=== PATIENT | male | born 1950 | race Caucasian/White ===

== ENCOUNTER → 2019-02-23 | Outpatient (CLI) | payer MEDICARE, OTHER ==
[2019-02-23 13:59] LABS: ALANINE AMINOTRANSFERASE 59 U/L (0-55); ALBUMIN 4.2 GM/DL (3.2-4.5); ALKALINE PHOSPHATASE 49 U/L (40-136); BILIRUBIN,TOTAL 0.5 MG/DL (0.1-1.0); BUN/CREATININE RATIO 19; CALCIUM 9.2 MG/DL (8.5-10.1); CARBON DIOXIDE 27 MMOL/L (21-32); CHLORIDE 102 MMOL/L (98-107); CREATININE SERUM 1.11 MG/DL (0.60-1.30); GFR ESTIMATED > 60; GLUCOSE 105 MG/DL (70-105); SODIUM 141 MMOL/L (135-145)
== END ==
LOC: LAB FS 13:15
PROVIDERS: ATTEND Pediatrics
DX: E87.5 Hyperkalemia (principal)
CPT/HCPCS: 36415; 80053

== ENCOUNTER 2021-09-24 15:10 | Emergency (ER) | payer MEDICARE, OTHER ==
--- NOTE | 2021-09-24 15:21 | ED General ---
General Stated Complaint: AMS Source of Information: Patient, EMS Exam Limitations: Other (slow to answer questions and somnolent) History of Present Illness Date Seen by Provider: Sep 24, 2021 Time Seen by Provider: 15:10 Initial Comments 71 year old male presenting by EMS with altered mental status. He has a history of COPD and is to be wearing oxygen but was found laying on the floor without any oxygen tubing on him. There was no evidence of acute fall or injury. He had been found by a neighbor when they went to check on him. When EMS put him back on his oxygen transported the said that he did become more alert. According to his family he has had a previous brain aneurysm and had some mental difficulties since then. That was over 15 years ago when Amber in [place] was going by [facility]. He does live on his own and cares for himself but his family does have DPOA. He is answering questions as to his name and place as being in the hospital but is not oriented to time. He cannot answer any questions about why he was here or what was going on for him today. Family reports that last they had called 911 to try and get him transported to be evaluated because he was having slurred speech and confusion and thought that he was having a stroke at that time. However when EMS arrived he had refused transport. Associated Systoms: No Chest Pain (denies chest pains), No Cough, No Fever/Chills, No Headaches (denies headache), No Nausea/Vomiting; Shortness of Air (chronic with COPD) Allergies and Home Medications Allergies Coded Allergies: No Known Drug Allergies (Unverified , 09/24/21) Patient Home Medication List Home Medication List Reviewed: Yes Review of Systems Review of Systems Constitutional: No chills, No fever Unable to obtain full ROS due to patient being somnolent and not answering questions. 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 oz. kg; BMI Method: General Appearance: No Apparent Distress, Chronically ill, Other (somnolent and slow to answer questions. oriented to person and place as hospital) HEENT: PERRL/EOMI; No Pharynx Normal (dry mucous membranes) Neck: Full Range of Motion, Supple Respiratory: Chest Non Tender, Lungs Clear, No Accessory Muscle Use, No Respiratory Distress, Decreased Breath Sounds; No Stridor Cardiovascular: Normal Peripheral Pulses, Tachycardia Gastrointestinal: Normal Bowel Sounds, No Pulsatile Mass, Non Tender, Soft Rectal: Heme Negative Stool Extremity: Normal Capillary Refill, Normal Range of Motion, Pedal Edema (1+ pitting edema BLE) Neurologic/Psychiatric: No Alert (somnolent but awakens to voice), No Oriented x3 (oriented to self and place); No Motor/Sensory Deficits, Other (moving all extremities without any evidence of focal deficit. he was not following commands consistently enough to obtain a NIHSS.) Skin: Warm/Dry, Ecchymosis (several bruises in various stages of healing), Pallor Focused Exam Sepsis Stage: Ruled Out Reason for ruling out sepsis: No source for infection Lactate Level 09/24/21 15:30: Lactic Acid Level 4.12*H 09/24/21 18:40: Lactic Acid Level 1.41 Time of Focused Exam: 18:30 Respiratory: Chest Non Tender, Lungs Clear, No Accessory Muscle Use, No Respiratory Distress, Decreased Breath Sounds Cardiovascular: Normal Peripheral Pulses Capillary Refill: Less Than 3 Seconds Peripheral Pulses: 2+ Radial Pulses (R), 2+ Radial Pulses (L) Skin: warm/dry, pallor Lactic Acid Level Laboratory Tests Test 09/24/21 15:30 09/24/21 18:40 Lactic Acid Level 4.12 MMOL/L (0.50-2.00) *H 1.41 MMOL/L (0.50-2.00) Within 3hrs of presentation: Admin fluids, Blood cultures prior to ABX's, Focus exam, Lactate level Progress/Results/Core Measures Suspected Sepsis Recent Fever Within 48 Hours: No New/Unexplained Altered Menta: Yes Within 3hrs of presentation: Admin fluids, Blood cultures prior to ABX's, Focus exam SIRS Temperature: Pulse: Respiratory Rate: Laboratory Tests 09/24/21 15:30: White Blood Count 9.9 Blood Pressure / Mean: 09/24/21 15:30: Lactic Acid Level 4.12*H 09/24/21 18:40: Lactic Acid Level 1.41 Laboratory Tests 09/24/21 15:30: Creatinine 1.57H, INR Comment 1.2, Platelet Count 434H, Total Bilirubin 0.7 Results/Orders Lab Results Laboratory Tests Test 09/24/21 15:30 09/24/21 15:42 09/24/21 18:40 09/24/21 19:20 Range/Units White Blood Count 9.9 4.3-11.0 10^3/uL Red Blood Count 3.06 L 4.30-5.52 10^6/uL Hemoglobin 6.7 *L 13.3-17.7 g/dL Hematocrit 26 L 40-54 % Mean Corpuscular Volume 85 80-99 fL Mean Corpuscular Hemoglobin 22 L 25-34 pg Mean Corpuscular Hemoglobin Concent 26 L 32-36 g/dL Red Cell Distribution Width 21.2 H 10.0-14.5 % Platelet Count 434 H 130-400 10^3/uL Mean Platelet Volume 11.9 9.0-12.2 fL Immature Granulocyte % (Auto) 1 % Neutrophils (%) (Auto) 82 H 42-75 % Lymphocytes (%) (Auto) 5 L 12-44 % Monocytes (%) (Auto) 11 0-12 % Eosinophils (%) (Auto) 1 0-10 % Basophils (%) (Auto) 0 0-10 % Neutrophils # (Auto) 8.1 H 1.8-7.8 X 10^3 Lymphocytes # (Auto) 0.5 L 1.0-4.0 X 10^3 Monocytes # (Auto) 1.1 H 0.0-1.0 X 10^3 Eosinophils # (Auto) 0.1 0.0-0.3 10^3/uL Basophils # (Auto) 0.0 0.0-0.1 10^3/uL Immature Granulocyte # (Auto) 0.1 0.0-0.1 10^3/uL Neutrophils % (Manual) 91 % Lymphocytes % (Manual) 6 % Monocytes % (Manual) 2 % Eosinophils % (Manual) 0 % Basophils % (Manual) 1 % Band Neutrophils 0 % Hypochromasia MODERATE Anisocytosis MODERATE Prothrombin Time 15.5 H 12.2-14.7 SEC INR Comment 1.2 0.8-1.4 Activated Partial Thromboplast Time 29 24-35 SEC Sodium Level 145 135-145 MMOL/L Potassium Level 4.8 3.6-5.0 MMOL/L Chloride Level 107 98-107 MMOL/L Carbon Dioxide Level 26 21-32 MMOL/L Anion Gap 12 5-14 MMOL/L Blood Urea Nitrogen 46 H 7-18 MG/DL Creatinine 1.57 H 0.60-1.30 MG/DL Estimat Glomerular Filtration Rate 44 BUN/Creatinine Ratio 29 Glucose Level 110 H 70-105 MG/DL Lactic Acid Level 4.12 *H 1.41 0.50-2.00 MMOL/L Calcium Level 9.3 8.5-10.1 MG/DL Corrected Calcium 9.3 8.5-10.1 MG/DL Total Bilirubin 0.7 0.1-1.0 MG/DL Aspartate Amino Transf (AST/SGOT) 117 H 5-34 U/L Alanine Aminotransferase (ALT/SGPT) 70 H 0-55 U/L Alkaline Phosphatase 68 40-136 U/L Troponin I < 0.30 <0.30 NG/ML C-Reactive Protein < 0.30 <0.50 MG/DL Pro-B-Type Natriuretic Peptide 3700.0 H <75.0 PG/ML Total Protein 7.0 6.4-8.2 GM/DL Albumin 4.0 3.2-4.5 GM/DL Serum Alcohol < 10 <10 MG/DL Urine Color YELLOW Urine Clarity CLEAR Urine pH 5.5 5-9 Urine Specific Elkins 1.025 H 1.016-1.022 Urine Protein TRACE H NEGATIVE Urine Glucose (UA) NEGATIVE NEGATIVE Urine Ketones TRACE H NEGATIVE Urine Nitrite NEGATIVE NEGATIVE Urine Bilirubin NEGATIVE NEGATIVE Urine Urobilinogen 0.2 < = 1.0 MG/DL Urine Leukocyte Esterase NEGATIVE NEGATIVE Urine RBC (Auto) NEGATIVE NEGATIVE Urine RBC NONE /HPF Urine WBC 2-5 /HPF Urine Squamous Epithelial Cells NONE /HPF Urine Crystals NONE /LPF Urine Bacteria TRACE /HPF Urine Casts PRESENT /LPF Urine Hyaline Casts 2-5 H /LPF Urine Mucus NEGATIVE /LPF Urine Culture Indicated NO Urine Opiates Screen NEGATIVE NEGATIVE Urine Oxycodone Screen NEGATIVE NEGATIVE Urine Methadone Screen NEGATIVE NEGATIVE Urine Propoxyphene Screen NEGATIVE NEGATIVE Urine Barbiturates Screen NEGATIVE NEGATIVE Ur Tricyclic Antidepressants Screen NEGATIVE NEGATIVE Urine Phencyclidine Screen NEGATIVE NEGATIVE Urine Amphetamines Screen NEGATIVE NEGATIVE Urine Methamphetamines Screen NEGATIVE NEGATIVE Urine Benzodiazepines Screen NEGATIVE NEGATIVE Urine Cocaine Screen NEGATIVE NEGATIVE Urine Cannabinoids Screen NEGATIVE NEGATIVE Blood Gas Puncture Site LT RADIAL Blood Gas Patient Temperature 36.8 Arterial Blood pH 7.27 *L 7.37-7.43 Arterial Blood Partial Pressure CO2 68 H 35-45 MMHG Arterial Blood Partial Pressure O2 85 79-93 MMHG Arterial Blood HCO3 31 H 23-27 MMOL/L Arterial Blood Total CO2 33.3 H 21.0-31.0 MMOL/L Arterial Blood Oxygen Saturation 95 94-100 % Arterial Blood Base Excess 2.6 H -2.5-2.5 MMOL/L Sumit Test OK Blood Gas Ventilator Setting NO Blood Gas Inspired Oxygen 2 LITERS My Orders Orders - YORDY KING MD Monitor-Rhythm Ecg Trace Only (09/24/21 15:21) Ed Iv/Invasive Line Start (09/24/21 15:21) Cbc With Automated Diff (09/24/21 15:21) Comprehensive Metabolic Panel (09/24/21 15:21) Crp Fs (09/24/21 15:21) Troponin I Fs (09/24/21 15:21) Protime With Inr (09/24/21 15:) Partial Thromboplastin Time (09/24/21 15:21) Ekg Tracing (09/24/21 15:21) O2 (09/24/21 15:21) Blood Culture (09/24/21 15:21) Probnp Fs (09/24/21 15:21) Lactic Acid Analyzer (09/24/21 15:21) Drug Screen Stat (Urine) (09/24/21 15:21) Alcohol (09/24/21 15:21) Ua Culture If Indicated (09/24/21 15:21) Chest 1 View Ap/Pa Only (09/24/21 15:21) Ct Head Wo (09/24/21 15:21) Manual Differential (09/24/21 15:30) Fecal Occult Bedside (09/24/21 16:00) Ns Iv 1000 Ml (Sodium Chloride 0.9%) (09/24/21 17:14) Ns Iv 1000 Ml (Sodium Chloride 0.9%) (09/24/21 19:11) Arterial Blood Gas (09/24/21 19:20) Vital Signs/I&O 11/17/21 11/17/21 15:10 15:15 Temp 36.0 Pulse 115 Resp 23 B/P (MAP) 126/67 (86) Pulse Ox 90 92 O2 Delivery Nasal Cannula Nasal Cannula O2 Flow Rate 2.00 Capillary Refill : Progress Note #1: Progress Note With his decreased mental status will obtain CT head to look for stroke or bleeding. ECG to look for acute OK or arrhythmia. Labs to check for anemia, sepsis, electrolyte imbalance, renal failure, hepatic failure, heart failure, coagulopathy. Try to get ABG since pt has history of COPD and is not compliant with oxygen and treatment. Progress Note #2: Time: 16:00 Progress Note Hemoglobin came back at 6.7 so Hemoccult at bedside was done. The bedside Hemoccult was negative. His chemistry was still pending. Progress Note #3: Time: 16:23 Progress Note Call received by radiology about CT scan of the head showing subacute to chronic subdural hematoma, with findings for hypodensity along the right sylvian fissure, that might indicate a recent infarct. BELLOWS ASSEMBLER shunt in place with dilated ventricles but no old study for comparison so unable to state if ventricles were more dilated than usual or not. Findings for previous clipping or coiling consistent with hx from family about 2006 aneurysm. Chemistry came back showing elevated lactic acid of 4.12 and elevated BUN of 46 with creatinine of 1.57. His other electrolytes were all stable. He did have negative troponin of less than 0.3. Will give a Liter of NS to help with sinus tachycardia from his ECG and telemetry monitoring as well as dehydration and elevated Lactic acid. Nash catheter was placed to obtain UA and monitor urine output. Despite multiple attempts pt was moving too much and ABG was not able to be obtained. CXR clear of infiltrate or effusion. When updated patient and family, the family was requesting redo what ever was felt to be medically indicated to help him. Patient was not making any comments 1 way or the other about admission or transfer. Family was requesting patient try to go to [place] since he initially had his brain aneurysm treated in 2005 at [facility] which is now [facility]. They were also okay with going to [facility] which is also in [place]. 1732 call placed to [facility] call and reached SANKET Santiago. She stated that [facility] was at capacity and that [facility] was at capacity with 36 admit holds in the ED. She stated that if we called back overnight to order in 24 hours they may have a change in bed status but currently they were at capacity. 1737 call placed to [facility] in [place] and spoke with SANKET Baird. He stated that they were on MedSurg diversion. They did have me speak with Dr. Reed from Neurosurgery in case she thought the patient could go to ICU type bed at [facility]. After discussing the case with her, she felt he would be better served to go to a facility that also had vascular surgery with his history of aneurysm and now having subdural hemorrhage and hypodensities in brain. 1759 I spoke with SANKET Reid at [facility]. He stated that all of the [facility] facilities in the [place] [facility] area were at capacity for PCU and ICU beds. 1803 I spoke with SANKET Samuels at [facility] and gave her information about the patient. She stated that she would go over things with the physician liaison and reach out if the patient could be accepted to . 1845 Abril called back from to state that they were at capacity and were unable to accept the patient. 185 I spoke with SANKET Faria, at [facility] [place] and gave her some basic information on the patient. She requested facesheet and the images to be clouded so they could be reviewed by Neurosurgery and transfer doctor. Will call back once they have those things. 1906 Call placed to [facility] for assistance with finding bed placement for the pateint. 1953 [facility] called back and Dr. Brand and Dr. Mcdonnell called back. After review of the case with them they accepted him to come to the ED at [facility] on the [place] to be further evaluated and worked up for anemia, subdural hematoma, possible new infarct with hypodensities along sylvian fissure. Will have nurses call back to obtain report so patient may come to the ED. Patient did have an ABG come back that showed mild acidosis with pH of 7.27 and pCO2 retention of 68 with pO2 of 85 and O2 sat of 95 on 2 lpm O2. His recheck of Lactic acid after 1 L of NS did improve from 4.12 to 1.4. His heart rate came down from 120 to 106. As he never had a source for infection it was felt his elevated lactic acid was due to dehydration, hypoxia from non compliance with COPD treatment. Thus no antibiotics were given. He did have elevated proBNP of 3700 but no prior level for comparison and his CXR was clear without signs of infiltrate or failure. ECG Initial ECG Impression Date: Sep 24, 2021 Initial ECG Impression Time: 16:11 Initial ECG Rate: 115 Initial ECG Rhythm: S.Tach Initial ECG Comparisson: No Previous ECG Available Comment Sinus tachycardia with a heart rate of 115 bpm. Early repolarization changes in diffuse leads with ST depression. IA interval 138 ms. QT interval 329 ms with a QTc interval [address] elevation. No prior tracing for comparison. There is baseline wander and artifact due to movement Diagnostic Imaging Diagonstic Imaging: Xray Plain Films/CT/US/NM/MRI: chest Comments [facility] [place] NAME: [facility] REC#: [id number] PT STATUS: REG ER : 1950 PHYSICIAN: YORDY KING MD ADMIT DATE: 09/24/21/ER FS Signed Date of Exam:09/24/21 CHEST 1 VIEW AP/PA ONLY INDICATION: Confusion, altered mental status, shortness of breath. COMPARISON: None. FINDINGS: BELLOWS ASSEMBLER shunt line is seen on the right. Lungs are clear. The heart is normal. There is no pneumothorax. Osseous structures are stable. IMPRESSION: Negative chest. Dictated by: Dictated on workstation # [id number] Dict: 09/24/218 Trans: 09/24/211627 AS6 [id number] Interpreted by: MARIA G TUBBS Electronically signed by: MARIA G TUBBS 09/24/211627 Reviewed: Reviewed by Me Diagonstic Imaging: CT Plain Films/CT/US/NM/MRI: head Comments [facility] [place] [place] NAME: [facility] REC#: [id number] PT STATUS: REG ER : 1950 PHYSICIAN: YORDY KING MD ADMIT DATE: 09/24/21/ER FS Signed Date of Exam:09/24/21 CT HEAD WO PROCEDURE: CT head without contrast. TECHNIQUE: Multiple contiguous axial images were obtained through the brain without the use of intravenous contrast. Auto Exposure Controls were utilized during the CT exam to meet ALARA standards for radiation dose reduction. INDICATION: Altered mental status, confusion. COMPARISON: None available. FINDINGS: A lead/catheter is identified extending into the right frontal lobe through the right frontal bone. This is associated with hypodensity along the course of this lead. This does not extend into the ventricular system. An additional shunt catheter is present entering via a posterior right parietal approach with the distal tip extending to midline within the ventricular system. A small amount of slightly hyperdense fluid is noted within the extra-axial location overlying the left cerebral hemisphere. This measures up to 4 mm in maximal thickness. There is no significant midline shift. No uncal herniation. Focal hypodensity is identified involving the posterior right frontal and anterior right parietotemporal lobes adjacent to the sylvian fissure. This appears to be associated with the cortex and underlying white matter. Prominence of the ventricular system is noted. Aneurysm coils are identified near the expected location of the tip of the basilar artery. Scattered vascular calcifications are present. The paranasal sinuses are clear. Besides postsurgical changes, the calvarium and extracalvarial soft tissues are unremarkable. IMPRESSION: Minimal extra-axial slight hyperdensities overlying the left cerebellar hemisphere concerning for a tiny jzczidh-le-tugdgxiz subdural hematoma without mass effect. Focal hypodensities adjacent to the right sylvian fissure. Though indeterminate, this could relate to a recent infarction. Further evaluation with MRI of the brain would help to further evaluate. Ventricular shunt catheters are in place. Mild prominence of the ventricular system is identified. Comparison to prior imaging would be recommended to evaluate for change or developing hydrocephalus. Additional chronic and postsurgical changes as described above. Findings discussed with Dr. King at 1623 hours on September 24, 2021. Dictated by: Dictated on workstation # [id number] Dict: 09/24/211609 Trans: 09/24/211653 AS6 [id number] Interpreted by: CARLTON GIANG MD Electronically signed by: CARLTON GIANG MD 09/24/211653 Reviewed: Reviewed by Me Critical Care Note Critical Care Total Time (minutes) 60 minutes Progress 60 minutes of critical care time was spent in direct care of the patient. This time excludes separately billable procedures. Time was spent in obtaining history from patient, family, electronic medical record, ordering test and reviewing results, ordering interventions and reviewing response, discussion with consultants, documentation in the chart. Patient was at risk of neurologic compromise, cardiovascular compromise. He required my direct attention and care to manage his medical condition and then spent over 2.5 hours working on arranging transfer of patient. Departure Impression Primary Impression: Subacute subdural hematoma Additional Impressions: Anemia Qualified Codes: D64.9 - Anemia, unspecified Acute kidney injury Dehydration COPD (chronic obstructive pulmonary disease) Qualified Codes: J44.9 - Chronic obstructive pulmonary disease, unspecified Subacute confusional state of cerebrovascular origin Carbon dioxide retention Disposition: XFER SHT-TRM HOSP Condition: Stable Transfer Transfer Reason: Exceeds level of care (Neurosurgery/Neurology/Hematology/Pulmonology) Time Spoke to Accepting Phy: 19:54 Transfer Progress Notes Discussed with Dr. Brand and Dr. Mcdonnell at [facility]. They had reviewed his images and I reviewed information about the patient. They agreed he needed additional work up and evaluation to determine better what was going on for him with his anemia, subdural hematoma, possible new infarct, chronic hypoxia with CO2 retention and COPD. Transfer Facility: [facility] Method of Transfer: EMS Departure-Patient Inst. Referrals: SHIRLEY CANTU MD (PCP/Family) Primary Care Physician YORDY KING MD Sep 24, 2021 15:20
[2021-09-24 15:52] LABS: WHITE BLOOD COUNT 9.9 10^3/uL (4.3-11.0)
[2021-09-24 15:54] LABS: HEMATOCRIT 26 % (40-54); HEMOGLOBIN 6.7 g/dL (13.3-17.7); MEAN CORPUSCULAR HEMOGLOBIN 22 pg (25-34); MEAN CORPUSCULAR HGB CONC 26 g/dL (32-36); MEAN CORPUSCULAR VOLUME 85 fL (80-99); MEAN PLATELET VOLUME 11.9 fL (9.0-12.2); PLATELET COUNT 434 10^3/uL (130-400)
[2021-09-24 15:55] LABS: BASOPHILS % (AUTO) 0 % (0-10); EOSINOPHILS % (AUTO) 1 % (0-10); LYMPHOCYTES % (AUTO) 5 % (12-44); MONOCYTES % (AUTO) 11 % (0-12); NEUTROPHILS # (AUTO) 8.1 X 10^3 (1.8-7.8); NEUTROPHILS % (AUTO) 82 % (42-75)
[2021-09-24 15:56] LABS: EOSINOPHILS # (AUTO) 0.1 10^3/uL (0.0-0.3); LYMPHOCYTES # (AUTO) 0.5 X 10^3 (1.0-4.0); MONOCYTES # (AUTO) 1.1 X 10^3 (0.0-1.0)
[2021-09-24 16:07] LABS: INR 1.2 (0.8-1.4); PROTHROMBIN TIME PATIENT 15.5 SEC (12.2-14.7)
[2021-09-24 16:12] LABS: BILIRUBIN,URINE NEGATIVE (NEGATIVE); CLARITY,URINE CLEAR; COLOR,URINE YELLOW; GLUCOSE, URINE (UA) NEGATIVE (NEGATIVE); KETONES,URINE TRACE (NEGATIVE); LEUKOCYTE ESTERASE ,URINE NEGATIVE (NEGATIVE); NITRITE,URINE NEGATIVE (NEGATIVE); PH,URINE 5.5 (5-9); PROTEIN,URINE TRACE (NEGATIVE)
[2021-09-24 16:25] LABS: BUN/CREATININE RATIO 29; CARBON DIOXIDE 26 MMOL/L (21-32); CHLORIDE 107 MMOL/L (98-107); CREATININE SERUM 1.57 MG/DL (0.60-1.30); GFR ESTIMATED 44; POTASSIUM 4.8 MMOL/L (3.6-5.0); SODIUM 145 MMOL/L (135-145)
--- NOTE | 2021-09-24 16:25 | Diagnostic Imaging Report ---
INDICATION: Confusion, altered mental status, shortness of breath. COMPARISON: None. FINDINGS: FILAMENT WELDER shunt line is seen on the right. Lungs are clear. The heart is normal. There is no pneumothorax. Osseous structures are stable. IMPRESSION: Negative chest. Dictated by: Dictated on workstation # [id number]
[2021-09-24 16:26] LABS: ALANINE AMINOTRANSFERASE 70 U/L (0-55); ALKALINE PHOSPHATASE 68 U/L (40-136); BILIRUBIN,TOTAL 0.7 MG/DL (0.1-1.0); CALCIUM 9.3 MG/DL (8.5-10.1); GLUCOSE 110 MG/DL (70-105)
[2021-09-24 16:35] LABS: BACTERIA,URINE TRACE /HPF
[2021-09-24 16:36] LABS: AMPHETAMINE SCREEN, URINE NEGATIVE (NEGATIVE); BARBITURATE SCREEN URINE NEGATIVE (NEGATIVE); BENZODIAZEPINES SCREEN URINE NEGATIVE (NEGATIVE); CANNABINOID SCREEN, URINE NEGATIVE (NEGATIVE); COCAINE SCREEN URINE NEGATIVE (NEGATIVE); METHADONE STAT NEGATIVE (NEGATIVE); METHAMPHETAMINE SCREEN URINE S NEGATIVE (NEGATIVE); OPIATE SCREEN URINE NEGATIVE (NEGATIVE); OXYCODONE STAT NEGATIVE (NEGATIVE); PROPOXYPHENE STAT NEGATIVE (NEGATIVE); TRICYCLIC ANTIDEPRESSANTS SCRE NEGATIVE (NEGATIVE)
--- NOTE | 2021-09-24 16:36 | Diagnostic Imaging Report ---
PROCEDURE: CT head without contrast. TECHNIQUE: Multiple contiguous axial images were obtained through the brain without the use of intravenous contrast. Auto Exposure Controls were utilized during the CT exam to meet ALARA standards for radiation dose reduction. INDICATION: Altered mental status, confusion. COMPARISON: None available. FINDINGS: A lead/catheter is identified extending into the right frontal lobe through the right frontal bone. This is associated with hypodensity along the course of this lead. This does not extend into the ventricular system. An additional shunt catheter is present entering via a posterior right parietal approach with the distal tip extending to midline within the ventricular system. A small amount of slightly hyperdense fluid is noted within the extra-axial location overlying the left cerebral hemisphere. This measures up to 4 mm in maximal thickness. There is no significant midline shift. No uncal herniation. Focal hypodensity is identified involving the posterior right frontal and anterior right parietotemporal lobes adjacent to the sylvian fissure. This appears to be associated with the cortex and underlying white matter. Prominence of the ventricular system is noted. Aneurysm coils are identified near the expected location of the tip of the basilar artery. Scattered vascular calcifications are present. The paranasal sinuses are clear. Besides postsurgical changes, the calvarium and extracalvarial soft tissues are unremarkable. IMPRESSION: Minimal extra-axial slight hyperdensities overlying the left cerebellar hemisphere concerning for a tiny mfenstt-if-soyihjxi subdural hematoma without mass effect. Focal hypodensities adjacent to the right sylvian fissure. Though indeterminate, this could relate to a recent infarction. Further evaluation with MRI of the brain would help to further evaluate. Ventricular shunt catheters are in place. Mild prominence of the ventricular system is identified. Comparison to prior imaging would be recommended to evaluate for change or developing hydrocephalus. Additional chronic and postsurgical changes as described above. Findings discussed with Dr. Galvan at 1623 hours on September 24, 2021. Dictated by: Dictated on workstation # [id number]
[2021-09-24 17:13] LABS: ANISOCYTOSIS MODERATE; BAND NEUTROPHILS 0 %; BASOPHILS % (MANUAL) 1 %; EOSINOPHILS % (MANUAL) 0 %; HYPOCHROMASIA MODERATE; LYMPHOCYTES % (MANUAL) 6 %; MONOCYTES % (MANUAL) 2 %; NEUTROPHILS % (MANUAL) 91 %
[2021-09-24] MEDS ORDERED: NS IV 1000 ML 1,000 ML IV STA ×2 (17:14→19:11)
[2021-09-24 19:32] LABS: ABG BASE EXCESS 2.6 MMOL/L (-2.5-2.5); ABG OXYGEN SATURATION 95 % (94-100); ABG PCO2 68 MMHG (35-45); ABG PH 7.27 (7.37-7.43); ABG PO2 85 MMHG (79-93); ABG TCO2 33.3 MMOL/L (21.0-31.0)
[2021-09-24 19:33] LABS: ALLENS TEST OK; INSPIRED O2 2 LITERS; PATIENT TEMP 36.8; VENTILATOR NO
[2021-09-24 20:53] VITALS: BP 98/65
--- OUTSIDE RECORDS SUMMARY | 2021-09-29 10:10 | XMS REPORT | Encounter Summary ---
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
--- OUTSIDE RECORDS SUMMARY | 2021-09-29 10:10 | XMS REPORT | Encounter Summary ---
Author Author [facility] Organization [facility] Address Unknown Phone Unavailable Care Team Providers Care Lathe Puller Name Role Phone Walker Cruz MD PCP Reason for Visit * Reason Comments Altered Mental Status pt transfer from [facility]. Found on floor today by neighbor. Dx with SDH and subacute stroke. pt is A&Ox1 * Auth/Cert Diagnoses / Procedures Referred By Contact Referred To Conta ct Specialty Diagnoses Subdural hemorrhage (HCC) Dehydration Altered mental status, unspecified altered mental status type SDH, altered mental status Fall Referral ID Status Reason Start Date Expiration Visits Vi sits Date Requested Authorized [id number] 1 1 Encounter Details Care Team Description Date Type Department Natasha Pineda MD [address] [place], [place] [id number] Angel Kowalski MD [address] [facility] [address] [place], [place] [id number] Kwesi Hooks MD [address] [place] [address] Altered mental status, unspecified alter ed mental status type (Primary Dx); Subdural hemorrhage (HCC); Dehydration 09/24/2021 [facility] Encounter [address] [place], [place] [id number] Social History Date Tobacco Use Types Packs/Day Years Used Never Assessed Sex Assigned at Date Recorded Not on file documented as of this encounter Last Filed Vital Signs Reading Time Taken Comments Vital Sign 160/71 09/29/2021 9:00 AM WEED COOKING OPERATOR Blood Pressure 120 09/29/2021 9:00 AM WEED COOKING OPERATOR Pulse 37 C (98.6 F) 09/29/2021 8:00 AM WEED COOKING OPERATOR Temperature 27 09/29/2021 9:00 AM WEED COOKING OPERATOR Respiratory Rate 98% 09/29/2021 9:00 AM WEED COOKING OPERATOR Oxygen Saturation - - Inhaled Oxygen Concentration 68.4 kg (150 lb 12.7 oz) 09/29/2021 5:27 AM WEED COOKING OPERATOR Weight 167.6 cm (5' 6") 09/24/2021 11:48 PM WEED COOKING OPERATOR Height 24.34 09/24/2021 11:48 PM WEED COOKING OPERATOR Body Mass Index documented in this encounter Progress Notes * Laura Sheets MD - 09/28/2021 1:52 PM WEED COOKING OPERATOR [facility] PROGRESS NOTE REASON FOR SEEING PATIENT: Suspected meningitis SUBJECTIVE: Mental status is about the same. No change in mental status OBJECTIVE: No fever, white blood cell count 10.85 MEDICATIONS: Scheduled Medications: acyclovir 10 mg/kg ([place]) Intravenous Q12H GLYNN ampicillin 2 g Intravenous Q6H GLYNN bisacodyL 10 mg Rectal Daily cefepime 2 g Intravenous Q12H GLYNN famotidine 20 mg Oral Q12H Or famotidine 20 mg Intravenous Q12H guanFACINE 2 mg Per NG tube BID haloperidol lactate 5 mg Intravenous Once insulin lispro 2-7 Units Subcutaneous Q6H GLYNN ipratropium-albuteroL 3 mL Inhalation 4x daily therapeutic multivitamin 1 tablet Oral Daily polyethylene glycol 17 g Oral Daily senna-docusate 2 tablet Oral BID thiamine 250 mg Intravenous TID vancomycin 750 mg Intravenous Q12H Continuous Infusions: PRN Medications: alteplase, dextrose 50%, flumazeniL, glucagon OR glucagon, glucose, hydrALAZ INE, ubflif-wowxrolt-dgrppyn AND sodium bicarbonate, LORazepam OR LORaze daisy, magnesium hydroxide, ondansetron, prochlorperazine OR prochlorperazine OR prochlorperazine LABORATORY RESULTS: Last CBC: Most Recent Result within the last 7 days Lab Units 09/27/21 2350 09/27/21 0627 09/27/21 0029 09/26/21 1223 09/26/21 0028 09/25/21 1226 09/25/21 0102 09/24/21 2249 09/24/212248 WBC TH/uL 10.85 -- 11.36* -- 12.75* -- 12.78* -- 13.22* HEMOGLOBIN g/dL 8.0* 8.0* 6.8* 7.0* 7.3* 7.8* 6.0* < > 6.1* HEMATOCRIT % 29* 28* 25* 26* 27* 28* 23* < > 23* PLATELET COUNT Th/uL 169 -- 202 -- 238 -- 322 -- 330 < > = values in this interval not displayed. Last BMP: Most Recent Result within the last 7 days Lab Units 09/28/21 0827 09/27/21 2350 09/27/21 1945 09/27/21 0803 09/27/21 0029 09/25/21 2143 09/24/21 2325 09/24/21224809/24/212248 SODIUM mEq/L 153* 153* 153* 150* 152* 149* 147* < > 147* POTASSIUM mEq/L -- 4.4 -- -- 4.3 4.6 4.6 -- 5.0 CARBON DIOXIDE mEq/L -- 29 -- -- 28 28 29 -- 28 BLOOD UREA NITROGEN mg/dL -- 46* -- -- 46* 46* 44* -- 43* CREATININE mg/dL -- 1.20 -- -- 1.20 1.20 1.40* -- 1.50* CALCIUM mg/dL -- 8.3 -- -- 8.0* 9.6 8.8 -- 8.9 < > = values in this interval not displayed. Lab Results Component Value Date PROCALCIT 0.09 (H) 09/25/2021 CULTURES: Results for orders placed or performed during the hospital encounter of 09/24/21 Extra Urine Specimen in [facility] Tube Collection Time: 09/24/21 11:16 PM Specimen: Urine Clean Catch - RAINBOW DRAW HOLD SPECIMENS [place] Draw/Extra Tube Hold Specimen CULTURE SUMMARY: Not available SEROLOGIES: SARS-CoV-2 PCR negative IMAGING MRI brain pending PHYSICAL EXAMINATION: Vitals: 09/28/21 1315 BP: (!) 147/115 Pulse: (!) 123 Resp: 22 Temp: TempSrc: SpO2: 94% Weight: Height: Temp (24hrs), Av.5 C (97.7 F), Min:36.1 C (96.9 F), Max:36.8 C (98 .2 F) General: Does not follow command Head: Normocephalic, atraumatic Neck: no adenopathy Chest: clear to auscultation bilaterally CV: regular rhythm without murmur, gallop or rub Abdomen: normal bowel sounds, soft, nontender PROBLEM LIST: Principal Problem: Encephalopathy Active Problems: UTI (urinary tract infection) SDH (subdural hematoma) (HCC) History of cerebral aneurysm S/P CAT BREEDER shunt COPD (chronic obstructive pulmonary disease) (HCC) Bronchitis Elevated INR GWENDOLYN (acute kidney injury) (HCC) Hypernatremia Other specified anemias Elevated troponin Acute pain due to trauma Coagulopathy (HCC) Acute encephalopathy Chronic respiratory failure with hypoxia (HCC) COPD with acute exacerbation (HCC) Leukocytosis Anemia Transaminitis Hx of hepatitis C LOS: 4 days IMPRESSION: 1. Altered mental status, possible meningitis encephalitis, lumbar puncture have been unsuccessful. 2. Chronic hypoxic respiratory failure 3. History of cerebral aneurysm s/p coiling of left occipital 4. Urinary tract infection RECOMMENDATIONS Follow-up on urine culture Follow-up on MRI results Noted that family found several empty bottles of whiskey and empty hydrocodon e bottles around his home. Patient is started on CIWA protocol. Continue current antimicrobial, based on the MRI findings will decide about h is antimicrobial regimen. Electronically signed by Laura Sheets MD 09/28/2021 1:52 PM COOKING OPERATOR * Nori Santana APRN - 09/28/2021 8:43 AM WEED COOKING OPERATOR NEUROLOGY PROGRESS NOTE Patient: Sher Cary : 1950 PCP: Walker Cruz MD LOS: 4 CHIEF COMPLAINT Encephalopathy INTERVAL HISTORY History is provided via: nurse No acute events overnight. Does not participate in exam this morning, does not f ollow commands or answer questions. Remains on precedex for agitation and receiv ed Ativan per CIWA protocol. MRI brain pending; awaiting records regarding CAT BREEDER sh unt to determine if MRI compatible. REVIEW OF SYSTEMS Unable to obtain ROS; does not answer questions MEDICATIONS dexmedeTOMIDINE 0.8 mcg/kg/hr (09/28/21 0251) acyclovir 10 mg/kg ([place]) Intravenous Q12H GLYNN ampicillin 2 g Intravenous Q6H GLYNN bisacodyL 10 mg Rectal Daily cefepime 2 g Intravenous Q12H GLYNN famotidine 20 mg Oral Q12H Or famotidine 20 mg Intravenous Q12H guanFACINE 2 mg Per NG tube BID haloperidol lactate 5 mg Intravenous Once insulin lispro 2-7 Units Subcutaneous Q6H GLYNN ipratropium-albuteroL 3 mL Inhalation 4x daily therapeutic multivitamin 1 tablet Oral Daily polyethylene glycol 17 g Oral Daily senna-docusate 2 tablet Oral BID thiamine 500 mg Intravenous TID Followed by thiamine 250 mg Intravenous TID vancomycin 750 mg Intravenous Q12H alteplase, dextrose 50%, flumazeniL, glucagon OR glucagon, glucose, hydrALAZ INE, pshzif-lfjowvsy-pcjdijp AND sodium bicarbonate, LORazepam OR LORaze daisy, magnesium hydroxide, ondansetron, prochlorperazine OR prochlorperazine OR prochlorperazine PHYSICAL EXAMINATION Patient Vitals for the past 4 hrs: BP Temp Temp src Pulse Resp SpO2 Weight 09/28/21 0823 92 28 97 % 09/28/21 0800 136/65 36.6 C (97.9 F) Axillary 80 20 99 % 09/28/21 0700 (!) 140/69 76 20 98 % 09/28/21 0600 126/84 83 18 97 % 88 kg (194 lb 0.1 oz) 09/28/21 0500 122/60 75 18 95 % Systolic (24hrs), Av , Min:112 , Max:153 Diastolic (24hrs), Av, Min:52, Max:91 Ht Readings from Last 1 Encounters: 09/24/21 1.676 m (5' 6") Wt Readings from Last 1 Encounters: 09/28/21 88 kg (194 lb 0.1 oz) Body mass index is 31.31 kg/m. General: Mr. Cary is a thin ill appearing male in no acute distress. Head: Oropharynx dry and cracked. Head normocephalic, atraumatic. Cardiac: Regular rate and rhythm. Lungs: Wheezing lung sounds bilaterally Abdomen: soft, non-tender with + BS. NG tube in place Extremities: Edema in bilateral upper and lower extremities. Scattered bruis ing in bilateral upper extremities Mental status, cognition, and cortical functions: Mental status: Sleeping; minimally responsive to voice and painful stimuli. D oes not follow commands or answer questions. Cranial nerves: Pupils are equal, round, and reactive to light. Does not open eyes at time of exam to track Gaze is conjugate with eyes held open Muscles of facial expression are symmetric at rest Motor: Muscle bulk is thin throughout. Muscle tone is normal throughout. Spontaneous movement in all extremities Reflexes (right/left): Biceps: 2/2 Brachioradialis: 2/2 Patellae: 2/2 Plantar: Mute bilaterally. No clonus Sensation: Withdrawals to painful stimuli in all extremities STUDIES REVIEWED Neurology specific images personally reviewed CT Head wo contrast Result Date: 09/25/2021 Impression: Patient motion artifact and suboptimal positioning degrades image qu ality. 1. Mixed attenuation left holohemispheric likely subacute on chronic subd ural hematoma which measures up to 6 mm in maximal thickness. No significant mas s effect or discrete midline shift given suboptimal patient positioning. Similar ventriculomegaly when compared to outside CT. 2. Nails-white loss is identified within the right frontotemporal lobe likely representing a subacute or chronic r ight MCA territory infarct. 3. Right parietal approach ventricular shunt cathete r is identified with the distal intracranial and terminating near the foramen of Betancourt. The partially visualized ventricular shunt catheter tubing and port adamaris ear intact where visualized. 4. Postprocedural changes of prior aneurysm coiling are identified possibly involving a basilar tip aneurysm. ATTESTATION STATEMENT: The staff radiologist has personally reviewed the images and dictated, reviewed, or edited the final report. READING SITE: [facility]. CT Head wo contrast Result Date: 09/25/2021 Impression: 1. Stable mixed attenuation left holohemispheric extra-axial collect ion likely representing subacute on chronic subdural hematoma measures up to 5 m m in maximal thickness. No new or enlarging intracranial hemorrhage. No signific ant mass effect or discrete midline shift. Similar ventriculomegaly. 2. Stable g ray-white loss involving the right frontotemporal lobes and right insula likely representing a subacute right MCA territory infarct. 3. Stable right parietal ap proach ventricular shunt catheter. 4. Redemonstrated postprocedural changes of p rior aneurysm coiling are identified possibly involving a basilar tip aneurysm o r PCOM aneurysm given location. ATTESTATION STATEMENT: The Staff Radiologist has personally reviewed the images and dictated, reviewed, or edited the final repo rt. CT Lumbar Spine reconstructed Result Date: 09/25/2021 1. No acute osseous abnormality of the lumbar spine. 2. Mild to moderate multi level lumbar spondylosis. READING SITE: [facility]. ATTESTATION STATEMENT : The Staff Radiologist has personally reviewed the images and dictated, reviewe d, or edited the final report. CT Thoracic Spine reconstructed Result Date: 09/25/2021 Impression: Mild to moderate multilevel degenerative thoracic spondylosis. READI NG SITE: [facility]. ATTESTATION STATEMENT: The Staff Radiologist has per sonally reviewed the images and dictated, reviewed, or edited the final report. IR Lumbar puncture w fluoro Result Date: 09/26/2021 Unable to collect spinal fluid at multiple levels. The spinal needle tip was con firmed within the thecal sac on AP and lateral on multiple levels. ATTESTATION S TATEMENT: The Staff Physician has personally reviewed the images and dictated, r eviewed, or edited the final report. READING SITE: [facility] Echo Complete with Doppler and Color Flow Result Date: 09/25/2021 1. Normal left ventricular systolic function, with an estimated ejection fract ion of 60%. 2. Normal right ventricular size and systolic function. 3. No significant valvular abnormalities. No previous study available for comparison. Dr Hans Sanchez (Electronically Signed) Final Date: 25 September 2021 12:38 LABS REVIEWED Most Recent Result within the last 7 days Lab Units 09/27/21 2350 09/27/21 0627 09/27/21 0029 09/26/21 0640 09/26/21 0028 09/25/21 1226 09/25/21 1200 WBC TH/uL 10.85 < > 11.36* -- 12.75* -- -- HEMOGLOBIN g/dL 8.0* < > 6.8* < > 7.3* < > -- HEMATOCRIT % 29* < > 25* < > 27* < > -- PLATELET COUNT Th/uL 169 < > 202 -- 238 -- -- % SEGMENTED NEUTROPHILS % -- -- -- -- 87* -- -- % LYMPHOCYTES % -- -- -- -- 3* -- -- % MONOCYTES % -- -- -- -- 9 -- -- % EOSINOPHILS % -- -- -- -- 0 -- -- % BASOPHILS % -- -- -- -- 0 -- -- SODIUM mEq/L 153* < > 152* -- -- < > -- POTASSIUM mEq/L 4.4 < > 4.3 -- -- < > -- CARBON DIOXIDE mEq/L 29 < > 28 -- -- < > -- BLOOD UREA NITROGEN mg/dL 46* < > 46* -- -- < > -- GLUCOSE mg/dL 173* < > 151* -- -- < > -- CREATININE mg/dL 1.20 < > 1.20 -- -- < > -- GFR FEMALE AA mL/min/1.73m*2 53.4* < > 53.4* -- -- < > -- GFR FEMALE NON-AA mL/min/1.73m*2 44.0* < > 44.0* -- -- < > -- CALCIUM mg/dL 8.3 < > 8.0* -- -- < > -- PHOSPHORUS mg/dL 3.3 -- -- -- -- < > -- ALBUMIN g/dL 3.2* < > 3.2* -- -- -- -- PROTEIN TOTAL SERUM g/dL -- -- 5.2* -- -- -- -- ALKALINE PHOSPHATASE U/L -- -- 50 -- -- -- -- ALANINE AMINOTRANSFERASE U/L -- -- 114* -- -- -- -- ASPARTATE AMINOTRANSFERASE U/L -- -- 98* -- -- -- -- APTT Sec -- -- -- -- -- -- 30 INR -- -- 1.3* < > -- -- 1.1 < > = values in this interval not displayed. Most Recent Result within the last 7 days Lab Units 09/27/21 1238 09/27/21 1035 VITAMIN B12 pg/mL -- 1,218* THYROID STIMULATING HORMONE uIU/mL 5.53* -- IMPRESSION Encephalopathy; with decline over the past few months and significant change in mental status over the past week. Etiology unclear; metabolic derangements, medication effects, possible alcohol withdrawal are likely contributing factor. 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 Suspected alcohol abuse Anemia Coagulopathy COPD exacerbation Acute kidney injury RECOMMENDATIONS MRI head w/wo contrast pending- awaiting information on CAT BREEDER shunt Consider further workup of anemia/coagulopathy Labs: serum paraneoplastic panel, TPO and thyroglobulin antibody Continue Thiamine replacement CIWA protocol based on family reported alcohol abuse Neuro checks per unit routine Supportive care and ongoing management of metabolic derangements Neurology will continue to follow Nori Santana APRN 09/28/2021 8:43 AM Can contact me through Voalte with any questions or concerns PPE Statement: Nori Santana APRN used Yellow precautions (Level 1 mask wo rn over level 3 mask, eye protection, and gloves). Principal Problem: Encephalopathy Active Problems: UTI (urinary tract infection) SDH (subdural hematoma) (HCC) History of cerebral aneurysm S/P CAT BREEDER shunt COPD (chronic obstructive pulmonary disease) (HCC) Bronchitis Elevated INR GWENDOLYN (acute kidney injury) (HCC) Hypernatremia Other specified anemias Elevated troponin Acute pain due to trauma Coagulopathy (HCC) Acute encephalopathy Chronic respiratory failure with hypoxia (HCC) COPD with acute exacerbation (HCC) Leukocytosis Anemia Transaminitis Hx of hepatitis C COOKING OPERATOR * Felisha Lim, PharmD - 09/27/2021 1:59 PM WEED COOKING OPERATOR Follow-up Pharmacokinetic Consult: Anti-Infective Dosing Assessment/Plan Pharmacy has been consulted on Sher Cary to dose vancomycin for meningi tis. Based on a vancomycin trough of 20 mcg/mL, will decrease dose to vancomycin 750 mg IV every 12 hours as further accumulation expected. Plan to target vancomyci n trough of 15-20 mcg/mL. Pharmacy will continue to follow the patients culture results and clinical pr ogress daily. Relevant clinical data and objective history reviewed: Creatinine Date Value Ref Range Status 09/27/2021 1.20 0.70 - 1.30 mg/dL Final 09/25/2021 1.20 0.70 - 1.30 mg/dL Final 09/24/2021 1.40 (H) 0.70 - 1.30 mg/dL Final Dialysis Modality Requirements: None; Estimated Creatinine Clearance: 54.7 mL/mi n (based on SCr of 1.2 mg/dL). I/O last 3 completed shifts: In: 7580.2 [I.V.:4274.2; Blood:443; NG/GT:494; IV Piggyback:2369.1] Out: 1145 [Urine:1145] Lab Results Component Value Date/Time WBC 11.36 (H) 09/27/2021 12:29 AM Lab Results Component Value Date/Time PROCALCIT 0.09 (H) 09/25/2021 01:02 AM Temp Readings from Last 3 Encounters: 09/27/21 36.4 C (97.6 F) (Axillary) Culture: No results found for this visit on 09/24/21. Jacqui MarianoD COOKING OPERATOR * Laura Sheets MD - 09/27/2021 10:50 AM WEED COOKING OPERATOR [facility] PROGRESS NOTE REASON FOR SEEING PATIENT: Suspected meningitis SUBJECTIVE: Mental status is about the same. OBJECTIVE: No fever, white blood cell count 11.36 MEDICATIONS: Scheduled Medications: acyclovir 10 mg/kg ([place]) Intravenous Q12H GLYNN ampicillin 2 g Intravenous Q6H GLYNN bisacodyL 10 mg Rectal Daily cefepime 2 g Intravenous Q12H GLYNN famotidine 20 mg Oral Q12H Or famotidine 20 mg Intravenous Q12H guanFACINE 2 mg Per NG tube BID haloperidol lactate 5 mg Intravenous Once insulin lispro 2-7 Units Subcutaneous Q6H GLYNN ipratropium-albuteroL 3 mL Inhalation 4x daily senna-docusate 2 tablet Oral BID [START ON 09/28/2021] thiamine 100 mg Intravenous Daily Or [START ON 09/28/2021] thiamine 100 mg Oral Daily vancomycin 1,000 mg Intravenous Q12H Continuous Infusions: dexmedeTOMIDINE Stopped (09/27/21 1018) lactated Ringers 100 mL/hr (09/27/21 0722) PRN Medications: alteplase, dextrose 50%, flumazeniL, glucagon OR glucagon, glucose, hydrALAZ INE, [id number]-[id number]-rhlsgds AND sodium bicarbonate, LORazepam OR LORaze daisy, ondansetron, prochlorperazine OR prochlorperazine OR prochlorperazi ne, sodium chloride 0.9% LABORATORY RESULTS: Last CBC: Most Recent Result within the last 7 days Lab Units 09/27/21 0627 09/27/21 0029 09/26/21 1223 09/26/21 0028 09/25/21 1226 09/25/21 0102 09/24/21 2249 WBC TH/uL -- 11.36* -- 12.75* -- 12.78* 13.22* HEMOGLOBIN g/dL 8.0* 6.8* 7.0* 7.3* 7.8* 6.0* 6.1* HEMATOCRIT % 28* 25* 26* 27* 28* 23* 23* PLATELET COUNT Th/uL -- 202 -- 238 -- 322 330 Last BMP: Most Recent Result within the last 7 days Lab Units 09/27/21 0803 09/27/21 0029 09/25/21 2143 09/24/21 2325 09/24/21 2249 SODIUM mEq/L 150* 152* 149* 147* 147* POTASSIUM mEq/L -- 4.3 4.6 4.6 5.0 CARBON DIOXIDE mEq/L -- 28 28 29 28 BLOOD UREA NITROGEN mg/dL -- 46* 46* 44* 43* CREATININE mg/dL -- 1.20 1.20 1.40* 1.50* CALCIUM mg/dL -- 8.0* 9.6 8.8 8.9 Lab Results Component Value Date PROCALCIT 0.09 (H) 09/25/2021 CULTURES: No results found for this visit on 09/24/21. CULTURE SUMMARY: Not available SEROLOGIES: SARS-CoV-2 PCR negative IMAGING MRI brain pending PHYSICAL EXAMINATION: Vitals: 09/27/21 0900 BP: 135/52 Pulse: 87 Resp: (!) 31 Temp: TempSrc: SpO2: 96% Weight: Height: Temp (24hrs), Av.5 C (97.7 F), Min:36.1 C (97 F), Max:37.2 C (99 F) General: Does not follow command Head: Normocephalic, atraumatic Neck: no adenopathy Chest: clear to auscultation bilaterally CV: regular rhythm without murmur, gallop or rub Abdomen: normal bowel sounds, soft, nontender PROBLEM LIST: Principal Problem: Encephalopathy Active Problems: UTI (urinary tract infection) SDH (subdural hematoma) (HCC) History of cerebral aneurysm S/P CAT BREEDER shunt COPD (chronic obstructive pulmonary disease) (HCC) Bronchitis Elevated INR GWENDOLYN (acute kidney injury) (HCC) Hypernatremia Other specified anemias Elevated troponin Acute pain due to trauma Coagulopathy (HCC) Acute encephalopathy Chronic respiratory failure with hypoxia (HCC) COPD with acute exacerbation (HCC) Leukocytosis Anemia Transaminitis Hx of hepatitis C LOS: 3 days IMPRESSION: 1. Altered mental status, possible meningitis encephalitis, lumbar puncture have been unsuccessful. 2. Chronic hypoxic respiratory failure 3. History of cerebral aneurysm s/p coiling of left occipital 4. Urinary tract infection RECOMMENDATIONS Follow-up on urine culture Follow-up on MRI results Noted that family found several empty bottles of whiskey and empty hydrocodon e bottles around his home. Patient is started on CIWA protocol. Continue current antimicrobial, based on the MRI findings will decide about h is antimicrobial regimen. Electronically signed by Laura Sheets MD 09/27/2021 10:50 AM COOKING OPERATOR * LEV Cervantes - 09/27/2021 5:53 AM WEED COOKING OPERATOR Critical Care Progress Note PATIENT NAME: Sher Cray DATE of SERVICE: 09/27/2021 CPI: [id number] AGE: 71 y.o. : 1950 CHIEF COMPLAINT: Acute encephalopathy, concern for meninginitis/encephalitis on broad spectrum therapies DATE OF PROCEDURES: none HOSPITAL COURSE: Due to patient arriving with altered mental status, primary med ical information obtained from medical records/family report at bedside. Mr. Zack pereira is a 71 yo male with a PMHx of COPD requiring baseline O2 supplement, H x of cerebral aneurysm s/p coil, chronic hepatis C and Hx of CAT BREEDER shunt placement. He presented to [facility] ED via EMS on 09/24 when neighbor reportedly found him unco nscious in his home with his home oxygen off. Per family report, patient had bee n declining over the last month significantly. CT head with chronic Left SDH maura suring 3 mm and demonstrates CAT BREEDER shunt. Decision made to transfer to [facility] ED for c omprehensive trauma w/u. On arrival to ED, he was hypertensive and started on ca rdene infusion for SBP < 160 mmHg. He was subsequently admitted to Neurosurgical ICU for further management. 09/25/2021 attempted 2 LP's and unable to obtained. Initiated antibiotics for meningitis coverage and consulted ID. INR trending up required vitamin K. PAST MEDICAL HISTORY: Past Medical History: Diagnosis Date Cerebral aneurysm COPD (chronic obstructive pulmonary disease) (HCC) PAST SURGICAL HISTORY: Past Surgical History: Procedure Laterality Date VENTRICULOPERITONEAL SHUNT SOCIAL HISTORY: Social History Socioeconomic History Marital status: Single Spouse name: Not on file Number of children: Not on file Years of education: Not on file Highest education level: Not on file Occupational History Not on file Tobacco Use Smoking status: Not on file Smokeless tobacco: Not on file Substance and Sexual Activity Alcohol use: Not on file Drug use: Not on file Sexual activity: Not on file Other Topics Concern Not on file Social History Narrative Not on file Social Determinants of Health Financial Resource Strain: Difficulty of Paying Living Expenses: Not on file Stress: Feeling of Stress : Not on file Intimate Partner Violence: Fear of Current or Ex-Partner: Not on file Emotionally Abused: Not on file Physically Abused: Not on file Sexually Abused: Not on file FAMILY HISTORY: History reviewed. No pertinent family history. ALLERGIES: Patient has no known allergies. PRIOR TO ADMISSION MEDICATIONS: No medications prior to admission. 24-HOUR HISTORY/EVENTS OF NOTE: Remains critically ill with unknown etiology of his encephalopathy. Intermittent ly becomes restless and agitated. Continue Precedex drip. Unable to obtain LP. Antibiotics initiated for suspected meningitis and consulted ID. PICC obtained f or multiple antibiotics. MRI of brain pending. INR trending up. Initiated vitami n K. Consulted nutrition for tube feedings. Consulted ID. Discontinued steroids. Initiated Tenex 1mg po bid and wean Precedex infusion to goal. Streptococcus pn eumoniae negative. Repeat Hbg 7.0. Overnight, unable to wean off precedex infusi on. Gave 25mcg fentanyl x1 for agitation. Midnight Hgb 6.8 and transfused 1 U [place] BCs. ROS: ROS unobtainable because incomprehensible speech, would not particpiate in quest ions PHYSICAL EXAM: Vitals: BP 113/71 | Pulse 81 | Temp (!) 35.9 C (96.6 F) | Resp 20 | Ht 1.676 m ( 5' 6") | Wt 59.4 kg (130 lb 15.3 oz) | SpO2 90% | BMI 21.14 kg/m Respiratory Support: O2 Device: Nasal cannula O2 Flow Rate (L/min): 4 L/min T-High: Temp (24hrs), Av.5 C (97.7 F), Min:35.9 C (96.6 F), Max:36.9 C (98 .4 F) Fluid Balance: I/O last 24 Hours: In: 3481.9 [I.V.:1960.5; NG/GT:307; IV Piggyback:1214.4] Out: 680 [Urine:680] General Appearance: Lying in bed, agitated Neurologic: Agitated, Opens eyes spontaneously and with painful stimulation. Do es not answer orientation questions, responds to deep painful stimulation, with stimulation had attempts at vocalization of words, but speech was Incomprehensi ble speech. No apparent facial droop present. Does not follow commands RUE: Spontaneously moves; localizes RLE: Spontaneously moves; localizes LUE: Spontaneously moves; localizes LLE: Spontaneously moves; localizes HEENT: Eyes: Left pupil 2mm and Right 2 mm round and reactive to light. Unable to test EOM's and visual fortune due to mentation. Sclera white, no edema. Head: normocephalic, atraumatic. Neck: Trachea midline. No JVD. Throat/Mouth: oral muc jeff pink, no lesions Lungs: Clear, but diminished throughout to auscultation bilaterally, no acce ssory muscle use Heart: Regular rate and rhythm, S1/S2, no murmur, no rub Abdomen: Soft, non-tender, bowel sounds hypoactive all four quadrants Genitourinary: Nash in place Extremities: Extremities with full active ROM, moderate BUE edema Pulses/Perfusion: 2+ pulses radial and R pedal 1+ L pedal dopplered, warm and well perfused Skin: Scattered generalized bruising Surgical Site: None Exam copied from previous note and updated appropriately based on today's exam, Christina Cao, ANP LAB RESULTS: Most Recent Result from last 24 hours Lab Units 09/27/21 0029 WBC TH/uL 11.36* HEMOGLOBIN g/dL 6.8* HEMATOCRIT % 25* PLATELET COUNT Th/uL 202 Most Recent Result from last 24 hours Lab Units 09/27/21 0029 SODIUM mEq/L 152* POTASSIUM mEq/L 4.3 CARBON DIOXIDE mEq/L 28 BLOOD UREA NITROGEN mg/dL 46* CREATININE mg/dL 1.20 GLUCOSE mg/dL 151* CALCIUM mg/dL 8.0* Most Recent Result from last 24 hours Lab Units 09/27/21 0029 PROTEIN TOTAL SERUM g/dL 5.2* ALKALINE PHOSPHATASE U/L 50 ALANINE AMINOTRANSFERASE U/L 114* ASPARTATE AMINOTRANSFERASE U/L 98* GLUCOSE mg/dL 151* Most Recent Result from last 24 hours Lab Units 09/27/21 0029 MAGNESIUM mg/dL 2.30 Most Recent Result from last 24 hours Lab Units 09/27/21 0029 INR 1.3* ABG: Most Recent Result within the last 7 days Lab Units 09/25/21 1110 PH ARTERIAL units 7.29* PCO2 ARTERIAL mmHg 63* PO2 ARTERIAL mmHg 87 BICARBONATE mEq/L 30.3* Cultures: No results found for this visit on 09/24/21. ECHOCARDIOGRAPHY: Echo Complete with Doppler and Color Flow Result Date: 09/25/2021 1. Normal left ventricular systolic function, with an estimated ejection fract ion of 60%. 2. Normal right ventricular size and systolic function. 3. No significant valvular abnormalities. No previous study available for comparison. Dr Hans Sanchez (Electronically Signed) Final Date: 25 September 2021 12:38 RADIOLOGY/IMAGING: CT Abdomen Pelvis wo contrast Result Date: 09/26/2021 1. No evidence of acute traumatic or solid organ injury within the abdomen. 2. Hyperdense material within mildly distended gallbladder may relate to gallbladder sludge or cholelithiasis. Right upper quadrant ultrasound can be obtained for further evaluation, as clinically indicated. 3. Hepatic cirrhosis. Small volume abdominal pelvic ascites. 4. Moderate colonic stool. ATTESTATION STATEMENT: The Staff Radiologist has personally reviewed the images and dictated, reviewed, or edited the final report. READING SITE: [facility] CT Cervical Spine wo contrast Result Date: 09/25/2021 1. No acute fracture. Slight anterolisthesis of C2 on C3 with mild widening of the C2-C3 disc space may relate to patient positioning, however ligamentous injury would be difficult to exclude given patient history of trauma. MRI cervical spine is recommended for further evaluation if clinically indicated. 2. Moderate degenerative cervical spondylosis. ATTESTATION STATEMENT: The Staff Radiologist has personally reviewed the images and dictated, reviewed, or edited the final report. READING SITE: [facility] CT Chest wo contrast Result Date: 09/25/2021 1. Diffuse interstitial edema. 2. Posterior relaxation and scattered subsegmental atelectasis. No pulmonary mass or confluent consolidation. 3. Cardiomegaly. Heavy coronary artery calcifications. Aortic valve leaflet calcifications could represent calcific aortic stenosis. 4. Small bilateral pleural effusions with features of partial loculation on the right. No pneumothorax. 5. Small upper abdominal ascites. READING SITE: [facility] CT Head wo contrast Result Date: 09/25/2021 Impression: 1. Stable mixed attenuation left holohemispheric extra-axial collection likely representing subacute on chronic subdural hematoma measures up to 5 mm in maximal thickness. No new or enlarging intracranial hemorrhage. No significant mass effect or discrete midline shift. Similar ventriculomegaly. 2. Stable nails-white loss involving the right frontotemporal lobes and right insula likely representing a subacute right MCA territory infarct. 3. Stable right parietal approach ventricular shunt catheter. 4. Redemonstrated postprocedural changes of prior aneurysm coiling are identified possibly involving a basilar tip aneurysm or PCOM aneurysm given location. ATTESTATION STATEMENT: The Staff Radiologist has personally reviewed the images and dictated, reviewed, or edited the final report. CT Lumbar Spine reconstructed Result Date: 09/25/2021 1. No acute osseous abnormality of the lumbar spine. 2. Mild to moderate multilevel lumbar spondylosis. READING SITE: [facility]. ATTESTATION STATEMENT: The Staff Radiologist has personally reviewed the images and dictated, reviewed, or edited the final report. CT Thoracic Spine reconstructed Result Date: 09/25/2021 Impression: Mild to moderate multilevel degenerative thoracic spondylosis. READING SITE: [facility]. ATTESTATION STATEMENT: The Staff Radiologist has personally reviewed the images and dictated, reviewed, or edited the final report. IR Lumbar puncture w fluoro Result Date: 09/26/2021 Unable to collect spinal fluid at multiple levels. The spinal needle tip was confirmed within the thecal sac on AP and lateral on multiple levels. ATTESTATION STATEMENT: The Staff Physician has personally reviewed the images and dictated, reviewed, or edited the final report. READING SITE: [facility] XR Abdomen single view AP Result Date: 09/25/2021 1. Enteric tube coiled in the proximal stomach with sidehole near the cardia and tip near the GE junction. 2. Nonobstructive bowel gas pattern. 3. Heterogeneous opacities in the right midlung zone. Recommend attention on ordered follow-up CT. COMMUNICATION: Finding of tube position was verbally communicated and acknowledged via telephone to Cheri Lowe RN, at 09/25/2021 10:50 AM. ATTESTATION STATEMENT: Staff radiologist has personally reviewed the images and dictated, reviewed and/or edited the final report. READING SITE: [facility] XR Chest single view frontal Result Date: 09/25/2021 1. Abnormal curvilinear lucency at the left lateral lung base and costophrenic angle with apparent deep sulcus. Although no definitive pleural line is noted, findings are equivocal for a small pneumothorax given history of trauma. Contrast-enhanced chest CT is recommended for further evaluation. 2. No focal airspace disease. Results were communicated by telephone to patient's nurse Cheri by Dr. Murphy Goodwin on 09/25/2021 at 9:56 AM. READING SITE: [facility] ATTESTATION STATEMENT: The Staff Radiologist has personally reviewed this study and agrees with the findings in this report. Echo Complete with Doppler and Color Flow Result Date: 09/25/2021 1. Normal left ventricular systolic function, with an estimated ejection fract ion of 60%. 2. Normal right ventricular size and systolic function. 3. No significant valvular abnormalities. No previous study available for comparison. Dr Hans Sanchez (Electronically Signed) Final Date: 25 September 2021 12:38 MEDICATIONS: acyclovir, 10 mg/kg ([place]), Q12H GLYNN ampicillin, 2 g, Q6H GLYNN cefepime, 2 g, Q12H GLYNN famotidine, 20 mg, Q12H Or famotidine, 20 mg, Q12H guanFACINE, 1 mg, BID ipratropium-albuteroL, 3 mL, 4x daily senna-docusate, 1 tablet, BID vancomycin, 1,000 mg, Q12H INFUSIONS: dexmedeTOMIDINE 0.9 mcg/kg/hr (09/27/2129) lactated Ringers 100 mL/hr (09/26/212026) ICU BEST PRACTICE: CODE STATUS: FULL CODE LOS: 3 DELIRIUM PRESENT: No SEDATION VACATION: N/A SBT: N/A DIET: tube feed Osmolite 1.5 [place] GI PROPHYLAXIS: not indicated at this time GLYCEMIC CONTROL: No VTE PREVENTION: SCDs NASH: No Nash LINES: PICC Line left NG/OG Tube DRAINS: none AIRWAY: Not Intubated ANTIBIOTIC REVIEW: Yes MAR/HOME MED REVIEW: Yes BOWEL REGIMEN: Yes BM LAST 48 HRS: No THERAPIES: PT, OT and ST MOBILITY: PT and OT PPE Statement: LEV Cervantes used Yellow precautions (Level 1 mask wor n over level 3 mask, eye protection, and gloves). 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 Hx of cerebral aneurysm with coil CAT BREEDER shunt Encephalopathy Cardo: Elevated troponin Pulm: Chronic respiratory failure COPD requiring baseline oxygen supplementation Bronchitis HEME: Anemia Leukocytosis Elevated INR Renal: Acute Kidney Injury vs CKD Hypernatremia ID: Concern for Encephalitis/Meningitis - Acyclovir, Ampicillin, Vancomycin, Cefepim e D 3 PLAN: Consult Neurology Liberalize neuro checks Q 4 hours CIWA protocol with PRN ativan Thiamine 100 mg Q daily SBP goal < 160 Continue Acyclovir, Ampicillin, Vancomycin, Cefepime Wean Precedex gtt Increase Tenex 2 mg BID 5 mg of IV Haldol x 1 for MRI Increase Senna 2 tablets BID Bisacodyl 10 mg suppository Increase FWF 100 mL Q 4 hours Trend NA every 12 hours Obtain MRI of the head when able Venous Duplex BUE Day/Night hygiene During multidisciplinary rounds, I personally reviewed the patient events of the previous 24 hours, physical exam, laboratory findings, radiologic studies inclu ding images, fluid balance, neurologic status, cardiovascular status, pulmonary status, metabolic status including nutrition, and medications. Sher Coombs er is HD 3 following admission after being found down at home. He remains enceph alopathic today and requires both Tenex and precedex infusion for acute agitatio n. His MRI imaging was delayed, since there was no documentation about his VPS. Radiology is planning on completing MRI today, hopefully it will give us more in sight into potential infectious process with possible meningitis vs encephalitis . Given that two LPs were attempted without success we will continue broad spect rum therapies and follow ID recommendations closely. Given that his encephalopat hy has not improved we consulted Neurology to help with treatment guidance. I di scussed with Nori PARAPROFESSIONAL AIDE TEACHER with Neurology. She spoke to the family and reportedly kenton devlin found several empty bottles of whisky and empty hydrocodone bottles around h is home. Given this new information he is likely in acute alcohol withdrawal, so I will add CIWA protocol. His NA continues to trend upwards so I will increase FWF 100 ML Q 4 hours. I will trend NA Q 12 hours and continue LR at this time gi patria potential free water deficit. Unable to use 1/2 NS given his chronic SDH and risk for cerebral edema. He did have BUE swelling and I am concerned for DVT, s o I will get venous duplex. He has yet to have bowel movement, so I will increas e his senna 2 tablets BID and add bisacodyl suppository. I will continue to foll ow him closely while he remains in the ICU. Unable to provide education due to mentation. I, LEV Cervantes, have reviewed all of these findings and the overall a ssessment and plans for the day are discussed and documented in the Medical [address] Note. I was personally present and involved in all aspects of patient care. Level 3 LEV Cervantes COOKING OPERATOR Associated attestation - Kwesi Hooks MD - 09/28/2021 8:06 AM WEED COOKING OPERATOR Attestation signed by Kwesi Hooks MD at 09/26/2021 1:43 PM Patient was seen and examined. Agree with outlined plan 1-Encephalopathy: Slightly improved exam but remains encephalopathic. MRI Pending Increase Tenex and wean Precedex Neurology consult Hypernatremia: Increase Free water per FT I spent 33 min of Critical Care excluding procedure * Yohana Cardoso RN CWON - 09/26/2021 4:07 PM WEED COOKING OPERATOR Images from the original note were not included. Initial Wound Assessment Chief Complaint/Reason for Consult: feet History of Present Illness: SDH and altered mental status Focused Review of Systems: PMH: COPD, CAT BREEDER shunt, Assessment: Patient with chronic dry plaque to left foot. Recommend daily hygiene and moist urizing. Wound care team will complete consult at this time. Left Right Plan/Recommendation: Q 2 hour turn while in bed Q 1 hour turn when in chair or HOB is over 30 degrees Pressure Redistribution Boot Chair Cushion Reduce layers of linen Position Wedges Dressing changes: see above Yohana Cardoso RN CWON COOKING OPERATOR * Samuel Rivera RN WEIR FISHERMAN - 09/26/2021 9:15 AM WEED COOKING OPERATOR Critical Care Progress Note PATIENT NAME: Shre Cary DATE of SERVICE: 09/26/2021 CPI: [id number] AGE: 71 y.o. : 1950 CHIEF COMPLAINT: here with encephalopathy DATE OF PROCEDURES: none HOSPITAL COURSE: Due to patient arriving with altered mental status, primary med ical information obtained from medical records/family report at bedside. Mr. Zack pereira is a 71 yo male with a PMHx of COPD requiring baseline O2 supplement, H x of cerebral aneurysm s/p coil, chronic hepatis C and Hx of CAT BREEDER shunt placement. He presented to [facility] ED via EMS on 09/24 when neighbor reportedly found him unco nscious in his home with his home oxygen off. Per family report, patient had bee n declining over the last month significantly. CT head with chronic Left SDH maura suring 3 mm and demonstrates CAT BREEDER shunt. Decision made to transfer to [facility] ED for c omprehensive trauma w/u. On arrival to ED, he was hypertensive and started on ca rdene infusion for SBP < 160 mmHg. He was subsequently admitted to Neurosurgical ICU for further management. PAST MEDICAL HISTORY: Past Medical History: Diagnosis Date Cerebral aneurysm COPD (chronic obstructive pulmonary disease) (HCC) PAST SURGICAL HISTORY: Past Surgical History: Procedure Laterality Date VENTRICULOPERITONEAL SHUNT SOCIAL HISTORY: Social History Socioeconomic History Marital status: Single Spouse name: Not on file Number of children: Not on file Years of education: Not on file Highest education level: Not on file Occupational History Not on file Tobacco Use Smoking status: Not on file Smokeless tobacco: Not on file Substance and Sexual Activity Alcohol use: Not on file Drug use: Not on file Sexual activity: Not on file Other Topics Concern Not on file Social History Narrative Not on file Social Determinants of Health Financial Resource Strain: Difficulty of Paying Living Expenses: Not on file Stress: Feeling of Stress : Not on file Intimate Partner Violence: Fear of Current or Ex-Partner: Not on file Emotionally Abused: Not on file Physically Abused: Not on file Sexually Abused: Not on file FAMILY HISTORY: History reviewed. No pertinent family history. ALLERGIES: Patient has no known allergies. PRIOR TO ADMISSION MEDICATIONS: No medications prior to admission. 24-HOUR HISTORY/EVENTS OF NOTE: Continue NS @ 100ml/hr. Echocardiogram obtained with 60% EF. Discontinue azithro mycin and start Rocephin 2gm. Lactate 1.0. Ammonia <10. Repeat ABG 7.29/63/87/30.3. VEEG prolong obtained. NGT placed. Repeat H/H 7.8/28. Repeat INR 1.1. Initiated Precedex infusion for agitation. Overnight, unable to obtain LP in Neuro IR. Received multiple IV pushes of fentanyl and versed, and 5 mg haldol during procedure. Started on Vancomycin, cefepime, ampicillin and acyclovir. Upon return to NSICU notified of right pupil 1mm and left pupil 2mm, both reactive to light. Patient moved all extremities spontaneously, will continue to monitor. Episode of hypotension and bradycardia, paused precedex infusion. Gave 500mL bolus, repeat lactate 1.5. Restarted precedex infusion at 0.4 (half original dose) for agitation and gave 25mcg fentanyl x2 and 2.5mg of haldol. Nursing unable to obtain IV assess. Placed peripheral IV x2 under ultrasound guidance. Repeat H/H ordered for noon. ROS: ROS unobtainable because patient with AMS. PHYSICAL EXAM: Vitals: BP 116/53 | Pulse 76 | Temp 36.5 C (97.7 F) | Resp 17 | Ht 1.676 m (5' 6 ") | Wt 59.4 kg (130 lb 15.3 oz) | SpO2 100% | BMI 21.14 kg/m Respiratory Support: O2 Device: Nasal cannula O2 Flow Rate (L/min): 3 L/min T-High: Temp (24hrs), Av.5 C (97.7 F), Min:35 C (95 F), Max:37.5 C (99.5 F) Fluid Balance: I/O last 24 Hours: In: 3031.3 [I.V.:1921.9; NG/GT:20; IV Piggyback:1089.4] Out: 350 [Urine:350] General Appearance: Lying in bed, no acute distress Neurologic: Arousable with noxious stimuli. Incomprehensible speech Responds to noxious stimuli. No facial droop present. Does not follow commands RUE: Spontaneously moves; localizes RLE: Spontaneously moves; localizes LUE: Spontaneously moves; localizes LLE: Spontaneously moves; localizes HEENT: Eyes: Left pupil 4mm and Right 3mm round and reactive to light. Unable t o test EOM's and visual fortune. Sclera white, no edema. Head: normocephalic, atr aumatic. Neck: Trachea midline. No JVD. Throat/Mouth: oral mucosa pink, no lesio ns Lungs: Coarse to auscultation bilaterally, no accessory muscle use Heart: Regular rate and rhythm, S1/S2, no murmur, no rub Abdomen: Soft, non-tender, bowel sounds active all four quadrants Genitourinary: No edema; no lesions Extremities: Extremities with full active ROM, no edema Pulses/Perfusion: 2+ pulses radial and dorsalis pedis, warm and well perfused Skin: No rashes or lesions Surgical Site: None Exam completed and changes made Samuel Rivera LAB RESULTS: Most Recent Result from last 24 hours Lab Units 09/26/21 0028 WBC TH/uL 12.75* HEMOGLOBIN g/dL 7.3* HEMATOCRIT % 27* PLATELET COUNT Th/uL 238 Most Recent Result from last 24 hours Lab Units 09/25/21 2143 SODIUM mEq/L 149* POTASSIUM mEq/L 4.6 CARBON DIOXIDE mEq/L 28 BLOOD UREA NITROGEN mg/dL 46* CREATININE mg/dL 1.20 GLUCOSE mg/dL 127* CALCIUM mg/dL 9.6 Most Recent Result from last 24 hours Lab Units 09/25/21 2143 GLUCOSE mg/dL 127* Most Recent Result from last 24 hours Lab Units 09/25/21 2143 MAGNESIUM mg/dL 2.40 Most Recent Result from last 24 hours Lab Units 09/26/21 0640 09/25/21 1200 09/25/21 1200 APTT Sec -- -- 30 INR 1.6* < > 1.1 < > = values in this interval not displayed. ABG: Most Recent Result within the last 7 days Lab Units 09/25/21 1110 PH ARTERIAL units 7.29* PCO2 ARTERIAL mmHg 63* PO2 ARTERIAL mmHg 87 BICARBONATE mEq/L 30.3* Cultures: No results found for this visit on 09/24/21. ECHOCARDIOGRAPHY: Echo Complete with Doppler and Color Flow Result Date: 09/25/2021 1. Normal left ventricular systolic function, with an estimated ejection fract ion of 60%. 2. Normal right ventricular size and systolic function. 3. No significant valvular abnormalities. No previous study available for comparison. Dr Hans Sanchez (Electronically Signed) Final Date: 25 September 2021 12:38 RADIOLOGY/IMAGING: CT Abdomen Pelvis wo contrast Result Date: 09/26/2021 1. No evidence of acute traumatic or solid organ injury within the abdomen. 2. Hyperdense material within mildly distended gallbladder may relate to gallbladder sludge or cholelithiasis. Right upper quadrant ultrasound can be obtained for further evaluation, as clinically indicated. 3. Hepatic cirrhosis. Small volume abdominal pelvic ascites. 4. Moderate colonic stool. ATTESTATION STATEMENT: The Staff Radiologist has personally reviewed the images and dictated, reviewed, or edited the final report. READING SITE: [facility] Cervical Spine wo contrast Result Date: 09/25/2021 1. No acute fracture. Slight anterolisthesis of C2 on C3 with mild widening of the C2-C3 disc space may relate to patient positioning, however ligamentous injury would be difficult to exclude given patient history of trauma. MRI cervical spine is recommended for further evaluation if clinically indicated. 2. Moderate degenerative cervical spondylosis. ATTESTATION STATEMENT: The Staff Radiologist has personally reviewed the images and dictated, reviewed, or edited the final report. READING SITE: [facility] Chest wo contrast Result Date: 09/25/2021 1. Diffuse interstitial edema. 2. Posterior relaxation and scattered subsegmental atelectasis. No pulmonary mass or confluent consolidation. 3. Cardiomegaly. Heavy coronary artery calcifications. Aortic valve leaflet calcifications could represent calcific aortic stenosis. 4. Small bilateral pleural effusions with features of partial loculation on the right. No pneumothorax. 5. Small upper abdominal ascites. READING SITE: [facility] CT Head wo contrast Result Date: 09/25/2021 Impression: Patient motion artifact and suboptimal positioning degrades image quality. 1. Mixed attenuation left holohemispheric likely subacute on chronic subdural hematoma which measures up to 6 mm in maximal thickness. No significant mass effect or discrete midline shift given suboptimal patient positioning. Similar ventriculomegaly when compared to outside CT. 2. Nails-white loss is identified within the right frontotemporal lobe likely representing a subacute or chronic right MCA territory infarct. 3. Right parietal approach ventricular shunt catheter is identified with the distal intracranial and terminating near the foramen of Betancourt. The partially visualized ventricular shunt catheter tubing and port appear intact where visualized. 4. Postprocedural changes of prior aneurysm coiling are identified possibly involving a basilar tip aneurysm. ATTESTATION STATEMENT: The staff radiologist has personally reviewed the images and dictated, reviewed, or edited the final report. READING SITE: [facility]. CT Head wo contrast Result Date: 09/25/2021 Impression: 1. Stable mixed attenuation left holohemispheric extra-axial collection likely representing subacute on chronic subdural hematoma measures up to 5 mm in maximal thickness. No new or enlarging intracranial hemorrhage. No significant mass effect or discrete midline shift. Similar ventriculomegaly. 2. Stable nails-white loss involving the right frontotemporal lobes and right insula likely representing a subacute right MCA territory infarct. 3. Stable right parietal approach ventricular shunt catheter. 4. Redemonstrated postprocedural changes of prior aneurysm coiling are identified possibly involving a basilar tip aneurysm or PCOM aneurysm given location. ATTESTATION STATEMENT: The Staff Radiologist has personally reviewed the images and dictated, reviewed, or edited the final report. CT Lumbar Spine reconstructed Result Date: 09/25/2021 1. No acute osseous abnormality of the lumbar spine. 2. Mild to moderate multilevel lumbar spondylosis. READING SITE: [facility]. ATTESTATION STATEMENT: The Staff Radiologist has personally reviewed the images and dictated, reviewed, or edited the final report. CT Thoracic Spine reconstructed Result Date: 09/25/2021 Impression: Mild to moderate multilevel degenerative thoracic spondylosis. READING SITE: [facility]. ATTESTATION STATEMENT: The Staff Radiologist has personally reviewed the images and dictated, reviewed, or edited the final report. IR Lumbar puncture w fluoro Result Date: 09/26/2021 Unable to collect spinal fluid at multiple levels. The spinal needle tip was confirmed within the thecal sac on AP and lateral on multiple levels. ATTESTATION STATEMENT: The Staff Physician has personally reviewed the images and dictated, reviewed, or edited the final report. READING SITE: [facility] XR Abdomen single view AP Result Date: 09/25/2021 1. Enteric tube coiled in the proximal stomach with sidehole near the cardia and tip near the GE junction. 2. Nonobstructive bowel gas pattern. 3. Heterogeneous opacities in the right midlung zone. Recommend attention on ordered follow-up CT. COMMUNICATION: Finding of tube position was verbally communicated and acknowledged via telephone to Cheri Lowe RN, at 09/25/2021 10:50 AM. ATTESTATION STATEMENT: Staff radiologist has personally reviewed the images and dictated, reviewed and/or edited the final report. READING SITE: [facility] XR Chest single view frontal Result Date: 09/25/2021 1. Abnormal curvilinear lucency at the left lateral lung base and costophrenic angle with apparent deep sulcus. Although no definitive pleural line is noted, findings are equivocal for a small pneumothorax given history of trauma. Contrast-enhanced chest CT is recommended for further evaluation. 2. No focal airspace disease. Results were communicated by telephone to patient's nurse Cheri by Dr. Murphy Goodwin on 09/25/2021 at 9:56 AM. READING SITE: [facility] ATTESTATION STATEMENT: The Staff Radiologist has personally reviewed this study and agrees with the findings in this report. XR Chest single view frontal Result Date: 09/24/2021 No acute chest abnormality. READING SITE: [facility] THIS DOCUMENT HAS BEEN ELECTRONICALLY SIGNED BY SANTANA TORRES MD XR Pelvis one or two views Result Date: 09/24/2021 Negative for acute pelvic fracture. READING SITE: [facility] THIS DOCUMENT HAS BEEN ELECTRONICALLY SIGNED BY SANTANA TORRES MD Echo Complete with Doppler and Color Flow Result Date: 09/25/2021 1. Normal left ventricular systolic function, with an estimated ejection fract ion of 60%. 2. Normal right ventricular size and systolic function. 3. No significant valvular abnormalities. No previous study available for comparison. Dr Hans Sanchez (Electronically Signed) Final Date: 25 September 2021 12:38 MEDICATIONS: acyclovir, 10 mg/kg ([place]), Q12H GLYNN ampicillin, 2 g, Q6H GLYNN cefepime, 2 g, Q12H GLYNN famotidine, 20 mg, Q12H Or famotidine, 20 mg, Q12H ipratropium-albuteroL, 3 mL, 4x daily methylPREDNISolone sodium succinate, 40 mg, Q8H GLYNN senna-docusate, 1 tablet, BID vancomycin, 1,000 mg, Q12H INFUSIONS: dexmedeTOMIDINE 0.8 mcg/kg/hr (09/26/21 6122) lactated Ringers 100 mL/hr (09/26/21 1005) ICU BEST PRACTICE: CODE STATUS: FULL CODE LOS: 2 DELIRIUM PRESENT: No SEDATION VACATION: N/A SBT: N/A DIET: NPO, strict GI PROPHYLAXIS: not indicated at this time GLYCEMIC CONTROL: No VTE PREVENTION: SCDs NASH: No Nash LINES: PIV x2 DRAINS: none AIRWAY: Not Intubated ANTIBIOTIC REVIEW: Yes MAR/HOME MED REVIEW: Yes BOWEL REGIMEN: Yes BM LAST 48 HRS: N/A THERAPIES: PT, OT and ST MOBILITY: PT and OT PPE Statement: Samuel Rivera RN WEIR FISHERMAN used Yellow precautions (Level 1 mask worn over level 3 mask, eye protection, and gloves). 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 Hx of cerebral aneurysm with coil CAT BREEDER shunt Encephalopathy Cardo: Elevated troponin Pulm: Chronic respiratory failure COPD requiring baseline oxygen supplementation Bronchitis HEME: Anemia Leukocytosis Elevated INR Renal: Acute Kidney Injury vs CKD Hypernatremia ID: Urinary tract infection - Ceftriaxone D2 PLAN: Continue antibiotics for meningitis coverage Consult for PICC Consult ID Continue Precedex infusion Repeat H/H @ 1200 Maintain INR <1.4 INR now Consult nutrition for tube feedings Vitamin K 10mg IV MRI of head Consult ID During multidisciplinary rounds, I personally reviewed the patient events of the previous 24 hours, physical exam, laboratory findings, radiologic studies inclu ding images, fluid balance, neurologic status, cardiovascular status including p ulmonary status, metabolic status including nutrition, and medications. Sher reese remains critically ill with unknown etiology of his encephalopathy. H e intermittently becomes restless and agitated. Continue Precedex drip. Unable to obtain LP. Antibiotics initiated for suspected meningitis and consulted ID. P ICC obtained for multiple antibiotics. Will get MRI today. His INR is trending u p. Initiated vitamin K. Consulted nutrition for tube feedings. I have personally reviewed his images, hospital medications, home medications, labs and discussed his care and plan with pharmacy, and the critical care team. Will continue to m onitor closely while in the ICU. I, Samuel Rivera RN WEIR FISHERMAN, have reviewed all of these findings and the overa ll assessment and plans for the day are discussed and documented in the Medical Record Note. I was personally present and involved in all aspects of patient car e. Critical Care 35 minutes Samuel Rivera RN WEIR FISHERMAN COOKING OPERATOR Associated attestation - Kwesi Hooks MD - 09/26/2021 1:43 PM WEED COOKING OPERATOR Patient was seen and examined. Agree with outlined plan 1-Encephalopathy: Slightly improved exam but remains encephalopathic. EEG: diffuse slowing without evidence of Seizure LP unsuccessful per myself and IR, On Empiric Abx and Anti viral MRI today 2-Hepatic failure: INR 1.6, Give Vit K I spent 33 min of Critical Care excluding procedure * Aden Witt NP - 09/26/2021 6:28 AM WEED COOKING OPERATOR [facility] Trauma and Critical Care Specialists Progress Note Patient Name: Sher Cary Date of Service: 09/26/2021 Date of Admission: 09/24/2021 LOS: 2 days Date of : 1950 HPI/BRIEF HOSPITAL COURSE: Sher Cary is a 71 y.o. male w/ PMH most significant for COPD, chronic h ypoxic respiratory failure dependent on supplemental oxygen, prior cerebral aneu rysm coiling and CAT BREEDER shunt placement, and hx Hep C who transferred from [facility] and presented as a green trauma activation s/p unconscious on 09/24. It was reported that patient has been fatigued with a decrease in function over the t month. The family was concerned that the patient may have had a stroke last w cahto but refused EMS transport. Then 09/24, paramedics were called by patient's neighbor d/t found unresponsive with his oxygen off. EMS took patient to [facility] and imaging revealed subacute CVA and left cerebellar subdural hemorrhage, then transferred to [facility] for further Trauma and Neurosurgical evaluation. Initial labs significant for Na 147, Chl 112, BUN 43, Creat. 1.5, eGFR 55.6, tr op 171, ALT 123, AST 217, WBC, Hgb 6.1, COVID negative, ABG 7.31/60/90/2.4/30/2 on 3L/NC, CK 443. Initial 12 lead ECG: ST w/ PVC's. Initial imaging significan t for mixed attenuation left holohemispheric likely subacute on chronic subdural hematoma, ventriculomegaly, R frontotemporal lobes and R insula likely represen ting a subacute R MCA territory infarct. 09/24: Admitted to Trauma service and NSICU. Neuro Critical Care consulted for ICU management. Neurosurgery consulted for SDH. Given Vitamin K 10mg IV, 2u FF P for coagulopathy. Ceftriaxone IV initiated for UTI and Azithromycin initiate d for complicated COPD exacerbation w/ solumedrol daily and DuoNebs. CTH 0500 u nchanged. 1u PRBC's ordered for Hgb 6. Troponin elevated. INJURIES: 1. None 24-Hour History/Events of Note: Coreas scanned patient. Past Medical History: Past Medical History: Diagnosis Date Cerebral aneurysm COPD (chronic obstructive pulmonary disease) (HCC) Past Surgical History: Past Surgical History: Procedure Laterality Date VENTRICULOPERITONEAL SHUNT Family History: History reviewed. No pertinent family history. Social History: Social History Socioeconomic History Marital status: Single Spouse name: Not on file Number of children: Not on file Years of education: Not on file Highest education level: Not on file Occupational History Not on file Tobacco Use Smoking status: Not on file Smokeless tobacco: Not on file Substance and Sexual Activity Alcohol use: Not on file Drug use: Not on file Sexual activity: Not on file Other Topics Concern Not on file Social History Narrative Not on file Social Determinants of Health Financial Resource Strain: Difficulty of Paying Living Expenses: Not on file Stress: Feeling of Stress : Not on file Intimate Partner Violence: Fear of Current or Ex-Partner: Not on file Emotionally Abused: Not on file Physically Abused: Not on file Sexually Abused: Not on file Allergies: Patient has no known allergies. Prior to Admission Medications: No medications prior to admission. SUBJECTIVE: Sher Cary is not able to participate in ROS or PE d/t LOC Review of Systems: ROS unobtainable because LOC OBJECTIVE: Vital Signs: BP 123/54 | Pulse 73 | Temp 36.6 C (97.9 F) | Resp 17 | Ht 1.676 m (5' 6 ") | Wt 59.4 kg (130 lb 15.3 oz) | SpO2 100% | BMI 21.14 kg/m Tmax: Temp (24hrs), Av.6 C (97.8 F), Min:35 C (95 F), Max:37.5 C (99.5 F) VS Ranges: Temp: [35 C (95 F)-37.5 C (99.5 F)] 36.6 C (97.9 F) Pulse: [58-119] 73 Resp: [9-30] 17 BP: (61-147)/(40-99) 123/54 Physical Exam: General Appearance: lying with eyes open and restless, in no acute distress Neurologic: GCS 13 (E4 V4 M5), ALANIS 3+, unable to fully assess d/t agitation HEENT: NC/AT, white sclera, no obvious abnormality or drainage Neck: Supple, trachea midline, no JVD. Respiratory: Airway: Patent, intact. Lungs: Diffuse expiratory wheezes, diminished bilaterally. Unlabored respi rations, symmetric chest rise, in no acute respiratory distress. Cardiovascular: Heart: RRR, no MRG noted Peripheral Vascular: Bilateral radial and DP pulses +2, cap refill < 3 sec Abdomen/Gastrointestinal: Soft, non-distended. Unable to fully assess tendernes s to palpation given current level of sedation. Genitourinary: Nash in place with clear yellow urine. Extremities/musculoskeletal: No obvious abnormality. Minimal spontaneous moveme nt secondary to current LOC. Extremities warm and well perfused. No peripheral e vanda. Integumentary: Scattered ecchymosis. Warm and dry. Adequate peripheral perfusi on. Lines/drains/tubes: PIV, nash, R nare NGT Incision(s)/wound(s): None Respiratory Support: 2L/NC Nasal cannula oxygen as needed to maintain adequate oxygen saturation Intake/Output: I/O last 24 Hours: In: 3209.8 [I.V.:2179.9; NG/GT:20; IV Piggyback:1009.9] Out: 875 [Urine:875] Laboratory Results: Most Recent Result from last 24 hours Lab Units 09/26/21 0028 WBC TH/uL 12.75* HEMOGLOBIN g/dL 7.3* HEMATOCRIT % 27* PLATELET COUNT Th/uL 238 Most Recent Result from last 24 hours Lab Units 09/25/21 2143 SODIUM mEq/L 149* POTASSIUM mEq/L 4.6 CARBON DIOXIDE mEq/L 28 BLOOD UREA NITROGEN mg/dL 46* CREATININE mg/dL 1.20 GLUCOSE mg/dL 127* CALCIUM mg/dL 9.6 Most Recent Result from last 24 hours Lab Units 09/25/21 2143 GLUCOSE mg/dL 127* Most Recent Result from last 24 hours Lab Units 09/25/21 2143 MAGNESIUM mg/dL 2.40 Most Recent Result from last 24 hours Lab Units 09/25/21 1200 APTT Sec 30 INR 1.1 Microbiology: No results found for this or any previous visit (from the past 168 hour(s)). Imaging: CT Abdomen Pelvis wo contrast Result Date: 09/25/2021 No acute abdominopelvic injury identified. READING SITE: [facility] THIS DOCUMENT HAS BEEN ELECTRONICALLY SIGNED BY SANTANA TORRES MD CT Cervical Spine wo contrast Result Date: 09/25/2021 1. No acute fracture. Slight anterolisthesis of C2 on C3 with mild widening of the C2-C3 disc space may relate to patient positioning, however ligamentous injury would be difficult to exclude given patient history of trauma. MRI cervical spine is recommended for further evaluation if clinically indicated. 2. Moderate degenerative cervical spondylosis. ATTESTATION STATEMENT: The Staff Radiologist has personally reviewed the images and dictated, reviewed, or edited the final report. READING SITE: [facility] CT Chest wo contrast Result Date: 09/25/2021 1. Diffuse interstitial edema. 2. Posterior relaxation and scattered subsegmental atelectasis. No pulmonary mass or confluent consolidation. 3. Cardiomegaly. Heavy coronary artery calcifications. Aortic valve leaflet calcifications could represent calcific aortic stenosis. 4. Small bilateral pleural effusions with features of partial loculation on the right. No pneumothorax. 5. Small upper abdominal ascites. READING SITE: [facility] CT Head wo contrast Result Date: 09/25/2021 Impression: Patient motion artifact and suboptimal positioning degrades image quality. 1. Mixed attenuation left holohemispheric likely subacute on chronic subdural hematoma which measures up to 6 mm in maximal thickness. No significant mass effect or discrete midline shift given suboptimal patient positioning. Similar ventriculomegaly when compared to outside CT. 2. Nails-white loss is identified within the right frontotemporal lobe likely representing a subacute or chronic right MCA territory infarct. 3. Right parietal approach ventricular shunt catheter is identified with the distal intracranial and terminating near the foramen of Betancourt. The partially visualized ventricular shunt catheter tubing and port appear intact where visualized. 4. Postprocedural changes of prior aneurysm coiling are identified possibly involving a basilar tip aneurysm. ATTESTATION STATEMENT: The staff radiologist has personally reviewed the images and dictated, reviewed, or edited the final report. READING SITE: [facility]. CT Head wo contrast Result Date: 09/25/2021 Impression: 1. Stable mixed attenuation left holohemispheric extra-axial collection likely representing subacute on chronic subdural hematoma measures up to 5 mm in maximal thickness. No new or enlarging intracranial hemorrhage. No significant mass effect or discrete midline shift. Similar ventriculomegaly. 2. Stable nails-white loss involving the right frontotemporal lobes and right insula likely representing a subacute right MCA territory infarct. 3. Stable right parietal approach ventricular shunt catheter. 4. Redemonstrated postprocedural changes of prior aneurysm coiling are identified possibly involving a basilar tip aneurysm or PCOM aneurysm given location. ATTESTATION STATEMENT: The Staff Radiologist has personally reviewed the images and dictated, reviewed, or edited the final report. CT Lumbar Spine reconstructed Result Date: 09/25/2021 1. No acute osseous abnormality of the lumbar spine. 2. Mild to moderate multilevel lumbar spondylosis. READING SITE: [facility]. ATTESTATION STATEMENT: The Staff Radiologist has personally reviewed the images and dictated, reviewed, or edited the final report. CT Thoracic Spine reconstructed Result Date: 09/25/2021 Impression: Mild to moderate multilevel degenerative thoracic spondylosis. READING SITE: [facility]. ATTESTATION STATEMENT: The Staff Radiologist has personally reviewed the images and dictated, reviewed, or edited the final report. XR Abdomen single view AP Result Date: 09/25/2021 1. Enteric tube coiled in the proximal stomach with sidehole near the cardia and tip near the GE junction. 2. Nonobstructive bowel gas pattern. 3. Heterogeneous opacities in the right midlung zone. Recommend attention on ordered follow-up CT. COMMUNICATION: Finding of tube position was verbally communicated and acknowledged via telephone to Cheri Lowe RN, at 09/25/2021 10:50 AM. ATTESTATION STATEMENT: Staff radiologist has personally reviewed the images and dictated, reviewed and/or edited the final report. READING SITE: [facility] XR Chest single view frontal Result Date: 09/25/2021 1. Abnormal curvilinear lucency at the left lateral lung base and costophrenic angle with apparent deep sulcus. Although no definitive pleural line is noted, findings are equivocal for a small pneumothorax given history of trauma. Contrast-enhanced chest CT is recommended for further evaluation. 2. No focal airspace disease. Results were communicated by telephone to patient's nurse Cheri by Dr. Murphy Goodwin on 09/25/2021 at 9:56 AM. READING SITE: [facility] ATTESTATION STATEMENT: The Staff Radiologist has personally reviewed this study and agrees with the findings in this report. XR Chest single view frontal Result Date: 09/24/2021 No acute chest abnormality. READING SITE: [facility] THIS DOCUMENT HAS BEEN ELECTRONICALLY SIGNED BY SANTANA TORRES MD XR Pelvis one or two views Result Date: 09/24/2021 Negative for acute pelvic fracture. READING SITE: [facility] THIS DOCUMENT HAS BEEN ELECTRONICALLY SIGNED BY SANTANA TORRES MD Echo Complete with Doppler and Color Flow Result Date: 09/25/2021 1. Normal left ventricular systolic function, with an estimated ejection fract ion of 60%. 2. Normal right ventricular size and systolic function. 3. No significant valvular abnormalities. No previous study available for comparison. Dr Hans Sanchez (Electronically Signed) Final Date: 25 September 2021 12:38 Medications: Scheduled: acyclovir, 10 mg/kg ([place]), Q12H GLYNN ampicillin, 2 g, Q6H GLYNN cefepime, 2 g, Q12H GLYNN famotidine, 20 mg, Q12H Or famotidine, 20 mg, Q12H ipratropium-albuteroL, 3 mL, 4x daily methylPREDNISolone sodium succinate, 40 mg, Q8H GLYNN phenylephrine HCl in 0.9% NaCl, , senna-docusate, 1 tablet, BID vancomycin, 1,000 mg, Q12H PRN: dextrose 50%, 25-50 mL, PRN * glucagon, 1 mg, PRN OR glucagon, 1 mg, PRN * g lucose, 16-32 g, PRN * hydrALAZINE, 10-20 mg, Q2H PRN * ondansetron, 4 mg, Q6H P RN * prochlorperazine, 2.5-5 mg, Q4H PRN OR prochlorperazine, 2.5-5 mg, Q4H PRN OR prochlorperazine, 25 mg, Q12H PRN Infusions: dexmedeTOMIDINE 0.6 mcg/kg/hr (09/26/21227) sodium chloride 0.9 % 100 mL/hr (09/26/21315) Multidisciplinary: Code Status: DNR Diet: Diet NPO GI Prophylaxis: na VTE Prophylaxis: SCDs : Nash for accurate I/Os Bowel regimen: Yes PT/OT/SLT/SW: PT, OT and ST Tertiary complete: Yes - NO ACUTE INJURIES REVEALED Active Hospital Problems Diagnosis *Encephalopathy UTI (urinary tract infection) SDH (subdural hematoma) (HCC) History of cerebral aneurysm S/P CAT BREEDER shunt COPD (chronic obstructive pulmonary disease) (HCC) Bronchitis Elevated INR GWENDOLYN (acute kidney injury) (HCC) Hypernatremia Other specified anemias Elevated troponin Acute pain due to trauma Coagulopathy (HCC) Acute encephalopathy Chronic respiratory failure with hypoxia (HCC) COPD with acute exacerbation (HCC) Leukocytosis Anemia Transaminitis Hx of hepatitis C ASSESSMENT/PLAN: - Patient admitted s/p being found unconscious by neighbors w/o his supplemental oxygen on - CTH revealed subacute on chronic SDH - Coreas scanned patient 09/25 w/ no acute injuries revealed - Patient's acute encephalopathy is not due to any acute injuries - Trauma will sign off at this time d/t no traumatic injuries. Please contact t he Trauma Team at any time with questions or concerns regarding traumatic injury . PPE Statement: Aden Witt NP used Yellow precautions (Level 3 mask, eye prot ection, and gloves). During rounds today the patient events of the previous 24 hours, physical exam, laboratory findings, radiologic studies, fluid balance,neurologic status, cardio vascular status including invasive monitoring data, pulmonary status, and metabo lic status including nutrition, and medications were reviewed. Sher parker remains in ICU after being found down at home. Pt continues to require monitor ing of neurologic, hemodynamic, pulmonary, infectious, and pain management statu s for signs of recovery and/or decline. Education on injuries, trajectory of hospitalization, recovery, medications, josue atment goal, and plan of care were discussed and mutually agreed upon with patie nt/family. Aden Johnson have reviewed all of the above findings and the overall assessmen t and plans for the day are discussed and documented in the Medical Record Note. I was personally present and involved in all aspects of patient care. Time spe nt, not including procedures 30. Aden Witt, MSN, RN, WEIR FISHERMAN, [facility] Trauma and Critical Care Services Nurse Practitioner Available on Pocket Video Pager COOKING OPERATOR * Yohana Cardoso RN CWHANH - 09/25/2021 4:10 PM WEED COOKING OPERATOR Attempted to see patient for wound care consult. Patient undergoing bedside pro cedure. Will follow up at a later time. COOKING OPERATOR * Cheri Lowe RN - 09/25/2021 3:45 PM WEED COOKING OPERATOR Precedex gtt increased to 1.3mcg/kg/hr, 5mg haldol, 2mg versed, and 50mcg fentan yl given per Resident Irvin for bedside LP. VSS, pt appears comfortable. Will cont to monitor. COOKING OPERATOR * Aden Witt NP - 09/25/2021 6:29 AM WEED COOKING OPERATOR [facility] Trauma and Critical Care Specialists Progress Note Patient Name: Sher Cary Date of Service: 09/25/2021 Date of Admission: 09/24/2021 LOS: 1 day Date of : 1950 HPI/BRIEF HOSPITAL COURSE: Sher Cary is a 71 y.o. male w/ PMH most significant for COPD, chronic h ypoxic respiratory failure dependent on supplemental oxygen, prior cerebral aneu rysm coiling and CAT BREEDER shunt placement, and hx Hep C who transferred from [facility] and presented as a green trauma activation s/p found down w/ AMS on 09/24. I t was reported that patient has been fatigued with a decrease in function over t he last month. The family was concerned that the patient may have had a stroke last week but refused EMS transport. Then 09/24, paramedics were called by patti ent's neighbor d/t found unresponsive with his oxygen off. EMS took patient to [facility] and imaging revealed subacute CVA and left cerebellar subdural hemor rhage, then transferred to [facility] for further Trauma and Neurosurgical evalua tion. Initial labs significant for Na 147, Chl 112, BUN 43, Creat. 1.5, eGFR 55 .6, trop 171, ALT 123, AST 217, WBC, Hgb 6.1, COVID negative, ABG 7.31/60/90/2.4 /30/2 on 3L/NC, CK 443. Initial 12 lead ECG: ST w/ PVC's. Initial imaging sign ificant for mixed attenuation left holohemispheric likely subacute on chronic kahn bdural hematoma, ventriculomegaly, R frontotemporal lobes and R insula likely re presenting a subacute R MCA territory infarct. 09/24: Admitted to Trauma service and NSICU. Neuro Critical Care consulted for ICU management. Neurosurgery consulted for SDH. INJURIES: 1. Unknown 24-Hour History/Events of Note: Given Vitamin K 10mg IV, 2u FFP for coagulopathy. Ceftriaxone IV initiated for UTI and Azithromycin initiated for complicated COPD exacerbation w/ solumedrol daily and DuoNebs. CTH 0500 unchanged. 1u PRBC's ordered for Hgb 6. Troponin e levated. Past Medical History: Past Medical History: Diagnosis Date Cerebral aneurysm COPD (chronic obstructive pulmonary disease) ([facility]) Past Surgical History: Past Surgical History: Procedure Laterality Date VENTRICULOPERITONEAL SHUNT Family History: History reviewed. No pertinent family history. Social History: Social History Socioeconomic History Marital status: Single Spouse name: Not on file Number of children: Not on file Years of education: Not on file Highest education level: Not on file Occupational History Not on file Tobacco Use Smoking status: Not on file Smokeless tobacco: Not on file Substance and Sexual Activity Alcohol use: Not on file Drug use: Not on file Sexual activity: Not on file Other Topics Concern Not on file Social History Narrative Not on file Social Determinants of Health Financial Resource Strain: Difficulty of Paying Living Expenses: Not on file Stress: Feeling of Stress : Not on file Intimate Partner Violence: Fear of Current or Ex-Partner: Not on file Emotionally Abused: Not on file Physically Abused: Not on file Sexually Abused: Not on file Allergies: Patient has no known allergies. Prior to Admission Medications: No medications prior to admission. SUBJECTIVE: Sher Raeann is not able to participate in ROS or PE d/t LOC Review of Systems: ROS unobtainable because LOC OBJECTIVE: Vital Signs: BP 135/67 (BP Location: Left arm, Patient position: Supine) | Pulse 95 | Temp 36.6 C (97.8 F) (Oral) | Resp 14 | Ht 1.676 m (5' 6") | Wt 73.1 kg (161 l b 2.5 oz) | SpO2 94% | BMI 26.01 kg/m Tmax: Temp (24hrs), Av.8 C (98.3 F), Min:36.6 C (97.8 F), Max:37.2 C (99 F) VS Ranges: Temp: [36.6 C (97.8 F)-37.2 C (99 F)] 36.6 C (97.8 F) Pulse: [84-119] 95 Resp: [14-30] 14 BP: (95-184)/(42-158) 135/67 Physical Exam: General Appearance: lying with eyes closed, appears comfortable lying in bed, in no acute distress Neurologic: GCS 12 (E3 V4 M5), ALANIS 3+, unable to fully assess d/t LOC HEENT: NC/AT, white sclera, no obvious abnormality or drainage Neck: Supple, trachea midline, no JVD. Respiratory: Airway: Patent, intact. Lungs: Diffuse expiratory wheezes, diminished bilaterally. Unlabored respi rations, symmetric chest rise, in no acute respiratory distress. Cardiovascular: Heart: RRR, no MRG noted Peripheral Vascular: Bilateral carotid arteries palpable, bilateral radial and D P pulses +2, cap refill < 3 sec Abdomen/Gastrointestinal: Soft, non-distended. Unable to fully assess tendernes s to palpation given current level of sedation. Genitourinary: Nash in place with clear yellow urine. Extremities/musculoskeletal: No obvious abnormality. Minimal spontaneous moveme nt secondary to current LOC. Extremities warm and well perfused. No peripheral e vanda. Integumentary: Warm and dry. Adequate peripheral perfusion. Lines/drains/tubes: PIV, nash Incision(s)/wound(s): None Respiratory Support: 2-4L/NC Nasal cannula oxygen as needed to maintain adequate oxygen saturation Intake/Output: I/O last 24 Hours: In: 669 [I.V.:622.3; IV Piggyback:46.8] Out: 1225 [Urine:1225] Laboratory Results: Most Recent Result from last 24 hours Lab Units 09/25/21 1226 09/25/21 0102 09/25/21 0102 WBC TH/uL -- -- 12.78* HEMOGLOBIN g/dL 7.8* < > 6.0* HEMATOCRIT % 28* < > 23* PLATELET COUNT Th/uL -- -- 322 < > = values in this interval not displayed. Most Recent Result from last 24 hours Lab Units 09/24/21 2325 SODIUM mEq/L 147* POTASSIUM mEq/L 4.6 CARBON DIOXIDE mEq/L 29 BLOOD UREA NITROGEN mg/dL 44* CREATININE mg/dL 1.40* GLUCOSE mg/dL 83 CALCIUM mg/dL 8.8 Most Recent Result from last 24 hours Lab Units 09/25/21 0514 09/24/21 2325 09/24/21 2325 PROTEIN TOTAL SERUM g/dL 6.0 < > 5.9 ALKALINE PHOSPHATASE U/L 63 < > 62 ALANINE AMINOTRANSFERASE U/L 146* < > 123* ASPARTATE AMINOTRANSFERASE U/L 245* < > 213* GLUCOSE mg/dL -- -- 83 < > = values in this interval not displayed. No lab components to display Most Recent Result from last 24 hours Lab Units 09/25/21 1200 APTT Sec 30 INR 1.1 Microbiology: No results found for this or any previous visit (from the past 168 hour(s)). Imaging: CT Chest wo contrast Result Date: 09/25/2021 1. Diffuse interstitial edema. 2. Posterior relaxation and scattered subsegmental atelectasis. No pulmonary mass or confluent consolidation. 3. Cardiomegaly. Heavy coronary artery calcifications. Aortic valve leaflet calcifications could represent calcific aortic stenosis. 4. Small bilateral pleural effusions with features of partial loculation on the right. No pneumothorax. 5. Small upper abdominal ascites. READING SITE: [facility] CT Head wo contrast Result Date: 09/25/2021 Impression: Patient motion artifact and suboptimal positioning degrades image quality. 1. Mixed attenuation left holohemispheric likely subacute on chronic subdural hematoma which measures up to 6 mm in maximal thickness. No significant mass effect or discrete midline shift given suboptimal patient positioning. Similar ventriculomegaly when compared to outside CT. 2. Nails-white loss is identified within the right frontotemporal lobes and right insula likely representing a subacute right MCA territory infarct. 3. Right parietal approach ventricular shunt catheter is identified with the distal intracranial and terminating near the foramen of Betancourt. The partially visualized ventricular shunt catheter tubing and port appear intact where visualized. 4. Postprocedural changes of prior aneurysm coiling are identified possibly involving a basilar tip aneurysm or PCOM aneurysm given location. PRELIMINARY REPORT This examination has not been reviewed by a staff radiologist. A final report will be issued after staff review. READING SITE: [facility]. XR Abdomen single view AP Result Date: 09/25/2021 1. Enteric tube coiled in the proximal stomach with sidehole near the cardia and tip near the GE junction. 2. Nonobstructive bowel gas pattern. 3. Heterogeneous opacities in the right midlung zone. Recommend attention on ordered follow-up CT. COMMUNICATION: Finding of tube position was verbally communicated and acknowledged via telephone to Cheri Lowe RN, at 09/25/2021 10:50 AM. ATTESTATION STATEMENT: Staff radiologist has personally reviewed the images and dictated, reviewed and/or edited the final report. READING SITE: [facility] XR Chest single view frontal Result Date: 09/25/2021 1. Abnormal curvilinear lucency at the left lateral lung base and costophrenic angle with apparent deep sulcus. Although no definitive pleural line is noted, findings are equivocal for a small pneumothorax given history of trauma. Contrast-enhanced chest CT is recommended for further evaluation. 2. No focal airspace disease. Results were communicated by telephone to patient's nurse Cheri by Dr. Murphy Goodwin on 09/25/2021 at 9:56 AM. READING SITE: [facility] ATTESTATION STATEMENT: The Staff Radiologist has personally reviewed this study and agrees with the findings in this report. XR Chest single view frontal Result Date: 09/24/2021 No acute chest abnormality. READING SITE: [facility] THIS DOCUMENT HAS BEEN ELECTRONICALLY SIGNED BY SANTANA TORRES MD XR Pelvis one or two views Result Date: 09/24/2021 Negative for acute pelvic fracture. READING SITE: [facility] THIS DOCUMENT HAS BEEN ELECTRONICALLY SIGNED BY SANTANA TORRES MD Echo Complete with Doppler and Color Flow Result Date: 09/25/2021 1. Normal left ventricular systolic function, with an estimated ejection fract ion of 60%. 2. Normal right ventricular size and systolic function. 3. No significant valvular abnormalities. No previous study available for comparison. Dr Hans Sanchez (Electronically Signed) Final Date: 25 September 2021 12:38 Medications: Scheduled: cefTRIAXone, 2 g, Daily famotidine, 20 mg, Q12H Or famotidine, 20 mg, Q12H ipratropium-albuteroL, 3 mL, 4x daily methylPREDNISolone sodium succinate, 40 mg, Q8H GLYNN senna-docusate, 1 tablet, BID PRN: dextrose 50%, 25-50 mL, PRN * glucagon, 1 mg, PRN OR glucagon, 1 mg, PRN * g lucose, 16-32 g, PRN * hydrALAZINE, 10-20 mg, Q2H PRN * labetaloL, 10-20 mg, Q2H PRN * ondansetron, 4 mg, Q6H PRN * prochlorperazine, 2.5-5 mg, Q4H PRN OR p rochlorperazine, 2.5-5 mg, Q4H PRN OR prochlorperazine, 25 mg, Q12H PRN * so dium chloride 0.9%, 250 mL, Once PRN * sodium chloride 0.9%, 250 mL, Once PRN Infusions: dexmedeTOMIDINE 0.4 mcg/kg/hr (09/25/21 1237) sodium chloride 0.9 % 100 mL/hr (09/25/21 0111) Multidisciplinary: Code Status: DNR Diet: Diet NPO GI Prophylaxis: na VTE Prophylaxis: SCDs : Nash for accurate I/Os Bowel regimen: Yes PT/OT/SLT/SW: PT, OT and ST Tertiary complete: No, Reassessment needed w/ improved LOC Cervical spine clearance: T & L spine clearance: Procedures/Surgeries: None Active Hospital Problems Diagnosis *Encephalopathy UTI (urinary tract infection) SDH (subdural hematoma) (HCC) History of cerebral aneurysm S/P CAT BREEDER shunt COPD (chronic obstructive pulmonary disease) (HCC) Bronchitis Elevated INR GWENDOLYN (acute kidney injury) (HCC) Hypernatremia Other specified anemias Elevated troponin Acute pain due to trauma Coagulopathy (HCC) Acute encephalopathy Chronic respiratory failure with hypoxia (HCC) COPD with acute exacerbation (HCC) Leukocytosis Anemia Transaminitis Hx of hepatitis C ASSESSMENT/PLAN: Neurologic: Acute pain due to trauma - Continue multimodal pain regimen Subacute on chronic SDH vs hygroma Acute encephalopathy, possibly hepatic or multifactorial (toxic, hepatic, posttr aumatic) Hx cerebral aneurysm w/ coil CAT BREEDER shunt - vEEG, ammonia, lactate - Continue Precedex infusion for agitation/combativeness - Neurosurgery consulted - No neurosurgical interventions indicated - Obtain skull XR - Recommend further evaluation for causes of AMS - Recommend continuing to correct his coagulopathy and maintain his INR less th an 1.4 - Recommend holding SQH until coagulopathy has been corrected Cardiovascular: Elevated troponin - Continue to trend troponin and EKG per protocol - Echocardiogram ordered - Continue PRN IVP hydralazine & labetalol for SBP > 160 - Continue to monitor hemodynamics w/ goal SBP < 160 & goal MAP > 65 Pulmonary: COPD w/ exacerbation Chronic hypoxic respiratory failure (baseline home supplemental oxygen) - Continue Duo Nebs QID, methylprednisolone 40mg Q8h, - Titrate supplemental oxygen to maintain oxygen saturation >/= 90% - Continue pulmonary hygiene w/ IS 10x/hr while awake, TCDB Renal/Genitourinary: GWENDOLYN vs CKD Hypernatremia - Continue maintenance IVF at this time - Continue nash catheter for accurate I/O, evaluate for indication for removal daily - Continue to monitor accurate I/O - Continue to monitor electrolytes and replace as indicated FEN/Gastrointestinal: - NPO GI prophylaxis - Continue bowel regimen to prevent constipation, hold for multiple loose stools Transaminitis Hx Hep C Endocrine: No hx DM, glucose monitoring and management per protocol Hematology/Oncology: Coagulopathy w/ elevated INR Leukocytosis Anemia - Continue to trend and transfuse as indicated - Continue to monitor CBC, s/s hemorrhage, s/s infection VTE prophylaxis: - Continue SCD's - Pharmacological ppx contraindicated d/t coagulopathy Infectious Disease: UTI COPD exacerbation - Continue ceftriaxone IV - S/p azithromycin - Continue to monitor fever, WBC, and s/s infection Integumentary/Musculoskeletal: BLE wounds - Wound care consulted, appreciate recs Trauma pt w/ AMS - Coreas scan pt to evaluate for other traumatic injuries/cause of ABLA - Continue to monitor skin condition and assess for wounds, continue Q2h turns o r encourage frequent position changes - Encourage out of bed as tolerated - Head of bed to 30 - 45 degrees - Continue PT/OT as indicated Incidental Findings: - None Disposition/Family: - Continue ICU status at this time, appreciate nursing and staff - ICU care per Neuro critical care team, appreciate assistance - Home medications reviewed and restarted/continued as appropriate - Appreciate assistance of care coordination PPE Statement: Aden Witt, MELBA used Yellow precautions (Level 3 mask, eye prot ection, and gloves). During rounds today the patient events of the previous 24 hours, physical exam, laboratory findings, radiologic studies, fluid balance,neurologic status, cardio vascular status including invasive monitoring data, pulmonary status, and metabo lic status including nutrition, and medications were reviewed. Sher Xie r remains in ICU after being found down at home. Pt continues to require monitor ing of neurologic, hemodynamic, pulmonary, infectious, and pain management statu s for signs of recovery and/or decline. Education on injuries, trajectory of hospitalization, recovery, medications, josue atment goal, and plan of care were discussed and mutually agreed upon with patie nt/family. I, Aden Witt have reviewed all of the above findings and the overall assessmen t and plans for the day are discussed and documented in the Medical Record Note. I was personally present and involved in all aspects of patient care. Time spe nt, not including procedures 35. Aden Witt, MSN, RN, WEIR FISHERMAN, AGACNP-[facility] Trauma and Critical Care Services Nurse Practitioner Available on [employer] Pager COOKING OPERATOR * JUSTICE Ely - 09/25/2021 12:34 AM WEED COOKING OPERATOR Critical Care Progress Note PATIENT NAME: Sher Cary DATE of SERVICE: 09/25/2021 CPI: [id number] AGE: 71 y.o. : 1950 CHIEF COMPLAINT: Altered mental status DATE OF PROCEDURES: none HOSPITAL COURSE: Due to patient arriving with altered mental status, primary med ical information obtained from medical records/family report at bedside. Mr. Zack pereira is a 71 yo male with a PMHx of COPD requiring baseline O2 supplement, H x of cerebral aneurysm s/p coil, and Hx of CAT BREEDER shunt placement. He presented [facility] ED via EMS on 09/24 when neighbor reportedly found him unconscious in his mar[place] e with his home oxygen off. Per family report, patient had been declining over t he last month significantly. CT head with chronic Left SDH measuring 3 mm and de monstrates CAT BREEDER shunt. Decision made to transfer to [facility] ED for comprehensive traum a w/u. On arrival to ED, he was hypertensive and started on cardene infusion for SBP < 160 mmHg. He was subsequently admitted to Neurosurgical ICU for further management. PAST MEDICAL HISTORY: Past Medical History: Diagnosis Date Cerebral aneurysm COPD (chronic obstructive pulmonary disease) (HCC) PAST SURGICAL HISTORY: Past Surgical History: Procedure Laterality Date VENTRICULOPERITONEAL SHUNT SOCIAL HISTORY: Social History Socioeconomic History Marital status: Single Spouse name: Not on file Number of children: Not on file Years of education: Not on file Highest education level: Not on file Occupational History Not on file Tobacco Use Smoking status: Not on file Smokeless tobacco: Not on file Substance and Sexual Activity Alcohol use: Not on file Drug use: Not on file Sexual activity: Not on file Other Topics Concern Not on file Social History Narrative Not on file Social Determinants of Health Financial Resource Strain: Difficulty of Paying Living Expenses: Not on file Stress: Feeling of Stress : Not on file Intimate Partner Violence: Fear of Current or Ex-Partner: Not on file Emotionally Abused: Not on file Physically Abused: Not on file Sexually Abused: Not on file FAMILY HISTORY: History reviewed. No pertinent family history. ALLERGIES: Patient has no known allergies. PRIOR TO ADMISSION MEDICATIONS: No medications prior to admission. 24-HOUR HISTORY/EVENTS OF NOTE: Admit to NSICU for close neuro monitoring. ROS: ROS unobtainable because patient with AMS. PHYSICAL EXAM: Vitals: BP (!) 184/158 Comment: MD Pippa aware of elevated BP | Pulse (!) 113 Co mment: MD Pippa aware of elevated BP | Temp 37 C (98.6 F) (Axillary) | Resp 26 Comment: MD Pippa aware of elevated BP | Wt 73.1 kg (161 lb 2.5 oz) | SpO2 97% Comment: MD Pippa aware of elevated BP Respiratory Support: O2 Device: Nasal cannula O2 Flow Rate (L/min): 4 L/min T-High: Temp (24hrs), Av.9 C (98.4 F), Min:36.7 C (98.1 F), Max:37 C (98.6 F) Fluid Balance: No intake/output data recorded. General Appearance: Lying in bed, no acute distress Neurologic: Arousable with noxious stimuli. Unable to assess speech or sensatio n 2/2 AMS. Responds to noxious stimuli. No facial droop present. Moves all extre mities spontaneously. HEENT: Eyes: Pupils mm, equal, round and reactive to light. EOMs intact withou t nystagmus. Sclera white, no edema. Visual fortune intact. Head: normocephalic, atraumatic. Neck: Trachea midline. No JVD. Throat/Mouth: oral mucosa pink, no le sions Lungs: Diffuse expiratory wheezing to auscultation bilaterally, no accessory muscle use Heart: Regular rate and rhythm, S1/S2, no murmur, no rub Abdomen: Soft, non-tender, bowel sounds active all four quadrants Genitourinary: Deferred Extremities: Extremities with full active ROM, no edema Pulses/Perfusion: 2+ pulses radial and dorsalis pedis, warm and well perfused Skin: No rashes or lesions Surgical Site: None LAB RESULTS: No lab components to display Most Recent Result from last 24 hours Lab Units 09/24/21 2325 SODIUM mEq/L 147* POTASSIUM mEq/L 4.6 CARBON DIOXIDE mEq/L 29 BLOOD UREA NITROGEN mg/dL 44* CREATININE mg/dL 1.40* GLUCOSE mg/dL 83 CALCIUM mg/dL 8.8 Most Recent Result from last 24 hours Lab Units 09/24/21 2325 PROTEIN TOTAL SERUM g/dL 5.9 ALKALINE PHOSPHATASE U/L 62 ALANINE AMINOTRANSFERASE U/L 123* ASPARTATE AMINOTRANSFERASE U/L 213* GLUCOSE mg/dL 83 No lab components to display Most Recent Result from last 24 hours Lab Units 09/24/21 2249 APTT Sec 43* INR 2.7* ABG: Most Recent Result within the last 7 days Lab Units 09/24/21 2325 PH ARTERIAL units 7.31* PCO2 ARTERIAL mmHg 60* PO2 ARTERIAL mmHg 90 BICARBONATE mEq/L 30.2* Cultures: No results found for this visit on 09/24/21. ECHOCARDIOGRAPHY: No results found. RADIOLOGY/IMAGING: CT Head wo contrast Result Date: 09/25/2021 Impression: Patient motion artifact and suboptimal positioning degrades image quality. 1. Mixed attenuation left holohemispheric likely subacute on chronic subdural hematoma which measures up to 6 mm in maximal thickness. No significant mass effect or discrete midline shift given suboptimal patient positioning. Similar ventriculomegaly when compared to outside CT. 2. Nails-white loss is identified within the right frontotemporal lobes and right insula likely representing a subacute right MCA territory infarct. 3. Right parietal approach ventricular shunt catheter is identified with the distal intracranial and terminating near the foramen of Betancourt. The partially visualized ventricular shunt catheter tubing and port appear intact where visualized. 4. Postprocedural changes of prior aneurysm coiling are identified possibly involving a basilar tip aneurysm or PCOM aneurysm given location. PRELIMINARY REPORT This examination has not been reviewed by a staff radiologist. A final report will be issued after staff review. READING SITE: [facility]. XR Chest single view frontal Result Date: 09/24/2021 No acute chest abnormality. READING SITE: [facility] THIS DOCUMENT HAS BEEN ELECTRONICALLY SIGNED BY SANTANA TORRES MD XR Pelvis one or two views Result Date: 09/24/2021 Negative for acute pelvic fracture. READING SITE: [facility] THIS DOCUMENT HAS BEEN ELECTRONICALLY SIGNED BY SANTANA TORRES MD MEDICATIONS: azithromycin, 500 mg, Daily famotidine, 20 mg, Q12H Or famotidine, 20 mg, Q12H ipratropium-albuteroL, 3 mL, 4x daily methylPREDNISolone sodium succinate, 40 mg, Q8H GLYNN phytonadione ((AQUA-MEPHYTON) IVPB, 10 mg, Once senna-docusate, 1 tablet, BID INFUSIONS: sodium chloride 0.9 % 100 mL/hr (09/24/21 9754) ICU BEST PRACTICE: CODE STATUS: FULL CODE LOS: 1 DELIRIUM PRESENT: No SEDATION VACATION: N/A SBT: N/A DIET: NPO, strict GI PROPHYLAXIS: not indicated at this time GLYCEMIC CONTROL: No VTE PREVENTION: SCDs NASH: No Nash LINES: PIV x2 DRAINS: none AIRWAY: Not Intubated ANTIBIOTIC REVIEW: Yes MAR/HOME MED REVIEW: Yes BOWEL REGIMEN: Yes BM LAST 48 HRS: N/A THERAPIES: PT, OT and ST MOBILITY: PT and OT PPE Statement: JUSTICE Ely used Yellow precautions (Level 1 mask worn over level 3 mask, eye protection, and gloves). DIAGNOSIS: Neuro: Chronic Left sided SDH Altered mental status Hx of cerebral aneurysm with coil CAT BREEDER shunt Pulm: COPD requiring baseline oxygen supplementation Bronchitis HEME: Elevated INR Renal: Acute Kidney Injury vs CKD Hypernatremia ID: Urinary tract infection - Ceftriaxone D1 PLAN: Goal SBP < 160 mmHg Labetalol 10-20 mg IV PRN q2h Hydralazine 10-20 mg IV PRN q2h Ceftriaxone 1 g for 5 days NS 0.9% @ 100 mL/hr Solumedrol 40 mg Daily Duoneb treatment q6h Vit K 10 mg IV FFP transfusion 2 units Bowel regimen PRN pain regimen PRN antiemetics Labs - BMP, CBC, procal, CK, glucose, UA, tox screen F/u CT head @ 0500 Consult NSGY PT/OT Oxygen supplementation SCDs for VTE prophylaxis I personally reviewed the patient events of the previous 24 hours, physical exam , laboratory findings, radiologic studies including images, fluid balance, neuro logic status, cardiovascular status, pulmonary status, metabolic status includin g nutrition, and medications discussed with Dr. Joyce. Sher Cary is be ing cared for following a chronic SDH with AMS. Will maintain SBP < 160 mmHg with PRN antihypertensives. UA demonstrated UTI, will treat with ceftriaxone and give IVF for adequate hydration. On exam he has diffuse pulmonary wheeze, will give solumedrol daily and scheduled duoneb treatments for COPD. Additionally, will start Azithromycin to cover pulmonary atypical for possible bronchitis. Will obtain labs including procalcitonin and leukocytosis for comprehensive infectious w/u. Coagulopathy with INR at 2.7, will give 2 units FFP and Vit K IV for reversal. No anticoagulation therapy noted on Rx review or chart review. W ill obtain F/u CT head to reevaluate SDH and consult NSGY for further recommenda tions for chronic SDH in setting of CAT BREEDER drain. Will maintain SCDs for VTE prophyl axis and started SQH once appropriate. I will continue to closely monitor his ne urologic status while he remains in NSICU. No education provided 2/2 patient mental status. Will update family via phone on patient's condition and provide education as well as answer any questions. I, JUSTICE Ely, have reviewed all of these findings and the overall ass essment and plans for the day are discussed and documented in the Medical Record Note. I was personally present and involved in all aspects of patient care. Level 3 JUSTICE Ely COOKING OPERATOR Associated attestation - Gorge Joyce MD - 09/25/2021 4:38 AM WEED COOKING OPERATOR Pt presented after being found down in his apartment. Small SDH on head CT, how ever neuro findings most c/w global encephalopathy. Pt alternates between somno lence and agitation. On exam, pt with cloudy urine from Nash, and wheezing on exam. lab findings with INR 2.7 from unknown etiology. I am concerned that in dolent infection may be the underlying etiology of encephalopathy. Cx obtained and abx started. Covering for both UTI and bronchitis. Giving vit K and FFP gi patria SDH and high INR. As patient is wheezing on exam, will treat for possible C OPD exacerbation with steroids and duonebs. Gorge Joyce documented in this encounter H&P Notes * Angel Kowalski MD - 09/24/2021 11:13 PM WEED COOKING OPERATOR Trauma Surgery History and Physical [facility] PATIENT NAME: Sher Cary DATE: 09/24/2021 AGE: 71 y.o. : 1950 TIME OF TRAUMA: Today TRAUMA ACTIVATION: GREEN TIME OF ACTIVATION: 2012 TIME OF TEAM ARRIVAL: 2029 MODE OF ARRIVAL: EMS Transfer HISTORY OF PRESENT ILLNESS: Sher Cary is a 71 y.o. male with history o f oxygen dependent COPD, prior aneurysm coiling, and CAT BREEDER shunt placement who pres ents as a transfer GREEN Trauma activation s/p SDH and AMS. Per Triage report, deysi reagan was found by neighbors unconscious in his home with his oxygen off. Per f amily, patient "has never been quite right mentally" but has been able to care f or himself until about a month ago and has declined Significantly. Family expre ssed concern of stroke last week but patient refused EMS transport to the ED. OS H evaluation was significant for SDN, AMS, and anemia Hgb 6.7. On presentation t o [facility], patient was GCS of 13, somnolent, not cooperative, minimally verbal, and not in acute distress. PAST MEDICAL HISTORY: Past Medical History: Diagnosis Date Cerebral aneurysm COPD (chronic obstructive pulmonary disease) (HCC) PAST SURGICAL HISTORY: Past Surgical History: Procedure Laterality Date VENTRICULOPERITONEAL SHUNT FAMILY HISTORY: History reviewed. No pertinent family history. SOCIAL HISTORY: Social History Socioeconomic History Marital status: Single Spouse name: Not on file Number of children: Not on file Years of education: Not on file Highest education level: Not on file Occupational History Not on file Tobacco Use Smoking status: Not on file Smokeless tobacco: Not on file Substance and Sexual Activity Alcohol use: Not on file Drug use: Not on file Sexual activity: Not on file Other Topics Concern Not on file Social History Narrative Not on file Social Determinants of Health Financial Resource Strain: Difficulty of Paying Living Expenses: Not on file Stress: Feeling of Stress : Not on file Intimate Partner Violence: Fear of Current or Ex-Partner: Not on file Emotionally Abused: Not on file Physically Abused: Not on file Sexually Abused: Not on file ALLERGIES: Patient has no known allergies. PRIOR TO ADMISSION MEDICATIONS: (Not in a hospital admission) REVIEW OF SYSTEMS: Review of Systems Unable to perform ROS: Acuity of condition Patient not cooperative, somnolent. PHYSICAL EXAM: BP (!) 150/135 | Pulse (!) 105 | Temp 36.7 C (98.1 F) (Axillary) | Resp 2 4 | SpO2 98% PRIMARY SURVEY: Airway: intact,: patent Breathing: equal and symmetrical chest expansion, spontaneous Circulation: +2 pulses: radial Disability: GCS 13 E 4, V 4, M 5 Resuscitation: None SECONDARY SURVEY: HENT: Pupils: L 3mm R unable to assess; L ALANIS; Csp: unable to assess; Trachea: no deviation; JVD: not observed; Face: atraumatic; Wounds: none Chest: NTTP, CTA; wounds: none Back: NTTP, ND; wounds: none Abdomen: soft, NTTP, BS: 4 quadrants, wounds: none Pelvis: NTTP, ND : normal, Nash: none ENOCH: tone intact, no heme Extremity: RUE: 4/5, pulses: +2; LUE: 4/5; pulses: +1; RLE: 5/5; pulses: unable to assess; LLE: 5/5; pulses: unable to assess; MOORE; 5/5 Motor; Sensation: intac t FRAIL Screen J Nutr Health Aging 2012;[phone] Unable to assess Screen For Ask Fatigue Are you fatigued throughout the day? Resistance Are you unable to walk up a flight of stairs? Ambulation Are you unable to walk a block? Illness Does the patient have 5 or more of the following: Hypertension Diabetes Mellitus Cancer (other than minor skin cancer) Chronic lung disease H/o Myocardial Infarction Congestive Heart Failure Angina Asthma Arthritis H/o stroke Chronic Kidney Disease Loss of Weight Have you lost weight unexpectedly in the past 6 mos? Or Has Epic documented >5% wt loss in 6 months? Total Yes: Any yes or + for dementia = Use frailty order set 1-2 yes = pre-frail 3-5 yes = frail General Appearance: Somnolent, uncooperative, no distress Neurologic: unable to assess. Neck: Supple, symmetrical, trachea midline Respiratory: Lungs clear to auscultation bilaterally Heart: Regular rate and rhythm, S1 and S2 normal, no murmur Abdomen: Soft, non-tender, bowel sounds active all four quadrants, no masses, no organomegaly Back: No C/T/L-spine TTP. No step-offs Extremities: Extremities normal, no edema Skin: No rashes or lesions Psychiatric: unable to assess LAB RESULTS Last CBC: No lab components to display Last BMP: Most Recent Result within the last 7 days Lab Units 09/24/21 2249 SODIUM mEq/L 147* POTASSIUM mEq/L 5.0 CARBON DIOXIDE mEq/L 28 BLOOD UREA NITROGEN mg/dL 43* CALCIUM mg/dL 8.9 Last CMP: Most Recent Result within the last 7 days Lab Units 09/24/21 2249 SODIUM mEq/L 147* POTASSIUM mEq/L 5.0 CARBON DIOXIDE mEq/L 28 BLOOD UREA NITROGEN mg/dL 43* CALCIUM mg/dL 8.9 PROTEIN TOTAL SERUM g/dL 5.8 ALKALINE PHOSPHATASE U/L 62 ALANINE AMINOTRANSFERASE U/L 123* ASPARTATE AMINOTRANSFERASE U/L 217* No results found for: PHOS, HGB, HGBA1C No lab components to display Most Recent Result within the last 7 days Lab Units 09/24/21 2249 APTT Sec 43* INR 2.7* RADIOLOGY: XR Chest single view frontal Result Date: 09/24/2021 No acute chest abnormality. READING SITE: [facility] THIS DOCUMENT HAS B EEN ELECTRONICALLY SIGNED BY SANTANA TORRES MD XR Pelvis one or two views Result Date: 09/24/2021 Negative for acute pelvic fracture. READING SITE: [facility] THIS DOCUME NT HAS BEEN ELECTRONICALLY SIGNED BY SANTANA TORRES MD ASSESSMENT: Sher Cary is a 71 y.o. male with history of oxygen dependent COPD, prio r aneurysm coiling, and CAT BREEDER shunt placement who presents as a transfer GREEN Trau ma activation s/p SDH and AMS. Per Triage report, patient was found by neighbors unconscious in his home with his oxygen off. Per family, patient has declined s ignificantly in the past month and is not able to care for himself like he used. Patient had a possible stroke last week but refused EMS transport to the ED. OS H evaluation was significant for SDH, AMS, and anemia Hgb 6.7. On presentation t o [facility], patient was GCS of 13, somnolent, not cooperative, minimally verbal, and not in acute distress. Patient was hypertensive 150s-170s, tachycardic in 100s, and tachypnic. On supplemental O2 saturating at 98%. There are no active hospital problems to display for this patient. PLAN: -Admit to Neuro ICU -Neurosurgery consulted -CT Head STAT pending -Repeat CT Head at 5AM -Anemic Hgb 6.7 on presentation, repeat H/H pending. -Diet: Keep NPO -DVT ppx: SCD,hold chem ppx -PT/OTwhen appropriate Marianela Gaona MD PGY-1 General Surgery Staff: Dr. Kowalski [facility] History and Physical TRAUMA STAFF PAGED:[id number] 09/24/2021 ARRIVED:222909/24/2021 LEVEL OF ACTIVATION:GREEN TIME OF ACCIDENT:UNKNOWN MECHANISM:POSSIBLE GROUND LEVEL FALL. I have seen and examined this patient with the resident. I agree with the above resident's note, physical exam, assessment, and plan of care. Patient is a 71-year-old gentleman who was reportedly found by his neighbors at his home with altered mental status. Patient by report was noted by neighbors about a week ago to be confused, with s lurred speech, intermittently somnolent. Concern was raised for possible stroke and patient was advised to seek medical attention. Patient declined to see britta shaffer. Patient does have a known history of COPD. Apparently neighbors were able to get into his house, found him to have altered mental status, and EMS was called. Patient was taken to [facility] in [facility]. Patient had a CT of his head which showed the presenc e of a right ventricular peritoneal shunt, and a small left parietal acute on ch ronic subdural hematoma. There was no mass-effect or any acute stroke that was seen. Patient was felt to have a [place] Coma Scale of approximately 13. Huber caty was made to [facility] care. Patient by report has had previous aneurysm coiling. Patient is unable to provide further history to details of what happened to him. There is no definite history of trauma. PHx per above. 10 point review of systems was negative except as mentioned above. Pt. Awake, confused, intermittently combative. Head: No focal tenderness. No external signs of trauma. Neck: NT, FROM Chest: good bilateral breath sounds. No focal chest wall tenderness. Cardiac: RRR Abd: soft, NT. Pelvis: stable, non tender. Back: Non-tender. No abnormalities. Ext: No deformities. -good 2+ bilateral pedal pulses. Neuro: Moves all four extremities well. Normal sensation UE's, and LE's. -GCS-eyes 4, verbal 3, motor 6-13 CT head: Small left parietal acute on chronic subdural hematoma, 4 mm in size. -Right CAT BREEDER shunt in place. Chest x-ray: No acute abnormality Pelvis: No acute abnormality ECG: Sinus tach, PVCs. Active Hospital Problems Diagnosis *UTI (urinary tract infection) Other specified anemias SDH (subdural hematoma) ([facility]) Altered mental status History of cerebral aneurysm S/P CAT BREEDER shunt COPD (chronic obstructive pulmonary disease) ([facility]) Bronchitis Elevated INR GWENDOLYN (acute kidney injury) ([facility]) Hypernatremia Anemia PLAN: Patient presenting with altered mental status, with Glascow coma scale of 13. Patient with a small left parietal acute on chronic subdural hematoma, not expla ining the patient's altered mental status. No definite history of trauma. Confusion and altered mental status has been ongoing for the past week. Patient admitted to the neurosurgical ICU. Serial neuro checks, physical exam, and labs. Neurosurgery consultation has been requested from Dr. Carr, who is aware. Routine consultation. Discussed patient with Dr. Joyce, neurosurgical ICU staff. Patient will have follow-up CTs of his head. Patient will receive blood transfusion for anemia. PPE Statement: Angel Kowalski MD used Yellow precautions (Level 1 mask worn over level 3 mask, eye protection, and gloves). Electronically signed by Angel Kowalski 09/25/2021 5:46 AM [phone] COOKING OPERATOR documented in this encounter Procedure Notes * Kwesi Hooks MD - 09/25/2021 4:42 PM WEED COOKING OPERATOR Procedure(s): LUMBAR PUNCTURE W/O FLUORO Pre-Procedure Diagnose(s): Encephalopathy Post-Procedure Diagnose(s): Encephalopathy Lumbar Puncture Procedure Note Pre-operative Diagnosis: Enephalopathy Post-operative Diagnosis: Same Indications: Diagnostic Procedure Details Consent: Informed consent was obtained. Risks of the procedure were discussed in cluding: infection, bleeding, pain and headache. The patient was positioned under sterile conditions. Betadine solution and steri le drapes were utilized. A spinal needle was inserted at L3/L4 interspace. Multi ple passes was attempted but was unsuccessful in obtaining CSF Complications: None Condition: Stable Plan IR consult for LP under Fluoroscopy COOKING OPERATOR * Ezio Fortune MD - 09/25/2021 4:06 PM WEED COOKING OPERATOR Associated Order(s): EEG PROLONGED (> 60 MIN) NEURODIAGNOSTICS - EEG Report DATE OF STUDY: 09/25/2021 TYPE OF EEG: Prolonged LENGTH OF EE min REFERRING PROVIDER: Christina Cao APRN INTERPRETING PHYSICIAN: Ezio Fortune M.D., M.S. INDICATION: Evaluate for seizures. MEDICATIONS: cefTRIAXone (ROCEPHIN) injection 2 g dexmedeTOMIDINE (PRECEDEX) 4 mcg/mL infusion 100 mL (premix) dextrose 50% (D50W) syringe 25-50 mL famotidine (PEPCID) tablet 20 mg Or famotidine (PEPCID) injection 20 mg glucagon (GLUCAGEN) injection 1 mg Or glucagon (GLUCAGEN) injection 1 mg glucose chewable tablet 16-32 g hydrALAZINE (APRESOLINE) injection 10-20 mg ipratropium-albuteroL (DUO-NEB) 0.5-3 mg/3 mL nebulizer solution 3 mL labetaloL (NORMODYNE,TRANDATE) injection 10-20 mg lidocaine (pf) (XYLOCAINE-MPF) 20 mg/mL (2 %) injection 1-10 mL methylPREDNISolone sod suc(PF) (SOLU-Medrol) injection 40 mg ondansetron (ZOFRAN) injection 4 mg prochlorperazine (COMPAZINE) injection 2.5-5 mg Or prochlorperazine (COMPAZINE) injection 2.5-5 mg Or prochlorperazine (COMPAZINE) suppository 25 mg senna-docusate (PERICOLACE) 8.6-50 mg 1 tablet sodium chloride 0.9% (NS) IV Bolus sodium chloride 0.9% (NS) IV Bolus sodium chloride 0.9% infusion FINDINGS: ABNORMALITY #1: Background rhythm shows generalized delta frequency slowing in a 1 to 4 Hz frequ ency range. Intermixed faster theta frequency components can occur more promine ntly over the central regions that at times can have poorly formed sleep morphol ogies. BACKGROUND: As above. HYPERVENTILATION: Not performed. INTERMITTENT PHOTIC STIMULATION: Not performed. SLEEP: Normal transitions of wakefulness and sleep are not identified. FILM COMPOSER: Shows a normal sinus rhythm. IMPRESSION: This is an abnormal prolonged EEG due to the presence of generalized slowing thr oughout the recording. This finding suggest midline subcortical dysfunction lik winter corresponding to encephalopathy. No clear epileptiform activity is identifi ed. COOKING OPERATOR documented in this encounter Consult Notes * Shantell Gerber MD - 09/27/2021 11:40 AM WEED COOKING OPERATOR Associated Order(s): IP CONSULT TO NEUROLOGY [facility] Neurologist: I personally interviewed and examined Mr. Sher Cary. I discussed the fi ndings with Nori Santana APRN and reviewed her note. I agree with the findi ngs with exceptions noted. Mr. 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 Patient is unable to provide any history but was admitted fo r evaluation of confusion. He has been noted to have a slow decline over the pa st few months. Family found him confused 9 days ago and he was taken to an [facility]. He was found to have a chronic subdural and was transferred to [facility] for evaluation. He has remained altered and neurology is now asked to evaluate him. Objective findings and Assessment/Plan are as follows: Physical Exam: Vital Signs: BP 132/65 | Pulse 82 | Temp 36.4 C (97.6 F) (Axillary) | Res p 15 | Ht 1.676 m (5' 6") | Wt 80.6 kg (177 lb 11.1 oz) | SpO2 98% | BMI 28. 68 kg/m GEN: Anxious and agitated appearing; pale and generally unkempt. NEURO: Mental status: The patient is awake and alert. He focused on my face i nitially just to the right, but with continued coaxing, also looked to the left and focused on nursing staff. His speech is mostly unintelligible. He repeated "You're the one" and appeared anxious, trying to move his legs off the side of the bed Cranial nerves: EOM's appear full without nystagmus. Pupils are reactive symme trically. Unable to test visual fortune although he focuses on objects to his le ft and right. The face is symmetric. He did not open his mouth to evaluate the tongue or palate. Motor: He did not cooperate for strength testing, but seemed to be moving all e xtremities symmetrically. Reflexes: 1+ and symmetric throughout Coordination: No abnormal tremor or movements noted. Gait: Deferred Assessment: 1) Encephalopathy - Family reported a decline over the past several months with more noticeabl e confusion present over the past 9 days - CIIL protocol as family reports finding many empty alcohol bottles in his home - Thiamine 500mg IV TID for now - Multivitamin - Will check B12, TSH, RPR - Patient appears dehydrated based on elevated sodium and BUN/creatinine rat io - Initial ammonia normal, although LFT's elevated. Will recheck - Attempt MRI brain when patient able to cooperate Electronically signed by Shantell Gerber 09/27/2021 5:01 PM PPE Statement: Shantell Gerber MD used Yellow precautions (Level 1 mask worn ove r level 3 mask, eye protection, and gloves). NEUROLOGY CONSULTATION Patient Name: Sher Cary : 1950 PCP: Walker Cruz MD Date of consultation: 09/27/2021 Requesting physician/service: Sharita Baltazar NP Reason for consult: Encephalopathy HISTORY OF PRESENT ILLNESS History is provided via: Spoke to SHAHAB (cousin Darren Jonas) and his on the phone. 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 Neurology h as been consulted for evaluation of persistent encephalopathy. Mr. Cary was transferred from [facility] to [facility] on 09/24/2021 after being found by family with altered mental status. CT head at OSH revealed a chronic kahn bdural hematoma versus hygroma which measures approximately 4 mm at its widest p ortion with no mass-effect. He was transferred to [facility] for trauma and neurosurg ical evaluation. I spoke to DPTIAGO (cousin Darren and his ) [facility]. He currently lives in the basement of his parents house (both are d) and has for many years. 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 Not and no children-report for the most part he has lived a social isolated life. Denies history of mental health diagn osis. Report he has had a slow decline over the past few months. Noticed in conv ersations he would talk about the end of times and "being a chosen one by God." He was also having trouble caring for himself, noticed he was not eating well, house was unkept, spent a lot of time on the computer and was not getting out mu . He didn't show up for [facility] appointments promptly family and neighbors t o check on him. On (09/18) when they checked on him and he was confused and the y were concerned he had a stroke so EMS was called but he refused transport. Whe n they checked on him on (09/20) he refused again and they felt he was capable t o make the decision. When she returned to check on him on (09/24) she found him naked on the floor in the position not on oxygen. He would respond minimal ly and speech was incomprehensible, he had been incontinent. When going through his house she found 3 empty bottles of whiskey-unclear how much or how often he drinks. She is also concerned that he may be using too much of his hydrocodone, his dose was recently increased in August. Denies previous history of seizures . The last time he was found in this state was when he had his aneurysm. Family reports they know a little about his past medical history, he does not share [facility] about his medical history. Labs on arrival revealed elevated LFT's, coagulopathy with elevated INR 2.7, BUN 44, creatinine 1.4, and sodium 147. Hemoglobin 6.8. He received FFP, vitamin K, and 2 units PRBCs. Neurosurgery consulted no interventions indicated. Repeat CT head was stable. ID consulted for suspected meningitis. Multiple attempts by neuro IR for lumbar p uncture, all attempts failed. Started empirically on 09/25 with IV acyclovir, a mpicillin, cefepime, and vancomycin to cover for potential bacterial/viral menin gitis/encephalitis. He has been afebrile throughout his hospitalization. WBCs 12.7>>11.3. Prolonged EEG 09/25 revealed generalized slowing corresponding to encephalopathy . No clear epileptiform activity identified. No obvious seizure activity per [facility] staff. He is confused, agitated, and uncooperative at time of my exam. Moving all extre mities. Requiring mitts and restraints to keep from pulling at lines. He has rec eived IV fentanyl and is currently on Precedex infusion for agitation. REVIEW OF SYSTEMS Unable to obtain due to current mental status PAST MEDICAL HISTORY Past Medical History: Diagnosis Date Cerebral aneurysm COPD (chronic obstructive pulmonary disease) (HCC) PAST SURGICAL HISTORY Past Surgical History: Procedure Laterality Date VENTRICULOPERITONEAL SHUNT FAMILY HISTORY History reviewed. No pertinent family history. No family status information on file. SOCIAL HISTORY Social History Socioeconomic History Marital status: Single Spouse name: Not on file Number of children: Not on file Years of education: Not on file Highest education level: Not on file Occupational History Not on file Tobacco Use Smoking status: Not on file Smokeless tobacco: Not on file Substance and Sexual Activity Alcohol use: Not on file Drug use: Not on file Sexual activity: Not on file Other Topics Concern Not on file Social History Narrative Not on file Social Determinants of Health Financial Resource Strain: Difficulty of Paying Living Expenses: Not on file Stress: Feeling of Stress : Not on file Intimate Partner Violence: Fear of Current or Ex-Partner: Not on file Emotionally Abused: Not on file Physically Abused: Not on file Sexually Abused: Not on file OUTPATIENT MEDICATIONS There are no discharge medications for this patient. CURRENT MEDICATIONS dexmedeTOMIDINE Stopped (09/27/21 1018) lactated Ringers 100 mL/hr (09/27/21 0722) acyclovir 10 mg/kg ([place]) Intravenous Q12H GLYNN ampicillin 2 g Intravenous Q6H GLYNN bisacodyL 10 mg Rectal Daily cefepime 2 g Intravenous Q12H GLYNN famotidine 20 mg Oral Q12H Or famotidine 20 mg Intravenous Q12H guanFACINE 2 mg Per NG tube BID haloperidol lactate 5 mg Intravenous Once insulin lispro 2-7 Units Subcutaneous Q6H GLYNN ipratropium-albuteroL 3 mL Inhalation 4x daily senna-docusate 2 tablet Oral BID [START ON 09/28/2021] thiamine 100 mg Intravenous Daily Or [START ON 09/28/2021] thiamine 100 mg Oral Daily vancomycin 1,000 mg Intravenous Q12H alteplase, dextrose 50%, flumazeniL, glucagon OR glucagon, glucose, hydrALAZ INE, zsuksv-mvmnzbhg-khwodig AND sodium bicarbonate, LORazepam OR LORaze daisy, ondansetron, prochlorperazine OR prochlorperazine OR prochlorperazi ne, sodium chloride 0.9% ALLERGIES No Known Allergies EXAMINATION Patient Vitals for the past 4 hrs: BP Pulse Resp SpO2 09/27/21 1132 76 18 98 % 09/27/21 1115 136/68 78 14 97 % 09/27/21 1100 88 24 96 % 09/27/21 1000 (!) 143/73 71 17 98 % 09/27/21 0900 135/52 87 (!) 31 96 % 09/27/21 0800 101/81 77 23 98 % 09/27/21 0747 92 26 97 % Systolic (24hrs), Av , Min:101 , Max:160 Diastolic (24hrs), Av, Min:44, Max:106 Ht Readings from Last 1 Encounters: 09/24/21 1.676 m (5' 6") Wt Readings from Last 1 Encounters: 09/27/21 80.6 kg (177 lb 11.1 oz) Body mass index is 28.68 kg/m. Neuro exam limited due to current mental status General: Mr. Cary is a thin ill appearing male in no acute distress. Head: Oropharynx dry and cracked. Head normocephalic, atraumatic. Cardiac: Regular rate and rhythm. Lungs: Coarse lung sounds bilaterally Abdomen: soft, non-tender with + BS. NG tube in place Extremities: No cyanosis or edema. No clear skin lesions noted. Mental status, cognition, and cortical functions: Mental status: Sleepy but awakens to voice. Restless,. Does not follow comman ds or answer questions. Speech is incomprehensible. Cranial nerves: Pupils are equal, round, and reactive to light. Visual fortune-blinks to direct threat Will focus on examiner and track room appropriately at times Gaze is conjugate Muscles of facial expression are symmetric at rest Hearing is intact to conversation. Tongue is midline Motor: Muscle bulk is thin throughout. Muscle tone is normal throughout. Moves all extremities spontaneously Reflexes (right/left): Biceps: 2/2 Triceps: 2/2 Brachioradialis: 2/2 Patellae: 2/2 Plantar: Upgoing bilaterally. Sensation: Attends to light touch and noxious stimuli in all extremities STUDIES REVIEWED Neurology specific images personally reviewed CT Cervical Spine wo contrast Result Date: 09/25/2021 1. No acute fracture. Slight anterolisthesis of C2 on C3 with mild widening of t he C2-C3 disc space may relate to patient positioning, however ligamentous injur y would be difficult to exclude given patient history of trauma. MRI cervical sp ine is recommended for further evaluation if clinically indicated. 2. Moderate d egenerative cervical spondylosis. ATTESTATION STATEMENT: The Staff Radiologist charlie mckeon personally reviewed the images and dictated, reviewed, or edited the final re port. READING SITE: [facility] CT Head wo contrast Result Date: 09/25/2021 Impression: Patient motion artifact and suboptimal positioning degrades image qu ality. 1. Mixed attenuation left holohemispheric likely subacute on chronic subd ural hematoma which measures up to 6 mm in maximal thickness. No significant mas s effect or discrete midline shift given suboptimal patient positioning. Similar ventriculomegaly when compared to outside CT. 2. Nails-white loss is identified within the right frontotemporal lobe likely representing a subacute or chronic r ight MCA territory infarct. 3. Right parietal approach ventricular shunt cathete r is identified with the distal intracranial and terminating near the foramen of Betancourt. The partially visualized ventricular shunt catheter tubing and port adamaris ear intact where visualized. 4. Postprocedural changes of prior aneurysm coiling are identified possibly involving a basilar tip aneurysm. ATTESTATION STATEMENT: The staff radiologist has personally reviewed the images and dictated, reviewed, or edited the final report. READING SITE: [facility]. CT Head wo contrast Result Date: 09/25/2021 Impression: 1. Stable mixed attenuation left holohemispheric extra-axial collect ion likely representing subacute on chronic subdural hematoma measures up to 5 m m in maximal thickness. No new or enlarging intracranial hemorrhage. No signific ant mass effect or discrete midline shift. Similar ventriculomegaly. 2. Stable g ray-white loss involving the right frontotemporal lobes and right insula likely representing a subacute right MCA territory infarct. 3. Stable right parietal ap proach ventricular shunt catheter. 4. Redemonstrated postprocedural changes of p rior aneurysm coiling are identified possibly involving a basilar tip aneurysm o r PCOM aneurysm given location. ATTESTATION STATEMENT: The Staff Radiologist has personally reviewed the images and dictated, reviewed, or edited the final repo rt. IR Lumbar puncture w fluoro Result Date: 09/26/2021 Unable to collect spinal fluid at multiple levels. The spinal needle tip was con firmed within the thecal sac on AP and lateral on multiple levels. ATTESTATION S TATEMENT: The Staff Physician has personally reviewed the images and dictated, r eviewed, or edited the final report. READING SITE: [facility] Echo Complete with Doppler and Color Flow Result Date: 09/25/2021 1. Normal left ventricular systolic function, with an estimated ejection fract ion of 60%. 2. Normal right ventricular size and systolic function. 3. No significant valvular abnormalities. No previous study available for comparison. Dr Hans Sanchez (Electronically Signed) Final Date: 25 September 2021 12:38 LABS REVIEWED Most Recent Result within the last 7 days Lab Units 09/27/21 0803 09/27/21 0627 09/27/21 0029 09/27/21 0029 09/26/21 0640 09/26/21 0028 09/25/21 2143 09/25/21 1226 09/25/21 1200 09/25/21 0102 WBC TH/uL -- -- -- 11.36* -- 12.75* -- -- -- < > HEMOGLOBIN g/dL -- 8.0* < > 6.8* < > 7.3* -- < > -- < > HEMATOCRIT % -- 28* < > 25* < > 27* -- < > -- < > PLATELET COUNT Th/uL -- -- -- 202 -- 238 -- -- -- < > % SEGMENTED NEUTROPHILS % -- -- -- -- -- 87* -- -- -- < > % LYMPHOCYTES % -- -- -- -- -- 3* -- -- -- < > % MONOCYTES % -- -- -- -- -- 9 -- -- -- < > % EOSINOPHILS % -- -- -- -- -- 0 -- -- -- < > % BASOPHILS % -- -- -- -- -- 0 -- -- -- < > SODIUM mEq/L 150* -- < > 152* -- -- 149* -- -- < > POTASSIUM mEq/L -- -- -- 4.3 -- -- 4.6 -- -- < > CARBON DIOXIDE mEq/L -- -- -- 28 -- -- 28 -- -- < > BLOOD UREA NITROGEN mg/dL -- -- -- 46* -- -- 46* -- -- < > GLUCOSE mg/dL -- -- -- 151* -- -- 127* -- -- < > CREATININE mg/dL -- -- -- 1.20 -- -- 1.20 -- -- < > GFR FEMALE AA mL/min/1.73m*2 -- -- -- 53.4* -- -- 53.4* -- -- < > GFR FEMALE NON-AA mL/min/1.73m*2 -- -- -- 44.0* -- -- 44.0* -- -- < > CALCIUM mg/dL -- -- -- 8.0* -- -- 9.6 -- -- < > PHOSPHORUS mg/dL -- -- -- -- -- -- 4.1 -- -- -- ALBUMIN g/dL -- -- -- 3.2* -- -- -- -- -- < > PROTEIN TOTAL SERUM g/dL -- -- -- 5.2* -- -- -- -- -- < > ALKALINE PHOSPHATASE U/L -- -- -- 50 -- -- -- -- -- < > ALANINE AMINOTRANSFERASE U/L -- -- -- 114* -- -- -- -- -- < > ASPARTATE AMINOTRANSFERASE U/L -- -- -- 98* -- -- -- -- -- < > APTT Sec -- -- -- -- -- -- -- -- 30 -- INR -- -- -- 1.3* < > -- -- -- 1.1 -- < > = values in this interval not displayed. No lab components to display IMPRESSION Encephalopathy; likely secondary to metabolic derangements, UTI, possible al cohol withdrawal, medication effects, superimposed on baseline cognitive dysfunc tion. 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 Will defer to staff for future dosing Daily multivitamin Labs: RPR, thiamine, B12/folate, TSH, vitamin D Seizure precautions throughout hospitalization Neuro checks per unit routine Supportive care and correction of underlying metabolic derangements We will defer to ID regarding antibiotic therapy Discussed with Dr. Gerber who will follow with additional recommendations Nori Santana APRN 09/27/2021 11:43 AM Contact through Voalte with any qu estions or concerns PPE Statement: Nori Santana APRN used Yellow precautions (Level 1 mask wo rn over level 3 mask, eye protection, and gloves). Principal Problem: Encephalopathy Active Problems: UTI (urinary tract infection) SDH (subdural hematoma) ([facility]) History of cerebral aneurysm S/P CAT BREEDER shunt COPD (chronic obstructive pulmonary disease) (HCC) Bronchitis Elevated INR GWENDOLYN (acute kidney injury) (HCC) Hypernatremia Other specified anemias Elevated troponin Acute pain due to trauma Coagulopathy (HCC) Acute encephalopathy Chronic respiratory failure with hypoxia (HCC) COPD with acute exacerbation (HCC) Leukocytosis Anemia Transaminitis Hx of hepatitis C COOKING OPERATOR * Quintin Ferreira MD - 09/26/2021 11:33 AM WEED COOKING OPERATOR Associated Order(s): IP CONSULT TO INFECTIOUS DISEASE [facility] INF[facility] CONSULTATION NAME: Sher Cary AGE: 71 y.o. : 1950 ADMISSION DATE: 09/24/2021 PRIMARY CARE PROVIDER: Walker Cruz MD ATTENDING PHYSICIAN: Angel Kowalski MD REASON FOR CONSULT: Antibiotic management for suspected meningitis HISTORY OF PRESENT ILLNESS: Patient is 71 years old male with past medical history significant for COPD, chr onic hypoxemic respiratory failure, history of cerebral aneurysm status post coi ling complicated with posthemorrhagic hydrocephalus requiring right occipital CAT BREEDER shunt Patient was admitted on 09/24 with altered mental status. Patient was found by neighbor unconscious in the home. Patient was brought initially to an outside h ospital where CT head showed acute on chronic left subdural hematoma measuring 3 mm. Patient was then transferred to [facility] for neurosurgical evaluation Neurosurgery did not recommend any acute neurosurgical intervention. They think that this is a small subdural hematoma and is unlikely the cause for acute alte red mental status Multiple attempts to get lumbar puncture for CSF analysis by interventional radi ology yesterday, however all attempts failed Patient was started empirically on 09/25 with IV acyclovir, IV ampicillin, IV ce fepime, IV vancomycin to cover for bacterial/viral meningitis/encephalitis WBC 12.7, patient is afebrile Patient seen in the room, patient is altered. Patient seems agitated and uncoop erative It seems that his mental status improved slightly since antibiotics started yest ck CURRENT MEDICATIONS: Current Facility-Administered Medications Medication Dose Route Frequency Provider Last Rate Last Admin acyclovir (ZOVIRAX) 640 mg in dextrose (D5W) 5 % 100 mL IVPB 10 mg/kg (Idea l) Intravenous Q12H GLYNN Contreras, PharmD Stopped at 09/26/21 1053 alteplase (CATHFLO ACTIVASE) injection 1 mg 1 mg Intra-Catheter PRN LEV Cervantes ampicillin (OMNIPEN) 2 g in sodium chloride ADDV (NS) 100 mL IVPB 2 g Intra venous Q6H JUSTICE Perez 150 mL/hr at 09/26/21 0532 2 g at 1 0532 cefepime (MAXIPIME) 2 g in sodium chloride ADDV (NS) 50 mL IVPB 2 g Intrave nous Q12H [facility] Christine Contreras PharmD Stopped at 09/26/21 0909 dexmedeTOMIDINE (PRECEDEX) 4 mcg/mL infusion 100 mL (premix) 0.2-1.4 mcg/kg /hr Intravenous Continuous LEV Cervantes 14.62 mL/hr at 09/26/21 1058 0 .8 mcg/kg/hr at 09/26/21 1058 dextrose 50% (D50W) syringe 25-50 mL 25-50 mL Intravenous PRN JUSTICE Celestin famotidine (PEPCID) tablet 20 mg 20 mg Oral Q12H Jose Dameon, DO Or famotidine (PEPCID) injection 20 mg 20 mg Intravenous Q12H Jose Dameon, DO 20 mg at 09/25/21 2332 glucagon (GLUCAGEN) injection 1 mg 1 mg Intramuscular PRN JUSTICE Ely Or glucagon (GLUCAGEN) injection 1 mg 1 mg Subcutaneous PRN JUSTICE Ely glucose chewable tablet 16-32 g 16-32 g Oral PRN JUSTICE Ely hydrALAZINE (APRESOLINE) injection 10-20 mg 10-20 mg Intravenous Q2H PRN JUSTICE Cruz ipratropium-albuteroL (DUO-NEB) 0.5-3 mg/3 mL nebulizer solution 3 mL 3 mL Inhalation 4x daily JUSTICE Ely 3 mL at 09/26/21 0830 lactated ringers infusion 100 mL/hr Intravenous Continuous LEV Kaiser 100 mL/hr at 09/26/21 1005 100 mL/hr at 09/26/21 1005 lidocaine (XYLOCAINE) 10 mg/mL (1 %) injection 1-10 mL 1-10 mL Intradermal Once PRN LEV Cervantes ddbnhl-ixidyfwy-dyijrxu (VIOKACE) 10,440-39,150- 39,150 unit tablet 10,440 u nits of lipase 10,440 units of lipase Per NG tube PRN Timmy Santana RD And sodium bicarbonate tablet 325 mg 325 mg Per NG tube PRN Timmy Santana RD methylPREDNISolone sod suc(PF) (SOLU-Medrol) injection 40 mg 40 mg Intraven ous Q8H GLYNN JUSTICE Ely 40 mg at 09/26/21 0847 ondansetron (ZOFRAN) injection 4 mg 4 mg Intravenous Q6H PRN Tanvir Meyers O prochlorperazine (COMPAZINE) injection 2.5-5 mg 2.5-5 mg Intravenous Q4H [place] N Jose Xiao DO Or prochlorperazine (COMPAZINE) injection 2.5-5 mg 2.5-5 mg Intramuscular Q4H PRN Jose Xiao DO Or prochlorperazine (COMPAZINE) suppository 25 mg 25 mg Rectal Q12H PRN Jose Xiao DO senna-docusate (PERICOLACE) 8.6-50 mg 1 tablet 1 tablet Oral BID JUSTICE Ely 1 tablet at 09/26/21 0840 vancomycin (VANCOCIN) 1,000 mg in sodium chloride 0.9 % (NS) 250 mL IVPB 1, 000 mg Intravenous Q12H Christine Contreras PharmD 250 mL/hr at 09/26/21 0952 1,000 m g at 09/26/21 0952 ALLERGIES: Patient has no known allergies. PAST MEDICAL HISTORY: Past Medical History: Diagnosis Date Cerebral aneurysm COPD (chronic obstructive pulmonary disease) (HCC) PAST SURGICAL HISTORY: Past Surgical History: Procedure Laterality Date VENTRICULOPERITONEAL SHUNT PROBLEM LIST: Active Hospital Problems Diagnosis SNOMED CT(R) Date Noted Encephalopathy DISORDER OF BRAIN 09/25/2021 UTI (urinary tract infection) URINARY TRACT INFECTIOUS DISEASE 09/25/2021 SDH (subdural hematoma) (HCC) HEMATOMA OF SUBDURAL SPACE OF NEURAXIS 021 History of cerebral aneurysm HISTORY OF CEREBRAL ANEURYSM 09/25/2021 S/P CAT BREEDER shunt H/O: SURGERY 09/25/2021 COPD (chronic obstructive pulmonary disease) (HCC) CHRONIC OBSTRUCTIVE LUNG DISEASE 09/25/2021 Bronchitis BRONCHITIS 09/25/2021 Elevated INR INR RAISED 09/25/2021 GWENDOLYN (acute kidney injury) (HCC) ACUTE INJURY OF KIDNEY 09/25/2021 Hypernatremia HYPERNATREMIA 09/25/2021 Other specified anemias ANEMIA 09/25/2021 Class: Acute Elevated troponin PROTEIN LEVEL - FINDING 09/25/2021 Acute pain due to trauma ACUTE PAIN DUE TO INJURY 09/25/2021 Coagulopathy (HCC) BLOOD COAGULATION DISORDER 09/25/2021 Acute encephalopathy DISORDER OF BRAIN 09/25/2021 Chronic respiratory failure with hypoxia (HCC) CHRONIC HYPOXEMIC RESPIRATORY FAILURE 09/25/2021 Chronic COPD with acute exacerbation (HCC) ACUTE EXACERBATION OF CHRONIC OBSTRUCTIVE AIRWAYS DISEASE 09/25/2021 Leukocytosis LEUKOCYTOSIS 09/25/2021 Anemia ANEMIA 09/25/2021 Transaminitis ENZYME LEVEL - FINDING 09/25/2021 Hx of hepatitis C HISTORY OF HEPATITIS C 09/25/2021 Chronic Resolved Hospital Problems No resolved problems to display. FAMILY HISTORY: History reviewed. No pertinent family history. SOCIAL HISTORY: Social History Socioeconomic History Marital status: Single Spouse name: Not on file Number of children: Not on file Years of education: Not on file Highest education level: Not on file Occupational History Not on file Tobacco Use Smoking status: Not on file Smokeless tobacco: Not on file Substance and Sexual Activity Alcohol use: Not on file Drug use: Not on file Sexual activity: Not on file Other Topics Concern Not on file Social History Narrative Not on file Social Determinants of Health Financial Resource Strain: Difficulty of Paying Living Expenses: Not on file Stress: Feeling of Stress : Not on file Intimate Partner Violence: Fear of Current or Ex-Partner: Not on file Emotionally Abused: Not on file Physically Abused: Not on file Sexually Abused: Not on file REVIEW OF SYSTEMS: ROS unobtainable because Altered mental status PHYSICAL EXAM: Vitals: Vitals: 09/26/21 1100 BP: 133/62 Pulse: 85 Resp: 26 Temp: 36.1 C (97 F) TempSrc: SpO2: 96% Weight: Height: Temp (24hrs), Av.5 C (97.7 F), Min:35 C (95 F), Max:37.5 C (99.5 F) General: Altered, uncooperative, agitated Head: Normocephalic, atraumatic Nose and throat: unremarkable Neck: no adenopathy Chest: clear to auscultation bilaterally CV: regular rhythm without murmur, gallop or rub Abdomen: normal bowel sounds, soft, nontender Extremities: normal, no edema Skin: color normal, no rash Neurological: Altered, uncooperative, agitated LABORATORY RESULTS: Most Recent Result within the last 7 days Lab Units 09/26/21 0028 09/25/21 1226 09/25/21 0102 09/24/21 2249 09/24/21 2249 WBC TH/uL 12.75* -- 12.78* -- 13.22* HEMOGLOBIN g/dL 7.3* 7.8* 6.0* < > 6.1* HEMATOCRIT % 27* 28* 23* < > 23* PLATELET COUNT Th/uL 238 -- 322 -- 330 % SEGMENTED NEUTROPHILS % 87* -- -- -- 84* % MONOCYTES % 9 -- -- -- 11 < > = values in this interval not displayed. Most Recent Result within the last 7 days Lab Units 09/25/21 2143 09/24/21 2325 09/24/21 2249 SODIUM mEq/L 149* 147* 147* POTASSIUM mEq/L 4.6 4.6 5.0 CARBON DIOXIDE mEq/L 28 29 28 BLOOD UREA NITROGEN mg/dL 46* 44* 43* CREATININE mg/dL 1.20 1.40* 1.50* GLUCOSE mg/dL 127* 83 83 CALCIUM mg/dL 9.6 8.8 8.9 Lab Results Component Value Date PROCALCIT 0.09 (H) 09/25/2021 CULTURES: No results found for this visit on 09/24/21. CULTURE SUMMARY: No cultures SEROLOGIES: Procalcitonin 09/25 was 0.09 SARS COVID-19 PCR 09/24 - IMAGING RESULTS: Patient: SHER CARY Sex#: M #: [id number] Luciano#: [id number] Location: [place] [address] Ordering Provider: SAMUEL RIVERA Procedure Requested: [id number] CT CHEST WO CONTRAST Reason for Exam: pneumothorax Exam Ordered: 09/25/2021 1016 Begin exam date/time: 09/25/2021 1028 Exam Date/Time: 09/25/[address] CHEST WO CONTRAST INDICATION: pneumothorax. COMPARISON STUDY: Portable chest dated 09/25/2021. TECHNIQUE: Unenhanced axial images were obtained through the lungs and upper abdomen. Coronal MIP images and coronal and sagittal multiplanar reconstructions were also obtained. FINDINGS: Image quality degraded by motion. Life Support Devices: Gastric tube courses into the stomach. Partially imaged shunt catheter courses along the anterior chest wall and into the abdomen. Lungs and Airways: Apical paraseptal emphysema and bullous disease. Mild to moderate upper lobe predominant centrilobular emphysema. Diffuse right greater than left interlobular septal thickening. Right greater than left posterior relaxation atelectasis. Normal central airways. Diffuse bronchial wall thickening. Peripheral endoluminal plugs. Pleura: Small right greater than left bilateral pleural effusions with features of partial loculation on the right. No pneumothorax. Heart and Mediastinum: Atrophic thyroid. No axillary or supraclavicular lymphadenopathy. No mediastinal, hilar or retrocrural lymphadenopathy. Cardiomegaly. No pericardial effusion. Heavy coronary artery calcifications. Aortic valve leaflet calcifications. Atherosclerosis of the thoracic aorta and branch vessels. Gas in the pulmonary trunk is likely iatrogenic. Small hiatus hernia. Patulous esophagus with mural thickening. Abdomen: Small upper abdominal ascites. Atherosclerosis of the abdominal aorta and branch vessels. Bones and Soft Tissues: Thoracic spondylosis. Diffuse body wall edema. IMPRESSION 1. Diffuse interstitial edema. 2. Posterior relaxation and scattered subsegmental atelectasis. No pulmonary mass or confluent consolidation. 3. Cardiomegaly. Heavy coronary artery calcifications. Aortic valve leaflet calcifications could represent calcific aortic stenosis. 4. Small bilateral pleural effusions with features of partial loculation on the right. No pneumothorax. 5. Small upper abdominal ascites. READING SITE: [facility] ASSESSMENT: 1. Altered mental status: Possible meningitis/encephalitis: CT head shows chroni c left-sided subdural hematoma. Neurosurgery thinks that his altered mental sta tus is unlikely secondary to subdural hematoma. Concern for ADMINISTRATION PROFESSIONAL infection. Pat ient started empirically on ampicillin, cefepime, vancomycin and acyclovir on . LP failed. Patient seems to improve slightly after antibiotics started on 09/25 2. Chronic hypoxemic respiratory failure 3. COPD 4. History of cerebral aneurysm with coiling s/p left occipital CAT BREEDER shunt 5. Urinary tract infection PLAN: Continue empiric coverage for possible ADMINISTRATION PROFESSIONAL infection with IV ampicillin, IV c efepime, IV vancomycin and IV acyclovir Agree with MRI brain ordered by primary team Thank you for including infectious disease team in the care of your patient. Ple ase reach out with any further questions. Will continue to follow along with you . All findings discussed with attending physician, with further recommen dations to follow. Lakisha Cancino MD Internal Medicine - PGY II [phone] Electronically signed by Lakisha Cancino MD 09/26/2021 11:33 AM I saw and examined the patient with Dr Lakisha Cancino. I have reviewed and agree with the history, exam, assessment and plan as documented in the resident's note . I have edited as appropriate to reflect my findings. Attending Addendum: As above Possible meningitis/CAT BREEDER shunt infection On broad-spectrum antibiotics Unfortunately CSF could not be obtained multiple tries To get MRI today Quintin Ferreira MD 09/26/2021 12:00 PM COOKING OPERATOR * Priyank Granados RN - 09/26/2021 9:36 AM WEED COOKING OPERATOR Associated Order(s): CONSULT - VASCULAR ACCESS TEAM PICC placed. Patient was inadvertently stuck with the lidocaine needle X3 after becoming extremely combative with first stick. Once lidocaine was administered p t settled down and allowed for PICC to be placed. COOKING OPERATOR * Jacqui BarnardD - 09/25/2021 9:08 PM WEED COOKING OPERATOR Associated Order(s): IP CONSULT TO PHARMACY Initial Pharmacokinetic Consult: Anti-Infective Dosing Pharmacy has been consulted on Sher Cary, a 71 y.o. male, to dose acycl ovir, cefepime, and vancomycin for meningitis. Relevant clinical data and objective history reviewed: Creatinine Date Value Ref Range Status 09/24/2021 1.40 (H) 0.70 - 1.30 mg/dL Final 09/24/2021 1.50 (H) 0.70 - 1.30 mg/dL Final Dialysis Modality Requirements: None; Estimated Creatinine Clearance: 42.4 mL/mi n (A) (based on SCr of 1.4 mg/dL (H)). I/O last 3 completed shifts: In: 1125 [I.V.:1078.3; IV Piggyback:46.8] Out: 1540 [Urine:1540] Intake/Output Summary (Last 24 hours) at 09/25/2021 2105 Last data filed at 09/25/2021 2000 Gross per 24 hour Intake 1239.55 ml Output 1570 ml Net -330.45 ml Lab Results Component Value Date/Time WBC 12.78 (H) 09/25/2021 01:02 AM Lab Results Component Value Date/Time PROCALCIT 0.09 (H) 09/25/2021 01:02 AM Temp Readings from Last 3 Encounters: 09/25/21 (!) 35.5 C (95.9 F) (Rectal) Culture: No results found for this visit on 09/24/21. Current weight is 73.1 kg (161 lb 2.5 oz) IBW(kg) (Calculated) : 63.8 Adjusted Body Weight (kg): 67.52 Assessment/Plan Based on current pharmacokinetic parameters the patient will be started on 1- acyclovir 640 mg IV (10 mg/kg IBW) every 12 hours. 2- Cefepime 2 g IV every 12 hours 3- Will initiate a vancomycin loading dose of 1500 mg IV followed by a vancomyci n maintenance dose of 1000 mg every 12 hours. Vancomycin level monitoring will be considered once steady state levels are achieved. Due to infection severity, the target goal will be a vancomycin trough of 15-20 mcg/mL. Baseline risks associated with therapy include: pre-existing renal impairment, c oncomitant nephrotoxic medications, and advanced age. Pharmacy will continue to follow the patients culture results and clinical pr ogress daily. Christine Contreras PharmD COOKING OPERATOR documented in this encounter ED Notes * Natasha Pineda MD - 09/24/2021 10:21 PM WEED COOKING OPERATOR Associated Order(s): Critical Care 09/24/2021 [facility] History Chief Complaint Patient presents with Altered Mental Status pt transfer from [facility]. Found on floor today by neighbor. Dx with SDH a nd subacute stroke. pt is A&Ox1 Patient is a 71-year-old male transferred to the [facility] from an outside facili ty with a subdural. Patient not currently verbalizing and all information obtai nakia from patient's medical record. Has a history of oxygen dependent COPD as we ll as a prior aneurysm coiling and CAT BREEDER shunt placement. Fatigued with a decrease in function over the last month. Family had expressed concern he may have had a stroke last week but he refused EMS transport at that time. Paramedics were c alled by patient's neighbor today when he was found unresponsive with his oxygen off. Imaging at the outside facility revealed a subacute stroke and left cereb ellar subdural hemorrhage consistent with family's recent concerns about patient so he was sent here for trauma and neurosurgery assessment. The history is provided by the EMS personnel and medical records. Altered Mental Status Presenting symptoms: lethargy and partial responsiveness Severity: Unable to specify Episode history: Unable to specify Timing: Constant Progression: Unable to specify Chronicity: New Associated symptoms: no fever and no vomiting Pertinent Past Medical, Psychiatric, and Social History Reviewed Past Medical History: Diagnosis Date Cerebral aneurysm COPD (chronic obstructive pulmonary disease) (HCC) Past Surgical History: Procedure Laterality Date VENTRICULOPERITONEAL SHUNT History reviewed. No pertinent family history. Social History Tobacco Use Smoking status: Not on file Smokeless tobacco: Not on file Substance Use Topics Alcohol use: Not on file Drug use: Not on file Review of Systems Unable to perform ROS: Mental status change Constitutional: Negative for fever. Gastrointestinal: Negative for vomiting. Physical Exam BP (!) 150/135 | Pulse (!) 105 | Temp 98.1 F (36.7 C) (Axillary) | Resp 2 4 | SpO2 98% O2 Device: Nasal cannula Physical Exam Vitals and nursing note reviewed. Constitutional: General: He is not in acute distress. Appearance: He is well-developed. Comments: Sleepy but in no distress. HENT: Head: Normocephalic and atraumatic. Eyes: Conjunctiva/sclera: Conjunctivae normal. Pupils: Pupils are equal, round, and reactive to light. Cardiovascular: Rate and Rhythm: Regular rhythm. Tachycardia present. Pulmonary: Effort: Pulmonary effort is normal. No respiratory distress. Breath sounds: Normal breath sounds. Abdominal: General: There is no distension. Palpations: Abdomen is soft. Tenderness: There is no abdominal tenderness. Musculoskeletal: General: Normal range of motion. Cervical back: Normal range of motion. Skin: General: Skin is warm and dry. Neurological: GCS: GCS eye subscore is 3. GCS verbal subscore is 2. GCS motor subscore is 5 . Comments: Sleepy. Will open eyes to loud voice. Mumbling but not conversing with me. Does localize pain. Does look to be moving all extremities. Psychiatric: Speech: He is noncommunicative. ED Course Critical Care Performed by: Natasha Pineda MD Authorized by: Natasha Pineda MD Critical care provider statement: Critical care time (minutes): 32 Critical care time was exclusive of: Separately billable procedures and treat ing other patients Critical care was necessary to treat or prevent imminent or life-threatening d eterioration of the following conditions: ADMINISTRATION PROFESSIONAL failure or compromise, dehydratio n, circulatory failure, cardiac failure and respiratory failure Critical care was time spent personally by me on the following activities: De velopment of treatment plan with patient or surrogate, discussions with consulta nts, evaluation of patient's response to treatment, examination of patient, obta ining history from patient or surrogate, review of old charts, re-evaluation of patient's condition, pulse oximetry, ordering and review of radiographic studies , ordering and review of laboratory studies and ordering and performing treatmen ts and interventions CT Head wo contrast Preliminary Result 1. Small volume left cerebral hemisphere subdural fluid collection. Favor chronic finding of uncertain age with no available comparison imaging. 2. No acute brain parenchymal abnormality identified. READING SITE: [facility] THIS DOCUMENT HAS BEEN ELECTRONICALLY SIGNED BY SANTANA TORRES MD XR Pelvis one or two views Final Result Negative for acute pelvic fracture. READING SITE: [facility] THIS DOCUMENT HAS BEEN ELECTRONICALLY SIGNED BY SANTANA TORRES MD XR Chest single view frontal Final Result No acute chest abnormality. READING SITE: [facility] THIS DOCUMENT HAS BEEN ELECTRONICALLY SIGNED BY SANTANA TORRES MD CT Head wo contrast (Results Pending) EKG (interpreted by me): Sinus tach @ 114 bpm. Extensive baseline artifact great ly limits interpretation. No obvious STEMI. No priors for comparison. MDM 2240-Patient arrives somnolent but with stable vital signs. Initial blood press ure quite high but on recheck improved spontaneously at 119/82. Maintaining his airway. Repeat labs pending. Awaiting trauma assessment. Repeat labs ordered . 2305-Spoke with patient's DPOA over the phone (Darren Gurwinder Freeman, ). Confirms patient would be a full code. They also confirm that has been doing ve ry poorly in recent weeks, particularly over the last few days. Only medication s they are aware he takes are "pain and sleeping pills." Patient stable. Trauma team currently at bedside. Blood pressure fluctuating. Will order a Amparo workman if needed. 2670-Labs as below. Troponin elevated. EKG difficult to interpret. Will trend. A spirin held due to patient's intracranial hemorrhage. On reassessment, patient m ore awake than earlier. CGS 12 (E-4, V-3, M-5). Occasionally conversing but stil l confused and not following commands. Moving all 4 extremities spontaneously. B lood pressure continues to fluctuate as patient is fighting the blood pressure c uff. Spoke with Dr. Joyce from the neuro ICU. They will place an arterial line once patient upstairs for more accurate assessment and determine need for Juanita e at that time. The patient's vitals signs are BP (!) 150/135 | Pulse (!) 105 | Temp 98.1 F (36.7 C) (Axillary) | Resp 2 4 | SpO2 98% The labs from this visit are Results for orders placed or performed during the hospital encounter of 09/24/21 (from the past 24 hour(s)) Comprehensive Metabolic Panel Result Value Ref Range Sodium 147 (H) 136 - 145 mEq/L Potassium 5.0 3.4 - 5.1 mEq/L Chloride 112 (H) 98 - 107 mEq/L Carbon Dioxide 28 20 - 31 mEq/L Anion Gap 7 5 - 17 mmol/L Anion Gap 7 mmol/L Calcium 8.9 8.3 - 10.6 mg/dL Glucose 83 70 - 100 mg/dL Protein Total Serum 5.8 5.7 - 8.2 g/dL Albumin 3.8 3.5 - 5.0 g/dL Alkaline Phosphatase 62 46 - 116 U/L Alanine Aminotransferase 123 (H) 0 - 49 U/L Aspartate Aminotransferase 217 (H) 0 - 34 U/L Bilirubin Total 0.50 0.20 - 1.10 mg/dL Blood Urea Nitrogen 43 (H) 9 - 23 mg/dL Creatinine 1.50 (H) 0.70 - 1.30 mg/dL eGFR Female AA 41.3 (L) 60.0 - 200.0 mL/min/1.73m*2 eGFR Female Non-AA 34.0 (L) 60.0 - 200.0 mL/min/1.73m*2 eGFR Male AA 55.6 (L) 60.0 - 200.0 mL/min/1.73m*2 eGFR Male Non-AA 45.9 (L) 60.0 - 200.0 mL/min/1.73m*2 Troponin-I HS 0HR w/ Reflex Result Value Ref Range Troponin I, 0HR HS 171 (HH) <3-53 pg/mL pg/mL Clotting Screen Result Value Ref Range Protime 27.9 (H) 11.4 - 15.0 Sec INR 2.7 (H) 0.8 - 1.2 APTT 43 (H) 22 - 34 Sec Urinalysis (includes microscopic review, if indicated) Result Value Ref Range Appearance, Urine Yellow Colorless, Yellow, Dark Yellow Glucose Urine Negative Negative mg/dL Bilirubin Urine Negative Negative Ketones Urine Small (A) Negative Specific [place] Urine 1.019 >1.005-<1.030 Hemoglobin Urine Moderate (A) Negative PH Urine 5.5 5.0 - 8.0 Protein Urine Qual 100 (A) Negative, Trace mg/dL Urobilinogen Urine Normal Normal, Negative, 1.0 EU/dL Nitrite Urine Negative Negative Leukocyte Esterase Positive (A) Negative Urinalysis Microscopic Only Result Value Ref Range Microscopic RBC Urine 6-10 (A) 0 - 5 /hpf Microscopic WBC Urine >40 (A) 0 - 5 /hpf Epithelial Cells Absent Absent Hyaline Cast Small (A) Absent Bacteria Absent Absent Electrocardiogram (ECG) Result Value Ref Range QRSd 82 QT 321 QTC 443 ECGHR 114 ECGPR 176 Arterial Blood Gas Result Value Ref Range PH Arterial 7.31 (L) 7.35 - 7.45 units PCO2 Arterial 60 (H) 35 - 45 mmHg PO2 Arterial 90 80 - 100 mmHg Bicarbonate 30.2 (H) 19.0 - 29.0 mEq/L Base Excess 2.4 -3.0 - 3.0 mEq/L Sample site Left Radial Collateral Circulation Yes Mode Oxygen Device NC LPM 3 L/min The final diagnosis is SNOMED CT(R) 1. Altered mental status, unspecified altered mental status type ALTERED MENTAL STATUS 2. Subdural hemorrhage (HCC) HEMORRHAGE INTO SUBDURAL SPACE OF NEURAXIS 3. Dehydration DEHYDRATION No follow-up provider specified. ED Clinical Impression 1. Altered mental status, unspecified altered mental status type 2. Subdural hemorrhage (HCC) 3. Dehydration Patient ED Dispo ED Disposition Admit Natasha Pineda MD 09/25/21 0045 COOKING OPERATOR documented in this encounter Miscellaneous Notes * Nutrition Note - Timmy Santana RD - 09/29/2021 8:18 AM WEED COOKING OPERATOR Nutrition Brief Note [facility] DIAGNOSIS & INTERVENTION: DIAGNOSIS 1 Nutrition Diagnosis 1: NI 2.1 Inadequate oral intake Related To: AMS As Evidenced By: EMR review, need for EN to meet nutritional needs Goal: Maintain present weight +/- 5%,TF to provide 90-110% of estimated needs un til pt able to take in >50% of meals consumed Time Frame: Throughout stay Goal Status: Ongoing Nutrition Diagnosis Comment: Hypernatremia, Na+ at 154; FWF increased per primar y to 150 ml q 2 hrs today from q 4 hrs. Tolerating TF well, LBM 09/28. Pt with b/l Feet and hand edema. doesn't follow commands Intervention/Plan 1a: Continue with Osmolite 1.5 @ goal of 50 ml/hr + 1 prosour ce pkt per day to provide: 1860 kcal/d, 90 gm pro/day. FWF per Primary. Once N a+ WNL change FWF to 145 ml q 4 hrs 1784 ml Free H2O. Intervention/Plan 1b: RD will continue to monitor for TF tolerance, weight, labs and POC. Malnutrition criteria: Malnutrition Recommendation - Physician Alert Malnutrition Rec to Provider: No Recommendation Labs: Results for SHER CARY ( ) as of 09/29/2021 08:10 Ref. Range 09/29/2021 00:18 09/29/2021 00:22 09/29/2021 05:30 SODIUM Latest Ref Range: 136 - 145 mEq/L 154 (H) POTASSIUM Latest Ref Range: 3.4 - 5.1 mEq/L 4.4 CHLORIDE Latest Ref Range: 98 - 107 mEq/L 120 (H) CARBON DIOXIDE Latest Ref Range: 20 - 31 mEq/L 32 (H) Anion Gap Latest Ref Range: 5 - 17 mmol/L 2 (L) Glucose Latest Ref Range: 70 - 100 mg/dL 123 (H) Blood Urea Nitrogen Latest Ref Range: 9 - 23 mg/dL 36 (H) Creatinine Latest Ref Range: 0.70 - 1.30 mg/dL 1.00 eGFR Female AA Latest Ref Range: 60.0 - 200.0 mL/min/1.73m*2 65.9 eGFR Female Non-AA Latest Ref Range: 60.0 - 200.0 mL/min/1.73m*2 54.3 (L) eGFR Male AA Latest Ref Range: 60.0 - 200.0 mL/min/1.73m*2 88.8 eGFR Male Non-AA Latest Ref Range: 60.0 - 200.0 mL/min/1.73m*2 73.2 CALCIUM Latest Ref Range: 8.3 - 10.6 mg/dL 8.2 (L) Glucose POC Latest Ref Range: 70 - 100 mg/dL 113 (H) 133 (H) Scheduled Meds: acyclovir 10 mg/kg ([place]) Intravenous Q12H GLYNN ampicillin 2 g Intravenous Q6H GLYNN bisacodyL 10 mg Rectal Daily cefepime 2 g Intravenous Q12H GLYNN famotidine 20 mg Oral Q12H Or famotidine 20 mg Intravenous Q12H guanFACINE 2 mg Per NG tube BID haloperidol lactate 5 mg Intravenous Once insulin lispro 2-7 Units Subcutaneous Q6H GLYNN ipratropium-albuteroL 3 mL Inhalation 4x daily therapeutic multivitamin 1 tablet Oral Daily polyethylene glycol 17 g Oral Daily senna-docusate 2 tablet Oral BID thiamine 250 mg Intravenous TID vancomycin 750 mg Intravenous Q12H Continuous Infusions: PRN Meds:alteplase, dextrose 50%, flumazeniL, glucagon OR glucagon, glucose, hydrALAZINE, labetaloL, [id number] AND sodium bicarbonate, FIONA azepam OR LORazepam, magnesium hydroxide, ondansetron, prochlorperazine OR prochlorperazine OR prochlorperazine RD will continue to follow Electronically signed by Timmy Santana 09/29/2021 8:18 AM COOKING OPERATOR * End of Shift Note - Margaux Santana RN - 09/29/2021 6:23 AM WEED COOKING OPERATOR End of Shift Summary and Plan of Care Increased restlessness and agitation. Received total of 4mg of Ativan per CIWA p rotocol. Tachycardia 130s and BP >160 corrected with PRN hydralazine and labetalol. Goals per Patient Condition Restraints in Use - Patient will remain free from injury related to restraints a nd will be evaluated for need. See restraint flowsheets for intervention documen tation. Fall Prevention Plan Patient will remain free from injury related to falls. See the Daily cares/safety flowsheet for intervention documentation. Skin Integrity Plan Patient skin integrity maintained. See integumentary tiffanie wsheet for intervention documentation. High Risk Seizure Patient will remain free of injury related to seizures. Se e seizure precaution documentation for interventions. Goals/Plan for Shift Patient/Family stated goal for shift: dg Nursing goal for shift: maintain skin integrity Plan: q2 repositioning, elevate extremities, protect bony prominences Goals/Plan for Hospital Stay Nursing goal for hospital stay: Plan: COOKING OPERATOR * End of Shift Note - Edson Castañeda RN - 09/28/2021 6:27 PM WEED COOKING OPERATOR End of Shift Summary and Plan of Care Precedex turned off in AM. Restless throughout the day. Ativan given x1 based on CIWA score. VSS. MOORE spontaneously and to painful stimuli. Goals per Patient Condition Restraints in Use - Patient will remain free from injury related to restraints a nd will be evaluated for need. See restraint flowsheets for intervention documen tation. Fall Prevention Plan Patient will remain free from injury related to falls. See the Daily cares/safety flowsheet for intervention documentation. Skin Integrity Plan Patient skin integrity maintained. See integumentary tiffanie wsheet for intervention documentation. High Risk Seizure Patient will remain free of injury related to seizures. Se e seizure precaution documentation for interventions. Goals/Plan for Shift Patient/Family stated goal for shift: DG Nursing goal for shift: Stable neuro exam Plan: Neuro checks per order, ativan as needed based on CIWA Goals/Plan for Hospital Stay Nursing goal for hospital stay: Plan: COOKING OPERATOR * End of Shift Note - Anayeli King RN - 09/28/2021 6:13 AM WEED COOKING OPERATOR End of Shift Summary and Plan of Care Neuro status remains unchanged throughout shift. Ativan x2 given for CIWA, see MAR. No other acute events occurred. Goals per Patient Condition Restraints in Use - Patient will remain free from injury related to restraints a nd will be evaluated for need. See restraint flowsheets for intervention documen tation. Fall Prevention Plan Patient will remain free from injury related to falls. See the Daily cares/safety flowsheet for intervention documentation. Skin Integrity Plan Patient skin integrity maintained. See integumentary tiffanie wsheet for intervention documentation. High Risk Seizure Patient will remain free of injury related to seizures. Se e seizure precaution documentation for interventions. Goals/Plan for Shift Patient/Family stated goal for shift: DG Nursing goal for shift: Maintain neuro status, maintain MAP >65, treat agitation/alcohol withdrawal Plan: Neuro checks as ordered, turn q2, titrate precedex for RASS goal Goals/Plan for Hospital Stay Nursing goal for hospital stay: Plan: COOKING OPERATOR * End of Shift Note - Sarah Wilcox RN - 09/27/2021 3:53 PM WEED COOKING OPERATOR End of Shift Summary and Plan of Care Neuro status unchanged. CIWA protocol started. Skull x-ray to determine if can safely go to MRI. Ultrasound of upper extremities revealed superficial thrombi i n right arm. Precedex for RASS goal. 1 mg Ativan for CIWA. Goals of shift met - see below. Goals per Patient Condition Restraints in Use - Patient will remain free from injury related to restraints a nd will be evaluated for need. See restraint flowsheets for intervention documen tation. Fall Prevention Plan Patient will remain free from injury related to falls. See the Daily cares/safety flowsheet for intervention documentation. Skin Integrity Plan Patient skin integrity maintained. See integumentary tiffanie wsheet for intervention documentation. High Risk Seizure Patient will remain free of injury related to seizures. Se e seizure precaution documentation for interventions. Goals/Plan for Shift Patient/Family stated goal for shift: DG- patient encephalopathic. Nursing goal for shift: Increased mobility, complete MRI, treat agitation/alcoho l withdrawal. Plan: Transport safely to MRI, get patient up to chair, turn q2, assess RASS and titrate Precedex to goal. Goals/Plan for Hospital Stay Nursing goal for hospital stay: Plan: COOKING OPERATOR * End of Shift Note - Alexa Abebe RN - 09/27/2021 5:42 AM WEED COOKING OPERATOR End of Shift Summary and Plan of Care Neuro status unchanged. Pupils are equal and reactive. Patient remains restless; fentanyl given x1 for agitation; precedex continued. 1 unit PRBCs given. No oth er acute events. Goals per Patient Condition Restraints in Use - Patient will remain free from injury related to restraints a nd will be evaluated for need. See restraint flowsheets for intervention documen tation. Fall Prevention Plan Patient will remain free from injury related to falls. See the Daily cares/safety flowsheet for intervention documentation. Skin Integrity Plan Patient skin integrity maintained. See integumentary tiffanie wsheet for intervention documentation. Goals/Plan for Shift Patient/Family stated goal for shift: dg Nursing goal for shift: maintain neuro status and MAP>65; maintain patient safety and comfort Plan: closely monitor neuro exams and BP; bed alarm; side rails x4; titrate prec edex to maintain RASS -1 Goals/Plan for Hospital Stay Nursing goal for hospital stay: Plan: COOKING OPERATOR * End of Shift Note - Cortney Vargas RN - 09/26/2021 7:00 PM WEED COOKING OPERATOR End of Shift Summary and Plan of Care PICC placed. TF started. MRI screening form done. Goals per Patient Condition Restraints in Use - Patient will remain free from injury related to restraints a nd will be evaluated for need. See restraint flowsheets for intervention documen tation. Fall Prevention Plan Patient will remain free from injury related to falls. See the Daily cares/safety flowsheet for intervention documentation. Skin Integrity Plan Patient skin integrity maintained. See integumentary tiffanie wsheet for intervention documentation. Goals/Plan for Shift Patient/Family stated goal for shift: DG Nursing goal for shift: Maintain MAP >65. Maintain neurological status. Maintain safety. Plan: Monitor VS and administer medications as needed. Perform neurological exam s as ordered. Bed alarm, roll belt, and mittens to maintain safety. Goals/Plan for Hospital Stay Nursing goal for hospital stay: Plan: COOKING OPERATOR * Nutrition Note - Timmy Santana RD - 09/26/2021 11:22 AM WEED COOKING OPERATOR Nutrition Assessment [facility] DIAGNOSIS & INTERVENTION: DIAGNOSIS 1 Nutrition Diagnosis 1: NI 2.1 Inadequate oral intake Related To: AMS As Evidenced By: EMR review, need for EN to meet nutritional needs Goal: Maintain present weight +/- 5%,TF to provide 90-110% of estimated needs un til pt able to take in >50% of meals consumed Time Frame: Throughout stay Goal Status: New goal established Intervention/Plan 1a: initiate TF with Osmolite 1.5 @ 20 ml/hr and increase as t olerated by 15 ml q 8 hrs to a goal of 50 ml/hr + 1 prosource pkt per day to pro vide: 1860 kcal/d, 90 gm pro/day. FWF of 30 ml q 4 hrs for now. Increase to 145 ml q 4 hrs depending on Na+ goal to provide: 1784 ml Free H2O once LR is dc'd. Intervention/Plan 1b: RD will continue to monitor for TF tolerance, weight, labs and POC. Malnutrition criteria: Malnutrition Recommendation - Physician Alert Malnutrition Rec to Provider: No Recommendation REASON FOR CONSULT: TF consult Patient: Sher Cary Age: 71 y.o. 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 FOOD & NUTRITION RELATED HISTORY: Diet Order: Dietary Orders (From admission, onward) Start Ordered 09/24/212311 Diet NPO Diet effective now 09/24/21 2313 Energy Intake Total Energy Intake: eating well [employer], has had a decreased appetite staring ~ 6 m onths ago with DM /insulin change, consult for EN Fluid / Beverage Intake Oral Fluids: NPO Food Intake Meal / Snack Pattern: 2 meals a day usually Parenteral Nutrition Intake IV Fluids: precedex, LR at 100 ml/hr FOOD AND NUTRIENT ADMINISTRATION: Diet Experience Food Allergies: NKFA ANTHROPOMETRICS Height: 167.6 cm (5' 6") Weight: 59.4 kg (130 lb 15.3 oz) Weight Change: -18.74 BMI (Calculated): 26 [place] Body Weight: 64.5 kg (142 lb 4.6 oz) % Weight Loss In Weeks: Pt appears to be closer to 160 lb, no family at bedside to confirm or address if pt has had any weight changes NUTRITION FOCUSED PHYSICAL FINDINGS: Overall Appearance: older adult male in bed Body Language: not alert on precedex Cardiovascular - Pulmonary: on NC, hx of COPD on home O2, hx of cerebral aneurys m Extremities, Muscles and Bones: RUE moderate edema, + 1 pitting BLE edema Digestive System (Mouth to Rectum): LBM [employer], abd-soft Head and Eyes: WDL Nerves and Cognition: confused, combative at times Skin: WC consulted, hasn't seen pt , no PI's per doc yet MEDS AND LABS REVIEWED: Pertinent Labs:Results for SHER CARY ( ) as of 09/26/2021 1 1:15 Ref. Range 09/25/2021 21:43 SODIUM Latest Ref Range: 136 - 145 mEq/L 149 (H) POTASSIUM Latest Ref Range: 3.4 - 5.1 mEq/L 4.6 CHLORIDE Latest Ref Range: 98 - 107 mEq/L 115 (H) CARBON DIOXIDE Latest Ref Range: 20 - 31 mEq/L 28 Anion Gap Latest Ref Range: 5 - 17 mmol/L 6 Glucose Latest Ref Range: 70 - 100 mg/dL 127 (H) Blood Urea Nitrogen Latest Ref Range: 9 - 23 mg/dL 46 (H) Creatinine Latest Ref Range: 0.70 - 1.30 mg/dL 1.20 eGFR Female AA Latest Ref Range: 60.0 - 200.0 mL/min/1.73m*2 53.4 (L) eGFR Female Non-AA Latest Ref Range: 60.0 - 200.0 mL/min/1.73m*2 44.0 (L) eGFR Male AA Latest Ref Range: 60.0 - 200.0 mL/min/1.73m*2 71.9 eGFR Male Non-AA Latest Ref Range: 60.0 - 200.0 mL/min/1.73m*2 59.3 (L) CALCIUM Latest Ref Range: 8.3 - 10.6 mg/dL 9.6 Pertinent Meds: Scheduled Meds: acyclovir 10 mg/kg ([place]) Intravenous Q12H GLYNN ampicillin 2 g Intravenous Q6H GLYNN cefepime 2 g Intravenous Q12H GLYNN famotidine 20 mg Oral Q12H Or famotidine 20 mg Intravenous Q12H ipratropium-albuteroL 3 mL Inhalation 4x daily methylPREDNISolone sodium succinate 40 mg Intravenous Q8H GLYNN senna-docusate 1 tablet Oral BID vancomycin 1,000 mg Intravenous Q12H Continuous Infusions: dexmedeTOMIDINE 0.8 mcg/kg/hr (09/26/21 1058) lactated Ringers 100 mL/hr (09/26/21 1005) PRN Meds:alteplase, dextrose 50%, glucagon OR glucagon, glucose, hydrALAZINE , lidocaine, ondansetron, prochlorperazine OR prochlorperazine OR prochl orperazine Intake/Output Summary (Last 24 hours) at 09/26/2021 1123 Last data filed at 09/26/2021 1100 Gross per 24 hour Intake 3705.31 ml Output 710 ml Net 2995.31 ml NUTRITION PRESCRIPTION: Estimated Energy Needs Total Energy Estimated Needs: 2880-6827 kcal/d Method for Estimating Needs: MSJ (sed-light) Estimated Protein Needs Total Protein Estimated Needs: +/=88 gm/day Method for Estimating Needs: +/=1.2gm/kg Fluid Needs Total Fluid Estimated Needs: 1ml/kcal or per MD MONITORING/EVALUATION: 1. Food & Nutrition Related Hx: Energy Intake 2. Anthropometrics: Weight change 3. Biochemical: Nutrition related labs 4. Nutrition-focused physical findings: GI function, skin Electronically signed by Timmy Santana 09/26/2021 11:23 AM COOKING OPERATOR * Care Progression Initial Assessment - Carola Aguilar RN - 09/26/2021 10:15 AM WEED COOKING OPERATOR Care Progression Initial Assessment Discharge Plan Care Progression Plan: Pt's DC plan TBD at this time, pending course of stay. Final discharge plan is pending treatment team recommendations and patient's daria ntified needs after patient is no longer in critical care status. CC spoke with pt's cousin Darren via phone, d/t pt's condition. CC explained role. Pt's cousin verified demographics, PCP, pharmacy, and stated medications are af fordable as far as he knew. Pt's cousin stated pt lives alone in the basement of a ranch style home; 4-5 steps into and 4-5 inside. "He is a very interesting pe rson. He had lived in this house with his parents, both of whom are since passed . He stayed in the house and it definitely isn't the most clean situation. We've tried to help but he won't let you. There has also been some alcohol bottles fo und." Pt's cousin stated pt is normally independent with ADL's, drives, has never used HH, and has never stayed at a SNF. Pt's cousin denied any questions or concerns at this time. CC/SW contact information provided. Care Progression will continu e to follow for anticipated discharge needs. Patient Information Information Obtained: Pt's cousin and EMR Primary Caregiver : Self Support Systems: Extended family Living Arrangements: Alone Type of Residence: Private residence without support,Private residence with supp ort Current Home Health Services: No Transportation Transportation at Discharge: Other (TBD) Transportation at Appointments: Other (TBD) Functional Capacity & DME Assistive Devices: None Respiratory Items: Oxygen Current & Past Services Current Resources Available: Rx Coverage Type of Rx Coverage: [employer] Benefits Financial/Income Information Financial Hardship: N/A Verified that patients primary care physician is Walker Cruz MD and receives eir medications from [id number] - [place], [place] - [address] [facility] [id number] Carola Aguilar RN NSICU/CVICU Nurse Infection Control [email or web address] Office: [phone] Voalte: [phone] COOKING OPERATOR * End of Shift Note - Alexa Abebe RN - 09/26/2021 5:36 AM WEED COOKING OPERATOR End of Shift Summary and Plan of Care Patient remains localizing to pain in all extremities. Pupils remain unequal; L pupil 5mm and unreactive from 2369-4900; ADAMARIS aware. Haldol and fentanyl given fo r agitation; See MAR; Precedex continued. Pt was hypotensive towards beginning o f shift; 500ml bolus given. Pt on 3L NC. Decreased urine output throughout shift ; ADAMARIS aware. No other acute events. Goals per Patient Condition Restraints in Use - Patient will remain free from injury related to restraints a nd will be evaluated for need. See restraint flowsheets for intervention documen av. Fall Prevention Plan Patient will remain free from injury related to falls. See the Daily cares/safety flowsheet for intervention documentation. Skin Integrity Plan Patient skin integrity maintained. See integumentary tiffanie wsheet for intervention documentation. Goals/Plan for Shift Patient/Family stated goal for shift: DG Nursing goal for shift: maintain MAP>65; maintain neuro status; maintain patient safety Plan: closely monitor neuro exams and BP; bed alarm; restraint monitoring Goals/Plan for Hospital Stay Nursing goal for hospital stay: Plan: COOKING OPERATOR * End of Shift Note - Cheri Lowe RN - 09/25/2021 7:05 PM WEED COOKING OPERATOR End of Shift Summary and Plan of Care NGT placed, multiple PRNs given, echo done, CT abd/pelvis, chest, full spine, an d VEEG completed. LP at the bedside was not successful, IR consulted and attempt ed to complete LP in IR, also unsuceesful. Multiple PRNs given for scans and pro cedures. Precedex and IVMF started. Pt cold upon return to NSICU, daniel mcallister plied. Code status changed to DNR Goals per Patient Condition Restraints in Use - Patient will remain free from injury related to restraints a nd will be evaluated for need. See restraint flowsheets for intervention documen tation. Fall Prevention Plan Patient will remain free from injury related to falls. See the Daily cares/safety flowsheet for intervention documentation. Skin Integrity Plan Patient skin integrity maintained. See integumentary tiffanie wsheet for intervention documentation. Goals/Plan for Shift Patient/Family stated goal for shift: DG Nursing goal for shift: Keep pt comfortable and safe and complete scans Plan: Use PRNs, partner with team for scans Goals/Plan for Hospital Stay Nursing goal for hospital stay: Plan: COOKING OPERATOR * End of Shift Note - Chidi Mesa RN - 09/25/2021 1:43 AM WEED COOKING OPERATOR End of Shift Summary and Plan of Care Pt admitted to the NSICU with UTI, SDH, AMS. Pt was found down by his neighbor without his o2 and unresponsive. Pt is uncooperative with cares and will not pa rticipate in assessments. Arrived with a nash in place noted 40-65/hr out. Pt wears 3L chronically at ho me is on 3-4L per [place]. Taken down for repeat head CT around 0500. Pt was given [facility]. Orders for 1 unit PRBC and 2 FFP. Currently is getting 1 unit of PRBC and 1 of FFP. Goals per Patient Condition Fall Prevention Plan Patient will remain free from injury related to falls. See the Daily cares/safety flowsheet for intervention documentation. Skin Integrity Plan Patient skin integrity maintained. See integumentary tiffanie wsheet for intervention documentation. Goals/Plan for Shift Patient/Family stated goal for shift: Nursing goal for shift: Plan: Goals/Plan for Hospital Stay Nursing goal for hospital stay: Plan: COOKING OPERATOR documented in this encounter Plan of Treatment Date/Time Name Type Priority Associated Diag noses 09/25/2021 5:21 AM WEED COOKING OPERATOR Transfuse plasma Transfuse Routine Orders 09/25/2021 5:17 AM WEED COOKING OPERATOR Transfuse plasma Transfuse Routine Orders 09/25/2021 3:25 AM WEED COOKING OPERATOR Transfuse RBC Transfuse Routine Orders 09/25/2021 3:23 AM WEED COOKING OPERATOR Transfuse RBC Transfuse Routine Orders 09/25/2021 7:32 AM WEED COOKING OPERATOR Transfuse plasma Transfuse Routine Orders 09/27/2021 9:09 PM WEED COOKING OPERATOR Vitamin B1 (Thiamine) Lab Routine 09/27/2021 11:50 PM WEED COOKING OPERATOR EXTRA TUBES Lab Routine 09/27/2021 11:50 PM WEED COOKING OPERATOR Green Top Lab Timed 09/28/2021 10:01 AM WEED COOKING OPERATOR Paraneoplastic Melba Lab Routine 09/28/2021 10:01 AM WEED COOKING OPERATOR Thyroglobulin Antibody Lab Routine 09/29/2021 8:36 AM WEED COOKING OPERATOR XR Chest single view Imaging Routine frontal Order Schedule Name Type Priority Associated Diag noses Continuous for 1 Occurrences starting until 09/24/2021 Respiratory: ABG PRN Respiratory Routine Care Continuous for 1 Occurrences starting until 09/24/2021 Incentive spirometry Respiratory Routine Care As Needed until discontinued starting Glucose POC Point of Care Routine Testing-Docked Device Once - Routine for 1 Occurrences startin g 09/25/2021 until 09/25/2021 Glucose CSF Lab Routine Once - Routine for 1 Occurrences startin g 09/25/2021 until 09/25/2021 Protein CSF Lab Routine Once - Routine for 1 Occurrences startin g 09/25/2021 until 09/25/2021 Culture, Spinal Fluid Microbiology Routine with Gram Stain Once - Routine for 1 Occurrences startin g 09/25/2021 until 09/25/2021 Meningitis/Encephalitis Lab Routine CSF PCR Once - Routine for 1 Occurrences startin g 09/25/2021 until 09/25/2021 CSF Cell Count and Lab Routine Differential Once - Routine for 1 Occurrences startin g 09/25/2021 until 09/25/2021 West Nile Virus IgG+IgM Lab Routine CSF Once for 1 Occurrences starting 09/26/20 until 09/26/2021 Respiratory Criteria Respiratory Routine Care One time imaging One time imaging for 1 Occurrences starting 09/26/2021 until 09/26/2021 MRI Head w wo contrast Imaging Routine Every 6hr until discontinued starting Glucose POC Point of Care Routine Testing-Docked Device Once - Routine for 1 Occurrences startin g 09/27/2021 until 09/27/2021 Vitamin B1 (Thiamine) Lab Routine Once - Routine for 1 Occurrences startin g 09/28/2021 until 09/28/2021 EXTRA TUBES Lab Routine Once for 1 Occurrences starting 09/28/20 until 09/28/2021 Green Top Lab Timed Once - Routine for 1 Occurrences startin g 09/28/2021 until 09/28/2021 Paraneoplastic Melba Lab Routine Once - Routine for 1 Occurrences startin g 09/28/2021 until 09/28/2021 Thyroglobulin Antibody Lab Routine Every 12hr until discontinued starting 1 11/28/2020, 2 completed Sodium Lab Routine One time imaging One time imaging for 1 Occurrences starting 09/29/2021 until 09/29/2021 XR Chest single view Imaging Routine frontal documented as of this encounter Procedures The patient is currently admitted. The information in this section might not be complete until the patient is discharged. Comments Procedure Name Priority Date/Time Associated Diag nosis ARTERIAL BLOOD GAS STAT 09/29/2021 9:35 AM WEED COOKING OPERATOR VANCOMYCIN TROUGH Timed 09/29/2021 8:02 AM WEED COOKING OPERATOR SODIUM Routine 09/29/2021 8:02 AM WEED COOKING OPERATOR GLUCOSE POC Timed 09/29/2021 5:30 AM WEED COOKING OPERATOR GLUCOSE POC Timed 09/29/2021 12:22 AM WEED COOKING OPERATOR CBC AND DIFF (MANUAL DIFF Routine 09/29/2021 IF NECESSARY) 12:18 AM WEED COOKING OPERATOR BASIC METABOLIC PANEL Routine 09/29/2021 12:18 AM WEED COOKING OPERATOR ALBUMIN Add-On 09/29/2021 12:18 AM WEED COOKING OPERATOR GLUCOSE POC Timed 09/28/2021 5:46 PM WEED COOKING OPERATOR SODIUM Routine 09/28/2021 3:11 PM WEED COOKING OPERATOR GLUCOSE POC Timed 09/28/2021 11:35 AM WEED COOKING OPERATOR THYROID PEROXIDASE Routine 09/28/2021 ANTIBODY 10:01 AM WEED COOKING OPERATOR SODIUM Routine 09/28/2021 8:27 AM WEED COOKING OPERATOR GLUCOSE POC Timed 09/28/2021 6:16 AM WEED COOKING OPERATOR AMMONIA Routine 09/28/2021 12:14 AM WEED COOKING OPERATOR GLUCOSE POC Timed 09/28/2021 12:05 AM WEED COOKING OPERATOR RENAL PANEL Routine 09/27/2021 11:50 PM WEED COOKING OPERATOR MAGNESIUM Routine 09/27/2021 11:50 PM WEED COOKING OPERATOR COMPLETE BLOOD COUNT Routine 09/27/2021 11:50 PM WEED COOKING OPERATOR SODIUM Routine 09/27/2021 7:45 PM WEED COOKING OPERATOR GLUCOSE POC Timed 09/27/2021 5:20 PM WEED COOKING OPERATOR GLUCOSE POC Timed 09/27/2021 3:52 PM WEED COOKING OPERATOR XR SKULL < 4 VIEWS Routine 09/27/2021 3:00 PM WEED COOKING OPERATOR VITAMIN D, 25-HYDROXY Routine 09/27/2021 12:38 PM WEED COOKING OPERATOR THYROID STIMULATING Routine 09/27/2021 HORMONE 12:38 PM WEED COOKING OPERATOR GLUCOSE POC Timed 09/27/2021 11:23 AM WEED COOKING OPERATOR CREATINE KINASE Routine 09/27/2021 10:35 AM WEED COOKING OPERATOR BILIRUBIN DIRECT Routine 09/27/2021 10:35 AM WEED COOKING OPERATOR B12/FOLATE Add-On 09/27/2021 10:35 AM WEED COOKING OPERATOR US VENOUS DUPLEX UPPER Routine 09/27/2021 EXTREMITY BILAT 9:37 AM WEED COOKING OPERATOR VANCOMYCIN TROUGH Timed 09/27/2021 8:03 AM WEED COOKING OPERATOR SODIUM Routine 09/27/2021 8:03 AM WEED COOKING OPERATOR RAPID PLASMA REAGIN Add-On 09/27/2021 8:03 AM WEED COOKING OPERATOR GLUCOSE POC Timed 09/27/2021 7:32 AM WEED COOKING OPERATOR HEMOGLOBIN AND HEMATOCRIT Timed 09/27/2021 6:27 AM WEED COOKING OPERATOR CROSSMATCH (PREPARE ONE Timed 09/27/2021 UNIT) RBC 6:10 AM WEED COOKING OPERATOR GLUCOSE POC Timed 09/27/2021 4:14 AM WEED COOKING OPERATOR PROTHROMBIN TIME/INR Routine 09/27/2021 12:29 AM WEED COOKING OPERATOR MAGNESIUM Routine 09/27/2021 12:29 AM WEED COOKING OPERATOR COMPREHENSIVE METABOLIC Routine 09/27/2021 PANEL 12:29 AM WEED COOKING OPERATOR COMPLETE BLOOD COUNT Routine 09/27/2021 12:29 AM WEED COOKING OPERATOR GLUCOSE POC Timed 09/27/2021 12:19 AM WEED COOKING OPERATOR GLUCOSE POC Timed 09/26/2021 8:29 PM WEED COOKING OPERATOR GLUCOSE POC Timed 09/26/2021 4:16 PM WEED COOKING OPERATOR GLUCOSE POC Timed 09/26/2021 12:23 PM WEED COOKING OPERATOR HEMOGLOBIN AND HEMATOCRIT Routine 09/26/2021 12:23 PM WEED COOKING OPERATOR STREP PNEUMONIAE URINE Routine 09/26/2021 ANTIGEN 9:47 AM WEED COOKING OPERATOR GLUCOSE POC Timed 09/26/2021 8:35 AM WEED COOKING OPERATOR PROTHROMBIN TIME/INR STAT 09/26/2021 6:40 AM WEED COOKING OPERATOR CROSSMATCH (PREPARE ONE Timed 09/26/2021 UNIT) RBC 6:10 AM WEED COOKING OPERATOR PREPARE PLASMA Timed 09/26/2021 6:10 AM WEED COOKING OPERATOR GLUCOSE POC Timed 09/26/2021 4:45 AM WEED COOKING OPERATOR OXYGEN Routine 09/26/2021 1:57 AM WEED COOKING OPERATOR CBC AND DIFF (MANUAL DIFF Routine 09/26/2021 IF NECESSARY) 12:28 AM WEED COOKING OPERATOR GLUCOSE POC Timed 09/26/2021 12:12 AM WEED COOKING OPERATOR PHOSPHORUS Routine 09/25/2021 9:43 PM WEED COOKING OPERATOR MAGNESIUM Routine 09/25/2021 9:43 PM WEED COOKING OPERATOR LACTATE VENOUS WB STAT 09/25/2021 9:43 PM WEED COOKING OPERATOR BASIC METABOLIC PANEL Routine 09/25/2021 9:43 PM WEED COOKING OPERATOR GLUCOSE POC Timed 09/25/2021 8:05 PM WEED COOKING OPERATOR GLUCOSE POC Timed 09/25/2021 6:01 [address] CT LUMBAR SPINE VIDHYA 09/25/2021 RECONSTRUCTED 5:46 PM WEED COOKING OPERATOR CT ABDOMEN PELVIS WO VIDHYA 09/25/2021 CONTRAST 5:46 PM WEED COOKING OPERATOR CT CERVICAL SPINE WO VIDHYA 09/25/2021 CONTRAST 5:44 PM WEED COOKING OPERATOR IR LUMBAR PUNCTURE W Routine 09/25/2021 FLUORO 5:09 PM WEED COOKING OPERATOR GLUCOSE POC Timed 09/25/2021 4:08 PM WEED COOKING OPERATOR EEG PROLONGED (> 60 MIN) Routine 09/25/2021 2:52 PM [address] C[address]ING [address]ATOR CT THORACIC SPINE VIDHYA 09/25/2021 RECONSTRUCTED 1:06 PM WEED COOKING OPERATOR HEMOGLOBIN AND HEMATOCRIT Routine 09/25/2021 12:26 PM WEED COOKING OPERATOR AMMONIA STAT 09/25/2021 12:01 PM WEED COOKING OPERATOR CLOTTING SCREEN Routine 09/25/2021 12:00 PM WEED COOKING OPERATOR TROPONIN-I HS 0HR Routine 09/25/2021 11:38 AM WEED COOKING OPERATOR GLUCOSE POC Timed 09/25/2021 11:33 AM WEED COOKING OPERATOR ECHO COMPLETE W DOPPLER Routine 09/25/2021 AND COLOR FLOW 11:13 AM WEED COOKING OPERATOR ARTERIAL BLOOD GAS STAT 09/25/2021 11:10 AM WEED COOKING OPERATOR CT CHEST WO CONTRAST STAT 09/25/2021 10:35 AM WEED COOKING OPERATOR XR SKULL < 4 VIEWS Routine 09/25/2021 9:46 AM WEED COOKING OPERATOR XR ABDOMEN SINGLE VIEW AP STAT 09/25/2021 9:37 AM WEED COOKING OPERATOR EXTRA TUBES Routine 09/25/2021 9:29 AM WEED COOKING OPERATOR GREEN TOP Timed 09/25/2021 9:29 AM WEED COOKING OPERATOR XR CHEST SINGLE VIEW VIDHYA 09/25/2021 FRONTAL 8:56 AM WEED COOKING OPERATOR LACTATE VENOUS WB STAT 09/25/2021 7:53 AM WEED COOKING OPERATOR GLUCOSE POC Timed 09/25/2021 7:40 AM WEED COOKING OPERATOR TRANSFUSE PLASMA Routine 09/25/2021 7:32 AM WEED COOKING OPERATOR ECG Routine 09/25/2021 6:29 AM WEED COOKING OPERATOR TRANSFUSE PLASMA Routine 09/25/2021 5:17 AM WEED COOKING OPERATOR TROPONIN-I HS 6HR Timed 09/25/2021 5:14 AM WEED COOKING OPERATOR HEPATIC FUNCTION PANEL STAT 09/25/2021 Add-On 5:14 AM WEED COOKING OPERATOR CT HEAD WO CONTRAST Timed 09/25/2021 4:59 AM WEED COOKING OPERATOR GLUCOSE POC Timed 09/25/2021 4:16 AM WEED COOKING OPERATOR TRANSFUSE RED BLOOD CELLS Routine 09/25/2021 ONE UNIT 3:23 AM WEED COOKING OPERATOR ECG Routine 09/25/2021 2:43 AM WEED COOKING OPERATOR LACTATE VENOUS WB Routine 09/25/2021 2:31 AM WEED COOKING OPERATOR CREATINE KINASE Routine 09/25/2021 2:31 AM WEED COOKING OPERATOR ANTIBODY SCREEN Timed 09/25/2021 1:04 AM WEED COOKING OPERATOR TYPE AND SCREEN Routine 09/25/2021 1:04 AM WEED COOKING OPERATOR ABORH TYPE Timed 09/25/2021 1:04 AM WEED COOKING OPERATOR TROPONIN-I HS 2HR Timed 09/25/2021 1:02 AM WEED COOKING OPERATOR RETYPE PATIENT ABORH Routine 09/25/2021 1:02 AM WEED COOKING OPERATOR RETYPE PATIENT ABORH Routine 09/25/2021 1:02 AM WEED COOKING OPERATOR PROCALCITONIN Routine 09/25/2021 1:02 AM WEED COOKING OPERATOR COMPLETE BLOOD COUNT Routine 09/25/2021 1:02 AM WEED COOKING OPERATOR GLUCOSE POC Timed 09/25/2021 12:25 AM WEED COOKING OPERATOR CT HEAD WO CONTRAST STAT 09/24/2021 11:59 PM WEED COOKING OPERATOR CREATINE KINASE STAT 09/24/2021 11:25 PM WEED COOKING OPERATOR COMPREHENSIVE METABOLIC Routine 09/24/2021 PANEL 11:25 PM WEED COOKING OPERATOR ARTERIAL BLOOD GAS STAT 09/24/2021 11:25 PM WEED COOKING OPERATOR EXTRA URINE SPECIMEN IN Routine 09/24/2021 SOLIS TUBE 11:16 PM WEED COOKING OPERATOR ECG STAT 09/24/2021 11:14 PM WEED COOKING OPERATOR SARS-COV-2 (COVID-19) Routine 09/24/2021 11:10 PM WEED COOKING OPERATOR URINALYSIS MICROSCOPIC VIDHYA 09/24/2021 ONLY 11:09 PM WEED COOKING OPERATOR URINALYSIS (INCLUDES STAT 09/24/2021 MICROSCOPIC REVIEW, IF 11:09 PM WEED COOKING OPERATOR INDICATED) TOXICOLOGY SCREENING STAT 09/24/2021 PANEL 11:09 PM WEED COOKING OPERATOR XR PELVIS ONE OR TWO STAT 09/24/2021 VIEWS 11:08 PM WEED COOKING OPERATOR XR CHEST SINGLE VIEW STAT 09/24/2021 FRONTAL 11:07 PM WEED COOKING OPERATOR CLOTTING SCREEN STAT 09/24/2021 10:49 PM WEED COOKING OPERATOR COMPREHENSIVE METABOLIC STAT 09/24/2021 PANEL 10:49 PM WEED COOKING OPERATOR CBC AND DIFF (MANUAL DIFF STAT 09/24/2021 IF NECESSARY) 10:49 PM WEED COOKING OPERATOR TROPONIN-I HS 0HR STAT 09/24/2021 10:49 PM WEED COOKING OPERATOR ED PROCEDURE BASIC - Routine 09/24/2021 CRITICAL CARE 10:21 PM WEED COOKING OPERATOR documented in this encounter Results * Arterial Blood Gas (09/29/2021 9:35 AM WEED COOKING OPERATOR) Only the most recent of 3 results within the time period is included. PH Arterial 7.26 (L) 7.35 - 7.45 units SLRL PCO2 Arterial 75 (HH) 35 - 45 mmHg SLRL PO2 Arterial 85 80 - 100 mmHg SLRL Bicarbonate 33.7 (H) 19.0 - 29.0 mEq/L SLRL Base Excess 4.1 (H) -3.0 - 3.0 mEq/L SLRL Sample site Left Radial SLRL Collateral Yes SLRL Circulation Device Oxymask SLRL LPM 3 L/min SLRL Total Rate 24 bpm SLRL Specimen Blood - Arterial Performing Organization Address City/[facility] P barbara Number [id number] [phone] * Sodium (09/29/2021 8:02 AM WEED COOKING OPERATOR) Only the most recent of 5 results within the time period is included. Sodium 154 (H) 136 - 145 mEq/L SLRL Specimen Blood - Central Performing Organization Address City/[facility] P [place]bara Number [id number] [place] [phone] * Vancomycin Trough (09/29/2021 8:02 AM WEED COOKING OPERATOR) Only the most recent of 2 results within the time period is included. Vancomycin 22.0 (H) 10.0 - 20.0 ug/mL SLRL Trough Specimen Blood - Central Performing Organization Address City/[facility] P [place]bara Number [id number] [phone] * GLUCOSE POC (09/29/2021 5:30 AM WEED COOKING OPERATOR) Only the most recent of 25 results within the time period is included. Glucose POC 133 (H) 70 - 100 mg/dL SLRL Specimen Blood - Venous Performing Organization Address City/[facility]/ZIP Code P barbara Number [id number] [phone] * Albumin (09/29/2021 12:18 AM WEED COOKING OPERATOR) Albumin 3.3 (L) 3.5 - 5.0 g/dL SLRL Specimen Blood - Venous Performing Organization Address City/[facility]/ZIP Code P [place]bara Number [id number] [phone] * CBC and Diff (manual diff if necessary) (09/29/2021 12:18 AM WEED COOKING OPERATOR) Only the most recent of 3 results within the time period is included. WBC 11.12 (H) 4.00 - 11.00 TH/uL SLRL RBC 3.20 (L) 4.31 - 5.84 mil/uL SLRL Hemoglobin 7.9 (L) 13.0 - 17.0 g/dL SLRL Hematocrit 29 (L) 40 - 50 % SLRL MCV 90 80 - 99 fL SLRL MCH 25 (L) 27 - 34 pg SLRL MCHC 27 (L) 32 - 36 % SLRL RDW 20.0 (H) 9.0 - 14.5 % SLRL Platelet Count 147 140 - 400 Th/uL SLRL MPV 12.1 9.4 - 12.3 fL SLRL Nucleated RBCs 0 0 - 0 /100 WBC SLRL % Neutrophils 83 (H) 45 - 78 % SLRL % Lymphocytes 5 (L) 15 - 47 % SLRL % Monocytes 8 0 - 12 % SLRL % Eosinophils 4 0 - 7 % SLRL % Basophils 0 0 - 2 % SLRL % Imm Grans 1 0 - 1 % SLRL # Granulocytes 9.34 (H) 1.70 - 6.80 TH/uL SLRL # Lymphocytes 0.57 (L) 1.00 - 3.30 TH/uL SLRL # Monocytes 0.87 0.20 - 0.90 TH/uL SLRL # Eosinophils 0.39 0.00 - 0.40 TH/uL SLRL # Basophils 0.01 0.00 - 0.10 TH/uL [facility]RL Specimen Blood - Venous Performing Organization Address City/State/ZIP Code P barbara Number [phone] [id number] [place] [phone] * Basic Metabolic Panel (09/29/2021 12:18 AM WEED COOKING OPERATOR) Only the most recent of 2 results within the time period is included. Sodium 154 (H) 136 - 145 mEq/L SLRL Potassium 4.4 3.4 - 5.1 mEq/L SLRL Chloride 120 (H) 98 - 107 mEq/L SLRL Carbon Dioxide 32 (H) 20 - 31 mEq/L SLRL Anion Gap 2 (L) 5 - 17 mmol/L SLRL Calcium 8.2 (L) 8.3 - 10.6 mg/dL SLRL Glucose 123 (H) 70 - 100 mg/dL SLRL Blood Urea 36 (H) 9 - 23 mg/dL SLRL Nitrogen Creatinine 1.00 0.70 - 1.30 mg/dL SLRL eGFR Male 73.2 60.0 - 200.0 SLRL Non-AA mL/min/1.73m*2 eGFR Male AA 88.8 60.0 - 200.0 SLRL mL/min/1.73m*2 eGFR Female 54.3 (L) 60.0 - 200.0 SLRL Non-AA mL/min/1.73m*2 eGFR Female AA 65.9 60.0 - 200.0 SLRL mL/min/1.73m*2 Specimen Blood - Venous Performing Organization Address City/[facility] P [place]bara Number [id number] [phone] * Thyroid Peroxidase Antibody (09/28/2021 10:01 AM WEED COOKING OPERATOR) Thyroid <28.0 0.0 - 60.0 IU/mL SLRL Peroxidase Antibody Specimen Blood - Venous Narrative [facility] - 09/28/2021 11:11 AM WEED COOKING OPERATOR Reference range updated 08/31/21 with [facility] conversion to [id number] instrumentation. Performing Organization Address City/[facility] P [place]bara Number [id number] [phone] * Ammonia (09/28/2021 12:14 AM WEED COOKING OPERATOR) Only the most recent of 2 results within the time period is included. Ammonia 12 11 - 32 umol/L SLRL Specimen Blood - Venous Performing Organization Address [facility] P [place]bara Number [id number] [phone] * Complete Blood Count (09/27/2021 11:50 PM WEED COOKING OPERATOR) Only the most recent of 3 results within the time period is included. WBC 10.85 4.00 - 11.00 TH/uL SLRL RBC 3.34 (L) 4.31 - 5.84 mil/uL SLRL Hemoglobin 8.0 (L) 13.0 - 17.0 g/dL SLRL Hematocrit 29 (L) 40 - 50 % SLRL MCV 87 80 - 99 fL SLRL MCH 24 (L) 27 - 34 pg SLRL MCHC 27 (L)Comment: A review 32 - 36 % SLRL indicates this result to be consistent with previous results. RDW 19.4 (H) 9.0 - 14.5 % SLRL Platelet Count 169 140 - 400 Th/uL SLRL MPV 12.1 9.4 - 12.3 fL SLRL Nucleated RBCs 0 0 - 0 /100 WBC SLRL Specimen Blood - Venous Performing Organization Address City/[facility]/ZIP Code P [place]bara Number [id number] [phone] * Magnesium (09/27/2021 11:50 PM WEED COOKING OPERATOR) Only the most recent of 3 results within the time period is included. Magnesium 2.50 1.60 - 2.60 mg/dL SLRL Specimen Blood - Venous Performing Organization Address City/State/ZIP Code P [place]bara Number [id number] [place] [phone] * Renal Panel (09/27/2021 11:50 PM WEED COOKING OPERATOR) Sodium 153 (H) 136 - 145 mEq/L SLRL Potassium 4.4 3.4 - 5.1 mEq/L SLRL Chloride 120 (H) 98 - 107 mEq/L SLRL Carbon Dioxide 29 20 - 31 mEq/L SLRL Anion Gap 4 (L) 5 - 17 mmol/L SLRL Anion Gap 4 mmol/L [facility]RL Calcium 8.3 8.3 - 10.6 mg/dL SLRL Glucose 173 (H) 70 - 100 mg/dL SLRL Albumin 3.2 (L) 3.5 - 5.0 g/dL SLRL Blood Urea 46 (H) 9 - 23 mg/dL [facility]RL Nitrogen Creatinine 1.20 0.70 - 1.30 mg/dL SLRL eGFR Female AA 53.4 (L) 60.0 - 200.0 SLRL mL/min/1.73m*2 eGFR Female 44.0 (L) 60.0 - 200.0 SLRL Non-AA mL/min/1.73m*2 eGFR Male AA 71.9 60.0 - 200.0 SLRL mL/min/1.73m*2 eGFR Male 59.3 (L) 60.0 - 200.0 SLRL Non-AA mL/min/1.73m*2 Phosphorus 3.3 2.4 - 5.1 mg/dL [facility]RL Specimen Blood - Venous Performing Organization Address City/State/ZIP Code P [facility] Number [phone] [id number] [place], [place] [phone] * XR Skull < 4 views (09/27/2021 3:00 PM WEED COOKING OPERATOR) Only the most recent of 2 results within the time period is included. Modality Anatomical Region Laterality Computed Radiography Head Specimen Impressions [facility] - 09/27/2021 4:02 PM WEED COOKING OPERATOR Findings/impression: Portable AP and lateral skull radiographs were performed. Basilar tip aneurysm coils. Right parietal shunt catheter with reservoir not well profiled. Cannot determine the type of shunt reservoir based on these images. Recommend discussion with DPOA regarding where shunt was originally placed and attempt at obtaining prior records. Partially imaged nasogastric tube. No significant fluid within the paranasal sinuses. Incompletely characterized cervical spondylosis. ATTESTATION STATEMENT: Staff radiologist has personally reviewed the images and dictated, reviewed and/or edited the final report. [address] - 09/27/2021 4:02 PM WEED COOKING OPERATOR Patient: SHER CARY Sex#: M #: [id number] Luciano#: [id number] Location: [address] ICU N306-01 Ordering Provider: CAROLYN GILLIAM Procedure Requested: [id number] XR SKULL < 4 VIEWS Reason for Exam: Profile shunt. Call Radiology when images are taken. Exam Ordered: 09/27/2021 1414 Begin exam date/time: 09/27/2021 1455 Exam Date/Time: 09/27/2021 1500 XR SKULL < 4 VIEWS INDICATION: Profile shunt. COMPARISON: Skull radiographs 09/25/2021, CT head 09/25/2021. Procedure Note Quintin Orr DO - 09/27/2021 Patient: SHER CARY Sex#: M #: [id number] Luciano#: [id number] Location: [facility] N3 ICU N306-01 Ordering Provider: CAROLYN GILLIAM Procedure Requested: [id number] XR SKULL < 4 VIEWS Reason for Exam: Profile shunt. Call Radiology when images are taken. Exam Ordered: 09/27/2021 1414 Begin exam date/time: 09/27/2021 1455 Exam Date/Time: 09/27/2021 1500 XR SKULL < 4 VIEWS INDICATION: Profile shunt. COMPARISON: Skull radiographs 09/25/2021, CT head 09/25/2021. IMPRESSION Findings/impression: Portable AP and lateral skull radiographs were performed. Basilar tip aneurysm coils. Right parietal shunt catheter with reservoir not well profiled. Cannot determine the type of shunt reservoir based on these images. Recommend discussion with DPOA regarding where shunt was originally placed and attempt at obtaining prior records. Partially imaged nasogastric tube. No significant fluid within the paranasal sinuses. Incompletely characterized cervical spondylosis. ATTESTATION STATEMENT: Staff radiologist has personally reviewed the images and dictated, reviewed and/or edited the final report. READING SITE: [facility] 5 Performing Organization Address [facility] P barbara Number [email or web address] * Vitamin D, 25-Hydroxy (09/27/2021 12:38 PM WEED COOKING OPERATOR) Vitamin D 50 30 - 100 ng/mL SLRL 25-Hydroxy Specimen Blood - Venous Narrative R - 09/27/2021 1:08 PM WEED COOKING OPERATOR Vitamin D Ref Range =>21 Years Deficiency: <20 ng/mL Insufficiency: 20 - <30 ng/mL Sufficiency: 30 - 100 ng/mL Toxicity Possible: >100 ng/mL Performing Organization Address [facility] P [place]bara Number [id number] [phone] * Thyroid Stimulating Hormone (09/27/2021 12:38 PM WEED COOKING OPERATOR) Thyroid 5.53 (H) 0.55 - 4.78 uIU/mL SLRL Stimulating Hormone Specimen Blood - Venous Narrative RL - 09/27/2021 1:08 PM WEED COOKING OPERATOR Reference range updated 08/31/21 with [facility] conversion to [employer] instrumentation. Performing Organization Address [facility] P [place]bara Number [id number] [phone] * B12/Folate (09/27/2021 10:35 AM WEED COOKING OPERATOR) Vitamin B12 1,218 (H) 211 - 911 pg/mL [facility]RL Folate 18.46 5.38 - 24.00 ng/mL [facility]RL Specimen Blood - Venous Performing Organization Address City/State/ZIP Code P [place]bara Number [id number] [phone] * Bilirubin Direct (09/27/2021 10:35 AM WEED COOKING OPERATOR) Bilirubin 0.20 0.00 - 0.30 mg/dL SLRL Direct Specimen Blood - Venous Performing Organization Address City/[facility]/ZIP Code P [place]bara Number [id number] [phone] * Creatine Kinase (09/27/2021 10:35 AM WEED COOKING OPERATOR) Only the most recent of 3 results within the time period is included. Creatine Kinase 151 46 - 171 U/L [facility]RL Specimen Blood - Venous Narrative [facility] - 09/27/2021 11:03 AM WEED COOKING OPERATOR Reference range updated 08/31/21 with [facility] conversion to [employer] instrumentation. Performing Organization Address City/[facility] Code P [facility] Number [id number] [id number] * US Venous Duplex Upper Extremity bilat (09/27/2021 9:37 AM WEED COOKING OPERATOR) Modality Anatomical Region Laterality Ultrasound Arm Specimen Impressions [facility] - 09/27/2021 10:37 AM WEED COOKING OPERATOR Right upper extremity superficial thrombus, involving the cephalic vein in the mid and distal upper arm and antecubital fossa, and extending into the antecubital vein. No evidence of DVT in the upper extremities. The right ulnar vein could not be visualized or assessed on this exam. Findings were discussed with SANKET Sterling for this patient, by the yarn mercerizer operator at the completion of this exam. READING SITE: [facility] Narrative [facility] [place] - 09/27/2021 10:37 AM WEED COOKING OPERATOR Patient: SHER CARY Sex#: Freddy #: 1950 Luciano#: [id number] Location: [address] ICU N306-01 Ordering Provider: SHARITA BALTAZAR Procedure Requested: [id number] US VENOUS DUPLEX UPPER EXTREMITY BILAT Reason for Exam: BUE edema, immobility Exam Ordered: 09/27/2021 0825 Begin exam date/time: 09/27/2021 09 Exam Date/Time: 09/27/2021 09 US VENOUS DUPLEX UPPER EXTREMITY BILAT INDICATION: BUE edema, immobility COMPARISON: None available TECHNIQUE: Grayscale, color and spectral Doppler evaluation of the bilateral upper extremity veins. FINDINGS: Right upper extremity: There is normal compressibility and color flow in the internal jugular and axillary veins. Maintained color flow in the subclavian vein. Distally in the upper extremity the brachial and radial veins appear patent. The ulnar veins could not be visualized, due to difficulty with patient cooperation and movement. There is superficial thrombus in the right cephalic vein, involving the mid and distal upper arm, and extending into the antecubital fossa. Additional superficial thrombus in the right antecubital vein. Left upper extremity: There is normal compressibility and color flow in the internal jugular and axillary veins. Maintained color flow in the subclavian vein. Distally in the upper extremity the visualized segments of the brachial, ulnar and radial veins show normal compressibility and flow. The superficial basilic and cephalic veins also appear patent with normal compressibility and flow. Portions of the left upper extremity venous system cannot be visualized due to overlying IV site. Procedure Note Erika Smith MD - 09/27/2021 Patient: SHER CARY Sex#: M #: 1950 Luciano#: [id number] Location: [place] [address]01 Ordering Provider: SHARITA BALTAZAR Procedure Requested: [id number] US VENOUS DUPLEX UPPER EXTREMITY BILAT Reason for Exam: BUE edema, immobility Exam Ordered: 09/27/2021 0825 Begin exam date/time: 09/27/202136 Exam Date/Time: 09/27/2021936 US VENOUS DUPLEX UPPER EXTREMITY BILAT INDICATION: BUE edema, immobility COMPARISON: None available TECHNIQUE: Grayscale, color and spectral Doppler evaluation of the bilateral upper extremity veins. FINDINGS: Right upper extremity: There is normal compressibility and color flow in the internal jugular and axillary veins. Maintained color flow in the subclavian vein. Distally in the upper extremity the brachial and radial veins appear patent. The ulnar veins could not be visualized, due to difficulty with patient cooperation and movement. There is superficial thrombus in the right cephalic vein, involving the mid and distal upper arm, and extending into the antecubital fossa. Additional superficial thrombus in the right antecubital vein. Left upper extremity: There is normal compressibility and color flow in the internal jugular and axillary veins. Maintained color flow in the subclavian vein. Distally in the upper extremity the visualized segments of the brachial, ulnar and radial veins show normal compressibility and flow. The superficial basilic and cephalic veins also appear patent with normal compressibility and flow. Portions of the left upper extremity venous system cannot be visualized due to overlying IV site. IMPRESSION Right upper extremity superficial thrombus, involving the cephalic vein in the mid and distal upper arm and antecubital fossa, and extending into the antecubital vein. No evidence of DVT in the upper extremities. The right ulnar vein could not be visualized or assessed on this exam. Findings were discussed with SANKET Sterling for this patient, by the yarn mercerizer operator at the completion of this exam. READING SITE: [facility] Performing Organization Address City/[facility] Number MCKESSON * Rapid Plasma Reagin (09/27/2021 8:03 AM WEED COOKING OPERATOR) [employer] RPR Nonreactive Nonreactive SLRL Specimen Blood - Venous Performing Organization Address City/[facility] Number SLRL [address] [place] [phone] * Hemoglobin and Hematocrit (09/27/2021 6:27 AM WEED COOKING OPERATOR) Only the most recent of 3 results within the time period is included. [employer] Hemoglobin 8.0 (L) 13.0 - 17.0 g/dL SLRL Hematocrit 28 (L) 40 - 50 % SLRL Specimen Blood - Central Performing Organization Address City/[facility] Number [facility]RL [address] [place] [phone] * 1 Units (09/27/2021 6:10 AM WEED COOKING OPERATOR) Only the most recent of 2 results within the time period is included. [employer] 01 - CROSS Compatible [facility] BLOOD BANK - BLOOD TYPE A Pos [facility] BLOOD BANK - UNIT [id number] [facility] BLOOD BANK 01 - STATUS Transfused [facility] BLOOD BANK 01 - PRODUCT ID Red Blood Cells [facility] BLOOD BANK 01 - PRODUCT [id number] [facility] BLOOD BANK Specimen Other - Blood Performing Organization Address City/State/ZIP Code P barbara Number [facility] [address] [place] [address] BLOOD BANK * Comprehensive Metabolic Panel (09/27/2021 12:29 AM WEED COOKING OPERATOR) Only the most recent of 3 results within the time period is included. Sodium 152 (H) 136 - 145 mEq/L SLRL Potassium 4.3 3.4 - 5.1 mEq/L SLRL Chloride 119 (H) 98 - 107 mEq/L SLRL Carbon Dioxide 28 20 - 31 mEq/L SLRL Anion Gap 5 5 - 17 mmol/L SLRL Anion Gap 5 mmol/L SLRL Calcium 8.0 (L) 8.3 - 10.6 mg/dL SLRL Glucose 151 (H) 70 - 100 mg/dL SLRL Protein Total 5.2 (L) 5.7 - 8.2 g/dL SLRL Serum Albumin 3.2 (L) 3.5 - 5.0 g/dL SLRL Alkaline 50Comment: Reference range 46 - 116 U/L SLR L Phosphatase updated 08/31/21 with [facility] conversion to [employer] instrumentation. Alanine 114 (H) 0 - 49 U/L SLRL Aminotransferas e Aspartate 98 (H)Comment: Reference range 0 - 34 U/L SLRL Aminotransferas updated 08/31/21 with [facility] e conversion to [employer] instrumentation. Bilirubin Total 0.40 0.20 - 1.10 mg/dL SLRL Blood Urea 46 (H) 9 - 23 mg/dL SLRL Nitrogen Creatinine 1.20 0.70 - 1.30 mg/dL SLRL eGFR Female AA 53.4 (L) 60.0 - 200.0 SLRL mL/min/1.73m*2 eGFR Female 44.0 (L) 60.0 - 200.0 SLRL Non-AA mL/min/1.73m*2 eGFR Male AA 71.9 60.0 - 200.0 SLRL mL/min/1.73m*2 eGFR Male 59.3 (L) 60.0 - 200.0 SLRL Non-AA mL/min/1.73m*2 Specimen Blood - Central Performing Organization Address City/[facility] Code P [place]bara Number [facility]RL [address] [phone] * Prothrombin Time/INR (09/27/2021 12:29 AM WEED COOKING OPERATOR) Only the most recent of 2 results within the time period is included. Protime 16.0 (H) 11.4 - 15.0 Sec SLRL INR 1.3 (H) 0.8 - 1.2 SLRL Specimen Blood - Central Performing Organization Address City/[facility] Code P barbara Number [facility]RL [address] [place] [phone] * Strep Pneumoniae Urine Antigen (09/26/2021 9:47 AM WEED COOKING OPERATOR) Streptococcus Negative Negative SLR pneumoniae Urine Antigen Specimen Urine - Urine Performing Organization Address City/[facility] Number RL [address] [place] [phone] * 2 Units (09/26/2021 6:10 AM WEED COOKING OPERATOR) 01 - BLOOD TYPE A Pos [facility] BLOOD BANK 01 - UNIT [id number] [facility] BLOOD BANK 01 - STATUS Transfused [facility] BLOOD BANK 01 - PRODUCT ID FFP [facility] BLOOD BANK 01 - PRODUCT [id number] [facility] BLOOD BANK 01 - BLOOD TYPE A Neg [facility] BLOOD BANK 01 - UNIT [id number] [facility] BLOOD BANK 01 - STATUS Transfused [facility] BLOOD BANK 01 - PRODUCT ID FFP [facility] BLOOD BANK 01 - PRODUCT [id number] [facility] BLOOD BANK Specimen Blood - Blood Performing Organization Address City/[facility] P barbara Number [facility] [address] [place] [address] BLOOD BANK * Lactate Venous WB (09/25/2021 9:43 PM WEED COOKING OPERATOR) Only the most recent of 3 results within the time period is included. Lactate Venous 1.5 0.0 - 2.0 mmol/L SLRL Specimen Blood - Venous Performing Organization Address City/State/ZIP Code P barbara Number [facility]RL [address] [place], [place] [address] * Phosphorus (09/25/2021 9:43 PM WEED COOKING OPERATOR) Phosphorus 4.1 2.4 - 5.1 mg/dL SLRL Specimen Blood - Venous Performing Organization Address City/State/ZIP Code P [place] Number [facility] [address] [place], [place] [address] * CT Lumbar Spine reconstructed (09/25/2021 5:46 PM WEED COOKING OPERATOR) Modality Anatomical Region Laterality Computed Tomography L-spine Specimen Impressions [facility] - 09/25/2021 6:24 PM WEED COOKING OPERATOR 1. No acute osseous abnormality of the lumbar spine. 2. Mild to moderate multilevel lumbar spondylosis. READING SITE: [facility]. ATTESTATION STATEMENT: The Staff Radiologist has personally reviewed the images and dictated, reviewed, or edited the final report. Narrative [facility] - 09/25/2021 6:24 PM WEED COOKING OPERATOR Patient: SHER CARY Sex#: M #: 1950 Luciano#: [id number] Location: [address] N[address]-01 Ordering Provider: ADEN WITT Procedure Requested: [id number] CT LUMBAR SPINE RECONSTRUCTED Reason for Exam: trauma Exam Ordered: 09/25/2021 1256 Begin exam date/time: 09/25/2021 1732 Exam Date/Time: 09/25/[address] LUMBAR SPINE RECONSTRUCTED Date: 09/25/2021 5:47 PM Indication: trauma confusion. Initial encounter Comparison: None. Technique: Helical CT images of the lumbar spine were obtained without contrast. Coronal and sagittal reformatted images were also performed. One or more of the following dose reduction techniques were utilized: Automated exposure control (AEC), Adjustment of mA and/or kV according to patient size, Use of iterative reconstruction technique such as ASiR, CT scan done according to ALARA and image gently/image wisely. Findings: Trace retrolisthesis of L1 on L2 and L5 on S1.. No acute fracture. Vertebral body heights are maintained without compression deformity. Moderate multilevel disc desiccation and disc space height loss, most severe at L1-L2. No aggressive lytic or blastic osseous lesion. Mild multilevel spinal canal stenosis secondary to disc bulges. Mild multilevel neural foraminal narrowing. No high grade spinal canal stenosis or neuroforaminal narrowing. Trace amount of gas within the lumbar spinal canal and adjacent soft tissues likely relates to same day lumbar puncture. Please see concurrent, separately dictated CT abdomen/pelvis report for further details. Procedure Note Sher Leal MD - 09/25/2021 Patient: SHER CARY Sex#: M #: 1950 Luciano#: [id number] Location: [address] ICU N306-01 Ordering Provider: ADEN WITT Procedure Requested: [id number] CT LUMBAR SPINE RECONSTRUCTED Reason for Exam: trauma Exam Ordered: 09/25/2021 1256 Begin exam date/time: 09/25/2021 1732 Exam Date/Time: 09/25/[address] LUMBAR SPINE RECONSTRUCTED Date: 09/25/2021 5:47 PM Indication: trauma confusion. Initial encounter Comparison: None. Technique: Helical CT images of the lumbar spine were obtained without contrast. Coronal and sagittal reformatted images were also performed. One or more of the following dose reduction techniques were utilized: Automated exposure control (AEC), Adjustment of mA and/or kV according to patient size, Use of iterative reconstruction technique such as ASiR, CT scan done according to ALARA and image gently/image wisely. Findings: Trace retrolisthesis of L1 on L2 and L5 on S1.. No acute fracture. Vertebral body heights are maintained without compression deformity. Moderate multilevel disc desiccation and disc space height loss, most severe at L1-L2. No aggressive lytic or blastic osseous lesion. Mild multilevel spinal canal stenosis secondary to disc bulges. Mild multilevel neural foraminal narrowing. No high grade spinal canal stenosis or neuroforaminal narrowing. Trace amount of gas within the lumbar spinal canal and adjacent soft tissues likely relates to same day lumbar puncture. Please see concurrent, separately dictated CT abdomen/pelvis report for further details. IMPRESSION 1. No acute osseous abnormality of the lumbar spine. 2. Mild to moderate multilevel lumbar s pondylosis. READING SITE: [facility]. ATTESTATION STATEMENT: The Staff Radiologist has personally reviewed the images and dictated, reviewed, or edited the final report. Performing Organization Address City/State/ZIP Code P [facility] Number [facility] * CT Abdomen Pelvis wo contrast (09/25/2021 5:46 PM WEED COOKING OPERATOR) Modality Anatomical Region Laterality Computed Tomography Abdomen, Pelvis Specimen Impressions [facility] - 09/26/2021 7:35 AM WEED COOKING OPERATOR 1. No evidence of acute traumatic or estrella id organ injury within the abdomen. 2. Hyperdense material within mildly dis tended gallbladder may relate to gallbladder sludge or cholelithiasis. Right upper quadrant ultrasound can be obtained for further evaluation, as clinically indicated. 3. Hepatic cirrhosis. Small volume abdom inal pelvic ascites. 4. Moderate colonic stool. ATTESTATION STATEMENT: The Staff Radiologist has personally reviewed the images and dictated, reviewed, or edited the final report. [facility] - 09/26/2021 7:35 AM WEED COOKING OPERATOR Patient: SHER CARY Sex#: M #: 1950 Luciano#: [id number] Location: [address] ICU [facility]01 Ordering Provider: ADEN WITT Procedure Requested: [id number] CT ABDOMEN PELVIS WO CONTRAST Reason for Exam: trauma Exam Ordered: 09/25/2021 1255 Begin exam date/time: 09/25/2021 1732 Exam Date/Time: 09/25/[address] ABDOMEN PELVIS WO CONTRAST INDICATION: Trauma TECHNIQUE: CT of the abdomen and pelvis without contrast. Coronal and sagittal reformatted images were performed. COMPARISON: None. FINDINGS: Trace abdominopelvic simple ascites. No free air or fluid collections. Ventriculoperitoneal shunt catheter tubing courses through the right hemiabdomen. Lower chest: Please see same day chest CT report for additional information. ABDOMEN: Liver: Cirrhotic morphology of the liver. Gallbladder and biliary: Hyperdense material within a distended gallbladder likely relates to small amount of sludge. Spleen: Normal size spleen. Pancreas: The pancreas is normal in attenuation without peripancreatic inflammatory changes. No pancreatic duct dilation. Adrenal glands: Normal size adrenal glands. Kidneys and ureters: Normal size kidneys and ureters. No renal stones. GI tract, Mesentery: Gastric tube curled within the proximal aspect of the stomach. The stomach is decompressed.. Normal caliber small bowel. Normal caliber colon. Moderate colonic stool. Normal appendix. Vascular structures: Normal caliber abdominal aorta. Extensive calcified atherosclerosis. Retroperitoneum, Lymph nodes: No lymphadenopathy in the abdomen or pelvis. PELVIS: Genitourinary system: Bladder is decompressed with a Nash catheter. Normal size prostate gland and seminal vesicles. SKELETAL STRUCTURES AND SOFT TISSUES: No fracture or destructive lesions in the visualized skeleton. Multilevel lumbar spondylosis. Trace amount of gas within the lumbar spinal canal and adjacent lumbar spine soft tissues likely relates to same day attempted lumbar puncture. Anasarca. Procedure Note Alonso Rushing MD - 09/26/2021 Patient: SHER CARY Sex#: M #: 1950 Luciano#: [id number] Location: [place] [address]01 Ordering Provider: ADEN WITT Procedure Requested: [id number] CT ABDOMEN PELVIS WO CONTRAST Reason for Exam: trauma Exam Ordered: 09/25/2021 1255 Begin exam date/time: 09/25/2021 1732 Exam Date/Time: 09/25/[address] ABDOMEN PELVIS WO CONTRAST INDICATION: Trauma TECHNIQUE: CT of the abdomen and pelvis without contrast. Coronal and sagittal reformatted images were performed. COMPARISON: None. FINDINGS: Trace abdominopelvic simple ascites. No free air or fluid collections. Ventriculoperitoneal shunt catheter tubing courses through the right hemiabdomen. Lower chest: Please see same day chest CT report for additional information. ABDOMEN: Liver: Cirrhotic morphology of the liver. Gallbladder and biliary: Hyperdense material within a distended gallbladder likely relates to small amount of sludge. Spleen: Normal size spleen. Pancreas: The pancreas is normal in attenuation without peripancreatic inflammatory changes. No pancreatic duct dilation. Adrenal glands: Normal size adrenal glands. Kidneys and ureters: Normal size kidneys and ureters. No renal stones. GI tract, Mesentery: Gastric tube curled within the proximal aspect of the stomach. The stomach is decompressed.. Normal caliber small bowel. Normal caliber colon. Moderate colonic stool. Normal appendix. Vascular structures: Normal caliber abdominal aorta. Extensive calcified atherosclerosis. Retroperitoneum, Lymph nodes: No lymphadenopathy in the abdomen or pelvis. PELVIS: Genitourinary system: Bladder is decompressed with a Nash catheter. Normal size prostate gland and seminal vesicles. SKELETAL STRUCTURES AND SOFT TISSUES: No fracture or destructive lesions in the visualized skeleton. Multilevel lumbar spondylosis. Trace amount of gas within the lumbar spinal canal and adjacent lumbar spine soft tissues likely relates to same day attempted lumbar puncture. Anasarca. IMPRESSION 1. No evidence of acute traumatic or estrella id organ injury within the abdomen. 2. Hyperdense material within mildly dis tended gallbladder may relate to gallbladder sludge or cholelithiasis. Right upper quadrant ultrasound can be obtained for further evaluation, as clinically indicated. 3. Hepatic cirrhosis. Small volume abdom inal pelvic ascites. 4. Moderate colonic stool. ATTESTATION STATEMENT: The Staff Radiologist has personally reviewed the images and dictated, reviewed, or edited the final report. READING SITE: [facility] Organization Address City/State/ZIP Code P [facility] Number [facility] * CT Cervical Spine wo contrast (09/25/2021 5:44 PM WEED COOKING OPERATOR) Modality Anatomical Region Laterality Computed Tomography C-spine Specimen Impressions [facility] - 09/25/2021 6:24 PM WEED COOKING OPERATOR 1. No acute fracture. Slight anterolisthesis of C2 on C3 with mild widening of the C2-C3 disc space may relate to patient positioning, however ligamentous injury would be difficult to exclude given patient history of trauma. MRI cervical spine is recommended for further evaluation if clinically indicated. 2. Moderate degenerative cervical spondy losis. ATTESTATION STATEMENT: The Staff Radiologist has personally reviewed the images and dictated, reviewed, or edited the final report. READING SITE: [facility] Narrative [facility] - 09/25/2021 6:24 PM WEED COOKING OPERATOR Patient: SHER CARY Sex#: M #: 1950 Luciano#: [id number] Location: [address] ICU N306-01 Ordering Provider: ADEN WITT Procedure Requested: [id number] CT CERVICAL SPINE WO CONTRAST Reason for Exam: trauma Exam Ordered: 09/25/2021 1255 Begin exam date/time: 09/25/2021 1732 Exam Date/Time: 09/25/[address] CERVICAL SPINE WO CONTRAST DATE: 09/25/2021 5:45 PM INDICATION: trauma neck pain. Initial encounter TECHNIQUE: Noncontrast CT of the cervical spine was performed. Sagittal and coronal reformats were performed and evaluated. One or more of the following dose reduction techniques were utilized: Automated exposure control (AEC), Adjustment of mA and/or kV according to patient size, Use of iterative reconstruction technique such as ASiR, CT scan done according to ALARA and image gently/image wisely COMPARISON: None. FINDINGS: 2 mm anterolisthesis of C2 on C3 with mi ld widening of the C2-C3 disc space (series 605, image 22). No acute fracture. No aggressive lytic or blastic osseous lesions. Moderate multilevel degenerative disc space height loss. Multilevel mild and moderate spinal canal stenosis secondary to disc protrusions and marginal osteophytes. Multilevel moderate neuroforaminal narrowing secondary to uncovertebral arthrosis. Multilevel mild facet arthrosis. The thyroid gland is atrophic. No cervical lymphadenopathy. Bilateral carotid atherosclerosis. Gastric tube partially imaged in the esophagus. Please see concurrent, separately dictated Chest CT report for further details. Procedure Note Sher Leal MD - 09/25/2021 Patient: SHER CARY Sex#: M #: 1950 Luciano#: [id number] Location: [address] N306-01 Ordering Provider: ADEN WITT Procedure Requested: [id number] CT CERVICAL SPINE WO CONTRAST Reason for Exam: trauma Exam Ordered: 09/25/2021 1255 Begin exam date/time: 09/25/2021 1732 Exam Date/Time: 09/25/[address] CERVICAL SPINE WO CONTRAST DATE: 09/25/2021 5:45 PM INDICATION: trauma neck pain. Initial encounter TECHNIQUE: Noncontrast CT of the cervical spine was performed. Sagittal and coronal reformats were performed and evaluated. One or more of the following dose reduction techniques were utilized: Automated exposure control (AEC), Adjustment of mA and/or kV according to patient size, Use of iterative reconstruction technique such as ASiR, CT scan done according to ALARA and image gently/image wisely COMPARISON: None. FINDINGS: 2 mm anterolisthesis of C2 on C3 with mi ld widening of the C2-C3 disc space (series 605, image 22). No acute fracture. No aggressive lytic or blastic osseous lesions. Moderate multilevel degenerative disc space height loss. Multilevel mild and moderate spinal canal stenosis secondary to disc protrusions and marginal osteophytes. Multilevel moderate neuroforaminal narrowing secondary to uncovertebral arthrosis. Multilevel mild facet arthrosis. The thyroid gland is atrophic. No cervical lymphadenopathy. Bilateral carotid atherosclerosis. Gastric tube partially imaged in the esophagus. Please see concurrent, separately dictated Chest CT report for further details. IMPRESSION 1. No acute fracture. Slight anterolisth esis of C2 on C3 with mild widening of the C2-C3 disc space may relate to patient positioning, however ligamentous injury would be difficult to exclude given patient history of trauma. MRI cervical spine is recommended for further evaluation if clinically indicated. 2. Moderate degenerative cervical spondy losis. ATTESTATION STATEMENT: The Staff Radiologist has personally reviewed the images and dictated, reviewed, or edited the final report. READING SITE: [facility] Organization Address City/State/ZIP Code P [facility] Number [facility] * IR Lumbar puncture w fluoro (09/25/2021 5:09 PM WEED COOKING OPERATOR) Modality Anatomical Region Laterality X-Ray Angiography L-spine Specimen Impressions [facility] - 09/26/2021 2:11 PM WEED COOKING OPERATOR Unable to collect spinal fluid at multiple levels. The spinal needle tip was confirmed within the thecal sac on AP and lateral on multiple levels. ATTESTATION STATEMENT: The Staff Physician has personally reviewed the images and dictated, reviewed, or edited the final report. READING SITE: [facility] Narrative [facility] - 09/26/2021 2:11 PM WEED COOKING OPERATOR Patient: SHER CARY Sex#: M #: 1950 Luciano#: [id number] Location: [address] ICU N306-01 Ordering Provider: CHRISTINA CAO Procedure Requested: [id number] IR LUMBAR PUNCTURE W FLUORO Reason for Exam: encephalopathy of unknown source Exam Ordered: 09/25/2021 1556 Begin exam date/time: 09/25/2021 1639 Exam Date/Time: 09/25/2021 1709 IR LUMBAR PUNCTURE W FLUORO DATE: 09/26/2021 7:04 AM INDICATION: encephalopathy of unknown source. Initial encounter CONSENT: The nature of the procedure as well as its risks, benefits, and alternatives were discussed with the patient's family by Dr. Novoa. Risks specifically discussed included pain, bleeding, infection, spinal headache, cerebral spinal fluid (CSF) leak, and potential nerve damage. The patient's family questions were answered, and both verbal and written consent was given to proceed. ATTENDING PHYSICIAN: Dr. Leal, the neurointerventional attending physician, was present for the entire procedure. TECHNICAL SERVICE REP: Sommer TECHNIQUE: A "time out" procedure was performed verifying the patient's identity and procedure to be performed. The L2-3, L3-L4, and L4-L5 were level was localized with fluoroscopy. The skin overlying this level was then sterilely prepped, draped, and infiltrated with 1% lidocaine for local anesthesia. Under fluoroscopic guidance, a 20 gauge 3.5 inch spinal needle was inserted into the thecal sac at those levels. The needle tip position within the thecal sac was confirmed and AP and lateral. FLUORO TIME: 1.1 minutes RADIATION EXPOSURE: Air Kerma (Ka,r) 11.9 mGy FINDINGS: Unable to collect spinal fluid at multiple levels. The spinal needle tip was confirmed within the thecal sac on AP and lateral on multiple levels. Procedure Note Sher Leal MD - 09/26/2021 Patient: SHER CARY Sex#: M #: 1950 Luciano#: [id number] Location: [address] N[address]-01 Ordering Provider: CHRISTINA CAO Procedure Requested: [id number] IR LUMBAR PUNCTURE W FLUORO Reason for Exam: encephalopathy of unknown source Exam Ordered: 09/25/2021 1556 Begin exam date/time: 09/25/2021 1639 Exam Date/Time: 09/25/2021 1709 IR LUMBAR PUNCTURE W FLUORO DATE: 09/26/2021 7:04 AM INDICATION: encephalopathy of unknown source. Initial encounter CONSENT: The nature of the procedure as well as its risks, benefits, and alternatives were discussed with the patient's family by Dr. Novoa. Risks specifically discussed included pain, bleeding, infection, spinal headache, cerebral spinal fluid (CSF) leak, and potential nerve damage. The patient's family questions were answered, and both verbal and written consent was given to proceed. ATTENDING PHYSICIAN: Dr. Leal, the neurointerventional attending physician, was present for the entire procedure. TECHNICAL SERVICE REP: Sommer TECHNIQUE: A "time out" procedure was performed verifying the patient's identity and procedure to be performed. The L2-3, L3-L4, and L4-L5 were level was localized with fluoroscopy. The skin overlying this level was then sterilely prepped, draped, and infiltrated with 1% lidocaine for local anesthesia. Under fluoroscopic guidance, a 20 gauge 3.5 inch spinal needle was inserted into the thecal sac at those levels. The needle tip position within the thecal sac was confirmed and AP and lateral. FLUORO TIME: 1.1 minutes RADIATION EXPOSURE: Air Kerma (Ka,r) 11.9 mGy FINDINGS: Unable to collect spinal fluid at multiple levels. The spinal needle tip was confirmed within the thecal sac on AP and lateral on multiple levels. IMPRESSION Unable to collect spinal fluid at multiple levels. The spinal needle tip was confirmed within the thecal sac on AP and lateral on multiple levels. ATTESTATION STATEMENT: The Staff Physician has personally reviewed the images and dictated, reviewed, or edited the final report. READING SITE: [facility] Performing Organization Address City/State/ZIP Code P barbara Number [place] * EEG Prolonged (> 60 Min) (09/25/2021 2:52 PM WEED COOKING OPERATOR) Modality Anatomical Region Laterality Other Specimen Narrative [facility] - 09/25/2021 4:06 PM WEED COOKING OPERATOR Ezio Fortune MD 09/25/2021 4:15 PM NEURODIAGNOSTICS - EEG Report DATE OF STUDY: 09/25/2021 TYPE OF EEG: Prolonged LENGTH OF EE min REFERRING PROVIDER: Christina Cao APRN INTERPRETING PHYSICIAN: Ezio Fortune M.D., M.S. INDICATION: Evaluate for seizures. MEDICATIONS: cefTRIAXone (ROCEPHIN) injection 2 g dexmedeTOMIDINE (PRECEDEX) 4 mcg/mL infusion 100 mL (premix) dextrose 50% (D50W) syringe 25-50 mL famotidine (PEPCID) tablet 20 mg Or famotidine (PEPCID) injection 20 mg glucagon (GLUCAGEN) injection 1 mg Or glucagon (GLUCAGEN) injection 1 mg glucose chewable tablet 16-32 g hydrALAZINE (APRESOLINE) injection 10-20 mg ipratropium-albuteroL (DUO-NEB) 0.5-3 mg/3 mL nebulizer solution 3 mL labetaloL (NORMODYNE,TRANDATE) injection 10-20 mg lidocaine (pf) (XYLOCAINE-MPF) 20 mg/mL (2 %) injection 1-10 mL methylPREDNISolone sod suc(PF) (SOLU-Medrol) injection 40 mg ondansetron (ZOFRAN) injection 4 mg prochlorperazine (COMPAZINE) injection 2.5-5 mg Or prochlorperazine (COMPAZINE) injection 2.5-5 mg Or prochlorperazine (COMPAZINE) suppository 25 mg senna-docusate (PERICOLACE) 8.6-50 mg 1 tablet sodium chloride 0.9% (NS) IV Bolus sodium chloride 0.9% (NS) IV Bolus sodium chloride 0.9% infusion FINDINGS: ABNORMALITY #1: Background rhythm shows generalized delta frequency slowing in a 1 to 4 Hz frequency range. Intermixed faster theta frequency components can occur more prominently over the central regions that at times can have poorly formed sleep morphologies. BACKGROUND: As above. HYPERVENTILATION: Not performed. INTERMITTENT PHOTIC STIMULATION: Not performed. SLEEP: Normal transitions of wakefulness and sleep are not identified. FILM COMPOSER: Shows a normal sinus rhythm. IMPRESSION: This is an abnormal prolonged EEG due to the presence of generalized slowing throughout the recording. This finding suggest midline subcortical dysfunction likely corresponding to encephalopathy. No clear epileptiform activity is identified. Performing Organization Address City/State/ZIP Code P barbara Number [facility] * CT Thoracic Spine reconstructed (09/25/2021 1:06 PM WEED COOKING OPERATOR) Modality Anatomical Region Laterality Computed Tomography T-spine Specimen Impressions AUGUST - 09/25/2021 5:44 PM WEED COOKING OPERATOR Impression: Mild to moderate multilevel degenerative thoracic spondylosis. READING SITE: [facility]. ATTESTATION STATEMENT: The Staff Radiologist has personally reviewed the images and dictated, reviewed, or edited the final report. Narrative DELLTREVA - 09/25/2021 5:44 PM WEED COOKING OPERATOR Patient: SHER CARY Sex#: M #: 1950 Luciano#: [id number] Location: [address] ICU N306- Ordering Provider: ADEN WITT Procedure Requested: [id number] CT THORACIC SPINE RECONSTRUCTED Reason for Exam: trauma Exam Ordered: 09/25/2021 1256 Begin exam date/time: 09/25/2021 1305 Exam Date/Time: 09/25/[address] THORACIC SPINE RECONSTRUCTED 09/25/2021 1:07 PM Indication: Trauma, pt transfer from [facility]. Found on floor today by neighbor. Dx with SDH and subacute stroke. pt is A&Ox1 initial encounter Comparison: Concurrent CT chest. Technique: CT imaging of the thoracic spine was reconstructed from concurrent CT chest. Coronal and sagittal reformatted images were performed. One or more of the following dose reduction techniques were utilized: Automated exposure control (AEC), Adjustment of mA and/or kV according to patient size, Use of iterative reconstruction technique such as ASiR, CT scan done according to ALARA and image gently/image wisely. Findings: Trace anterolisthesis of T9 on T10 and T10 on T11. Trace retrolisthesis of T6 on T7. The normal thoracic kyphosis is maintained. No acute fracture. Vertebral body heights are maintained without compression deformity. Multilevel mild to moderate degenerative disc disease with marginal osteophytes and multilevel vacuum disc phenomenon. Ligamentum flavum calcification at T10-T11. No aggressive lytic or blastic osseous lesion. No significant spinal canal stenosis or neural foraminal narrowing. Please refer to the separately dictated report for findings within the chest. Procedure Note Sher Leal MD - 09/25/2021 Patient: SHER CARY Sex#: M #: 1950 Luciano#: [id number] Location: [address] N[address]-01 Ordering Provider: ADEN WITT Procedure Requested: [id number] CT THORACIC SPINE RECONSTRUCTED Reason for Exam: trauma Exam Ordered: 09/25/2021 1256 Begin exam date/time: 09/25/2021 1305 Exam Date/Time: 09/25/[address] THORACIC SPINE RECONSTRUCTED 09/25/2021 1:07 PM Indication: Trauma, pt transfer from [facility]. Found on floor today by neighbor. Dx with SDH and subacute stroke. pt is A&Ox1 initial encounter Comparison: Concurrent CT chest. Technique: CT imaging of the thoracic spine was reconstructed from concurrent CT chest. Coronal and sagittal reformatted images were performed. One or more of the following dose reduction techniques were utilized: Automated exposure control (AEC), Adjustment of mA and/or kV according to patient size, Use of iterative reconstruction technique such as ASiR, CT scan done according to ALARA and image gently/image wisely. Findings: Trace anterolisthesis of T9 on T10 and T10 on T11. Trace retrolisthesis of T6 on T7. The normal thoracic kyphosis is maintained. No acute fracture. Vertebral body heights are maintained without compression deformity. Multilevel mild to moderate degenerative disc disease with marginal osteophytes and multilevel vacuum disc phenomenon. Ligamentum flavum calcification at T10-T11. No aggressive lytic or blastic osseous lesion. No significant spinal canal stenosis or neural foraminal narrowing. Please refer to the separately dictated report for findings within the chest. IMPRESSION Impression: Mild to moderate multilevel degenerative thoracic spondylosis. READING SITE: [facility]. ATTESTATION STATEMENT: The Staff Radiologist has personally reviewed the images and dictated, reviewed, or edited the final report. Performing Organization Address City/State/ZIP Code P barbara Number [place] * Clotting Screen (09/25/2021 12:00 PM WEED COOKING OPERATOR) Only the most recent of 2 results within the time period is included. Protime 14.3 11.4 - 15.0 Sec SLRL INR 1.1 0.8 - 1.2 SLRL APTT 30 22 - 34 Sec SLRL Specimen Blood - Venous Performing Organization Address City/[facility] Code P barbara Number [facility]RL [id number] [phone] * Troponin-I HS Single (09/25/2021 11:38 AM WEED COOKING OPERATOR) Only the most recent of 2 results within the time period is included. Troponin I, 0HR 302 (HH) <3-53 pg/mL pg/mL SLRL HS Specimen Blood - Venous Narrative SLRL - 09/25/2021 12:47 PM WEED COOKING OPERATOR [facility] converted from Troponin I (Ortho - Vitros 5600) to High-Sensitivity Troponin I (Siemens - Atellica) on August 31, 2021. Performing Organization Address City/[facility] P [facility] Number [facility] [id number] [phone] * ECHO COMPLETE W DOPPLER AND COLOR FLOW (09/25/2021 11:13 AM WEED COOKING OPERATOR) Ejection 60 % PROSOLV Fraction Modality Anatomical Region Laterality Ultrasound Chest Specimen Impressions PROSOLV - 09/25/2021 12:39 PM WEED COOKING OPERATOR 1. Normal left ventricular systolic function, with an estimated ejection fraction of 60%. 2. Normal right ventricular size and systolic function. 3. No significant valvular abnormalities. No previous study available for comparison. Dr Hans Sanchez (Electronically Signed) Final Date: 25 September 2021 12:38 Narrative PROSOLV - 09/25/2021 12:39 PM WEED COOKING OPERATOR ECHOCARDIOGRAM REPORT [facility] Name: SHER CARY Date: 09/25/2021 10:50 Chart #: [id number] : 1950 Location: [facility] Sono: npfeffer Age: 71 Gender: M Referring: SAMUEL RIVERA Room #: N306 Fellow: Indication:elevated Procedure: ECHO COMPLETE W DOPPLER AND COLOR FLOW BP: 119 / 75 HR: 84 Ht: 66 Wt: 161 BSA 1.8 : 2D ECHO MEASUREMENTS LV Diastolic Diameter Bas 4.5 cm IVS Diastolic Thickness 1 cm LV Systolic Diameter Base 2.9 cm LVPW Diastolic Thickness 0.9 cm LA Systolic Diameter LX 3.3 cm Aorta at Sinuses Diameter 3.3 cm AORTIC VALVE DOPPLER AV Peak Velocity 166 cm/s LVOT AV Fady Ratio 0.48 AV Peak Gradient 11 mmHg MITRAL VALVE DOPPLER Mitral E Point Velocity 107 cm/s Mitral E to A Ratio 0.81 Mitral A Point Velocity 132 cm/s MV Deceleration Time 194 ms WALL SEGMENT ANALYSIS: ROUTINE LVSI : 1 %FM : 100 LAD : 1 LCX : 1 RCA : 1 FINDINGS LV Ejection Fraction: 60 Very technically difficult study. Normal left ventricular systolic function, with an estimated ejection fraction of 60%. Normal wall thickness. Normal wall motion. Normal left ventricular dimensions. Normal right ventricular size and systolic function. Normal right and left atrial size. Indeterminate diastolic function, at rest. Sclerotic aortic valve without regurgitation. Mitral annular calcification with trivial regurgitation. Pulmonic valve not well visualized. Normal tricuspid valve with trivial regurgitation. Unable to accurately estimate pulmonary artery pressure. No pericardial effusion. IVC is dilated and not responsive to inspiration indicating markedly elevated RA pressure. Ascending aorta not well visualized. No obvious intracardiac masses or thrombi. Procedure Note Hans Sanchez MD - 09/25/2021 ECHOCARDIOGRAM REPORT [facility] Name: SHER CARY Date: 09/25/2021 10:50 Chart #: [id number] : 1950 Location: [facility] Sono: landon Age: 71 Gender: M Referring: SAMUEL RIVERA Room #: N306 Fellow: Indication:elevated Procedure: ECHO COMPLETE W DOPPLER AND COLOR FLOW BP: 119 / 75 HR: 84 Ht: 66 Wt: 161 BSA 1.8 : 2D ECHO MEASUREMENTS LV Diastolic Diameter Bas 4.5 cm IVS Diastolic Thickness 1 cm LV Systolic Diameter Base 2.9 cm LVPW Diastolic Thickness 0.9 cm LA Systolic Diameter LX 3.3 cm Aorta at Sinuses Diameter 3.3 cm AORTIC VALVE DOPPLER AV Peak Velocity 166 cm/s LVOT AV Fady Ratio 0.48 AV Peak Gradient 11 mmHg MITRAL VALVE DOPPLER Mitral E Point Velocity 107 cm/s Mitral E to A Ratio 0.81 Mitral A Point Velocity 132 cm/s MV Deceleration Time 194 ms WALL SEGMENT ANALYSIS: ROUTINE LVSI : 1 %FM : 100 LAD : 1 LCX : 1 RCA : 1 FINDINGS LV Ejection Fraction: 60 Very technically difficult study. Normal left ventricular systolic function, with an estimated ejection fraction of 60%. Normal wall thickness. Normal wall motion. Normal left ventricular dimensions. Normal right ventricular size and systolic function. Normal right and left atrial size. Indeterminate diastolic function, at rest. Sclerotic aortic valve without regurgitation. Mitral annular calcification with trivial regurgitation. Pulmonic valve not well visualized. Normal tricuspid valve with trivial regurgitation. Unable to accurately estimate pulmonary artery pressure. No pericardial effusion. IVC is dilated and not responsive to inspiration indicating markedly elevated RA pressure. Ascending aorta not well visualized. No obvious intracardiac masses or thrombi. IMPRESSION 1. Normal left ventricular systolic function, with an estimated ejection fraction of 60%. 2. Normal right ventricular size and systolic function. 3. No significant valvular abnormalities. No previous study available for comparison. Dr Hans Sanchez (Electronically Signed) Final Date: 25 September 2021 12:38 Performing Organization Address City/State/ZIP Code P barbara Number PROSOLV * CT Chest wo contrast (09/25/2021 10:35 AM WEED COOKING OPERATOR) Modality Anatomical Region Laterality Computed Tomography Lung, Chest Specimen Impressions AUGUST - 09/25/2021 11:18 AM WEED COOKING OPERATOR 1. Diffuse interstitial edema. 2. Posterior relaxation and scattered subsegmental atelectasis. No pulmonary mass or confluent consolidation. 3. Cardiomegaly. Heavy coronary artery calcifications. Aortic valve leaflet calcifications could represent calcific aortic stenosis. 4. Small bilateral pleural effusions w ith features of partial loculation on the right. No pneumothorax. 5. Small upper abdominal ascites. READING SITE: [facility] Summer KOCH - 09/25/2021 11:18 AM WEED COOKING OPERATOR Patient: SHER CARY Sex#: M #: 1950 Luciano#: [id number] Location: [address] ICU N306-01 Ordering Provider: SAMUEL RIVERA Procedure Requested: [id number] CT CHEST WO CONTRAST Reason for Exam: pneumothorax Exam Ordered: 09/25/2021 1016 Begin exam date/time: 09/25/2021 1028 Exam Date/Time: 09/25/[address] CHEST WO CONTRAST INDICATION: pneumothorax. COMPARISON STUDY: Portable chest dated 09/25/2021. TECHNIQUE: Unenhanced axial images were obtained through the lungs and upper abdomen. Coronal MIP images and coronal and sagittal multiplanar reconstructions were also obtained. FINDINGS: Image quality degraded by motion. Life Support Devices: Gastric tube courses into the stomach. Partially imaged shunt catheter courses along the anterior chest wall and into the abdomen. Lungs and Airways: Apical paraseptal emphysema and bullous disease. Mild to moderate upper lobe predominant centrilobular emphysema. Diffuse right greater than left interlobular septal thickening. Right greater than left posterior relaxation atelectasis. Normal central airways. Diffuse bronchial wall thickening. Peripheral endoluminal plugs. Pleura: Small right greater than left bilateral pleural effusions with features of partial loculation on the right. No pneumothorax. Heart and Mediastinum: Atrophic thyroid. No axillary or supraclavicular lymphadenopathy. No mediastinal, hilar or retrocrural lymphadenopathy. Cardiomegaly. No pericardial effusion. Heavy coronary artery calcifications. Aortic valve leaflet calcifications. Atherosclerosis of the thoracic aorta and branch vessels. Gas in the pulmonary trunk is likely iatrogenic. Small hiatus hernia. Patulous esophagus with mural thickening. Abdomen: Small upper abdominal ascites. Atherosclerosis of the abdominal aorta and branch vessels. Bones and Soft Tissues: Thoracic spondylosis. Diffuse body wall edema. Procedure Note Princess Chavez MD - 09/25/2021 Patient: SHER CARY Sex#: M #: 1950 Luciano#: [id number] Location: [address] ICU N306-01 Ordering Provider: SAMUEL RIVERA Procedure Requested: [id number] CT CHEST WO CONTRAST Reason for Exam: pneumothorax Exam Ordered: 09/25/2021 1016 Begin exam date/time: 09/25/2021 1028 Exam Date/Time: 09/25/[address] CHEST WO CONTRAST INDICATION: pneumothorax. COMPARISON STUDY: Portable chest dated 09/25/2021. TECHNIQUE: Unenhanced axial images were obtained through the lungs and upper abdomen. Coronal MIP images and coronal and sagittal multiplanar reconstructions were also obtained. FINDINGS: Image quality degraded by motion. Life Support Devices: Gastric tube courses into the stomach. Partially imaged shunt catheter courses along the anterior chest wall and into the abdomen. Lungs and Airways: Apical paraseptal emphysema and bullous disease. Mild to moderate upper lobe predominant centrilobular emphysema. Diffuse right greater than left interlobular septal thickening. Right greater than left posterior relaxation atelectasis. Normal central airways. Diffuse bronchial wall thickening. Peripheral endoluminal plugs. Pleura: Small right greater than left bilateral pleural effusions with features of partial loculation on the right. No pneumothorax. Heart and Mediastinum: Atrophic thyroid. No axillary or supraclavicular lymphadenopathy. No mediastinal, hilar or retrocrural lymphadenopathy. Cardiomegaly. No pericardial effusion. Heavy coronary artery calcifications. Aortic valve leaflet calcifications. Atherosclerosis of the thoracic aorta and branch vessels. Gas in the pulmonary trunk is likely iatrogenic. Small hiatus hernia. Patulous esophagus with mural thickening. Abdomen: Small upper abdominal ascites. Atherosclerosis of the abdominal aorta and branch vessels. Bones and Soft Tissues: Thoracic spondylosis. Diffuse body wall edema. IMPRESSION 1. Diffuse interstitial edema. 2. Posterior relaxation and scattered s ubsegmental atelectasis. No pulmonary mass or confluent consolidation. 3. Cardiomegaly. Heavy coronary artery calcifications. Aortic valve leaflet calcifications could represent calcific aortic stenosis. 4. Small bilateral pleural effusions wi th features of partial loculation on the right. No pneumothorax. 5. Small upper abdominal ascites. READING SITE: [facility] Organization Address City/State/ZIP Code P barbara Number [place] * XR Abdomen single view AP (09/25/2021 9:37 AM WEED COOKING OPERATOR) Modality Anatomical Region Laterality Computed Radiography Abdomen Specimen Impressions AUGUST - 09/25/2021 11:01 AM WEED COOKING OPERATOR 1. Enteric tube coiled in the proximal stomach with sidehole near the cardia and tip near the GE junction. 2. Nonobstructive bowel gas pattern. 3. Heterogeneous opacities in the righ t midlung zone. Recommend attention on ordered follow-up CT. COMMUNICATION: Finding of tube position was verbally communicated and acknowledged via telephone to Cheri Lowe RN, at 09/25/2021 10:50 AM. ATTESTATION STATEMENT: Staff radiologist has personally reviewed the images and dictated, reviewed and/or edited the final report. READING SITE: [facility] Narrative AUGUST - 09/25/2021 11:01 AM WEED COOKING OPERATOR Patient: SHER CARY Sex#: M #: 1950 Luciano#: [id number] Location: [place] [id number] Ordering Provider: SAMUEL RIVERA Procedure Requested: [id number] XR ABDOMEN SINGLE VIEW AP Reason for Exam: NGT placement Exam Ordered: 09/25/2021 0929 Begin exam date/time: 09/25/2021 0932 Exam Date/Time: 09/25/2021 0937 XR ABDOMEN SINGLE VIEW AP INDICATION: NGT placement. COMPARISON: None. TECHNIQUE: Supine abdomen. FINDINGS: Support Devices: Enteric tube coiled in the proximal stomach with sidehole near the cardia and tip near the GE junction. Abdomen: Nonobstructive bowel gas pattern. No free air on this limited supine image. Lower Chest: Heterogeneous opacities in the right midlung zone. Skeletal Structures and Soft Tissues: No acute osseous abnormality. Normal soft tissues. Procedure Note Bebeto Murillo DO - 09/25/2021 Patient: SHER CARY Sex#: M #: 1950 Luciano#: [id number] Location: [address] Ordering Provider: SAMUEL RIVERA Procedure Requested: [id number] XR ABDOMEN SINGLE VIEW AP Reason for Exam: NGT placement Exam Ordered: 09/25/2021 0929 Begin exam date/time: 09/25/2021 0932 Exam Date/Time: 09/25/2021 0937 XR ABDOMEN SINGLE VIEW AP INDICATION: NGT placement. COMPARISON: None. TECHNIQUE: Supine abdomen. FINDINGS: Support Devices: Enteric tube coiled in the proximal stomach with sidehole near the cardia and tip near the GE junction. Abdomen: Nonobstructive bowel gas pattern. No free air on this limited supine image. Lower Chest: Heterogeneous opacities in the right midlung zone. Skeletal Structures and Soft Tissues: No acute osseous abnormality. Normal soft tissues. IMPRESSION 1. Enteric tube coiled in the proximal stomach with sidehole near the cardia and tip near the GE junction. 2. Nonobstructive bowel gas pattern. 3. Heterogeneous opacities in the right midlung zone. Recommend attention on ordered follow-up CT. COMMUNICATION: Finding of tube position was verbally communicated and acknowledged via telephone to Cheri Lowe RN, at 09/25/2021 10:50 AM. ATTESTATION STATEMENT: Staff radiologist has personally reviewed the images and dictated, reviewed and/or edited the final report. READING SITE: [facility] Performing Organization Address City/State/ZIP Code P barbara Number [place] * Green Top (09/25/2021 9:29 AM WEED COOKING OPERATOR) Specimen Blood - Venous Performing Organization Address City/[facility] Code P barbara Number [facility]RL [id number] [place], [place] [phone] * XR Chest single view frontal (09/25/2021 8:56 AM WEED COOKING OPERATOR) Only the most recent of 2 results within the time period is included. Modality Anatomical Region Laterality Computed Radiography Chest Specimen Impressions AUGUST - 09/25/2021 10:01 AM WEED COOKING OPERATOR 1. Abnormal curvilinear lucency at the l eft lateral lung base and costophrenic angle with apparent deep sulcus. Although no definitive pleural line is noted, findings are equivocal for a small pneumothorax given history of trauma. Contrast-enhanced chest CT is recommended for further evaluation. 2. No focal airspace disease. Results were communicated by telephone to patient's nurse Cheri by Dr. Murphy Goodwin on 09/25/2021 at 9:56 AM. READING SITE: [facility] ATTESTATION STATEMENT: The Staff Radiologist has personally reviewed this study and agrees with the findings in this report. Narrative AUGUST - 09/25/2021 10:01 AM WEED COOKING OPERATOR Patient: SHER CARY Sex#: M #: 1950 Luciano#: [id number] Location: [place] [address] Ordering Provider: CHRISTINA CAO Procedure Requested: [id number] XR CHEST SINGLE VIEW FRONTAL Reason for Exam: COPD Exam Ordered: 09/25/2021 0837 Begin exam date/time: 09/25/2021 0840 Exam Date/Time: 09/25/2021 0856 XR CHEST SINGLE VIEW FRONTAL INDICATION: COPD. Trauma. COMPARISON STUDY: Portable chest radiograph 09/24/2021. FINDINGS: Life support devices: Ventriculoperitoneal shunt catheter projects over the left hemithorax. Lungs: Low lung volumes.. No focal airspace disease. Normal pulmonary vasculature. Pleura: Curvilinear lucency at the left lateral lung base and costophrenic angle with appearance of a deep sulcus. No definitive pleural line is noted. No pleural effusion. Heart and Mediastinum: Stable cardiomediastinal silhouette and great vessels. Bones and Soft Tissues: Stable regional skeleton and soft tissues. Procedure Note Ronald Sanchez MD - 09/25/2021 Patient: SHER CARY Sex#: M #: 1950 Luciano#: [id number] Location: [place] [address] Ordering Provider: CHRISTINA CAO Procedure Requested: [id number] XR CHEST SINGLE VIEW FRONTAL Reason for Exam: COPD Exam Ordered: 09/25/2021 0837 Begin exam date/time: 09/25/2021 0840 Exam Date/Time: 09/25/2021 0856 XR CHEST SINGLE VIEW FRONTAL INDICATION: COPD. Trauma. COMPARISON STUDY: Portable chest radiograph 09/24/2021. FINDINGS: Life support devices: Ventriculoperitoneal shunt catheter projects over the left hemithorax. Lungs: Low lung volumes.. No focal airspace disease. Normal pulmonary vasculature. Pleura: Curvilinear lucency at the left lateral lung base and costophrenic angle with appearance of a deep sulcus. No definitive pleural line is noted. No pleural effusion. Heart and Mediastinum: Stable cardiomediastinal silhouette and great vessels. Bones and Soft Tissues: Stable regional skeleton and soft tissues. IMPRESSION 1. Abnormal curvilinear lucency at the l eft lateral lung base and costophrenic angle with apparent deep sulcus. Although no definitive pleural line is noted, findings are equivocal for a small pneumothorax given history of trauma. Contrast-enhanced chest CT is recommended for further evaluation. 2. No focal airspace disease. Results were communicated by telephone to patient's nurse Cheri by Dr. Murphy Goodwin on 09/25/2021 at 9:56 AM. READING SITE: [facility] ATTESTATION STATEMENT: The Staff Radiologist has personally reviewed this study and agrees with the findings in this report. Performing Organization Address City/State/ZIP Code P barbara Number [place] * Electrocardiogram (ECG) (09/25/2021 6:29 AM WEED COOKING OPERATOR) Only the most recent of 3 results within the time period is included. QRSd 80 TRACEMASTER QT 332 TRACEMASTER QTC 443 TRACEMASTER ECGHR 107 TRACEMASTER ECGPR 131 TRACEMASTER Specimen Narrative TRACEMASTER - 09/28/2021 9:09 AM WEED COOKING OPERATOR [facility] Test Date: 2021-09-25 Pat Name: [facility] Department: Critical [facility] Hospital Room: [facility] Gender: Male Casing Flusher: [id number] : 1950 Requested By: SAMUEL James Order Number: [id number] Reading MD: Deep Simmons Measurements Intervals [place] Rate: 107 P: 61 [place]: 131 QRS: 20 QRSD: 80 T: 93 QT: 332 QTc: 443 Interpretive Statements SINUS TACHYCARDIA BASELINE ARTIFACT Electronically Signed On 09-28-2021 9:09:52 WEED COOKING OPERATOR by Deep Simmons Procedure Note Deep Simmons MD - 09/28/2021 [facility] Test Date: 2021-09-25 Pat Name: [facility] Department: Critical Access Hospital Room: [facility] Gender: Male Casing Flusher: [id number] : 1950 Requested By: SAMUEL James Order Number: [id number] Reading MD: Deep Simmons Measurements Intervals [place] Rate: 107 P: 61 [place]: 131 QRS: 20 QRSD: 80 T: 93 QT: 332 QTc: 443 Interpretive Statements SINUS TACHYCARDIA BASELINE ARTIFACT Electronically Signed On 09-28-2021 9:09:52 WEED COOKING OPERATOR by Deep Simmons Performing Organization Address City/[facility] Code P barbara Number TRACEMASTER * Hepatic Function Panel (09/25/2021 5:14 AM WEED COOKING OPERATOR) Protein Total 6.0 5.7 - 8.2 g/dL [facility] Serum Albumin 3.9 3.5 - 5.0 g/dL [facility] Alkaline 63Comment: Reference range 46 - 116 U/L SLR L Phosphatase updated 08/31/21 with [facility] conversion to Siemens Atellica instrumentation. Alanine 146 (H) 0 - 49 U/L [facility] Aminotransferas e Aspartate 245 (H)Comment: Reference 0 - 34 U/L [facility] Aminotransferas range updated 08/31/21 with e [facility] conversion to Siemens Atell[employer] instrumentation. Bilirubin 0.30 0.00 - 0.30 mg/dL [facility] Direct Bilirubin Total 0.50 0.20 - 1.10 mg/dL [facility] Specimen Blood - Venous Performing Organization Address [facility] P barbara Number [facility] [id number] [place] [phone] * Troponin-I HS 6HR (09/25/2021 5:14 AM WEED COOKING OPERATOR) Troponin I, 6HR 316 (HH) <3-53 pg/mL pg/mL [facility] HS Delta 6HR Trop 145 (HH) -8-<8 [facility] Specimen Blood - Venous Narrative [facility] - 09/25/2021 6:17 AM WEED COOKING OPERATOR [facility] converted from Troponin I (Ortho - Vitros 5600) to High-Sensitivity Troponin I (Siemens - Atellica) on August 31, 2021. Performing Organization Address [facility] Code P barbara Number [facility] [id number] [place] [phone] * CT Head wo contrast (09/25/2021 4:59 AM WEED COOKING OPERATOR) Only the most recent of 2 results within the time period is included. Modality Anatomical Region Laterality Computed Tomography Head Specimen Impressions AUGUST - 09/25/2021 3:48 PM WEED COOKING OPERATOR Impression: 1. 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 No new or enl arging intracranial hemorrhage. No significant mass effect or discrete midline shift. Similar ventriculomegaly. 2. Stable nails-white loss involving the right frontotemporal lobes and right insula likely representing a subacute right MCA territory infarct. 3. Stable right parietal approach ventri cular shunt catheter. 4. Redemonstrated postprocedural changes of prior aneurysm coiling are identified possibly involving a basilar tip aneurysm or PCOM aneurysm given location. ATTESTATION STATEMENT: The Staff Radiologist has personally reviewed the images and dictated, reviewed, or edited the final report. Narrative [facility] - 09/25/2021 3:48 PM WEED COOKING OPERATOR Patient: SHER CARY Sex#: M #: 1950 Luciano#: [id number] Location: [address] ICU N306-01 Ordering Provider: MARIANELA GAONA Procedure Requested: [id number] CT HEAD WO CONTRAST Reason for Exam: SDH, AMS Exam Ordered: 09/25/2021 0500 Begin exam date/time: 09/25/2021 0450 Exam Date/Time: 09/25/[address] HEAD WO CONTRAST Date: 09/25/2021 4:59 AM Clinical Indication: SDH, AMS Comparison: CT head 09/24/2021. Technique: 5 mm axial tomographic images were obtained of the head without contrast. These were viewed on brain and bone windows. One or more of the following dose reduction techniques were utilized: Automated exposure control (AEC), Adjustment of mA and/or kV according to patient size, Use of iterative reconstruction technique such as ASiR, CT scan done according to ALARA and image gently/image wisely. Findings: Stable mixed attenuation left holohemispheric extra-axial collection likely representing subacute on chronic subdural hematoma measures up to 5 mm in maximal thickness (series 2, germania ge 21). No new or enlarging intracranial hemorrhage. No significant mass effect or discrete midline shift. Similar ventriculomegaly. Stable right parietal approach ventricular shunt catheter is identified with the distal intracranial end terminating near the foramen of Betancourt. Expected subtle encephalomalacia along the shunt catheter tract. Redemonstrated additional high right frontal lobe encephalomalacia with linear calcification projecting towards a round calvarial defect could represent sequelae of prior, now removed right frontal approach ventriculostomy catheter. Redemonstrated postprocedural changes of prior aneurysm coiling are identified possibly involving a basilar tip aneurysm or PCOM aneurysm given location. Stable nails-white loss involving the right frontotemporal lobes and right insula likely representing a subacute right MCA territory infarct. Mild generalized cerebral and cerebellar volume loss. Mild nonspecific periventricular hypoattenuation, most commonly seen with chronic small vessel ischemic disease. Calcified atherosclerosis of the bilateral cavernous and paraclinoid internal carotid arteries and intracranial vertebral arteries. The subarachnoid cisterns are patent. Mild pansinus mucosal thickening.. The visualized portions of the orbits and globes are normal. The mastoid air cells are clear. The can closing machine tender topogram shows no lytic lesion or fracture. Procedure Note Hussain Camilo MD - 09/25/2021 Patient: SHER CARY Sex#: M #: 1950 Luciano#: [id number] Location: [address]- Ordering Provider: MARIANELA GAONA Procedure Requested: [id number] CT HEAD WO CONTRAST Reason for Exam: SDH, AMS Exam Ordered: 09/25/2021 0500 Begin exam date/time: 09/25/2021 0450 Exam Date/Time: 09/25/[address] HEAD WO CONTRAST Date: 09/25/2021 4:59 AM Clinical Indication: SDH, AMS Comparison: CT head 09/24/2021. Technique: 5 mm axial tomographic images were obtained of the head without contrast. These were viewed on brain and bone windows. One or more of the following dose reduction techniques were utilized: Automated exposure control (AEC), Adjustment of mA and/or kV according to patient size, Use of iterative reconstruction technique such as ASiR, CT scan done according to ALARA and image gently/image wisely. Findings: Stable mixed attenuation left holohemispheric extra-axial collection likely representing subacute on chronic subdural hematoma measures up to 5 mm in maximal thickness (series 2, german[place] ge 21). No new or enlarging intracranial hemorrhage. No significant mass effect or discrete midline shift. Similar ventriculomegaly. Stable right parietal approach ventricular shunt catheter is identified with the distal intracranial end terminating near the foramen of Betancourt. Expected subtle encephalomalacia along the shunt catheter tract. Redemonstrated additional high right frontal lobe encephalomalacia with linear calcification projecting towards a round calvarial defect could represent sequelae of prior, now removed right frontal approach ventriculostomy catheter. Redemonstrated postprocedural changes of prior aneurysm coiling are identified possibly involving a basilar tip aneurysm or PCOM aneurysm given location. Stable nails-white loss involving the right frontotemporal lobes and right insula likely representing a subacute right MCA territory infarct. Mild generalized cerebral and cerebellar volume loss. Mild nonspecific periventricular hypoattenuation, most commonly seen with chronic small vessel ischemic disease. Calcified atherosclerosis of the bilateral cavernous and paraclinoid internal carotid arteries and intracranial vertebral arteries. The subarachnoid cisterns are patent. Mild pansinus mucosal thickening.. The visualized portions of the orbits and globes are normal. The mastoid air cells are clear. The can closing machine tender topogram shows no lytic lesion or fracture. IMPRESSION Impression: 1. 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 No new or enl arging intracranial hemorrhage. No significant mass effect or discrete midline shift. Similar ventriculomegaly. 2. Stable nails-white loss involving the right frontotemporal lobes and right insula likely representing a subacute right MCA territory infarct. 3. Stable right parietal approach ventri cular shunt catheter. 4. Redemonstrated postprocedural changes of prior aneurysm coiling are identified possibly involving a basilar tip aneurysm or PCOM aneurysm given location. ATTESTATION STATEMENT: The Staff Radiologist has personally reviewed the images and dictated, reviewed, or edited the final report. Performing Organization Address City/State/ZIP Code P barbara Number AUGUST * Antibody Screen (09/25/2021 1:04 AM WEED COOKING OPERATOR) Antibody Screen Negative [facility]OD [facility] Specimen Blood - Venous Performing Organization Address City/State/ZIP Code P barbara Number [facility] [address] [place] [address] BLOOD BANK * ABORH Type (09/25/2021 1:04 AM WEED COOKING OPERATOR) ABORH Type A Positive [facility] Specimen Blood - Venous Performing Organization Address City/[facility] Code P barbara Number [facility] [phone] [place] [address] BLOOD BANK * Retype Patient ABORH (09/25/2021 1:02 AM WEED COOKING OPERATOR) Only the most recent of 2 results within the time period is included. ABORH Type A Positive [facility] Confirm Blood Yes [facility] BLOOD BANK Specimen Blood - Venous Performing Organization Address City/[facility]/ZIP Code P barbara Number [facility] [address] [place] [address] BLOOD BANK * Procalcitonin (09/25/2021 1:02 AM WEED COOKING OPERATOR) Procalcitonin 0.09 (H) <0.05 ng/mL [facility] Specimen Blood - Venous Performing Organization Address City/[facility] Code P barbara Number RL [id number] [place] [phone] * Troponin-I HS 2HR (09/25/2021 1:02 AM WEED COOKING OPERATOR) Troponin I, 2HR 250 (HH) <3-53 pg/mL pg/mL [facility] HS Delta 2HR Trop 79 (HH) -8-<8 [facility] Specimen Blood - Venous Narrative [facility] - 09/25/2021 2:23 AM WEED COOKING OPERATOR [facility] converted from Troponin I (Ortho - Vitros 5600) to High-Sensitivity Troponin I (Siemens - Atellica) on August 31, 2021. Performing Organization Address City/[facility]/ZIP Code P barbara Number [facility] [address] [place] [phone] * Extra Urine Specimen in Solis Tube (09/24/2021 11:16 PM WEED COOKING OPERATOR) RAINBOW DRAW [place] Draw/Extra Tube Hold [facility] HOLD SPECIMENS Specimen Specimen Urine - Urine Clean Catch Performing Organization Address City/[facility] Code P barbara Number [facility] [address] [place] [phone] * COVID-19 [place] Admission PCR (Non-PUI) (09/24/2021 11:10 PM WEED COOKING OPERATOR) Pathologist [facility] SARS-COV-2 PCR Negative Negative [facility] Specimen Swab - NASOPHARYNGEAL SWAB Narrative [facility] - 09/25/2021 11:27 AM WEED COOKING OPERATOR This RT-PCR test has been authorized by the FDA under an Emergency Use Authorization (EUA) for use by authorized laboratories. Performing Organization Address [facility] Code P barbara Number RL [id number] [place], [place] [address] * Urinalysis Microscopic Only (09/24/2021 11:09 PM WEED COOKING OPERATOR) [facility] Microscopic RBC 6-10 (A) 0 - 5 /hpf [facility] Urine Microscopic WBC >40 (A) 0 - 5 /hpf [facility] Urine Epithelial Absent Absent [facility] Cells Hyaline Cast Small (A) Absent [facility] Bacteria Absent Absent [facility] Specimen Urine - Urine Performing Organization Address [facility] P barbara Number RL [id number] [place] [phone] * Toxicology Screening Panel (09/24/2021 11:09 PM WEED COOKING OPERATOR) Pathologist [facility] Tetrahydrocanna Not Detected Not Detected [facility] binol Urine Phencyclidine Not Detected Not Detected [facility] Urine Cocaine Urine Not Detected Not Detected [facility] Methamphetamine Not Detected Not Detected [facility] s Urine Opiates Urine Not Detected Not Detected [facility] Amphetamines Not Detected Not Detected [facility] Urine Benzodiazepines Not Detected Not Detected [facility] Urine Tricyclic Not Detected Not Detected [facility] Antidepressants Methadone Urine Not Detected Not Detected [facility] Barbiturates Not Detected Not Detected [facility] Urine Oxycodone Urine Not Detected Not Detected [facility] Specimen Urine - Urine Narrative [facility] - 09/25/2021 12:15 AM WEED COOKING OPERATOR Toxicology cutoff values: Assay Cutoff value Assay Cutoff value Amphetamines 500 ng/mL Methamphetamines 500 ng/mL Barbiturates 200 ng/mL Opiates 100 ng/mL Benzodiazepines 150 ng/mL Oxycodone 100 ng/mL Cocaine 150 ng/mL Phencyclidine 25 ng/mL Methadone 200 ng/mL THC 50 ng/mL Tricyclic Antidepressants 300 ng/mL This drug screen provides presumptive results for medical purposes only. False positive results may occur. Physicians should order confirmatory testing on this sample if the results are considered clinically significant. Performing Organization Address City/State/ZIP Code P barbara Number [facility] [address] [place], [place] [address] * Urinalysis (includes microscopic review, if indicated) (09/24/2021 11:09 PM WEED COOKING OPERATOR) Appearance, Yellow Colorless, Yellow, [facility] Urine Dark Yellow Glucose Urine Negative Negative mg/dL [facility] Bilirubin Urine Negative Negative [facility] Ketones Urine Small (A) Negative [facility] Specific 1.019 >1.005-<1.030 [facility] [place] Urine Hemoglobin Moderate (A) Negative [facility] Urine PH Urine 5.5 5.0 - 8.0 [facility] Protein Urine 100 (A) Negative, Trace [facility] Qual mg/dL Urobilinogen Normal Normal, Negative, [facility] Urine 1.0 EU/dL Nitrite Urine Negative Negative [facility] Leukocyte Positive (A) Negative [facility] Esterase Specimen Urine - Urine Performing Organization Address City/State/ZIP Code P [facility] Number [facility] [address] [place] [phone] * XR Pelvis one or two views (09/24/2021 11:08 PM WEED COOKING OPERATOR) Modality Anatomical Region Laterality Computed Radiography Pelvis Specimen Impressions AUGUST - 09/24/2021 11:25 PM WEED COOKING OPERATOR Negative for acute pelvic fracture. READING SITE: [facility] THIS DOCUMENT HAS BEEN ELECTRONICALLY SIGNED BY SANTANA KOCH - 09/24/2021 11:25 PM WEED COOKING OPERATOR Patient: Sher Cary Sex#: M #: 1950 Luciano#: [id number] Location: [facility] ED Ordering Provider: NATASHA PINEDA Procedure Requested: [id number] XR PELVIS ONE OR TWO VIEWS Reason for Exam: trauma Exam Ordered: 09/24/2021 2255 Begin exam date/time: 09/24/20212307 Exam Date/Time: 09/24/20212307 PROCEDURE INFORMATION: Exam: XR Pelvis Exam date and time: 09/24/2021 11:08 PM Age: 71 years old Clinical indication: Other: Trauma TECHNIQUE: Imaging protocol: XR pelvis. Views: 1 or 2 view. COMPARISON: No relevant prior studies available. FINDINGS: Bones/joints: No acute fractures. Hip joint alignments are unremarkable. Sclerosis of the cortical acetabular surfaces with mild joint space loss bilaterally. Soft tissues: Unremarkable. Vasculature: Mild degree of scattered atherosclerosis. Procedure Note Santana Torres MD - 09/24/2021 Patient: Sher Cary Sex#: Freddy #: 1950 Luciano#: [id number] Location: [facility] ED Ordering Provider: NATASHA PINEDA Procedure Requested: [id number] XR PELVIS ONE OR TWO VIEWS Reason for Exam: trauma Exam Ordered: 09/24/20212254 Begin exam date/time: 09/24/20212307 Exam Date/Time: 09/24/20212307 PROCEDURE INFORMATION: Exam: XR Pelvis Exam date and time: 09/24/2021 11:08 PM Age: 71 years old Clinical indication: Other: Trauma TECHNIQUE: Imaging protocol: XR pelvis. Views: 1 or 2 view. COMPARISON: No relevant prior studies available. FINDINGS: Bones/joints: No acute fractures. Hip joint alignments are unremarkable. Sclerosis of the cortical acetabular surfaces with mild joint space loss bilaterally. Soft tissues: Unremarkable. Vasculature: Mild degree of scattered atherosclerosis. IMPRESSION Negative for acute pelvic fracture. READING SITE: [facility] THIS DOCUMENT HAS BEEN ELECTRONICALLY SIGNED BY SANTANA TORRES MD Performing Organization Address City/State/ZIP Code P barbara Number [place] * Critical Care (09/24/2021 10:21 PM WEED COOKING OPERATOR) Modality Anatomical Region Laterality Other Narrative Natasha Pineda MD - 09/24/2021 10:21 PM WEED COOKING OPERATOR Natasha Pineda MD 09/25/2021 12:45 AM Critical Care Performed by: Natasha Pineda MD Authorized by: Natasha Pineda MD Critical care provider statement: Critical care time (minutes): 32 Critical care time was exclusive of: Separately billable procedures and treating other patients Critical care was necessary to treat or prevent imminent or life-threatening deterioration of the following conditions: ADMINISTRATION PROFESSIONAL failure or compromise, dehydration, circulatory failure, cardiac failure and respiratory failure Critical care was time spent personally by me on the following activities: Development of treatment plan with patient or surrogate, discussions with consultants, evaluation of patient's response to treatment, examination of patient, obtaining history from patient or surrogate, review of old charts, re-evaluation of patient's condition, pulse oximetry, ordering and review of radiographic studies, ordering and review of laboratory studies and ordering and performing treatments and interventions documented in this encounter Visit Diagnoses Diagnosis Encephalopathy - Primary Unspecified encephalopathy Altered mental status, unspecified alte red mental status type Subdural hemorrhage (HCC) Subdural hemorrhage Dehydration UTI (urinary tract infection) Urinary tract infection, site not speci fied SDH (subdural hematoma) (HCC) Subdural hemorrhage History of cerebral aneurysm S/P CAT BREEDER shunt Presence of cerebrospinal fluid drainag e device COPD (chronic obstructive pulmonary dis ease) (HCC) Chronic airway obstruction, not elsewhe re classified Bronchitis Bronchitis, not specified as acute or c hronic Elevated INR Abnormal coagulation profile GWENDOLYN (acute kidney injury) (HCC) Hypernatremia Hyperosmolality and/or hypernatremia Other specified anemias Elevated troponin Other abnormal blood chemistry Acute pain due to trauma Coagulopathy (HCC) Other and unspecified coagulation defec ts Acute encephalopathy Chronic respiratory failure with hypoxi a (HCC) COPD with acute exacerbation (HCC) Leukocytosis Leukocytosis, unspecified Anemia Unspecified anemia Transaminitis Nonspecific elevation of levels of humphreys saminase or lactic acid dehydrogenase (LDH) Hx of hepatitis C documented in this encounter Administered Medications Action Date Dose Rate Site Medication Order MAR Action 09/29/2021 8:42 AM WEED COOKING OPERATOR 640 mg 112.8 mL/hr acyclovir (ZOVIRAX) 640 mg in dextrose New Bag (D5W) 5 % 100 mL IVPB 640 mg (rounded from 638 mg = 10 mg/kg 63.8 kg [place] weight), Intravenous, at 112.8 mL/hr, Every 12 hours scheduled, Indications: ADMINISTRATION PROFESSIONAL INFECTION, First dose on [place] 09/25/21 at 2100 640 mg 112.8 mL/hr New Bag 09/28/2021 10:51 PM WEED COOKING OPERATOR 640 mg 112.8 mL/hr New Bag 09/28/2021 9:07 AM WEED COOKING OPERATOR alteplase (CATHFLO ACTIVASE) injection 1 mg 1 mg, Intra-Catheter, As needed, declotting central catheter or sluggish/occluded CVC line, Starting on Wed09/26/21 at 0939, Use 1 mg/mL to declot catheter as needed, Declot catheter per Central Venous Access Device, Declotting procedure in [place] REFRIGERATE 09/29/2021 5:21 AM WEED COOKING OPERATOR 2 g 150 mL/hr ampicillin (OMNIPEN) 2 g in sodium New Bag chloride ADDV (NS) 100 mL IVPB 2 g, Intravenous, at 150 mL/hr, Every 6 hours scheduled, Indications: ADMINISTRATION PROFESSIONAL INFECTION, First dose on [place] 09/25/21 a t 2130 150 mL/hr Rate/Dose Verify 09/28/2021 10:13 PM WEED COOKING OPERATOR 2 g 150 mL/hr New Bag 09/28/2021 10:12 PM WEED COOKING OPERATOR 09/29/2021 8:39 AM WEED COOKING OPERATOR 10 mg bisacodyL (DULCOLAX) suppository 10 mg Given 10 mg, Rectal, Daily, First dose on 09/27/21 at 0930 10 mg Given 09/28/2021 9:52 AM WEED COOKING OPERATOR 10 mg Given 09/27/2021 10:50 AM WEED COOKING OPERATOR 09/29/2021 8:32 AM WEED COOKING OPERATOR 2 g 100 mL/hr cefepime (MAXIPIME) 2 g in sodium New Bag chloride ADDV (NS) 50 mL IVPB 2 g, Intravenous, at 100 mL/hr, Every 1 2 hours scheduled, Indications: ADMINISTRATION PROFESSIONAL INFECTION, First dose on [place] 09/25/21 a t 2115 2 g 100 mL/hr New Bag 09/28/2021 10:16 PM WEED COOKING OPERATOR 2 g 100 mL/hr New Bag 09/28/2021 8:02 AM WEED COOKING OPERATOR dextrose 50% (D50W) syringe 25-50 mL 25-50 mL, Intravenous, As needed, low blood sugar, Starting on [place] 09/25/21 a t 0115, Give if patient NPO and IV access already available. If no IV access give Glucagon SQ or IM in arm and turn patient on side. For blood glucose (BG): Less than 50 mg/dL: Give D50W 5 0 mL. Check BG every 15 minutes and repea t until greater than 80 mg/dL. Less than 70 mg/dL: Give D50W 25 mL. Check BG every 15 minutes and repeat until greater than 80 mg/dL. Less than 70 mg/dL and patient unconscious: Give D50 W 50 mL. Call physician for additional orders. Check BG every 15 minutes and repeat until greater than 80 mg/dL. Once blood glucose greater than 80 mg/dL, check BG in one hour. Call physician if less than 70 mg/dL. 09/28/2021 10:17 PM WEED COOKING OPERATOR 20 mg famotidine (PEPCID) injection 20 mg Given 20 mg, Intravenous, Every 12 hours, First dose on Wed09/24/21 at 2315, Pharmacy to adjust dosing for renal insufficiency. 20 mg Given 09/28/2021 11:59 AM WEED COOKING OPERATOR 20 mg Given 09/27/2021 11:54 PM WEED COOKING OPERATOR famotidine (PEPCID) tablet 20 mg 20 mg, Oral, Every 12 hours, First dose on Wed09/24/21 at 2315, Pharmacy to adjust dosing for renal insufficiency. flumazeniL (ROMAZICON) injection 0.2 mg 0.2 mg, Intravenous, As needed, clinica l evidence of impending respiratory failure, difficult to arouse, etc., Starting on 09/27/21 at 0948, For 4 doses, Call physician immediately if administered. May repeat 0.2 mg IV every 60 seconds for a maximum of 4 doses. glucagon (GLUCAGEN) injection 1 mg 1 mg, Intramuscular, As needed, low blood sugar, low blood sugar, Starting on [place] 09/25/21 at 0115, Give if patien t NPO and no IV access. May give IM or SQ in arm and turn patient on side. Reconstitute powder for injection by adding 1 mL of journeyman pipe welder-supplied sterile diluent or sterile water for injection to a vial containing 1 unit o f the drug, to provide solutions containing 1 mg of glucagon/mL. Shake vial gently to dissolve. glucagon (GLUCAGEN) injection 1 mg 1 mg, Subcutaneous, As needed, low bloo d sugar, low blood sugar, Starting on [place] 09/25/21 at 0115, Give if patient NPO and no IV access. May give IM or SQ in arm and turn patient on side. Reconstitute powder for injection by adding 1 mL of journeyman pipe welder-supplied sterile diluent or sterile water for injection to a vial containing 1 unit o f the drug, to provide solutions containing 1 mg of glucagon/mL. Shake vial gently to dissolve. glucose chewable tablet 16-32 g 16-32 g, Oral, As needed, low blood sugar, Starting on [place] 09/25/21 at 0115 , Give food, drink, or glucose tablets to treat low blood glucose if patient able to eat. For blood glucose (BG): Less than 50 mg/dL: Give 30 g of carbohydrat e (32 g if using glucose tablets). Check BG every 15 minutes and repeat until greater than 80 mg/dL. Less than 70 mg/dL: Give 15 g of carbohydrate (16 g if using glucose tablets). Check BG every 15 minutes and repeat until greater than 80 mg/dL. Less than 70 mg/dL and patient unconscious: BG to be treated with D50W until greater than 80 mg/dL. Once BG greater than 80 mg/dL, give 30 g of carbohydrate (32 g if usin g glucose tablets) if patient awake and able to swallow. Once blood glucose greater than 80 mg/dL, check BG in one hour. Call physician if less than 70 mg/dL. 09/29/2021 8:38 AM WEED COOKING OPERATOR 2 mg guanFACINE (TENEX) tablet 2 mg Given 2 mg, Per NG tube, 2 times daily, First dose (after last modification) on 09/27/21 at 0900 2 mg Given 09/28/2021 10:26 PM WEED COOKING OPERATOR 2 mg Given 09/28/2021 10:03 AM WEED COOKING OPERATOR heparin (porcine) 5,000 unit/mL injection 5,000 Units 5,000 Units, Subcutaneous, Every 8 hours, First dose on 09/29/21 at 0945 09/29/2021 1:05 AM WEED COOKING OPERATOR 10 mg hydrALAZINE (APRESOLINE) injection 10-20 Given mg 10-20 mg, Intravenous, Every 2 hours PRN, high blood pressure, SBP > 160, Starting on [place] 09/25/21 at 0033 09/27/2021 12:23 PM WEED COOKING OPERATOR 2 Units Left Low er Abdomen insulin lispro (HumaLOG) injection 2-7 Given Units 2-7 Units, Subcutaneous, Every 6 hours scheduled, First dose on 09/27/21 a t 0830, LEVEL 3 - Give in addition to scheduled mealtime insulin per table D O NOT GIVE for any 2 hours post meal fingerstick blood glucose checks. If pt NPO or on continuous enteral/parenteral nutrition - give with scheduled fingerstick blood glucose check - dose per table Glucose (mg/dL) Dose 0-120 0 units 121-150 0 units 151-200 2 units 201-250 3 units 251-300 4 units 301-350 5 units 351-400 6 units >400 7 units Bedtime Admin Instructions: If glucose level is less than 200, do not give any correction dose If glucose level is 200 or greater give correction dose according to sliding scale (see below) and check BG @ 0000 and 0300 LEVEL 3 - Bedtime Only Glucose (mg/dL) Dose 0-199 0 units 200-250 3 units 251-300 4 units 301-350 5 units 351-400 6 units >400 7 units 2 Units Right Upper Abdomen Given 09/27/2021 8:43 AM WEED COOKING OPERATOR 09/29/2021 8:24 AM WEED COOKING OPERATOR 3 mL ipratropium-albuteroL (DUO-NEB) 0.5-3 Given mg/3 mL nebulizer solution 3 mL 3 mL, Inhalation, 4 times daily, First dose on [place] 09/25/21 at 0800 3 mL Given 09/28/2021 7:53 PM WEED COOKING OPERATOR 3 mL Given 09/28/2021 5:05 PM WEED COOKING OPERATOR 09/29/2021 1:38 AM WEED COOKING OPERATOR 10 mg labetaloL (NORMODYNE,TRANDATE) injection Given 5-10 mg 5-10 mg, Intravenous, Every 4 hours PRN , SBP goal < 160, Starting on Mon 1 at 0132 pflnvm-mowgxoru-tlntzuj (VIOKACE) 10,440-39,150- 39,150 unit tablet 10,44 0 units of lipase 10,440 units of lipase, Per NG tube, As needed, for clogged feeding tube, Starting on 09/26/21 at 1126, Crush 1 Viokace tablet and HALF sodium bicarbonate tablet and mix with 5 mL tepid bottled water. Instill mixture into the clogged tube and leave in tube to dwell for a minimum of 10 minutes (3 0 minutes max). Gently pull back and [place] on the syringe plunger to loosen the clog. May repeat this one time. Flush with 30 mL water once tube is cleared. 09/29/2021 4:05 AM WEED COOKING OPERATOR 1 mg LORazepam (ATIVAN) injection 1-2 mg Given 1-2 mg, Intravenous, As needed, Base on CIWA-Ar Score, Starting on 09/27/21 at 0948, Score 0 to 8 - Give NO dose an d Reassess CIWA-Ar Score, vital signs every 4 hours Score 9 to 15 - Give 1 mg and Reassess CIWA-Ar Score, vital signs and re-administer medication if needed every 1 hour after each dose then based on the CIWA Score greater than 15 - Giv e 2 mg Reassess CIWA-Ar Score, vital sign s and re-administer medication if needed every 1 hour Hold Any Dose For Exces s Sedation IF PATIENT RECEIVES MORE THAN 24 MG IN 24 HOUR PERIOD, CALL PHYSICIAN FOR FURTHER DOSING INSTRUCTIONS/REVISIONS Maximum IV pus h rate of 2 mg/min; max IVP dose is 4 mg. 1 mg Given 09/29/2021 3:05 AM WEED COOKING OPERATOR 1 mg Given 09/29/2021 1:32 AM WEED COOKING OPERATOR LORazepam (ATIVAN) tablet 1-2 mg 1-2 mg, Oral, As needed, Based on CIWA-Ar Score, Starting on 09/27/21 at 0948, Score 0 to 8 - Give NO dose an d Reassess CIWA-Ar Score, vital signs every 4 hours Score 9 to 15 - Give 1 mg and Reassess CIWA-Ar Score, vital signs and re-administer medication if needed every 1 hour after each dose then based on the CIWA Score greater than 15 - Giv e 2 mg Reassess CIWA-Ar Score, vital sign s and re-administer medication if needed every 1 hour Hold Any Dose For Exces s Sedation IF PATIENT RECEIVES MORE THAN 24 MG IN 24 HOUR PERIOD, CALL PHYSICIAN FOR FURTHER DOSING INSTRUCTIONS/REVISIONS magnesium hydroxide (MILK OF MAGNESIA) suspension 30 mL 30 mL, Oral, Daily PRN, constipation, Starting on 09/28/21 at 0643 09/29/2021 8:38 AM WEED COOKING OPERATOR 1 tablet multivitamin (THERAGRAN) tablet Given 1 tablet, Oral, Daily, First dose on 09/27/21 at 1545 1 tablet Given 09/28/2021 8:19 AM WEED COOKING OPERATOR 1 tablet Given 09/27/2021 4:27 PM WEED COOKING OPERATOR ondansetron (ZOFRAN) injection 4 mg 4 mg, Intravenous, Every 6 hours PRN, nausea/vomiting (2nd line), Starting on Wed09/24/21 at 2309 09/29/2021 8:51 AM WEED COOKING OPERATOR 17 g polyethylene glycol (GLYCOLAX) packet 17 Given g 17 g, Oral, Daily, First dose on 09/28/21 at 0900 17 g Given 09/28/2021 8:19 AM WEED COOKING OPERATOR prochlorperazine (COMPAZINE) injection 2.5-5 mg 2.5-5 mg, Intravenous, Every 4 hours PRN, nausea/vomiting (1st line), Starting on Wed09/24/21 at 2309, May repeat 2.5 mg dose x 1 after 30 minutes if first dose ineffective. Do not excee d a total dose of 40 mg within a 24 hour period. Rate of administration should not exceed 5 mg/minute. prochlorperazine (COMPAZINE) injection 2.5-5 mg 2.5-5 mg, Intramuscular, Every 4 hours PRN, nausea/vomiting (1st line), Starting on Wed09/24/21 at 2309, Administer if patient does not have IV access. May repeat 2.5 mg dose x 1 afte r 60 minutes if first dose ineffective. D o not exceed a total dose of 40 mg within a 24 hour period. prochlorperazine (COMPAZINE) suppositor y 25 mg 25 mg, Rectal, Every 12 hours PRN, nausea/vomiting (1st line), Starting on Wed09/24/21 at 2309, Administer if patient does not have IV access and refuses IM injection. 09/29/2021 8:38 AM WEED COOKING OPERATOR 2 tablets senna-docusate (PERICOLACE) 8.6-50 mg 2 Given tablet 2 tablet, Oral, 2 times daily, First dose (after last modification) on 09/27/21 at 0900 2 tablets Given 09/28/2021 10:16 PM WEED COOKING OPERATOR 2 tablets Given 09/28/2021 8:19 AM WEED COOKING OPERATOR sodium bicarbonate tablet 325 mg 325 mg, Per NG tube, As needed, for clogged feeding tube, Starting on Wed09/26/21 at 1126, Crush 1 Viokace table t and HALF sodium bicarbonate tablet and mix with 5 mL tepid bottled water. Instill mixture into the clogged tube and leave in tube to dwell for a minimu m of 10 minutes (30 minutes max). Gently pull back and forth on the syringe plunger to loosen the clog. May repeat this one time. Flush with 30 mL water once tube is cleared. 09/29/2021 8:28 AM WEED COOKING OPERATOR 250 mg 100 mL/hr thiamine (B-1) 250 mg in sodium chloride New Bag 0.9 % (NS) 50 mL IVPB 250 mg, Intravenous, at 100 mL/hr, 3 times daily, First dose on 09/28/21 at 2100, For 5 days 250 mg 100 mL/hr New Bag 09/28/2021 10:30 PM WEED COOKING OPERATOR 09/29/2021 8:26 AM WEED COOKING OPERATOR 750 mg 250 mL/hr vancomycin (VANCOCIN) 750 mg in sodium New Bag chloride 0.9 % (NS) 250 mL IVPB 750 mg, Intravenous, at 250 mL/hr, Ever y 12 hours, Indications: MENINGITIS, Firs t dose (after last modification) on [facility] 09/27/21 at 2100, REFRIGERATE 750 mg 250 mL/hr New Bag 09/28/2021 10:58 PM WEED COOKING OPERATOR 750 mg 250 mL/hr New Bag 09/28/2021 8:18 AM WEED COOKING OPERATOR Action Date Dose Rate Site Medication Order MAR Action 09/25/2021 9:39 AM WEED COOKING OPERATOR 2 g cefTRIAXone (ROCEPHIN) injection 2 g Given 2 g, Intravenous, Daily, Indications: COPD, First dose on [place] 09/25/21 at 1000, If giving IV push, reconstitute each vial with 20 ml sterile water and give over 3-5 minutes If sterile water is unavailable, may use Bacteriostatic Water or Normal Saline for reconstitution 09/28/2021 9:00 AM WEED COOKING OPERATOR 0.3 mcg/kg/hr 5.48 mL/hr dexmedeTOMIDINE (PRECEDEX) 4 mcg/mL Rate/Dose infusion 100 mL (premix) Change 0.2-1.4 mcg/kg/hr 73.1 kg (3.655-25.585 mL/hr, rounded to 3.66-25.59 mL/hr), Intravenous, Continuous, Starting on [place] 09/25/21 at 0945, Begin infusion at 0.2 mcg/kg/hr and titrate by greater of 0.1 mcg/kg/hr or 25% increments every 10 minutes for RASS +2. Infusion not to exceed 1 mcg/kg/hr. 0.5 mcg/kg/hr 9.13 mL/hr Rate/Dose Change 09/28/2021 8:06 AM WEED COOKING OPERATOR 0.6 mcg/kg/hr 10.95 mL/hr Rate/Dose Change 09/28/2021 7:04 AM WEED COOKING OPERATOR fentaNYL (SUBLIMAZE) 50 mcg/mL injectio n Starting on [place] 09/25/21 at 0859, For 1 dose, Cheri Lowe: cabinet override 09/25/2021 11:00 PM WEED COOKING OPERATOR 25 mcg fentaNYL (SUBLIMAZE) 50 mcg/mL injection Given Starting on Wed09/26/21 at 0017, For 1 dose, Jacquelyn Billingsley override 09/25/2021 10:13 AM WEED COOKING OPERATOR 25 mcg fentaNYL (SUBLIMAZE) injection 25 mcg Given 25 mcg, Intravenous, Once, On [place] 09/25/21 at 0915, For 1 dose, Administe r over 2 minutes; max dose for IVP is 2 mcg/kg. Note: Limit does not apply to patients who may be tolerant to opioid therapy or on continuous IV or PO opiat e therapy. 09/25/2021 3:15 PM WEED COOKING OPERATOR 25 mcg fentaNYL (SUBLIMAZE) injection 25 mcg Given 25 mcg, Intravenous, Once, On [place] 09/25/21 at 1515, For 1 dose, Administe r over 2 minutes; max dose for IVP is 2 mcg/kg. Note: Limit does not apply to patients who may be tolerant to opioid therapy or on continuous IV or PO opiat e therapy. 09/25/2021 3:30 PM WEED COOKING OPERATOR 25 mcg fentaNYL (SUBLIMAZE) injection 25 mcg Given 25 mcg, Intravenous, Once, On [place] 09/25/21 at 1530, For 1 dose, Administe r over 2 minutes; max dose for IVP is 2 mcg/kg. Note: Limit does not apply to patients who may be tolerant to opioid therapy or on continuous IV or PO opiat e therapy. 09/26/2021 12:18 AM WEED COOKING OPERATOR 25 mcg fentaNYL (SUBLIMAZE) injection 25 mcg Given 25 mcg, Intravenous, Once, On Wed09/26/21 at 0045, For 1 dose, Administe r over 2 minutes; max dose for IVP is 2 mcg/kg. Note: Limit does not apply to patients who may be tolerant to opioid therapy or on continuous IV or PO opiat e therapy. 09/26/2021 10:58 PM WEED COOKING OPERATOR 25 mcg fentaNYL (SUBLIMAZE) injection 25 mcg Given 25 mcg, Intravenous, Once, On Wed09/26/21 at 2315, For 1 dose, Administe r over 2 minutes; max dose for IVP is 2 mcg/kg. Note: Limit does not apply to patients who may be tolerant to opioid therapy or on continuous IV or PO opiat e therapy. 09/25/2021 4:30 PM WEED COOKING OPERATOR 50 mcg fentaNYL (SUBLIMAZE) injection 50 mcg Given 50 mcg, Intravenous, Once, On [place] 09/25/21 at 1715, For 1 dose, Administe r over 2 minutes; max dose for IVP is 2 mcg/kg. Note: Limit does not apply to patients who may be tolerant to opioid therapy or on continuous IV or PO opiat e therapy. 09/28/2021 9:56 AM WEED COOKING OPERATOR 20 mg furosemide (LASIX) injection 20 mg Given 20 mg, Intravenous, Once, On Wed09/28/21 at 0915, For 1 dose 09/26/2021 8:38 PM WEED COOKING OPERATOR 1 mg guanFACINE (TENEX) tablet 1 mg Given 1 mg, Per NG tube, 2 times daily, First dose on Wed09/26/21 at 2100 haloperidol lactate (HALDOL) 5 mg/mL injection Starting on [place] 09/25/21 at 1450, For 1 dose, Cassandra Ledesma: cabinet override 09/26/2021 1:31 AM WEED COOKING OPERATOR 2.5 mg haloperidol lactate (HALDOL) injection Given 2.5 mg 2.5 mg, Intravenous, Once, On Wed09/26/21 at 0115, For 1 dose 09/25/2021 2:51 PM WEED COOKING OPERATOR 5 mg haloperidol lactate (HALDOL) injection 5 Given mg 5 mg, Intravenous, Once, On [place] 1 at 1515, For 1 dose 09/27/2021 6:04 PM WEED COOKING OPERATOR 50 mL/hr 50 mL/hr lactated ringers infusion New Bag 50 mL/hr, Intravenous, Continuous, Starting on Wed09/26/21 at 0900, For 4 8 hours 50 mL/hr 50 mL/hr Rate/Dose Change 09/27/2021 6:01 PM WEED COOKING OPERATOR 100 mL/hr 100 mL/hr New Bag 09/27/2021 7:22 AM WEED COOKING OPERATOR 09/25/2021 4:55 PM WEED COOKING OPERATOR 5 mL Back lidocaine (pf) (XYLOCAINE-MPF) 10 mg/mL Given (1 %) injection Code/trauma/sedation medication, Starting on [place] 09/25/21 at 1655 09/26/2021 8:47 AM WEED COOKING OPERATOR 40 mg methylPREDNISolone sod suc(PF) Given (SOLU-Medrol) injection 40 mg 40 mg, Intravenous, Every 8 hours scheduled, First dose on [place] 09/25/21 a t 0115 40 mg Given 09/26/2021 1:17 AM WEED COOKING OPERATOR 40 mg Given 09/25/2021 6:18 PM WEED COOKING OPERATOR midazolam (PF) (VERSED) 1 mg/mL injection Starting on [place] 09/25/21 at 1504, For 1 dose, Cheri Lowe: cabinet override 09/25/2021 4:30 PM WEED COOKING OPERATOR 1 mg midazolam (PF) (VERSED) injection 1 mg Given 1 mg, Intravenous, Once, On [place] 1 at 1530, For 1 dose, Each dose titrated slowly over at least 2 minutes for dose s less than or equal to 2.5 mg. 1 mg Given 09/25/2021 3:00 PM WEED COOKING OPERATOR 09/25/2021 3:34 PM WEED COOKING OPERATOR 1 mg midazolam (PF) (VERSED) injection 1 mg Given 1 mg, Intravenous, Once, On [place] at 1715, For 1 dose, Each dose titrated slowly over at least 2 minutes for dose s less than or equal to 2.5 mg. 09/25/2021 1:30 AM WEED COOKING OPERATOR 10 mg 51 mL/hr phytonadione (vitamin K1) New Bag (AQUA-MEPHYTON) 10 mg in dextrose (D5W) 5 % 50 mL IVPB 10 mg, Intravenous, Administer over 60 Minutes, Once, On [place] 09/25/21 at 0115, For 1 dose, REFRIGERATE PROTECT FROM LIGHT 09/26/2021 9:58 AM WEED COOKING OPERATOR 10 mg 51 mL/hr phytonadione (vitamin K1) New Bag (AQUA-MEPHYTON) 10 mg in dextrose (D5W) 5 % 50 mL IVPB 10 mg, Intravenous, Administer over 60 Minutes, Once, On Wed09/26/21 at 0900, For 1 dose, REFRIGERATE PROTECT FROM LIGHT 09/26/2021 8:38 PM WEED COOKING OPERATOR 1 tablet senna-docusate (PERICOLACE) 8.6-50 mg 1 Given tablet 1 tablet, Oral, 2 times daily, First dose on [place] 09/25/21 at 0100 1 tablet Given 09/26/2021 8:40 AM WEED COOKING OPERATOR 1 tablet Given 09/25/2021 8:07 PM WEED COOKING OPERATOR 09/25/2021 10:04 PM WEED COOKING OPERATOR 500 mL 999 mL/hr sodium chloride 0.9 % (NS) infusion New Bag Starting on [place] 09/25/21 at 2133, For 1 dose, Desire Celeste: cabinet override 09/26/2021 3:16 AM WEED COOKING OPERATOR 100 mL/hr 100 mL/hr sodium chloride 0.9% infusion New Bag 100 mL/hr, Intravenous, Continuous, Starting on Wed09/24/21 at 2315, For 4 8 hours 100 mL/hr 100 mL/hr New Bag 09/25/2021 3:27 PM WEED COOKING OPERATOR 100 mL/hr 100 mL/hr New Bag 09/25/2021 1:11 AM WEED COOKING OPERATOR 09/27/2021 4:45 PM WEED COOKING OPERATOR 500 mg 100 mL/hr thiamine (B-1) 500 mg in sodium chloride New Bag 0.9 % (NS) 50 mL IVPB 500 mg, Intravenous, at 100 mL/hr, 3 times daily, First dose on 09/27/21 at 1600, For 1 dose, Give over 5 minutes. If unable to tolerate PO, may continue IV doses x 3 days. Give first dose prior to dextrose infusion t o prevent Wernicke's Encephalopathy. 09/28/2021 8:16 AM WEED COOKING OPERATOR 500 mg 100 mL/hr thiamine (B-1) 500 mg in sodium chloride New Bag 0.9 % (NS) 50 mL IVPB 500 mg, Intravenous, at 100 mL/hr, 3 times daily, First dose on 09/28/21 at 0000, For 2 doses, Give over 5 minutes. If unable to tolerate PO, may continue IV doses x 3 days. Give first dose prior to dextrose infusion t o prevent Wernicke's Encephalopathy. 500 mg 100 mL/hr New Bag 09/28/2021 12:00 AM WEED COOKING OPERATOR 09/27/2021 10:13 AM WEED COOKING OPERATOR 100 mg thiamine (B-1) injection 100 mg Given 100 mg, Intravenous, Daily, First dose on 09/27/21 at 1015, For 1 dose, Give over 5 minutes. May continue IV dosing x 3 days. Give first dose prior to dextrose infusion to prevent Wernicke's encephalopathy 09/27/2021 8:47 AM WEED COOKING OPERATOR 1,000 mg 250 mL/hr vancomycin (VANCOCIN) 1,000 mg in sodium New Bag chloride 0.9 % (NS) 250 mL IVPB 1,000 mg, Intravenous, at 250 mL/hr, Every 12 hours, Indications: MENINGITIS , First dose on Wed09/26/21 at 0900, REFRIGERATE 1,000 mg 250 mL/hr New Bag 09/26/2021 8:30 PM WEED COOKING OPERATOR 1,000 mg 250 mL/hr New Bag 09/26/2021 9:52 AM WEED COOKING OPERATOR 09/25/2021 9:23 PM WEED COOKING OPERATOR 1,500 mg 250 mL/hr vancomycin (VANCOCIN) 1,500 mg in sodium New Bag chloride 0.9 % (NS) 500 mL IVPB 1,500 mg, Intravenous, at 250 mL/hr, Once, Indications: MENINGITIS, On [place] 09/25/21 at 2100, For 1 dose, REFRIGERATE documented in this encounter Active and Recently Administered Medications Times are shown in WEED COOKING OPERATOR. 09/28/2021 09/29/2021 Medication Order 09/27/2021 0907 (New Bag - Provider: Edson barbosa RN)2251 (New Bag - Provider: Margaux Santana, RN)2352 (Stopped - Provider: Margaux Santana, SANKET) 0842 (New Bag - Provider: Aubrie tay RN)2100 (Due) acyclovir (ZOVIRAX) 640 mg in dextrose 0956 (New Bag - (D5W) 5 % 100 mL IVPB Provider: Sarah 640 mg (rounded from 638 mg = 10 mg/kg Dell Wilcox)1101 63.8 kg [place] weight), Intravenous, at (Paused - Pro vider: 112.8 mL/hr, Every 12 hours scheduled, Sarah campbell, Indications: ADMINISTRATION PROFESSIONAL INFECTION, First dose RN)2126 (New Bag - on [place] 09/25/21 at 2100 Provider: Anayeli King, SANKET) 0023 (New Bag - Provider: Anayeli King, SANKET)0601 (New Bag - Provider: Anayeli King, RN)0638 (Stopped - Provider: Edson Castañeda, SANKET)1159 (New Bag - Provider: Edson Castañeda, SANKET)1240 (Stopped - Provider: Edson Castañeda, SANKET) 1757 (New Bag - Provider: Edson Castañeda RN)2212 (New Bag - Provider: Margaux Santana, RN)2213 (Rate/Dose Verify - Provider: Margaux Santana RN)2256 (Stopped - Provider: Margaux Santana RN) 0000 (Not Given - Provider: Margaux curry RN - Reason: Given previously)0521 (New Bag - Provider: Margaux Santana, SANKET)1200 (Due)1800 (Due) ampicillin (OMNIPEN) 2 g in sodium 0503 (New Bag - chloride ADDV (NS) 100 mL IVPB Provider: Alexa Hayes 2 g, Intravenous, at 150 mL/hr, Every 6 SANKET Abebe )0550 hours scheduled, Indications: ADMINISTRATION PROFESSIONAL (Stopped - Provide r: INFECTION, First dose on [place] 09/25/21 at Alexa nugent, 2130 RN)1233 (New Bag - Provider: Sarah Wilcox RN)1320 (Stopped - Provider: Sarah Wilcox RN)1718 (New Bag - Provider: Sarah Wilcox RN)1801 (Stopped - Provider: Sarah Wilcox RN) 0952 (Given - Provider: Edson Castañeda RN) 0839 (Given - Provider: Aubrie montgomery RN) bisacodyL (DULCOLAX) suppository 10 mg 1050 (Given - 10 mg, Rectal, Daily, First dose on Sat Provider: Roman gooden 09/27/21 at 0930 [place]) 0802 (New Bag - Provider: Edson barbosa RN)0834 (Stopped - Provider: Edson Castañeda RN)2216 (New Bag - Provider: Margaux Santana, SANKET)2217 (Stopped - Provider: Margaux Santana, SANKET) 0832 (New Bag - Provider: Aubrie tay RN)2100 (Due) cefepime (MAXIPIME) 2 g in sodium 0838 (New Bag - chloride ADDV (NS) 50 mL IVPB Provider: Sarah 2 g, Intravenous, at 100 mL/hr, Every 12 Dell Wilcox)2123 hours scheduled, Indications: ADMINISTRATION PROFESSIONAL (New Bag - Provide r: INFECTION, First dose on [place] 09/25/21 at Anayeli tamayo RN) 2114 1159 (Given - Provider: Edson Castañeda RN)2217 (Given - Provider: Margaux Santana, RN) 1115 (Due)2315 (Due) famotidine (PEPCID) injection 20 1025 (Given - mg(Linked Group 1) Provider: Anne Marie 20 mg, Intravenous, Every 12 hours, [place])2354 (Gi patria First dose on Wed09/24/21 at 2315, - Provider: Patria [facility] to adjust dosing for renal SANKET King) insufficiency. 1159 (See Alternative - Provider: Edson Castañeda RN)2217 (See Alternative - Provider: Margaux Santana RN) 111 (Due)2315 (Due) famotidine (PEPCID) tablet 20 mg(Linked 1025 (See Group 1) Alternative - 20 mg, Oral, Every 12 hours, First dose Provider: Roman gooden on Wed09/24/21 at 2315, Pharmacy to [place])2354 (S ee adjust dosing for renal insufficiency. Alternative - Provider: Anayeli King RN) 0956 (Given - Provider: Edson Castañeda RN) furosemide (LASIX) injection 20 mg (COMPLETED) 20 mg, Intravenous, Once, On 09/28/21 at 0915, For 1 dose 1003 (Given - Provider: Edson Castañeda RN)2226 (Given - Provider: Margaux Santana RN) 0838 (Given - Provider: Aubrie montgomery RN)2100 (Due) guanFACINE (TENEX) tablet 2 mg 0954 (Given - 2 mg, Per NG tube, 2 times daily, First Provider: Marisa sravanthi dose (after last modification) on Anthony Wilcox RN - 09/27/21 at 0900 Comment: per NG tube)2132 (Given - Provider: Anayeli King RN) 0945 (Due)1400 (Due)2200 (Due) heparin (porcine) 5,000 unit/mL injection 5,000 Units 5,000 Units, Subcutaneous, Every 8 hours, First dose on 09/29/21 at 0945 0000 (Not Given - Provider: Anayeli james RN - Reason: Order parameters not met)0600 (Not Given - Provider: Anayeli King RN - Reason: Order parameters not met)1200 (Not Given - Provider: Edson Castañeda RN - Reason: Order parameters not met)1800 (Not Given - Provider: Edson Castañeda RN - Reason: Order parameters not met) 0000 (Not Given - Provider: Margaux curry RN - Reason: Order parameters not met)0613 (Not Given - Provider: Margaux Santana RN - Reason: Order parameters not met)1200 (Due)1800 (Due) insulin lispro (HumaLOG) injection 2-7 0843 (Given - Units Provider: Sarah 2-7 Units, Subcutaneous, Every 6 hours SANKET Wilcox) 1223 scheduled, First dose on 09/27/21 at (Given - Pr ovider: 0830, LEVEL 3 - Give in addition to Sarah Wilcox, scheduled mealtime insulin per table DO RN)1800 (No t Given - NOT GIVE for any 2 hours post meal Provider: Sarah fingerstick blood glucose checks. If pt SANKET Wilcox - NPO or on continuous enteral/parenteral Reason: Orde r nutrition - give with scheduled parameters not met) fingerstick blood glucose check - dose per table Glucose (mg/dL) Dose 0-120 0 units 121-150 0 units 151-200 2 units 201-250 3 units 251-300 4 units 301-350 5 units 351-400 6 units >400 7 units Bedtime Admin Instructions: If glucose level is less than 200, do not give any correction dose If glucose level is 200 or greater give correction dose according to sliding scale (see below) and check BG @ 0000 and 0300 LEVEL 3 - Bedtime Only Glucose (mg/dL) Dose 0-199 0 units 200-250 3 units 251-300 4 units 301-350 5 units 351-400 6 units >400 7 units 0822 (Given - Provider: Fred De Luna, RR T)1212 (Given - Provider: Fred De Luna, AMMONIA STILL OPERATOR)1705 (Given - Provider: Fred De Luna AMMONIA STILL OPERATOR)1953 (Given - Provider: Jonel Harvey, KRIS) 0824 (Given - Provider: Dell Mistry RT)1200 (Due)1600 (Due)2000 (Due) ipratropium-albuteroL (DUO-NEB) 0.5-3 0746 (Given - mg/3 mL nebulizer solution 3 mL Provider: Pamela Sandoval 3 mL, Inhalation, 4 times daily, First Darius, KRIS)11 32 dose on Leatha 09/25/21 at 0800 (Given - Provider: Pamela Mccoy, AMMONIA STILL OPERATOR)1540 (Given - Provider: Pamela Mccoy, AMMONIA STILL OPERATOR)2004 (Given - Provider: Jonel Harvey, KRIS) 0819 (Given - Provider: Edson Castañeda RN) 0838 (Given - Provider: Aubrie montgomery RN) multivitamin (THERAGRAN) tablet 1627 (Given - 1 tablet, Oral, Daily, First dose on Sat Provider: Jaime nolan 09/27/21 at 1545 SANKET Wilcox - Comment: per NG tube) 0819 (Given - Provider: Edson Castañeda RN) 0851 (Given - Provider: Aubrie montgomery RN) polyethylene glycol (GLYCOLAX) packet 1 7 g 17 g, Oral, Daily, First dose on 09/28/21 at 0900 0819 (Given - Provider: Edson Castañeda RN)2216 (Given - Provider: Margaux Santana RN) 0838 (Given - Provider: Aubrie montgomery RN)2100 (Due) senna-docusate (PERICOLACE) 8.6-50 mg 2 0954 (Given - tablet Provider: Sarah 2 tablet, Oral, 2 times daily, First SANKET Wilcox - dose (after last modification) on Sat Comment: per N G 09/27/21 at 0900 tube)2132 (Given - Provider: Anayeli King RN - Comment: per NG) 2230 (New Bag - Provider: Margaux garcia RN) 0828 (New Bag - Provider: Aubrie tay RN)1600 (Due)2100 (Due) thiamine (B-1) 250 mg in sodium chlorid e 0.9 % (NS) 50 mL IVPB 250 mg, Intravenous, at 100 mL/hr, 3 times daily, First dose on 09/28/21 at 2100, For 5 days thiamine (B-1) 500 mg in sodium chloride 1645 (New B ag - 0.9 % (NS) 50 mL IVPB (COMPLETED) Provider: Sarah 500 mg, Intravenous, at 100 mL/hr, 3 SANKET Wilcox)17 10 times daily, First dose on 09/27/21 (Paused - Pr ovider: at 1600, For 1 dose, Give over 5 Sarah Wilcox RN) minutes. If unable to tolerate PO, may continue IV doses x 3 days. Give first dose prior to dextrose infusion t o prevent Wernicke's Encephalopathy. 0000 (New Bag - Provider: Anayeli King RN)0816 (New Bag - Provider: Edson Castañeda, SANKET)0838 (Stopped - Provider: Edson Castañeda, SANKET) thiamine (B-1) 500 mg in sodium chlorid e 0.9 % (NS) 50 mL IVPB (COMPLETED) 500 mg, Intravenous, at 100 mL/hr, 3 times daily, First dose on Wed09/28/21 at 0000, For 2 doses, Give over 5 minutes. If unable to tolerate PO, may continue IV doses x 3 days. Give first dose prior to dextrose infusion t o prevent Wernicke's Encephalopathy. thiamine (B-1) injection 100 mg 1013 (Given - (COMPLETED) Provider: Anne Marie 100 mg, Intravenous, Daily, First dose [place]) on 09/27/21 at 1015, For 1 dose, Give over 5 minutes. May continue IV dosing x 3 days. Give first dose prior to dextrose infusion to prevent Wernicke's encephalopathy vancomycin (VANCOCIN) 1,000 mg in sodium 0847 (New B ag - chloride 0.9 % (NS) 250 mL IVPB Provider: Sarah (CANCELED) SANKET Wilcox)1002 1,000 mg, Intravenous, at 250 mL/hr, (Stopped - Prov ider: Every 12 hours, Indications: MENINGITIS, Anne Marie Freddy latesha) First dose on Wed09/26/21 at 0900, REFRIGERATE 0818 (New Bag - Provider: Edson barbosa RN)2258 (New Bag - Provider: Margaux Santana, SANKET) 0001 (Stopped - Provider: Margaux garcia, SANKET)0826 (New Bag - Provider: Aubrie Lei RN)2100 (Due) vancomycin (VANCOCIN) 750 mg in sodium 2132 (New Bag - chloride 0.9 % (NS) 250 mL IVPB Provider: Anayeli 750 mg, Intravenous, at 250 mL/hr, Every SANKET King ) 12 hours, Indications: MENINGITIS, Firs t dose (after last modification) on 09/27/21 at 2100, REFRIGERATE 09/28/2021 09/29/2021 Medication Order 09/27/2021 0028 (Rate/Dose Change - Provider: Anayeli King RN)0251 (New Bag - Provider: Anayeli King RN)0704 (Rate/Dose Change - Provider: Edson Castañeda, SANKET)0806 (Rate/Dose Change - Provider: Edson Castañeda, RN)0900 (Rate/Dose Change - Provider: Edson Castañeda, RN)0919 (Stopped - Provider: Edson Castañeda RN) dexmedeTOMIDINE (PRECEDEX) 4 mcg/mL 0030 (New Bag - infusion 100 mL (premix) (CANCELED) Provider: Sadie Hayes 0.2-1.4 mcg/kg/hr SANKET Abebe)0639 73.1 kg (3.655-25.585 mL/hr, rounded to (New Bag - P rovider: 3.66-25.59 mL/hr), Intravenous, Alexa Abebe, Continuous, Starting on Leatha 09/25/21 at RN)0805 (Rat e/Dose 0945, Begin infusion at 0.2 mcg/kg/hr Change - Provi ericka: and titrate by greater of 0.1 mcg/kg/hr Sarah morrow, or 25% increments every 10 minutes for RN)0917 (Rate /Dose RASS +2. Infusion not to exceed 1 Change - Provider: mcg/kg/hr. Anne Marie South)0957 (Rate/Dose Change - Provider: Anne Marie Souht)1012 (Rate/Dose Change - Provider: Anne Marie South)1018 (Paused - Provider: Anne Marie [place])1214 (New Bag - Provider: Sarah Wilcox RN)1215 (Rate/Dose Change - Provider: Sarah Wilcox RN)1253 (Rate/Dose Change - Provider: Sarah Wilcox, RN)1421 (Rate/Dose Change - Provider: Sarah Wilcox RN)1548 (Rate/Dose Change - Provider: Sarah Wilcox RN)1608 (Rate/Dose Change - Provider: Sarah Wilcox RN)1615 (Rate/Dose Change - Provider: Sarah Wilcox RN)1617 (Rate/Dose Change - Provider: Sarah Wilcox RN)1639 (Rate/Dose Change - Provider: Sarah Wilcox RN)1710 (New Bag - Provider: Sarah Wilcox RN)1710 (Rate/Dose Change - Provider: Sarah Wilcox RN)1801 (Rate/Dose Change - Provider: Sarah Wilcox RN)1951 (Rate/Dose Change - Provider: Anayeli King RN)2001 (Rate/Dose Change - Provider: Anayeli King RN)2150 (Rate/Dose Change - Provider: Anayeli King RN)2205 (New Bag - Provider: Anayeli King RN) 0829 (Stopped - Provider: Edson barbosa RN) lactated ringers infusion (CANCELED) 0722 (New Bag - 50 mL/hr, Intravenous, Continuous, Provider: Néstor benavidez Starting on Wed09/26/21 at 0900, For 48 [place])180 1 hours (Rate/Dose Change - Provider: Sarah Wilcox RN)1804 (New Bag - Provider: Sarah Wilcox RN) 09/28/2021 09/29/2021 Medication Order 09/27/2021 alteplase (CATHFLO ACTIVASE) injection 1 mg 1 mg, Intra-Catheter, As needed, declotting central catheter or sluggish/occluded CVC line, Starting on Wed09/26/21 at 0939, Use 1 mg/mL to declot catheter as needed, Declot catheter per Central Venous Access Device, Declotting procedure in [place] REFRIGERATE dextrose 50% (D50W) syringe 25-50 mL 25-50 mL, Intravenous, As needed, low blood sugar, Starting on Leatha 09/25/21 a t 0115, Give if patient NPO and IV access already available. If no IV access give Glucagon SQ or IM in arm and turn patient on side. For blood glucose (BG): Less than 50 mg/dL: Give D50W 5 0 mL. Check BG every 15 minutes and repea t until greater than 80 mg/dL. Less than 70 mg/dL: Give D50W 25 mL. Check BG every 15 minutes and repeat until greater than 80 mg/dL. Less than 70 mg/dL and patient unconscious: Give D50 W 50 mL. Call physician for additional orders. Check BG every 15 minutes and repeat until greater than 80 mg/dL. Once blood glucose greater than 80 mg/dL, check BG in one hour. Call physician if less than 70 mg/dL. flumazeniL (ROMAZICON) injection 0.2 mg 0.2 mg, Intravenous, As needed, clinica l evidence of impending respiratory failure, difficult to arouse, etc., Starting on 09/27/21 at 0948, For 4 doses, Call physician immediately if administered. May repeat 0.2 mg IV every 60 seconds for a maximum of 4 doses. glucagon (GLUCAGEN) injection 1 mg(Linked Group 2) 1 mg, Intramuscular, As needed, low blood sugar, low blood sugar, Starting on Leatha 09/25/21 at 0115, Give if patien t NPO and no IV access. May give IM or SQ in arm and turn patient on side. Reconstitute powder for injection by adding 1 mL of journeyman pipe welder-supplied sterile diluent or sterile water for injection to a vial containing 1 unit o f the drug, to provide solutions containing 1 mg of glucagon/mL. Shake vial gently to dissolve. glucagon (GLUCAGEN) injection 1 mg(Linked Group 2) 1 mg, Subcutaneous, As needed, low bloo d sugar, low blood sugar, Starting on Leatha 09/25/21 at 0115, Give if patient NPO and no IV access. May give IM or SQ in arm and turn patient on side. Reconstitute powder for injection by adding 1 mL of journeyman pipe welder-supplied sterile diluent or sterile water for injection to a vial containing 1 unit o f the drug, to provide solutions containing 1 mg of glucagon/mL. Shake vial gently to dissolve. glucose chewable tablet 16-32 g 16-32 g, Oral, As needed, low blood sugar, Starting on Leatha 09/25/21 at 0115 , Give food, drink, or glucose tablets to treat low blood glucose if patient able to eat. For blood glucose (BG): Less than 50 mg/dL: Give 30 g of carbohydrat e (32 g if using glucose tablets). Check BG every 15 minutes and repeat until greater than 80 mg/dL. Less than 70 mg/dL: Give 15 g of carbohydrate (16 g if using glucose tablets). Check BG every 15 minutes and repeat until greater than 80 mg/dL. Less than 70 mg/dL and patient unconscious: BG to be treated with D50W until greater than 80 mg/dL. Once BG greater than 80 mg/dL, give 30 g of carbohydrate (32 g if usin g glucose tablets) if patient awake and able to swallow. Once blood glucose greater than 80 mg/dL, check BG in one hour. Call physician if less than 70 mg/dL. 0105 (Given - Provider: Margaux Sanchez ams, RN) hydrALAZINE (APRESOLINE) injection 10-2 0 mg 10-20 mg, Intravenous, Every 2 hours PRN, high blood pressure, SBP > 160, Starting on Leatha 09/25/21 at 0033 0138 (Given - Provider: Margaux Sanchez ams, RN) labetaloL (NORMODYNE,TRANDATE) injectio n 5-10 mg 5-10 mg, Intravenous, Every 4 hours PRN , SBP goal < 160, Starting on Mon 1 at 0132 atisaf-wxqrkyji-bhtegsr (VIOKACE) 10,440-39,150- 39,150 unit tablet 10,44 0 units of lipase(Linked Group 3) 10,440 units of lipase, Per NG tube, As needed, for clogged feeding tube, Starting on Wed09/26/21 at 1126, Crush 1 Viokace tablet and HALF sodium bicarbonate tablet and mix with 5 mL tepid bottled water. Instill mixture into the clogged tube and leave in tube to dwell for a minimum of 10 minutes (3 0 minutes max). Gently pull back and [place] on the syringe plunger to loosen the clog. May repeat this one time. Flush with 30 mL water once tube is cleared. 0410 (Given - Provider: Dell Romo)1430 (Given - Provider: Edson Castañeda RN) 0009 (Given - Provider: Margaux Sanchez ams, RN)0132 (Given - Provider: Margaux Santana RN - Comment: alida RENDON)0305 (Given - Provider: Margaux Santana RN)0405 (Given - Provider: Margaux Santana RN) LORazepam (ATIVAN) injection 1-2 162 (Given - mg(Linked Group 4) Provider: Sarah 1-2 mg, Intravenous, As needed, Base on SANKET Wilcox )2201 CIWA-Ar Score, Starting on 09/27/21 (Given - Pro vider: at 0948, Score 0 to 8 - Give NO dose and Anayeli tamayo RN) Reassess CIWA-Ar Score, vital signs every 4 hours Score 9 to 15 - Give 1 mg and Reassess CIWA-Ar Score, vital signs and re-administer medication if needed every 1 hour after each dose then based on the CIWA Score greater than 15 - Giv e 2 mg Reassess CIWA-Ar Score, vital sign s and re-administer medication if needed every 1 hour Hold Any Dose For Exces s Sedation IF PATIENT RECEIVES MORE THAN 24 MG IN 24 HOUR PERIOD, CALL PHYSICIAN FOR FURTHER DOSING INSTRUCTIONS/REVISIONS Maximum IV pus h rate of 2 mg/min; max IVP dose is 4 mg. 0410 (See Alternative - Provider: Anayeli King RN)1430 (See Alternative - Provider: Edson Castañeda RN) 0009 (See Alternative - Provider: Sal Santana RN)0132 (See Alternative - Provider: Margaux Santana RN)0305 (See Alternative - Provider: Margaux Santana RN)0405 (See Alternative - Provider: Margaux Santana RN) LORazepam (ATIVAN) tablet 1-2 mg(Linked 162 (See Group 4) Alternative - 1-2 mg, Oral, As needed, Based on Provider: Sarah CIWA-Ar Score, Starting on 09/27/21 SANKET Wilcox )2201 at 0948, Score 0 to 8 - Give NO dose and (See Altern ative - Reassess CIWA-Ar Score, vital signs Provider: Anayeli every 4 hours Score 9 to 15 - Give 1 mg SANKET King) and Reassess CIWA-Ar Score, vital signs and re-administer medication if needed every 1 hour after each dose then based on the CIWA Score greater than 15 - Giv e 2 mg Reassess CIWA-Ar Score, vital sign s and re-administer medication if needed every 1 hour Hold Any Dose For Exces s Sedation IF PATIENT RECEIVES MORE THAN 24 MG IN 24 HOUR PERIOD, CALL PHYSICIAN FOR FURTHER DOSING INSTRUCTIONS/REVISIONS magnesium hydroxide (MILK OF MAGNESIA) suspension 30 mL 30 mL, Oral, Daily PRN, constipation, Starting on Wed09/28/21 at 0643 ondansetron (ZOFRAN) injection 4 mg 4 mg, Intravenous, Every 6 hours PRN, nausea/vomiting (2nd line), Starting on Wed09/24/21 at 2309 prochlorperazine (COMPAZINE) injection 2.5-5 mg(Linked Group 5) 2.5-5 mg, Intravenous, Every 4 hours PRN, nausea/vomiting (1st line), Starting on Wed09/24/21 at 2309, May repeat 2.5 mg dose x 1 after 30 minutes if first dose ineffective. Do not excee d a total dose of 40 mg within a 24 hour period. Rate of administration should not exceed 5 mg/minute. prochlorperazine (COMPAZINE) injection 2.5-5 mg(Linked Group 5) 2.5-5 mg, Intramuscular, Every 4 hours PRN, nausea/vomiting (1st line), Starting on Wed09/24/21 at 2309, Administer if patient does not have IV access. May repeat 2.5 mg dose x 1 afte r 60 minutes if first dose ineffective. D o not exceed a total dose of 40 mg within a 24 hour period. prochlorperazine (COMPAZINE) suppositor y 25 mg(Linked Group 5) 25 mg, Rectal, Every 12 hours PRN, nausea/vomiting (1st line), Starting on Wed09/24/21 at 2309, Administer if patient does not have IV access and refuses IM injection. sodium bicarbonate tablet 325 mg(Linked Group 3) 325 mg, Per NG tube, As needed, for clogged feeding tube, Starting on Wed09/26/21 at 1126, Crush 1 Viokace table t and HALF sodium bicarbonate tablet and mix with 5 mL tepid bottled water. Instill mixture into the clogged tube and leave in tube to dwell for a minimu m of 10 minutes (30 minutes max). Gently pull back and forth on the syringe plunger to loosen the clog. May repeat this one time. Flush with 30 mL water once tube is cleared. Order Group 1: famotidine (PEPCID) tablet 20 mgJump to med 20 mg, Oral, Every 12 hours, First dose on Wed09/24/21 at 2315
Pharmacy to adjust dosing for renal insufficiency.
Or famotidine (PEPCID) injection 20 mgJump to med 20 mg, Intravenous, Every 12 hours, Fir st dose on Wed09/24/21 at 2315
Pharmacy to adjust dosing for renal insufficiency.
Group 2: glucagon (GLUCAGEN) injection 1 mgJump to med 1 mg, Intramuscular, As needed, low blo od sugar, low blood sugar, Starting on Wed09/25/21 at 0115
Give if patient NPO and no IV a ccess. May give IM or SQ in arm and turn patient on side. Reconstitute powder for inje ction by adding 1 mL of journeyman pipe welder- supplied sterile diluent or sterile water for injection to a via l containing 1 unit of the drug, to provide solutions containing 1 mg of glucagon/mL. Shake v ial gently to dissolve.
Or glucagon (GLUCAGEN) injection 1 mgJump to med 1 mg, Subcutaneous, As needed, low bloo d sugar, low blood sugar, Starting on Wed09/25/21 at 0115
Give if patient NPO and no IV a ccess. May give IM or SQ in arm and turn patient on side. Reconstitute powder for inje ction by adding 1 mL of journeyman pipe welder- supplied sterile diluent or sterile water for injection to a via l containing 1 unit of the drug, to provide solutions containing 1 mg of glucagon/mL. Shake v ial gently to dissolve.
Group 3: lpwtru-fpwrnqib-mzwnwso (VIOKACE) 10,44 0-39,150- 39,150 unit tablet 10,440 units of lipaseJump to med 10,440 units of lipase, Per NG tube, As needed, for clogged feeding tube, Starting on Wed09/26/21 at 1126
Crush 1 Viokace tablet and H HALIMA sodium bicarbonate tablet and mix with 5 mL tepid bottled water. Instill mixture into the c logged tube and leave in tube to dwell for a minimum of 10 minutes (30 minutes max). Gently p ull back and forth on the syringe plunger to loosen the clog. May repeat this one time.&nb sp;Flush with 30 mL water once tube is cleared.
And sodium bicarbonate tablet 325 mgJump to med 325 mg, Per NG tube, As needed, for radha gged feeding tube, Starting on Wed09/26/21 at 1126
Crush 1 Viokace tablet and HALF sodium bicarb zulema tablet and mix with 5 mL tepid bottled water. Instill mixture into the clogged tube and leave in tube to dwell for a minimum of 10 minutes (30 minutes max). Gently pull back and forth on the syringe plunger to loosen the clog. May repeat this one time.&nb sp;Flush with 30 mL water once tube is cleared.
Group 4: LORazepam (ATIVAN) tablet 1-2 mgJump to med 1-2 mg, Oral, As needed, Based on CIWA- Ar Score, Starting on 09/27/21 at 0948
Score 0 to 8 - Give NO dose and Reassess CIWA-Ar Score , vital signs every 4 hours Score 9 to 15 - Give 1 mg and Reassess CIWA-Ar Score, vital signs and re-administer medication if needed every 1 hour after each dose then based on the CIWA S core greater than 15 - Give 2 mg Reassess CIWA-Ar Score, vital signs and re-administer medicatio n if needed every 1 hour Hold Any Dose For Excess Sedation IF PATIENT REC EIVES MORE THAN 24 MG IN 24 HOUR PERIOD, CALL PHYSICIAN FOR FURTHER DOSING INSTRUCTIONS/REVISIONS
Or LORazepam (ATIVAN) injection 1-2 mgJump to med 1-2 mg, Intravenous, As needed, Base on CIWA-Ar Score, Starting on 09/27/21 at 0948
Score 0 to 8 - Give NO dose and Reassess CIWA-A r Score, vital signs every 4 hours Score 9 to 15 - Give 1 mg and Reassess CIWA-Ar Score, vital signs and re-administer medication if needed every 1 hour after each dose then based on the CIWA& nbsp;Score greater than 15 - Give 2 mg Reassess CIWA-Ar Score, vital signs and re-administer me dication if needed every 1 hour Hold Any Dose For Excess Sedation IF PATIENT RECEIVES MORE THAN 24 MG IN 24 HOUR PERIOD, CALL PHYSICIAN FOR FURTHER DOSING INSTRUCTIONS/REVISIO NS Maximum IV push rate of 2 mg/min; max IVP dose is 4 mg.
Group 5: prochlorperazine (COMPAZINE) injection 2.5-5 mgJump to med 2.5-5 mg, Intravenous, Every 4 hours NJ N, nausea/vomiting (1st line), Starting on Wed09/24/21 at 2309
May repeat 2.5 mg dose x 1 afte r 30 minutes if first dose ineffective. Do not exceed a total dose of 40 mg within a 24 hour pe riod. Rate of administration should not exceed 5 mg/minute.
Or prochlorperazine (COMPAZINE) injection 2.5-5 mgJump to med 2.5-5 mg, Intramuscular, Every 4 hours PRN, nausea/vomiting (1st line), Starting on Wed09/24/21 at 2309
Administer if patient does not have IV access. May repeat 2.5 mg dose x 1 after 60 minutes if first dose ineffective.&nbsp ;Do not exceed a total dose of 40 mg within a 24 hour period.
Or prochlorperazine (COMPAZINE) suppositor y 25 mgJump to med 25 mg, Rectal, Every 12 hours PRN, naus ea/vomiting (1st line), Starting on Wed09/24/21 at 2309
Administer if patient does not have IV access and refuses IM injection.
documented in this encounter Care Teams Start Date End Date Lathe Puller Relationship Specialty 09/24/21 Walker Cruz MD PCP - General Pediatrics [address] [place] [id number] documented as of this encounter
--- OUTSIDE RECORDS SUMMARY | 2021-09-29 10:10 | XMS REPORT | Encounter Summary ---
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
--- OUTSIDE RECORDS SUMMARY | 2021-09-29 10:10 | XMS REPORT | Clinical Summary ---
Author Author [facility] Organization [facility] Address Unknown Phone Unavailable Care Team Providers Care Thread Roller Name Role Phone Walker Cruz MD PCP Allergies No known active allergies Medications No known medications Active Problems Problem Noted Date UTI (urinary tract infection) 09/25/2021 SDH (subdural hematoma) 09/25/2021 Overview: Formatting of this note might be differ ent from the original. 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 Encephalopathy 09/25/2021 History of cerebral aneurysm 09/25/2021 S/P EYELET OPERATOR shunt 09/25/2021 COPD (chronic obstructive pulmonary disease) 021 Bronchitis 09/25/2021 Elevated INR 09/25/2021 GWENDOLYN (acute kidney injury) 09/25/2021 Hypernatremia 09/25/2021 Other specified anemias 09/25/2021 Elevated troponin 09/25/2021 Acute pain due to trauma 09/25/2021 Coagulopathy 09/25/2021 Acute encephalopathy 09/25/2021 Chronic respiratory failure with hypoxia 09/25/2021 COPD with acute exacerbation 09/25/2021 Leukocytosis 09/25/2021 Anemia 09/25/2021 Transaminitis 09/25/2021 Hx of hepatitis C 09/25/2021 Encounters Care Team Description Date Type Specialty Natasha Pineda MD Arce, Dennis A, MD Saied, Nahel, MD Altered mental status, unspecified alter ed mental status type (Primary Dx); Subdural hemorrhage (HCC); Dehydration 09/24/2021 [facility] [place] Encounter Care Salomon, Interface Unk Provider 09/24/2021 [facility] Salomon, Interface Unk Provider 09/24/2021 [facility] from Last 3 Months Immunizations Name Administration Dates Next Due Social History Date Tobacco Use Types Packs/Day Years Used Never Assessed Sex Assigned at Date Recorded Not on file Last Filed Vital Signs Reading Time Taken Comments Vital Sign 160/71 09/29/2021 9:00 AM RIG BUILDER HELPER Blood Pressure 120 09/29/2021 9:00 AM RIG BUILDER HELPER Pulse 37 C (98.6 F) 09/29/2021 8:00 AM RIG BUILDER HELPER Temperature 27 09/29/2021 9:00 AM RIG BUILDER HELPER Respiratory Rate 98% 09/29/2021 9:00 AM RIG BUILDER HELPER Oxygen Saturation - - Inhaled Oxygen Concentration 68.4 kg (150 lb 12.7 oz) 09/29/2021 5:27 AM RIG BUILDER HELPER Weight 167.6 cm (5' 6") 09/24/2021 11:48 PM RIG BUILDER HELPER Height 24.34 09/24/2021 11:48 PM RIG BUILDER HELPER Body Mass Index Plan of Treatment Health Maintenance Due Date Last Done Comments Medicare Annual Wellness 1950 Spirometry # 1950 Td/Tdap# 1950 Colorectal Screening via 1998 Colonoscopy Zoster Vaccine# (1 of 2) 1998 Advance Care Plan 2013 Conversation Needed # Depression Screening 2013 PHQ-9 # COVID-19 Vaccine (3 - 01/29/2022 08/01/2021, Booster) 07/05/2021 Fall Risk Assessment # 09/29/2022 09/29/2021 Influenza Vaccine Completed 08/12/2021, 09/29/2006 Pneumococcal Vaccine: 65+ Completed 08/12/2021, Years 07/15/2018, 03/22/2017, Additional history exists Procedures The patient is currently admitted. The information in this section might not be complete until the patient is discharged. Comments Procedure Name Priority Date/Time Associated Diag nosis ARTERIAL BLOOD GAS STAT 09/29/2021 9:35 AM RIG BUILDER HELPER SODIUM Routine 09/29/2021 8:02 AM RIG BUILDER HELPER VANCOMYCIN TROUGH Timed 09/29/2021 8:02 AM RIG BUILDER HELPER GLUCOSE POC Timed 09/29/2021 5:30 AM RIG BUILDER HELPER GLUCOSE POC Timed 09/29/2021 12:22 AM RIG BUILDER HELPER ALBUMIN Add-On 09/29/2021 12:18 AM RIG BUILDER HELPER CBC AND DIFF (MANUAL DIFF Routine 09/29/2021 IF NECESSARY) 12:18 AM RIG BUILDER HELPER BASIC METABOLIC PANEL Routine 09/29/2021 12:18 AM RIG BUILDER HELPER GLUCOSE POC Timed 09/28/2021 5:46 PM RIG BUILDER HELPER SODIUM Routine 09/28/2021 3:11 PM RIG BUILDER HELPER GLUCOSE POC Timed 09/28/2021 11:35 AM RIG BUILDER HELPER THYROID PEROXIDASE Routine 09/28/2021 ANTIBODY 10:01 AM RIG BUILDER HELPER SODIUM Routine 09/28/2021 8:27 AM RIG BUILDER HELPER GLUCOSE POC Timed 09/28/2021 6:16 AM RIG BUILDER HELPER AMMONIA Routine 09/28/2021 12:14 AM RIG BUILDER HELPER GLUCOSE POC Timed 09/28/2021 12:05 AM RIG BUILDER HELPER COMPLETE BLOOD COUNT Routine 09/27/2021 11:50 PM RIG BUILDER HELPER MAGNESIUM Routine 09/27/2021 11:50 PM RIG BUILDER HELPER RENAL PANEL Routine 09/27/2021 11:50 PM RIG BUILDER HELPER SODIUM Routine 09/27/2021 7:45 PM RIG BUILDER HELPER GLUCOSE POC Timed 09/27/2021 5:20 PM RIG BUILDER HELPER GLUCOSE POC Timed 09/27/2021 3:52 PM RIG BUILDER HELPER XR SKULL < 4 VIEWS Routine 09/27/2021 3:00 PM RIG BUILDER HELPER VITAMIN D, 25-HYDROXY Routine 09/27/2021 12:38 PM RIG BUILDER HELPER THYROID STIMULATING Routine 09/27/2021 HORMONE 12:38 PM RIG BUILDER HELPER GLUCOSE POC Timed 09/27/2021 11:23 AM RIG BUILDER HELPER B12/FOLATE Add-On 09/27/2021 10:35 AM RIG BUILDER HELPER BILIRUBIN DIRECT Routine 09/27/2021 10:35 AM RIG BUILDER HELPER CREATINE KINASE Routine 09/27/2021 10:35 AM RIG BUILDER HELPER US VENOUS DUPLEX UPPER Routine 09/27/2021 EXTREMITY BILAT 9:37 AM RIG BUILDER HELPER RAPID PLASMA REAGIN Add-On 09/27/2021 8:03 AM RIG BUILDER HELPER VANCOMYCIN TROUGH Timed 09/27/2021 8:03 AM RIG BUILDER HELPER SODIUM Routine 09/27/2021 8:03 AM RIG BUILDER HELPER GLUCOSE POC Timed 09/27/2021 7:32 AM RIG BUILDER HELPER HEMOGLOBIN AND HEMATOCRIT Timed 09/27/2021 6:27 AM RIG BUILDER HELPER CROSSMATCH (PREPARE ONE Timed 09/27/2021 UNIT) RBC 6:10 AM RIG BUILDER HELPER GLUCOSE POC Timed 09/27/2021 4:14 AM RIG BUILDER HELPER COMPLETE BLOOD COUNT Routine 09/27/2021 12:29 AM RIG BUILDER HELPER MAGNESIUM Routine 09/27/2021 12:29 AM RIG BUILDER HELPER COMPREHENSIVE METABOLIC Routine 09/27/2021 PANEL 12:29 AM RIG BUILDER HELPER PROTHROMBIN TIME/INR Routine 09/27/2021 12:29 AM RIG BUILDER HELPER GLUCOSE POC Timed 09/27/2021 12:19 AM RIG BUILDER HELPER GLUCOSE POC Timed 09/26/2021 8:29 PM RIG BUILDER HELPER GLUCOSE POC Timed 09/26/2021 4:16 PM RIG BUILDER HELPER GLUCOSE POC Timed 09/26/2021 12:23 PM RIG BUILDER HELPER HEMOGLOBIN AND HEMATOCRIT Routine 09/26/2021 12:23 PM RIG BUILDER HELPER STREP PNEUMONIAE URINE Routine 09/26/2021 ANTIGEN 9:47 AM RIG BUILDER HELPER GLUCOSE POC Timed 09/26/2021 8:35 AM RIG BUILDER HELPER PROTHROMBIN TIME/INR STAT 09/26/2021 6:40 AM RIG BUILDER HELPER CROSSMATCH (PREPARE ONE Timed 09/26/2021 UNIT) RBC 6:10 AM RIG BUILDER HELPER PREPARE PLASMA Timed 09/26/2021 6:10 AM RIG BUILDER HELPER GLUCOSE POC Timed 09/26/2021 4:45 AM RIG BUILDER HELPER OXYGEN Routine 09/26/2021 1:57 AM RIG BUILDER HELPER CBC AND DIFF (MANUAL DIFF Routine 09/26/2021 IF NECESSARY) 12:28 AM RIG BUILDER HELPER GLUCOSE POC Timed 09/26/2021 12:12 AM RIG BUILDER HELPER LACTATE VENOUS WB STAT 09/25/2021 9:43 PM RIG BUILDER HELPER PHOSPHORUS Routine 09/25/2021 9:43 PM RIG BUILDER HELPER MAGNESIUM Routine 09/25/2021 9:43 PM RIG BUILDER HELPER BASIC METABOLIC PANEL Routine 09/25/2021 9:43 PM RIG BUILDER HELPER GLUCOSE POC Timed 09/25/2021 8:05 PM RIG BUILDER HELPER GLUCOSE POC Timed 09/25/2021 6:[address] LUMBAR SPINE VIDHYA 09/25/2021 RECONSTRUCTED 5:[address] ABDOMEN PELVIS WO VIDHYA 09/25/2021 CONTRAST 5:[address] CERVICAL SPINE WO VIDHYA 09/25/2021 CONTRAST 5:44 PM RIG BUILDER HELPER IR LUMBAR PUNCTURE W Routine 09/25/2021 FLUORO 5:09 PM RIG BUILDER HELPER GLUCOSE POC Timed 09/25/2021 4:08 PM RIG BUILDER HELPER EEG PROLONGED (> 60 MIN) Routine 09/25/2021 2:[address] THORACIC SPINE VIDHYA 09/25/2021 RECONSTRUCTED 1:06 PM RIG BUILDER HELPER HEMOGLOBIN AND HEMATOCRIT Routine 09/25/2021 12:26 PM RIG BUILDER HELPER AMMONIA STAT 09/25/2021 12:01 PM RIG BUILDER HELPER CLOTTING SCREEN Routine 09/25/2021 12:00 PM RIG BUILDER HELPER TROPONIN-I HS 0HR Routine 09/25/2021 11:38 AM RIG BUILDER HELPER GLUCOSE POC Timed 09/25/2021 11:33 AM RIG BUILDER HELPER ECHO COMPLETE W DOPPLER Routine 09/25/2021 AND COLOR FLOW 11:13 AM RIG BUILDER HELPER ARTERIAL BLOOD GAS STAT 09/25/2021 11:[address] CHEST WO CONTRAST STAT 09/25/2021 10:35 AM RIG BUILDER HELPER XR SKULL < 4 VIEWS Routine 09/25/2021 9:46 AM RIG BUILDER HELPER XR ABDOMEN SINGLE VIEW AP STAT 09/25/2021 9:37 AM RIG BUILDER HELPER GREEN TOP Timed 09/25/2021 9:29 AM RIG BUILDER HELPER EXTRA TUBES Routine 09/25/2021 9:29 AM RIG BUILDER HELPER XR CHEST SINGLE VIEW VIDHYA 09/25/2021 FRONTAL 8:56 AM RIG BUILDER HELPER LACTATE VENOUS WB STAT 09/25/2021 7:53 AM RIG BUILDER HELPER GLUCOSE POC Timed 09/25/2021 7:40 AM RIG BUILDER HELPER TRANSFUSE PLASMA Routine 09/25/2021 7:32 AM RIG BUILDER HELPER ECG Routine 09/25/2021 6:29 AM RIG BUILDER HELPER TRANSFUSE PLASMA Routine 09/25/2021 5:17 AM RIG BUILDER HELPER TROPONIN-I HS 6HR Timed 09/25/2021 5:14 AM RIG BUILDER HELPER HEPATIC FUNCTION PANEL STAT 09/25/2021 Add-On 5:[address] HEAD WO CONTRAST Timed 09/25/2021 4:59 AM RIG BUILDER HELPER GLUCOSE POC Timed 09/25/2021 4:16 AM RIG BUILDER HELPER TRANSFUSE RED BLOOD CELLS Routine 09/25/2021 ONE UNIT 3:23 AM RIG BUILDER HELPER ECG Routine 09/25/2021 2:43 AM RIG BUILDER HELPER LACTATE VENOUS WB Routine 09/25/2021 2:31 AM RIG BUILDER HELPER CREATINE KINASE Routine 09/25/2021 2:31 AM RIG BUILDER HELPER POWERSHARE OUTSIDE IMAGES Routine 09/25/2021 FOR PACS 1:27 AM RIG BUILDER HELPER POWERSHARE OUTSIDE IMAGES Routine 09/25/2021 FOR PACS 1:27 AM RIG BUILDER HELPER ANTIBODY SCREEN Timed 09/25/2021 1:04 AM RIG BUILDER HELPER ABORH TYPE Timed 09/25/2021 1:04 AM RIG BUILDER HELPER TYPE AND SCREEN Routine 09/25/2021 1:04 AM RIG BUILDER HELPER TROPONIN-I HS 2HR Timed 09/25/2021 1:02 AM RIG BUILDER HELPER RETYPE PATIENT ABORH Routine 09/25/2021 1:02 AM RIG BUILDER HELPER RETYPE PATIENT ABORH Routine 09/25/2021 1:02 AM RIG BUILDER HELPER PROCALCITONIN Routine 09/25/2021 1:02 AM RIG BUILDER HELPER COMPLETE BLOOD COUNT Routine 09/25/2021 1:02 AM RIG BUILDER HELPER GLUCOSE POC Timed 09/25/2021 12:[address] HEAD WO CONTRAST STAT 09/24/2021 11:59 PM RIG BUILDER HELPER CREATINE KINASE STAT 09/24/2021 11:25 PM RIG BUILDER HELPER COMPREHENSIVE METABOLIC Routine 09/24/2021 PANEL 11:25 PM RIG BUILDER HELPER ARTERIAL BLOOD GAS STAT 09/24/2021 11:25 PM RIG BUILDER HELPER EXTRA URINE SPECIMEN IN Routine 09/24/2021 PRICE TUBE 11:16 PM RIG BUILDER HELPER ECG STAT 09/24/2021 11:14 PM RIG BUILDER HELPER SARS-COV-2 (COVID-19) Routine 09/24/2021 11:10 PM RIG BUILDER HELPER URINALYSIS MICROSCOPIC VIDHYA 09/24/2021 ONLY 11:09 PM RIG BUILDER HELPER TOXICOLOGY SCREENING STAT 09/24/2021 PANEL 11:09 PM RIG BUILDER HELPER URINALYSIS (INCLUDES STAT 09/24/2021 MICROSCOPIC REVIEW, IF 11:09 PM RIG BUILDER HELPER INDICATED) XR PELVIS ONE OR TWO STAT 09/24/2021 VIEWS 11:08 PM RIG BUILDER HELPER XR CHEST SINGLE VIEW STAT 09/24/2021 FRONTAL 11:07 PM RIG BUILDER HELPER CLOTTING SCREEN STAT 09/24/2021 10:49 PM RIG BUILDER HELPER TROPONIN-I HS 0HR STAT 09/24/2021 10:49 PM RIG BUILDER HELPER COMPREHENSIVE METABOLIC STAT 09/24/2021 PANEL 10:49 PM RIG BUILDER HELPER CBC AND DIFF (MANUAL DIFF STAT 09/24/2021 IF NECESSARY) 10:49 PM RIG BUILDER HELPER ED PROCEDURE BASIC - Routine 09/24/2021 CRITICAL CARE 10:21 PM RIG BUILDER HELPER from Last 3 Months Results * Arterial Blood Gas (09/29/2021 9:35 AM RIG BUILDER HELPER) Only the most recent of 3 results [...] Specimen Blood - Arterial Performing Organization Address City/[facility] Code P barbara Number [id number] [place] [phone] * Vancomycin Trough (09/29/2021 8:02 AM RIG BUILDER HELPER) Only the most recent of 2 results within the time period is included. Vancomycin 22.0 (H) 10.0 - 20.0 ug/mL [facility] Trough Specimen Blood - Central Performing Organization Address City/[facility] P [facility] Number [facility] [id number] [place] [phone] 11 * Sodium (09/29/2021 8:02 AM RIG BUILDER HELPER) Only the most recent of 5 results within the time period is included. Sodium 154 (H) 136 - 145 mEq/L [facility]RL Specimen Blood - Central Performing Organization Address [facility] P [facility] Number [facility] [id number] [place] [phone] * GLUCOSE POC (09/29/2021 5:30 AM RIG BUILDER HELPER) Only the most recent of 25 results within the time period is included. Glucose POC 133 (H) 70 - 100 mg/dL [facility] Specimen Blood - Venous Performing Organization Address City/[facility] P [facility] Number [facility] [id number] [place] [phone] * CBC and Diff (manual diff if necessary) (09/29/2021 12:18 AM RIG BUILDER HELPER) Only the most recent of 3 results [...] City/State/ZIP Code P barbara Number [id number] [place], [place] [address] 11 * Basic Metabolic Panel (09/29/2021 12:18 AM RIG BUILDER HELPER) Only the most recent of 2 results [...] Specimen Blood - Venous Performing Organization Address [facility] Code P barbara Number [id number] [place] [phone] * Albumin (09/29/2021 12:18 AM RIG BUILDER HELPER) Albumin 3.3 (L) 3.5 - 5.0 g/dL SLRL Specimen Blood - Venous Performing Organization Address [facility] P barbara Number [facility] [id number] [place] [phone] * Thyroid Peroxidase Antibody (09/28/2021 10:01 AM RIG BUILDER HELPER) Thyroid <28.0 0.0 - 60.0 IU/mL SL[facility] Peroxidase Antibody Specimen Blood - Venous Narrative [facility] - 09/28/2021 11:11 AM RIG BUILDER HELPER Reference range updated 08/31/[address] [facility] conversion to [employer] instrumentation. Performing Organization Address [facility] P barbara Number [facility] [id number] [place] [phone] * Ammonia (09/28/2021 12:14 AM RIG BUILDER HELPER) Only the most recent of 2 results within the time period is included. Ammonia 12 11 - 32 umol/L [facility] Specimen Blood - Venous Performing Organization Address [facility] P barbara Number [facility] [id number] [place] [phone] 11 * Renal Panel (09/27/2021 11:50 PM RIG BUILDER HELPER) Sodium 153 (H) 136 - 145 mEq/L [...] City/State/ZIP Code P barbara Number RL [id number] [place] [phone] 11 * Magnesium (09/27/2021 11:50 PM RIG BUILDER HELPER) Only the most recent of 3 results within the time period is included. Magnesium 2.50 1.60 - 2.60 mg/dL [facility] Specimen Blood - Venous Performing Organization Address City/[facility] Number [facility] [id number] [place] [phone] * Complete Blood Count (09/27/2021 11:50 PM RIG BUILDER HELPER) Only the most recent of 3 results [...] City/State/ZIP Code P barbara Number [id number] [place], [place] [address] * XR Skull < 4 views (09/27/2021 3:00 PM RIG BUILDER HELPER) Only the most recent of 2 results within the time period is included. Modality Anatomical Region Laterality Computed Radiography Head Specimen Impressions [facility] - 09/27/2021 4:02 PM RIG BUILDER HELPER Findings/impression: Portable AP and lateral skull radiographs [...] and/or edited the final report. READING SITE: [address] - 09/27/2021 4:02 PM RIG BUILDER HELPER Patient: JAYRO CARY Sex#: M #: [id number] Luciano#: [id number] Location: [place] [id number] Ordering Provider: CAROLYN GILLIAM Procedure Requested: [id number] XR SKULL < 4 VIEWS Reason for Exam: Profile shunt. Call Radiology when images are taken. Exam Ordered: 09/27/2021 1414 Begin exam date/time: 09/27/2021 1455 Exam Date/Time: 09/27/2021 1500 XR SKULL < 4 VIEWS INDICATION: Profile shunt. COMPARISON: Skull radiographs 09/25/2021, CT head 09/25/2021. Procedure Note Quintin Orr DO - 09/27/2021 Patient: JAYRO CARY Sex#: M #: [id number] Luciano#: [id number] Location: [place] [id number]- Ordering Provider: CAROLYN GILLIAM Procedure Requested: [id number] XR SKULL < 4 VIEWS Reason for [...] and/or edited the final report. READING SITE: [facility] Performing Organization Address [facility] P barbara Number MCKESSON * Vitamin D, 25-Hydroxy (09/27/2021 12:38 PM RIG BUILDER HELPER) Vitamin D 50 30 - 100 ng/mL [facility]RL 25-Hydroxy Specimen Blood - Venous Narrative RL - 09/27/2021 1:08 PM RIG BUILDER HELPER Vitamin D Ref Range =>21 Years Deficiency: <20 ng/mL Insufficiency: 20 - <30 ng/mL Sufficiency: 30 - 100 ng/mL Toxicity Possible: >100 ng/mL Performing Organization Address [facility] P barbara Number [id number] [place] [phone] * Thyroid Stimulating Hormone (09/27/2021 12:38 PM RIG BUILDER HELPER) Thyroid 5.53 (H) 0.55 - 4.78 uIU/mL SLRL Stimulating Hormone Specimen Blood - Venous Narrative SL[facility] - 09/27/2021 1:08 PM RIG BUILDER HELPER Reference range updated 08/31/[address] [facility] conversion to [employer] instrumentation. Performing Organization Address [facility] P barbara Number [facility] [id number] [place] [phone] * Creatine Kinase (09/27/2021 10:35 AM RIG BUILDER HELPER) Only the most recent of 3 results within the time period is included. Creatine Kinase 151 46 - 171 U/L [facility] Specimen Blood - Venous Narrative [facility] - 09/27/2021 11:03 AM RIG BUILDER HELPER Reference range updated 08/31/[address] [facility] conversion to [employer] instrumentation. Performing Organization Address City/State/ZIP Code P barbara Number [facility] [id number] [place] [phone] * Bilirubin Direct (09/27/2021 10:35 AM RIG BUILDER HELPER) Bilirubin 0.20 0.00 - 0.30 mg/dL [facility] Direct Specimen Blood - Venous Performing Organization Address City/State/[facility] Code P barbara Number [facility] [id number] [place] [phone] * B12/Folate (09/27/2021 10:35 AM RIG BUILDER HELPER) Pathologist [facility] Vitamin B12 1,218 (H) 211 - 911 pg/mL [facility]RL Folate 18.46 5.38 - 24.00 ng/mL [facility] Specimen Blood - Venous Performing Organization Address City/[facility] Code P barbara Number [facility] [id number] [place] [phone] * US Venous Duplex Upper Extremity bilat (09/27/2021 9:37 AM RIG BUILDER HELPER) Modality Anatomical Region Laterality Ultrasound Arm Specimen Impressions [facility] - 09/27/2021 10:37 AM RIG BUILDER HELPER Right upper extremity superficial thrombus, involving the cephalic vein in the mid and distal upper arm and antecubital fossa, and extending into the antecubital vein. No evidence of DVT in the upper extremities. The right ulnar vein could not be visualized or assessed on this exam. Findings were discussed with SANKET Sterling for this patient, by the warehousing technician at the completion of this exam. READING SITE: [facility] Narrative [facility] - 09/27/2021 10:37 AM RIG BUILDER HELPER Patient: JAYRO CARY Sex#: M #: [id number] Luciano#: [id number] Location: [address]01 Ordering Provider: FLORIAN VIRGEN Procedure Requested: [id number] US VENOUS DUPLEX UPPER EXTREMITY BILAT Reason for Exam: BUE edema, immobility Exam Ordered: 09/27/2021 0825 Begin exam date/time: 09/27/2021 0936 Exam Date/Time: 09/27/2021 0937 US VENOUS DUPLEX UPPER EXTREMITY BILAT INDICATION: [...] Note Erika Smith MD - 09/27/2021 Patient: JAYRO CARY Sex#: M #: [id number] Luciano#: [id number] Location: [id number] Ordering Provider: FLORIAN VIRGEN Procedure Requested: [id number] US VENOUS DUPLEX UPPER EXTREMITY BILAT Reason for Exam: BUE edema, immobility Exam Ordered: 09/27/2021 0825 Begin exam date/time: 09/27/2021 0936 Exam Date/Time: 09/27/2021 0937 US VENOUS DUPLEX UPPER EXTREMITY BILAT INDICATION: [...] SANKET Sterling for this patient, by the warehousing technician at the completion of this exam. READING SITE: [facility] Performing Organization Address [facility] P barbara Number MCKESSON * Rapid Plasma Reagin (09/27/2021 8:03 AM RIG BUILDER HELPER) Pathologist [facility] RPR Nonreactive Nonreactive [facility]RL Specimen Blood - Venous Performing Organization Address City/[facility] P barbara Number [id number] [place] [phone] * Hemoglobin and Hematocrit (09/27/2021 6:27 AM RIG BUILDER HELPER) Only the most recent of 3 results within the time period is included. [facility] Hemoglobin 8.0 (L) 13.0 - 17.0 g/dL [facility]RL Hematocrit 28 (L) 40 - 50 % [facility]RL Specimen Blood - Central Performing Organization Address [facility] P [facility] Number [facility] [id number] [place] [phone] * 1 Units (09/27/2021 6:10 AM RIG BUILDER HELPER) Only the most recent of 2 results within the time period is included. [facility] 01 - CROSS Compatible [facility] BLOOD BANK - BLOOD TYPE A Pos [facility] BLOOD BANK - UNIT [id number] [facility] BLOOD BANK - STATUS Transfused [facility] BLOOD BANK - PRODUCT ID Red Blood Cells [facility] BLOOD BANK - PRODUCT [id number] [facility] BLOOD BANK Specimen Other - Blood Performing Organization Address City/State/ZIP Code P barbara Number [facility] [address] [place] [address] BLOOD BANK * Transfuse RBC (09/27/2021 5:25 AM RIG BUILDER HELPER) * Prothrombin Time/INR (09/27/2021 12:29 AM RIG BUILDER HELPER) Only the most recent of 2 results within the time period is included. Protime 16.0 (H) 11.4 - 15.0 Sec [facility]RL INR 1.3 (H) 0.8 - 1.2 [facility] Specimen Blood - Central Performing Organization Address City/State/ZIP Code P barbara Number [id number] [place], [place] [address] * Comprehensive Metabolic Panel (09/27/2021 12:29 AM RIG BUILDER HELPER) Only the most recent of 3 results [...] U/L SLR L Phosphatase updated 08/31/[address] [facility] conversion to [employer] instrumentation. Alanine 114 (H) 0 - 49 U/L [facility]RL Aminotransferas e Aspartate 98 (H)Comment: Reference range 0 - 34 U/L [facility]RL Aminotransferas updated 08/31/[address] [facility] e conversion to [employer] [...] Specimen Blood - Central Performing Organization Address City/[facility]/ZIP Code P barbara Number [facility]RL [id number] [place], [place] [address] * Strep Pneumoniae Urine Antigen (09/26/2021 9:47 AM RIG BUILDER HELPER) Streptococcus Negative Negative [facility] pneumoniae Urine Antigen Specimen Urine - Urine Performing Organization Address [facility] P barbara Number [facility] [id number] [place], [place] [address] * 2 Units (09/26/2021 6:10 AM RIG BUILDER HELPER) 01 - BLOOD TYPE A Pos [facility] BLOOD BANK 01 - UNIT [id number] [facility] BLOOD BANK 01 - STATUS Transfused [facility] BLOOD BANK 01 - PRODUCT ID FFP [facility] BLOOD BANK 01 - PRODUCT [id number] [facility] BLOOD BANK 01 - BLOOD TYPE A Neg [facility] BLOOD BANK 01 - UNIT [id number] [facility] BLOOD BANK 01 - STATUS Transfused [facility] BLOOD BANK 01 - PRODUCT ID FFP [facility] BLOOD BANK 01 - PRODUCT [id number] [facility] BLOOD BANK Specimen Blood - Blood Performing Organization Address City/[facility]/ZIP Code P barbara Number [facility] [address] [place] [address] BLOOD BANK * Phosphorus (09/25/2021 9:43 PM RIG BUILDER HELPER) Phosphorus 4.1 2.4 - 5.1 mg/dL [facility] Specimen Blood - Venous Performing Organization Address City/[facility]/ZIP Code P barbara Number [facility] [id number] [place], [place] [address] * Lactate Venous WB (09/25/2021 9:43 PM RIG BUILDER HELPER) Only the most recent of 3 results within the time period is included. Lactate Venous 1.5 0.0 - 2.0 mmol/L [facility]RL Specimen Blood - Venous Performing Organization Address City/State/ZIP Code P barbara Number RL [id number] [place], [place] [address] * CT Lumbar Spine reconstructed (09/25/2021 5:46 PM RIG BUILDER HELPER) Modality Anatomical Region Laterality Computed Tomography L-spine Specimen Impressions [facility] - 09/25/2021 6:24 PM RIG BUILDER HELPER 1. No acute osseous abnormality of the lumbar spine. 2. Mild to moderate multilevel lumbar spondylosis. READING SITE: [facility]. ATTESTATION STATEMENT: The Staff Radiologist has personally reviewed the images and dictated, reviewed, or edited the final report. Narrative SISI - 09/25/2021 6:24 PM RIG BUILDER HELPER Patient: JAYRO CARY Sex#: M #: 1950 Luciano#: [id number] Location: [address] ICU N306-01 Ordering Provider: ADEN WITT Procedure Requested: [id number] CT LUMBAR SPINE RECONSTRUCTED Reason for Exam: [...] Note Sher Leal MD - 09/25/2021 Patient: JAYRO CARY Sex#: M #: 1950 Luciano#: [id number] Location: [address] ICU N306-01 Ordering Provider: ADEN WITT Procedure Requested: [id number] CT LUMBAR SPINE RECONSTRUCTED Reason for Exam: [...] moderate multilevel lumbar s pondylosis. READING SITE: [facility]. ATTESTATION STATEMENT: The Staff Radiologist has personally reviewed the images and dictated, reviewed, or edited the final report. Performing Organization Address City/State/ZIP Code P barbara Number AUGUST * CT Abdomen Pelvis wo contrast (09/25/2021 5:46 PM RIG BUILDER HELPER) Modality Anatomical Region Laterality Computed Tomography Abdomen, Pelvis Specimen Impressions AUGUST - 09/26/2021 7:35 AM RIG BUILDER HELPER 1. No evidence of acute traumatic or [...] or edited the final report. READING SITE: [facility] - 09/26/2021 7:35 AM RIG BUILDER HELPER Patient: JAYRO CARY Sex#: M #: 1950 Luciano#: [id number] Location: [address] ICU N306-01 Ordering Provider: ADEN WITT Procedure Requested: [id number] CT ABDOMEN PELVIS WO CONTRAST Reason for [...] Note Alonso Rushing MD - 09/26/2021 Patient: JAYRO CARY Sex#: M #: 1950 Luciano#: [id number] Location: [address] ICU N306- Ordering Provider: ADEN WITT Procedure Requested: [id number] CT ABDOMEN PELVIS WO CONTRAST Reason for [...] or edited the final report. READING SITE: [facility] Performing Organization Address City/State/ZIP Code P barbara Number AUGUST * CT Cervical Spine wo contrast (09/25/2021 5:44 PM RIG BUILDER HELPER) Modality Anatomical Region Laterality Computed Tomography C-spine Specimen Impressions AUGUST - 09/25/2021 6:24 PM RIG BUILDER HELPER 1. No acute fracture. Slight anterolisthesis of [...] or edited the final report. READING SITE: [facility] Narrative AUGUST - 09/25/2021 6:24 PM RIG BUILDER HELPER Patient: JAYRO CARY Sex#: M #: 1950 Luciano#: [id number] Location: [place] [address]-01 Ordering Provider: ADEN WITT Procedure Requested: [id number] CT CERVICAL SPINE WO CONTRAST Reason for [...] Note Sher Leal MD - 09/25/2021 Patient: JAYRO CARY Sex#: M #: 1950 Luciano#: [id number] Location: [place] [address] Ordering Provider: ADEN WITT Procedure Requested: [id number] CT CERVICAL SPINE WO CONTRAST Reason for [...] or edited the final report. READING SITE: [facility] Organization Address City/State/ZIP Code P barbara Number AUGUST * IR Lumbar puncture w fluoro (09/25/2021 5:09 PM RIG BUILDER HELPER) Modality Anatomical Region Laterality X-Ray Angiography L-spine Specimen Impressions AUGUST - 09/26/2021 2:11 PM RIG BUILDER HELPER Unable to collect spinal fluid at multiple levels. The spinal needle tip was confirmed within the thecal sac on AP and lateral on multiple levels. ATTESTATION STATEMENT: The Staff Physician has personally reviewed the images and dictated, reviewed, or edited the final report. READING SITE: [facility] Narrative AUGUST - 09/26/2021 2:11 PM RIG BUILDER HELPER Patient: JAYRO CARY Sex#: M #: 1950 Luciano#: [id number] Location: [address] N306-01 Ordering Provider: CHRISTINA CAO Procedure Requested: [id number] IR LUMBAR PUNCTURE W FLUORO Reason for [...] physician, was present for the entire procedure. SALES SUPERVISOR: Sommer TECHNIQUE: A "time out" procedure was [...] Note Sher Leal MD - 09/26/2021 Patient: JAYRO CARY Sex#: M #: 1950 Luciano#: [id number] Location: [address] N306-01 Ordering Provider: CHRISTINA CAO Procedure Requested: [id number] IR LUMBAR PUNCTURE W FLUORO Reason for [...] physician, was present for the entire procedure. SALES SUPERVISOR: Sommer TECHNIQUE: A "time out" procedure was [...] or edited the final report. READING SITE: [facility] Performing Organization Address City/State/ZIP Code P barbara Number [place] * EEG Prolonged (> 60 Min) (09/25/2021 2:52 PM RIG BUILDER HELPER) Modality Anatomical Region Laterality Other Specimen Narrative [facility] - 09/25/2021 4:06 PM RIG BUILDER HELPER Ezio Fortune MD 09/25/2021 4:15 PM NEURODIAGNOSTICS [...] of wakefulness and sleep are not identified. AUTO PAINTER HELPER: Shows a normal sinus rhythm. IMPRESSION: This is an abnormal prolonged EEG due to the presence of generalized slowing throughout the recording. This finding suggest midline subcortical dysfunction likely corresponding to encephalopathy. No clear epileptiform activity is identified. Performing Organization Address City/State/ZIP Code P barbara Number 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 READING SITE: [facility]. ATTESTATION STATEMENT: The Staff Radiologist has personally reviewed the images and dictated, reviewed, or edited the final report. Narrative AUGUST - 09/25/2021 5:44 PM RIG BUILDER HELPER Patient: JAYRO CARY Sex#: M #: 1950 Luciano#: [id number] Location: [address] ICU N306- Ordering Provider: ADEN WITT Procedure Requested: [id number] CT THORACIC SPINE RECONSTRUCTED Reason for Exam: trauma Exam Ordered: 09/25/2021 1256 Begin exam date/time: 09/25/2021 1305 Exam Date/Time: 09/25/[address] THORACIC SPINE RECONSTRUCTED 09/25/2021 1:07 PM Indication: Trauma, pt transfer from [facility]. Found on floor today by neighbor. Dx [...] Note Sher Leal MD - 09/25/2021 Patient: JAYRO CARY Sex#: M #: 1950 Luciano#: [id number] Location: [address] Ordering Provider: ADEN WITT Procedure Requested: [id number] CT THORACIC SPINE RECONSTRUCTED Reason for Exam: trauma Exam Ordered: 09/25/2021 1256 Begin exam date/time: 09/25/2021 1305 Exam Date/Time: 09/25/[address] THORACIC SPINE RECONSTRUCTED 09/25/2021 1:07 PM Indication: Trauma, pt transfer from [facility]. Found on floor today by neighbor. Dx [...] moderate multilevel degenerative thoracic spondylosis. READING SITE: [facility]. ATTESTATION STATEMENT: The Staff Radiologist has personally reviewed the images and dictated, reviewed, or edited the final report. Performing Organization Address City/State/ZIP Code P barbara Number [place] * Clotting Screen (09/25/2021 12:00 PM RIG BUILDER HELPER) Only the most recent of 2 results within the time period is included. Protime 14.3 11.4 - 15.0 Sec SLRL INR 1.1 0.8 - 1.2 SLRL APTT 30 22 - 34 Sec SLRL Specimen Blood - Venous Performing Organization Address City/[facility] P barbara Number SLRL [address] [place] [address] 11 * Troponin-I HS Single (09/25/2021 11:38 AM RIG BUILDER HELPER) Only the most recent of 2 results within the time period is included. Troponin I, 0HR 302 (HH) <3-53 pg/mL pg/mL SLRL HS Specimen Blood - Venous Narrative SLRL - 09/25/2021 12:47 PM RIG BUILDER HELPER [facility] converted from Troponin I (Ortho - Vitros 5600) to High-Sensitivity Troponin I (Siemens - Atellica) on August 31, 2021. Performing Organization Address [facility] P barbara Number SLRL [address] [place] [address] 11 * ECHO COMPLETE W DOPPLER AND COLOR FLOW (09/25/2021 11:13 AM RIG BUILDER HELPER) Ejection 60 % PROSOLV Fraction Modality Anatomical Region Laterality Ultrasound Chest Specimen Impressions PROSOLV - 09/25/2021 12:39 PM RIG BUILDER HELPER 1. Normal left ventricular systolic function, with an estimated ejection fraction of 60%. 2. Normal right ventricular size and systolic function. 3. No significant valvular abnormalities. No previous study available for comparison. Dr Hans Sanchez (Electronically Signed) Final Date: 25 September 2021 12:38 Narrative PROSOLV - 09/25/2021 12:39 PM RIG BUILDER HELPER ECHOCARDIOGRAM REPORT [facility] Name: JAYRO CARY Date: 09/25/2021 10:50 Chart #: [id number] : 1950 Location: [employer] Sono: npfeffer Age: 71 Gender: M Referring: SAMUEL MUNOZ Room #: N306 Fellow: Indication:elevated Procedure: ECHO [...] 09/25/2021 ECHOCARDIOGRAM REPORT [facility] Name: JAYRO CARY Date: 09/25/2021 10:50 Chart #: [id number] : 1950 Location: [facility] [place] Sono: npfeffer Age: 71 Gender: M Referring: SAMUEL MUNOZ Room #: N306 Fellow: Indication:elevated Procedure: ECHO [...] CT Chest wo contrast (09/25/2021 10:35 AM RIG BUILDER HELPER) Modality Anatomical Region Laterality Computed Tomography Lung, Chest Specimen Impressions AUGUST - 09/25/2021 11:18 AM RIG BUILDER HELPER 1. Diffuse interstitial edema. 2. Posterior relaxation and scattered subsegmental atelectasis. No pulmonary mass or confluent consolidation. 3. Cardiomegaly. Heavy coronary artery calcifications. Aortic valve leaflet calcifications could represent calcific aortic stenosis. 4. Small bilateral pleural effusions w ith features of partial loculation on the right. No pneumothorax. 5. Small upper abdominal ascites. READING SITE: [facility] Summer [facility] - 09/25/2021 11:18 AM RIG BUILDER HELPER Patient: JAYRO CARY Sex#: M #: 1950 Luciano#: [id number] Location: [address] ICU N306-01 Ordering Provider: SAMUEL MUNOZ Procedure Requested: [id number] CT CHEST WO CONTRAST Reason for Exam: [...] Note Princess Chavez MD - 09/25/2021 Patient: JAYRO CARY Sex#: M #: 1950 Luciano#: [id number] Location: [address] ICU N306-01 Ordering Provider: SAMUEL MUNOZ Procedure Requested: [id number] CT CHEST WO CONTRAST Reason for Exam: [...] 5. Small upper abdominal ascites. READING SITE: [facility] Address City/State/ZIP Code P barbara Number [place] * XR Abdomen single view AP (09/25/2021 9:37 AM RIG BUILDER HELPER) Modality Anatomical Region Laterality Computed Radiography Abdomen Specimen Impressions AUGUST - 09/25/2021 11:01 AM RIG BUILDER HELPER 1. Enteric tube coiled in the proximal [...] and/or edited the final report. READING SITE: [facility] - 09/25/2021 11:01 AM RIG BUILDER HELPER Patient: JAYRO CARY Sex#: M #: 1950 Luciano#: [id number] Location: [place] [address] Ordering Provider: SAMUEL MUNOZ Procedure Requested: [id number] XR ABDOMEN SINGLE VIEW AP Reason for [...] Note Bebeto Murillo DO - 09/25/2021 Patient: JAYRO CARY Sex#: M #: 1950 Luciano#: [id number] Location: [place] [address] Ordering Provider: SAMUEL MUNOZ Procedure Requested: [id number] XR ABDOMEN SINGLE VIEW AP Reason for [...] and/or edited the final report. READING SITE: [facility] Performing Organization Address City/State/ZIP Code P barbara Number [place] * Green Top (09/25/2021 9:29 AM RIG BUILDER HELPER) Specimen Blood - Venous Performing Organization Address City/[facility]/ZIP Code P barbara Number SLRL [address] [place], [place] [address] * XR Chest single view frontal (09/25/2021 8:56 AM RIG BUILDER HELPER) Only the most recent of 2 results within the time period is included. Modality Anatomical Region Laterality Computed Radiography Chest Specimen Impressions AUGUST - 09/25/2021 10:01 AM RIG BUILDER HELPER 1. Abnormal curvilinear lucency at the l [...] on 09/25/2021 at 9:56 AM. READING SITE: [facility] ATTESTATION STATEMENT: The Staff Radiologist has personally reviewed this study and agrees with the findings in this report. Narrative AUGUST - 09/25/2021 10:01 AM RIG BUILDER HELPER Patient: JAYRO CARY Sex#: M #: 1950 Luciano#: [id number] Location: [place] [address] Ordering Provider: CHRISTINA CAO Procedure Requested: [id number] XR CHEST SINGLE VIEW FRONTAL Reason for [...] Note Ronald Sanchez MD - 09/25/2021 Patient: JAYRO CARY Sex#: M #: 1950 Luciano#: [id number] Location: [place] [address] Ordering Provider: CHRISTINA CAO Procedure Requested: [id number] XR CHEST SINGLE VIEW FRONTAL Reason for [...] on 09/25/2021 at 9:56 AM. READING SITE: [facility] ATTESTATION STATEMENT: The Staff Radiologist has personally reviewed this study and agrees with the findings in this report. Performing Organization Address City/State/ZIP Code P barbara Number [place] * Electrocardiogram (ECG) (09/25/2021 6:29 AM RIG BUILDER HELPER) Only the most recent of 3 results within the time period is included. QRSd 80 TRACEMASTER QT 332 TRACEMASTER QTC 443 TRACEMASTER ECGHR 107 TRACEMASTER ECGPR 131 TRACEMASTER Specimen Narrative TRACEMASTER - 09/28/2021 9:09 AM RIG BUILDER HELPER [facility] Test Date: 2021-09-25 [facility] Department: [facility] Room: [facility] Gender: Male Channel Rougher: [id number] : 1950 Requested By: SAMUEL James Order Number: [id number] Reading MD: Deep Simmons Measurements Intervals [place] Rate: 107 P: 61 LA: 131 QRS: 20 QRSD: 80 T: 93 QT: 332 QTc: 443 Interpretive Statements SINUS TACHYCARDIA BASELINE ARTIFACT Electronically Signed On 09-28-2021 9:09:52 RIG BUILDER HELPER by Deep Simmons Procedure Note Deep Simmons MD - 09/28/2021 [facility] Test Date: 2021-09-25 Pat Name: [facility] Department: [facility] Room: 06 Gender: Male Channel Rougher: [id number] : 1950 Requested By: SAMUEL James Order Number: [id number] Reading MD: Deep Simmons Measurements Intervals [place] Rate: 107 P: 61 LA: 131 QRS: 20 QRSD: 80 T: 93 QT: 332 QTc: 443 Interpretive Statements SINUS TACHYCARDIA BASELINE ARTIFACT Electronically Signed On 09-28-2021 9:09:52 RIG BUILDER HELPER by Deep Simmons Performing Organization Address City/[facility]/ZIP Code P barbara Number TRACEMASTER * Troponin-I HS 6HR (09/25/2021 5:14 AM RIG BUILDER HELPER) Troponin I, 6HR 316 (HH) <3-53 pg/mL pg/mL SLRL HS Delta 6HR Trop 145 (HH) -8-<8 SLRL Specimen Blood - Venous Narrative SLRL - 09/25/2021 6:17 AM RIG BUILDER HELPER [facility] converted from Troponin I (Ortho An[employer]na Software 5600) to High-Sensitivity Troponin I (Siemens W[employer]gle Atellica) on August 31, 2021. Performing Organization Address [facility] Code P barbara Number SLRL [address] [place] [phone] 11 * Hepatic Function Panel (09/25/2021 5:14 AM RIG BUILDER HELPER) Protein Total 6.0 5.7 - 8.2 g/dL [...] Specimen Blood - Venous Performing Organization Address [facility] Code P barbara Number SLRL [address] [place] [phone] 11 * CT Head wo contrast (09/25/2021 4:59 AM RIG BUILDER HELPER) Only the most recent of 2 results within the time period is included. Modality Anatomical Region Laterality Computed Tomography Head Specimen Impressions AUGUST - 09/25/2021 3:48 PM RIG BUILDER HELPER Impression: 1. 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 No new or enl arging intracranial hemorrhage. No significant mass effect or discrete midline shift. Similar ventriculomegaly. 2. Stable pendleton-white loss involving the right frontotemporal lobes and [...] reviewed, or edited the final report. Narrative [facility] - 09/25/2021 3:48 PM RIG BUILDER HELPER Patient: JAYRO CARY Sex#: M #: 1950 Luciano#: [id number] Location: [address] N306-01 Ordering Provider: MARIANELA GAONA Procedure Requested: [id number] CT HEAD WO CONTRAST Reason for Exam: [...] aneurysm or PCOM aneurysm given location. Stable pendleton-white loss involving the right frontotemporal lobes and [...] The mastoid air cells are clear. The promotions manager topogram shows no lytic lesion or fracture. Procedure Note Hussani Camilo MD - 09/25/2021 Patient: JAYRO CARY Sex#: M #: 1950 Luciano#: [id number] Location: [address] ICU N306- Ordering Provider: MARIANELA GAONA Procedure Requested: [id number] CT HEAD WO CONTRAST Reason for Exam: [...] aneurysm or PCOM aneurysm given location. Stable pendleton-white loss involving the right frontotemporal lobes and [...] The mastoid air cells are clear. The promotions manager topogram shows no lytic lesion or fracture. IMPRESSION Impression: 1. 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 No new or enl arging intracranial hemorrhage. No significant mass effect or discrete midline shift. Similar ventriculomegaly. 2. Stable pendleton-white loss involving the right frontotemporal lobes and [...] AUGUST * Antibody Screen (09/25/2021 1:04 AM RIG BUILDER HELPER) Antibody Screen Negative [facility] BLOOD BANK Specimen Blood - Venous Performing Organization Address City/State/ZIP Code P barbara Number [address] [address] BLOOD BANK * ABORH Type (09/25/2021 1:04 AM RIG BUILDER HELPER) ABORH Type A Positive [facility] BLOOD BANK Specimen Blood - Venous Performing Organization Address City/[facility]/ZIP Code P barbara Number [facility] [address] [place] [address] BLOOD BANK * Troponin-I HS 2HR (09/25/2021 1:02 AM RIG BUILDER HELPER) Troponin I, 2HR 250 (HH) <3-53 pg/mL pg/mL SLRL HS Delta 2HR Trop 79 (HH) -8-<8 SLRL Specimen Blood - Venous Narrative SLRL - 09/25/2021 2:23 AM RIG BUILDER HELPER [facility] converted from Troponin I (Ortho - [employer] 5600) to High-Sensitivity Troponin I (Siemens [employer]) on August 31, 2021. Performing Organization Address City/[facility] Code P barbara Number SLRL [address] [place] [phone] * Retype Patient ABORH (09/25/2021 1:02 AM RIG BUILDER HELPER) Only the most recent of 2 results within the time period is included. ABORH Type A Positive [facility] BLOOD BANK Confirm Blood Yes [facility] BLOOD BANK Specimen Blood - Venous Performing Organization Address City/[facility]/ZIP Code P barbara Number [facility] [address] [place] [address] BLOOD BANK * Procalcitonin (09/25/2021 1:02 AM RIG BUILDER HELPER) Procalcitonin 0.09 (H) <0.05 ng/mL SLRL Specimen Blood - Venous Performing Organization Address City/[facility]/ZIP Code P barbara Number SLRL [address] [place] [phone] * Extra Urine Specimen in Price Tube (09/24/2021 11:16 PM RIG BUILDER HELPER) RAINBOW DRAW [place] Draw/Extra Tube Hold SLRL HOLD SPECIMENS Specimen Specimen Urine - Urine Clean Catch Performing Organization Address City/[facility] Code P barbara Number SLRL [address] [place] [phone] * COVID-19 Paige Admission PCR (Non-PUI) (09/24/2021 11:10 PM RIG BUILDER HELPER) SARS-COV-2 PCR Negative Negative SLRL Specimen Swab - NASOPHARYNGEAL SWAB Narrative SLRL - 09/25/2021 11:27 AM RIG BUILDER HELPER This RT-PCR test has been authorized by the FDA under an Emergency Use Authorization (EUA) for use by authorized laboratories. Performing Organization Address [facility] Code P barbara Number SLRL [address] [place] [phone] * Urinalysis Microscopic Only (09/24/2021 11:09 PM RIG BUILDER HELPER) [facility] Microscopic RBC 6-10 (A) 0 - 5 /hpf SLRL Urine Microscopic WBC >40 (A) 0 - 5 /hpf SLRL Urine Epithelial Absent Absent SLRL Cells Hyaline Cast Small (A) Absent SLRL Bacteria Absent Absent SLRL Specimen Urine - Urine Performing Organization Address [facility] P barbara Number RL [address] [place] [phone] * Urinalysis (includes microscopic review, if indicated) (09/24/2021 11:09 PM RIG BUILDER HELPER) [facility] Appearance, Yellow Colorless, Yellow, SLRL Urine Dark Yellow Glucose Urine Negative Negative mg/dL SLRL Bilirubin Urine Negative Negative SLRL Ketones Urine Small (A) Negative SLRL Specific 1.019 >1.005-<1.030 [facility]RL [place] Urine Hemoglobin Moderate (A) Negative SLRL Urine PH Urine 5.5 5.0 - 8.0 SLRL Protein Urine 100 (A) Negative, Trace SLRL Qual mg/dL Urobilinogen Normal Normal, Negative, SLRL Urine 1.0 EU/dL Nitrite Urine Negative Negative SLRL Leukocyte Positive (A) Negative SLRL Esterase Specimen Urine - Urine Performing Organization Address [facility] P barbara Number RL [address] [place] [phone] * Toxicology Screening Panel (09/24/2021 11:09 PM RIG BUILDER HELPER) [facility] Tetrahydrocanna Not Detected Not Detected SLRL [...] Detected SLRL Specimen Urine - Urine Narrative [facility] - 09/25/2021 12:15 AM RIG BUILDER HELPER Toxicology cutoff values: Assay Cutoff value Assay [...] City/State/ZIP Code P barbara Number SLRL [address] [place] [phone] * XR Pelvis one or two views (09/24/2021 11:08 PM RIG BUILDER HELPER) Modality Anatomical Region Laterality Computed Radiography Pelvis Specimen Impressions AUGUST - 09/24/2021 11:25 PM RIG BUILDER HELPER Negative for acute pelvic fracture. READING SITE: [facility] THIS DOCUMENT HAS BEEN ELECTRONICALLY SIGNED BY SANTANA OLSON MD Narrative AUGUST - 09/24/2021 11:25 PM RIG BUILDER HELPER Patient: Jayro Cary Sex#: M #: 1950 Luciano#: [id number] Location: [facility] ED Ordering Provider: NATASHA PINEDA Procedure Requested: [id number] XR PELVIS ONE OR TWO VIEWS Reason [...] degree of scattered atherosclerosis. Procedure Note Santana Olson MD - 09/24/2021 Patient: Jayro Cary Sex#: M #: 1950 Luciano#: [id number] Location: [facility] ED Ordering Provider: NATASHA PINEDA Procedure Requested: [id number] XR PELVIS ONE OR TWO VIEWS Reason [...] DOCUMENT HAS BEEN ELECTRONICALLY SIGNED BY SANTANA OLSON MD Performing Organization Address City/State/ZIP Code P barbara Number [place] * Critical Care (09/24/2021 10:21 PM RIG BUILDER HELPER) Modality Anatomical Region Laterality Other Narrative Natasha Pineda MD - 09/24/2021 10:21 PM RIG BUILDER HELPER Natasha Pineda MD 09/25/2021 12:45 AM Critical Care Performed by: Natasha Pineda MD Authorized by: Natasha Pineda MD Critical care provider statement: Critical care time (minutes): 32 Critical care time was exclusive of: Separately billable procedures and treating other patients Critical care was necessary to treat or prevent imminent or life-threatening deterioration of the following conditions: CURATOR ZOOLOGICAL MUSEUM failure or compromise, dehydration, circulatory failure, cardiac [...] and ordering and performing treatments and interventions from Last 3 Months Insurance Type Payer Benefit Subscriber ID Effective Phone Address Plan / Dates Group Medicare MEDICARE MEDICARE [id number] 2013-P [phone] WPS GHA PART A B resent ATTN CLAIMS DEPT [address] [place] [address] OTHER GOVERNMENT [id number] 2021 [address] [employer] -Present [address] [place] [address] 3770 1 Jayro Cary Personal/F Self [address] amily (Home) [place], [place] [address] Advance Directives For more information, please contact: [phone] Patient Elastic Tape Inserter Explanation Type Date Recorded Health Care Directive Date Inactivated Comments Code Status Date Activated DNR 09/25/2021 12:16 PM 09/25/2021 12:15 PM Full Code 09/24/2021 11:13 PM Care Teams Start Date End Date Thread Roller Relationship Specialty 09/24/21 Walker Cruz MD PCP - General Pediatrics [address] [place] [id number]
== END 2021-09-24 20:48 | disposition short-term general hospital (02) ==
LOC: EDUNIT# 15:10 → ER FS 15:11
DX: I62.02 Nontraumatic subacute subdural hemorrhage (principal); D64.9 Anemia, unspecified; N17.9 Acute kidney failure, unspecified; J44.9 Chronic obstructive pulmonary disease, unspecified; E86.0 Dehydration; R41.0 Disorientation, unspecified; E87.2 Acidosis; R00.0 Tachycardia, unspecified
CPT/HCPCS: 36415; 70450; 71045; 80053; 80306; 81000; 82274; 82805; 83605; 83880; 84484; 85007; 85027; 85610; 85730; 86141; 87040; 93005; 93041; 99291; G0480; 80320

== ENCOUNTER 2022-10-03 16:12 | Inpatient (IN) | payer MEDICARE, OTHER ==
[~2022-10-03] VITALS: Ht 177.8 cm; Wt 60.9 kg
[2022-10-03 16:47] LABS: BASOPHILS % (AUTO) 0 % (0-10); EOSINOPHILS % (AUTO) 0 % (0-10); HEMATOCRIT 34 % (40-54); HEMOGLOBIN 11.3 g/dL (13.3-17.7); LYMPHOCYTES # (AUTO) 0.5 10^3/uL (1.0-4.0); LYMPHOCYTES % (AUTO) 4 % (12-44); MEAN CORPUSCULAR HEMOGLOBIN 35 pg (25-34); MEAN CORPUSCULAR HGB CONC 33 g/dL (32-36); MEAN CORPUSCULAR VOLUME 106 fL (80-99); MEAN PLATELET VOLUME 11.1 fL (9.0-12.2); MONOCYTES # (AUTO) 0.6 10^3/uL (0.0-1.0); MONOCYTES % (AUTO) 5 % (0-12); NEUTROPHILS # (AUTO) 11.2 10^3/uL (1.8-7.8); NEUTROPHILS % (AUTO) 90 % (42-75); PLATELET COUNT 324 10^3/uL (130-400); WHITE BLOOD COUNT 12.4 10^3/uL (4.3-11.0)
[2022-10-03 16:48] LABS: CLARITY,URINE CLEAR; COLOR,URINE YELLOW; GLUCOSE, URINE (UA) NEGATIVE (NEGATIVE); KETONES,URINE 1+ (NEGATIVE); LEUKOCYTE ESTERASE ,URINE NEGATIVE (NEGATIVE); NITRITE,URINE NEGATIVE (NEGATIVE); PROTEIN,URINE NEGATIVE (NEGATIVE)
--- NOTE | 2022-10-03 16:48 | ED General ---
General Stated Complaint: FALL Source of Information: Patient Exam Limitations: No Limitations History of Present Illness Date Seen by Provider: Oct 03, 2022 Time Seen by Provider: 16:30 Allergies and Home Medications Allergies Coded Allergies: No Known Drug Allergies (Unverified , 09/24/21) Patient Home Medication List Home Medication List Reviewed: Yes Multivitamin/Iron/Folic Acid (Tab-A-Danish Multivit with Iron) 18 Mg Iron-400 Mcg Tablet, 1 EA PO DAILY@0700 Prescribed by: BARON MARIEE on 10/09/22 0703 Past Mpjelnf-Zkooce-Hvxwed Hx Past Medical History Surgery/Hospitalization HX: Brain aneurysm treated at [facility], 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 oz. kg; BMI Method: Focused Exam Lactate Level 10/03/22 18:41: Lactic Acid Level 2.83*H Lactic Acid Level Laboratory Tests Test 10/03/22 16:32 10/03/22 18:41 Lactic Acid Level 2.80 MMOL/L (0.50-2.00) *H 2.83 MMOL/L (0.50-2.00) *H Progress/Results/Core Measures Suspected Sepsis SIRS Temperature: Pulse: Respiratory Rate: Blood Pressure / Mean: 10/03/22 18:41: Lactic Acid Level 2.83*H Laboratory Tests 10/03/22 16:32: Total Bilirubin 0.9 Results/Orders Lab Results Laboratory Tests Test 10/03/22 16:32 10/03/22 16:43 10/03/22 18:18 10/03/22 18:41 Range/Units White Blood Count 12.4 H 4.3-11.0 10^3/uL Red Blood Count 3.20 L 4.30-5.52 10^6/uL Hemoglobin 11.3 L 13.3-17.7 g/dL Hematocrit 34 L 40-54 % Mean Corpuscular Volume 106 H 80-99 fL Mean Corpuscular Hemoglobin 35 H 25-34 pg Mean Corpuscular Hemoglobin Concent 33 32-36 g/dL Red Cell Distribution Width 13.2 10.0-14.5 % Platelet Count 324 130-400 10^3/uL Mean Platelet Volume 11.1 9.0-12.2 fL Immature Granulocyte % (Auto) 0 % Neutrophils (%) (Auto) 90 H 42-75 % Lymphocytes (%) (Auto) 4 L 12-44 % Monocytes (%) (Auto) 5 0-12 % Eosinophils (%) (Auto) 0 0-10 % Basophils (%) (Auto) 0 0-10 % Neutrophils # (Auto) 11.2 H 1.8-7.8 10^3/uL Lymphocytes # (Auto) 0.5 L 1.0-4.0 10^3/uL Monocytes # (Auto) 0.6 0.0-1.0 10^3/uL Eosinophils # (Auto) 0.0 0.0-0.3 10^3/uL Basophils # (Auto) 0.0 0.0-0.1 10^3/uL Immature Granulocyte # (Auto) 0.0 0.0-0.1 10^3/uL Neutrophils % (Manual) 92 % Lymphocytes % (Manual) 7 % Monocytes % (Manual) 1 % Sodium Level 141 135-145 MMOL/L Potassium Level 3.9 3.6-5.0 MMOL/L Chloride Level 101 98-107 MMOL/L Carbon Dioxide Level 25 21-32 MMOL/L Anion Gap 15 H 5-14 MMOL/L Blood Urea Nitrogen 8 7-18 MG/DL Creatinine 0.86 0.60-1.30 MG/DL Estimat Glomerular Filtration Rate 91 BUN/Creatinine Ratio 9 Glucose Level 72 70-105 MG/DL Lactic Acid Level 2.80 *H 2.83 *H 0.50-2.00 MMOL/L Calcium Level 8.7 8.5-10.1 MG/DL Corrected Calcium 9.6 8.5-10.1 MG/DL Total Bilirubin 0.9 0.1-1.0 MG/DL Aspartate Amino Transf (AST/SGOT) 53 H 5-34 U/L Alanine Aminotransferase (ALT/SGPT) 15 0-55 U/L Alkaline Phosphatase 95 40-136 U/L Total Creatine Kinase 785 H 30-200 U/L Troponin I < 0.30 <0.30 NG/ML Total Protein 5.7 L 6.4-8.2 GM/DL Albumin 2.9 L 3.2-4.5 GM/DL Urine Color YELLOW Urine Clarity CLEAR Urine pH 5.0 5-9 Urine Specific [place] >=1.030 1.016-1.022 Urine Protein NEGATIVE NEGATIVE Urine Glucose (UA) NEGATIVE NEGATIVE Urine Ketones 1+ H NEGATIVE Urine Nitrite NEGATIVE NEGATIVE Urine Bilirubin 1+ H NEGATIVE Urine Urobilinogen 0.2 < = 1.0 MG/DL Urine Leukocyte Esterase NEGATIVE NEGATIVE Urine RBC (Auto) NEGATIVE NEGATIVE Urine RBC 0-2 /HPF Urine WBC NONE /HPF Urine Crystals NONE /LPF Urine Bacteria TRACE /HPF Urine Casts PRESENT /LPF Urine Hyaline Casts 10-25 H /LPF Urine Coarse Granular Casts 0-2 H /LPF Urine Mucus LARGE H /LPF Urine Culture Indicated NO Influenza Type A (RT-PCR) Not Detected Not Detecte Influenza Type B (RT-PCR) Not Detected Not Detecte SARS-CoV-2 RNA (RT-PCR) Not Detected Not Detecte Micro Results Microbiology 10/03/22 Blood Culture - Final, Complete No growth 10/03/22 Blood Culture - Final, Complete No growth My Orders Orders - MELCHOR JUAREZ DO Cbc With Automated Diff (10/03/22 16:38) Comprehensive Metabolic Panel (10/03/22 16:38) Urinalysis (10/03/22 16:38) Ekg Tracing (10/03/22 16:38) Troponin I Fs (10/03/22 16:38) Chest 1 View Ap/Pa Only (10/03/22 16:38) Ct Head Wo (10/03/22 16:38) Blood Culture (10/03/22 16:38) Creatine Kinase (10/03/22 16:43) Manual Differential (10/03/22 16:32) Ct Cervical Spine Wo (10/03/22 16:50) Lactic Acid Analyzer (10/03/22 16:32) Blood Culture (10/03/22 16:32) Covid 19 Inhouse Test (10/03/22 17:48) Influenza A And B By Pcr (10/03/22 17:48) Isolation Central Supply Req (10/03/22 17:48) Ns Iv 1000 Ml (Sodium Chloride 0.9%) (10/03/22 19:45) Piperacillin Sodium/Tazobactam (Zosyn Vi (10/03/22 19:45) Ed Admission (Communication) (10/03/22 21:11) Vital Signs/I&O 10/04/22 10/04/22 00:35 00:35 Temp 36.8 Pulse 108 Resp 20 B/P (MAP) 141/63 (89) Pulse Ox 97 O2 Delivery Nasal Cannula Nasal Cannula O2 Flow Rate 2.00 2.00 Capillary Refill : Departure Departure-Patient Inst. Referrals: SHIRLEY CANTU MD (PCP/Family) Primary Care Physician Scripts Multivitamin/Iron/Folic Acid (Tab-A-Danish Multivit with Iron) 18 Mg Iron-400 Mcg Tablet 1 EA PO DAILY@0700, #30 TAB Prov: BARON MARIEE MD 10/09/22 MELCHOR JUAREZ DO Oct 03, 2022 16:48
--- NOTE | 2022-10-03 16:50 | ED General ---
General Stated Complaint: FALL Source of Information: Patient Exam Limitations: No Limitations History of Present Illness Date Seen by Provider: Oct 03, 2022 Time Seen by Provider: 16:20 Initial Comments Patient is a 72-year-old male who lives by calm down and is followed by EMS. He was last contacted 3 days ago and has been believed to be on the floor for greater than 24 hours. The patient is alert, confused, with incoherent speech with limited cooperation following exams. He have sores in his knees, neck face and shoulders. He is incontinent of stool and urine with skin breakdown on his buttocks. He has no gross deformities. History is limited by the patient's presentation. Timing/Duration: 1-3 Hours Severity: Moderate Modifying Factors: improves with Other Associated Systoms: Other Allergies and Home Medications Allergies Coded Allergies: No Known Drug Allergies (Unverified , 09/24/21) Patient Home Medication List Home Medication List Reviewed: Yes Review of Systems Review of Systems Constitutional: see HPI EENTM: see HPI Respiratory: see HPI Cardiovascular: see HPI Gastrointestinal: see HPI Genitourinary: see HPI Musculoskeletal: see HPI Skin: see HPI Psychiatric/Neurological: See HPI Hematologic/Lymphatic: See HPI Immunological/Allergic: see HPI All Other Systems Reviewed Negative Unless Noted: No Past Hunrryt-Brfpfv-Ogjmeg Hx Past Medical History Surgery/Hospitalization HX: Brain aneurysm treated at [facility], METAL TESTER shunt, 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 oz. kg; BMI Method: General Appearance: No Apparent Distress, WD/WN, Anxious Eyes: Bilateral Eye Normal Inspection, Bilateral Eye PERRL, Bilateral Eye EOMI HEENT: PERRL/EOMI, Normal ENT Inspection, Pharynx Normal, Moist Mucous Membranes Neck: Non Tender, Supple Respiratory: Lungs Clear Cardiovascular: Regular Rate, Rhythm, No Edema Gastrointestinal: Non Tender, Soft Back: Normal Inspection, No Vertebral Tenderness Neurologic/Psychiatric: Oriented x3, No Motor/Sensory Deficits Skin: Other (Bruising on head, knees, back shoulders and arms.) Lymphatic: No Adenopathy Focused Exam Sepsis Stage: Ruled Out Lactate Level 10/03/22 16:32: Lactic Acid Level 2.80*H 10/03/22 18:41: Lactic Acid Level 2.83*H Lactic Acid Level Laboratory Tests Test 10/03/22 16:32 10/03/22 18:41 Lactic Acid Level 2.80 MMOL/L (0.50-2.00) *H 2.83 MMOL/L (0.50-2.00) *H Progress/Results/Core Measures Suspected Sepsis SIRS Temperature: Pulse: Respiratory Rate: Laboratory Tests 10/03/22 16:32: White Blood Count 12.4H Blood Pressure / Mean: 10/03/22 16:32: Lactic Acid Level 2.80*H 10/03/22 18:41: Lactic Acid Level 2.83*H Laboratory Tests 10/03/22 16:32: Creatinine 0.86, Platelet Count 324, Total Bilirubin 0.9 Results/Orders Lab Results Laboratory Tests Test 10/03/22 16:32 10/03/22 16:43 10/03/22 18:18 10/03/22 18:41 Range/Units White Blood Count 12.4 H 4.3-11.0 10^3/uL Red Blood Count 3.20 L 4.30-5.52 10^6/uL Hemoglobin 11.3 L 13.3-17.7 g/dL Hematocrit 34 L 40-54 % Mean Corpuscular Volume 106 H 80-99 fL Mean Corpuscular Hemoglobin 35 H 25-34 pg Mean Corpuscular Hemoglobin Concent 33 32-36 g/dL Red Cell Distribution Width 13.2 10.0-14.5 % Platelet Count 324 130-400 10^3/uL Mean Platelet Volume 11.1 9.0-12.2 fL Immature Granulocyte % (Auto) 0 % Neutrophils (%) (Auto) 90 H 42-75 % Lymphocytes (%) (Auto) 4 L 12-44 % Monocytes (%) (Auto) 5 0-12 % Eosinophils (%) (Auto) 0 0-10 % Basophils (%) (Auto) 0 0-10 % Neutrophils # (Auto) 11.2 H 1.8-7.8 10^3/uL Lymphocytes # (Auto) 0.5 L 1.0-4.0 10^3/uL Monocytes # (Auto) 0.6 0.0-1.0 10^3/uL Eosinophils # (Auto) 0.0 0.0-0.3 10^3/uL Basophils # (Auto) 0.0 0.0-0.1 10^3/uL Immature Granulocyte # (Auto) 0.0 0.0-0.1 10^3/uL Neutrophils % (Manual) 92 % Lymphocytes % (Manual) 7 % Monocytes % (Manual) 1 % Sodium Level 141 135-145 MMOL/L Potassium Level 3.9 3.6-5.0 MMOL/L Chloride Level 101 98-107 MMOL/L Carbon Dioxide Level 25 21-32 MMOL/L Anion Gap 15 H 5-14 MMOL/L Blood Urea Nitrogen 8 7-18 MG/DL Creatinine 0.86 0.60-1.30 MG/DL Estimat Glomerular Filtration Rate 91 BUN/Creatinine Ratio 9 Glucose Level 72 70-105 MG/DL Lactic Acid Level 2.80 *H 2.83 *H 0.50-2.00 MMOL/L Calcium Level 8.7 8.5-10.1 MG/DL Corrected Calcium 9.6 8.5-10.1 MG/DL Total Bilirubin 0.9 0.1-1.0 MG/DL Aspartate Amino Transf (AST/SGOT) 53 H 5-34 U/L Alanine Aminotransferase (ALT/SGPT) 15 0-55 U/L Alkaline Phosphatase 95 40-136 U/L Total Creatine Kinase 785 H 30-200 U/L Troponin I < 0.30 <0.30 NG/ML Total Protein 5.7 L 6.4-8.2 GM/DL Albumin 2.9 L 3.2-4.5 GM/DL Urine Color YELLOW Urine Clarity CLEAR Urine pH 5.0 5-9 Urine Specific [place] >=1.030 1.016-1.022 Urine Protein NEGATIVE NEGATIVE Urine Glucose (UA) NEGATIVE NEGATIVE Urine Ketones 1+ H NEGATIVE Urine Nitrite NEGATIVE NEGATIVE Urine Bilirubin 1+ H NEGATIVE Urine Urobilinogen 0.2 < = 1.0 MG/DL Urine Leukocyte Esterase NEGATIVE NEGATIVE Urine RBC (Auto) NEGATIVE NEGATIVE Urine RBC 0-2 /HPF Urine WBC NONE /HPF Urine Crystals NONE /LPF Urine Bacteria TRACE /HPF Urine Casts PRESENT /LPF Urine Hyaline Casts 10-25 H /LPF Urine Coarse Granular Casts 0-2 H /LPF Urine Mucus LARGE H /LPF Urine Culture Indicated NO Influenza Type A (RT-PCR) Not Detected Not Detecte Influenza Type B (RT-PCR) Not Detected Not Detecte SARS-CoV-2 RNA (RT-PCR) Not Detected Not Detecte My Orders Orders - MELCHOR JUAREZ DO Cbc With Automated Diff (10/03/22 16:38) Comprehensive Metabolic Panel (10/03/22 16:38) Urinalysis (10/03/22 16:38) Ekg Tracing (10/03/22 16:38) Troponin I Fs (10/03/22 16:38) Chest 1 View Ap/Pa Only (10/03/22 16:38) Ct Head Wo (10/03/22 16:38) Blood Culture (10/03/22 16:38) Creatine Kinase (10/03/22 16:43) Manual Differential (10/03/22 16:32) Ct Cervical Spine Wo (10/03/22 16:50) Lactic Acid Analyzer (10/03/22 16:32) Blood Culture (10/03/22 16:32) Covid 19 Inhouse Test (10/03/22 17:48) Influenza A And B By Pcr (10/03/22 17:48) Isolation Central Supply Req (10/03/22 17:48) Ns Iv 1000 Ml (Sodium Chloride 0.9%) (10/03/22 19:45) Piperacillin Sodium/Tazobactam (Zosyn Vi (10/03/22 19:45) Medications Given in ED Current Medications Medications Dose Ordered Sig/Armando Route Start Time Stop Time Status Last Admin Dose Admin Piperacillin Sod/ Tazobactam Sod 4.5 gm/Sodium Chloride 100 ml @ 200 mls/hr ONCE ONCE IV 10/03/22 19:45 10/03/22 20:14 DC 10/03/22 20:06 200 MLS/HR Vital Signs/I&O 10/03/22 16:19 Temp 36.1 Pulse 109 Resp 20 B/P (MAP) 142/70 (94) Pulse Ox 92 O2 Delivery Room Air Capillary Refill : Departure Communication (Admissions) CT head/cervical spine: No acute findings per radiology report Chest x-ray: No acute findings. Patient with unwitnessed fall with lying on the ground possibly up to 24 hours. Multiple pressure sores without skin breakdown or evidence of acute injury on imaging studies. Patient reports disequilibrium and leading to his fall. He is not have any focal neurologic deficits. IV fluids and antibiotics given. Patient will be admitted to the hospital service for further evaluation and treatment. Impression Primary Impression: Altered mental state Additional Impressions: Generalized weakness Pressure sore Disposition: ADMITTED INPATIENT Condition: Stable Admissions Decision to Admit Reason: Admit from ER (General) Decision to Admit/Date: Oct 03, 2022 Time/Decision to Admit Time: 21:10 Departure-Patient Inst. Referrals: SHIRLEY CANTU MD (PCP/Family) Primary Care Physician MELCHOR JUAREZ DO Oct 03, 2022 16:50
[2022-10-03 16:56] LABS: BILIRUBIN,URINE 1+ (NEGATIVE); RBC,URINE 0-2 /HPF
[2022-10-03 16:57] LABS: BACTERIA,URINE TRACE /HPF
--- NOTE | 2022-10-03 17:06 | Diagnostic Imaging Report ---
EXAMINATION: CT head without contrast. TECHNIQUE: Multiple contiguous axial images were obtained through the brain without the use of intravenous contrast. All CT scans use one or more of the following dose optimizing techniques: automated exposure control, MA and/or KvP adjustment based on patient size and exam type or iterative reconstruction. HISTORY: Altered mental status. Found down. COMPARISON: 09/24/2021. FINDINGS: No large acute territorial ischemia, mass, or hemorrhage. No midline shift or mass effect. Decreased attenuation is seen in the periventricular and subcortical white matter. Stable configuration of the right parietal approach MODERATE NEEDS TEACHER shunt with stable prominence of the lateral ventricles. Prior aneurysm clipping changes are seen at the basilar tip. The basilar cisterns are patent and unremarkable. The orbits are normal. Paranasal sinuses are normal. Mastoid air cells are clear. No soft tissue abnormality is seen. No osseus lesion or fracture is seen. IMPRESSION: 1. No large acute territorial ischemia, mass or hemorrhage. 2. Stable right parietal approach MODERATE NEEDS TEACHER shunt with stable prominence of the lateral ventricles. Dictated by: Dictated on workstation # [id number]
[2022-10-03 17:07] LABS: BUN/CREATININE RATIO 9; CALCIUM 8.7 MG/DL (8.5-10.1); CARBON DIOXIDE 25 MMOL/L (21-32); CHLORIDE 101 MMOL/L (98-107); CREATININE SERUM 0.86 MG/DL (0.60-1.30); GFR ESTIMATED 91; GLUCOSE 72 MG/DL (70-105); POTASSIUM 3.9 MMOL/L (3.6-5.0); SODIUM 141 MMOL/L (135-145)
[2022-10-03 17:08] LABS: ALANINE AMINOTRANSFERASE 15 U/L (0-55); ALBUMIN 2.9 GM/DL (3.2-4.5); ALKALINE PHOSPHATASE 95 U/L (40-136); BILIRUBIN,TOTAL 0.9 MG/DL (0.1-1.0); TOTAL PROTEIN 5.7 GM/DL (6.4-8.2)
[2022-10-03 17:33] LABS: LYMPHOCYTES % (MANUAL) 7 %; MONOCYTES % (MANUAL) 1 %; NEUTROPHILS % (MANUAL) 92 %
--- NOTE | 2022-10-03 17:46 | Diagnostic Imaging Report ---
EXAMINATION: Chest 1 view. HISTORY: Chest pain. COMPARISON: 09/24/2021. FINDINGS: HEALTH UNIT COORDINATOR shunt catheter is seen descending on the right chest. The lung volumes are normal. No focal consolidation is seen. No large pleural effusion or pneumothorax is seen. The cardiomediastinal silhouette is normal in size and contour. No acute osseous abnormality is seen. IMPRESSION: No acute pleuroparenchymal process. Dictated by: Dictated on workstation # [id number]
--- NOTE | 2022-10-03 18:24 | Diagnostic Imaging Report ---
PROCEDURE: CT cervical spine without contrast. TECHNIQUE: Multiple contiguous axial images were obtained through the cervical spine without the use of intravenous contrast. Sagittal and coronal reformations were then performed. Auto Exposure Controls were utilized during the CT exam to meet ALARA standards for radiation dose reduction. INDICATION: Found down. Neck pain. COMPARISON: None. FINDINGS: No acute fracture or dislocation is seen in the cervical spine. There is grade 1 anterolisthesis of C2 on C3. The craniocervical junction is intact. No suspicious focal osseous lesion. Degenerative changes are seen in the cervical spine with disc osteophyte complexes, disc height loss and uncovertebral arthropathy. No evidence of acute spinal canal stenosis. No high density material is seen within the spinal canal. The soft tissues of the neck are unremarkable. The included lungs are clear. IMPRESSION: 1. No acute fracture or dislocation in the cervical spine. 2. Grade 1 anterolisthesis of C2 on C3. Dictated by: Dictated on workstation # [id number]
[2022-10-03] MEDS ORDERED: PIPERACILLIN SODIUM/TAZOBACTAM 4.5 GM in NS (IVPB) 100 ML IV ONE (19:45)
[2022-10-03] MEDS: NS IV 1000 ML 1,000 ML IV SCH ×2 (20:01→21:49)
[2022-10-04] VITALS (8 sets, daily range): BP systolic 120–151; BP diastolic 63–88
[2022-10-04] MEDS ORDERED: ACETAMINOPHEN 325 MG TABLET PO PRN (01:00)
[2022-10-04] MEDS ORDERED: polyethylene glycoL POWDER 17 GM (MIRALAX) PACK PO PRN (01:00)
[2022-10-04] MEDS ORDERED: ONDANSETRON 4 MG (ZOFRAN) ORAL DISSOLVE TAB PO PRN (01:00)
[2022-10-04] MEDS ORDERED: ANTACID SUSP 30 ML UDC (MYLANTA) PO PRN (01:00)
[2022-10-04] MEDS ORDERED: BISACODYL 10 MG SUPP (DULCOLAX) PR PRN (01:00)
[2022-10-04] MEDS ORDERED: ONDANSETRON 4 MG/2 ML (SDV) Z0FRAN IV PRN (01:00)
[2022-10-04] MEDS ORDERED: MELATONIN 3 MG TABLET PO PRN (01:00)
[2022-10-04] MEDS ORDERED: NS IV 1000 ML 1,000 ML IV SCH ×2 (01:00→16:45)
[2022-10-04] MEDS ORDERED: FLU QUAD HIGH DOSE 240 MCG/0.7 ML 2022-23 (FLUZONE) IM ONE (06:45)
[2022-10-04 07:46] LABS: BASOPHILS % (AUTO) 0 % (0-10); EOSINOPHILS % (AUTO) 0 % (0-10); HEMATOCRIT 30 % (40-54); HEMOGLOBIN 9.5 g/dL (13.3-17.7); LYMPHOCYTES # (AUTO) 0.8 10^3/uL (1.0-4.0); LYMPHOCYTES % (AUTO) 7 % (12-44); MEAN CORPUSCULAR HEMOGLOBIN 35 pg (25-34); MEAN CORPUSCULAR HGB CONC 32 g/dL (32-36); MEAN CORPUSCULAR VOLUME 109 fL (80-99); MEAN PLATELET VOLUME 10.7 fL (9.0-12.2); MONOCYTES # (AUTO) 0.9 10^3/uL (0.0-1.0); MONOCYTES % (AUTO) 8 % (0-12); NEUTROPHILS # (AUTO) 9.8 10^3/uL (1.8-7.8); NEUTROPHILS % (AUTO) 85 % (42-75); PLATELET COUNT 261 10^3/uL (130-400); WHITE BLOOD COUNT 11.5 10^3/uL (4.3-11.0)
[2022-10-04 08:02] LABS: CALCIUM 7.7 MG/DL (8.5-10.1); CREATININE SERUM 0.88 MG/DL (0.60-1.30); POTASSIUM 4.1 MMOL/L (3.6-5.0)
[2022-10-04] MEDS ORDERED: DEXTROSE 50% 50 ML (IMS) SYR ONE (08:14)
[2022-10-04] MEDS ORDERED: DEXTROSE 50% 50 ML (IMS) SYR IV ONE (08:30)
[2022-10-04] MEDS: D5 1/2 NS W/KCL 20 MEQ/L 1,000 ML IV SCH ×2 (09:14→17:54)
[2022-10-04] MEDS: ENOXAPARIN 40 MG/0.4 ML (LOVENOX) SYR SC SCH (09:14)
[2022-10-04] MEDS: DOCUSATE SODIUM 100 MG (COLACE) CAP PO SCH ×2 (09:17→20:49)
[2022-10-04] MEDS: NICOTINE 14 MG (NICODERM) PATCH TD SCH (13:00)
--- NOTE | 2022-10-04 15:56 | History & Physical-Hospitalist ---
History of Present Illness HPI/Chief Complaint Sher Cary is a 72 year old male with PMH subarachnoid hemorrhage, ventriculoperitoneal shunt, COPD, hepatitis C, who presented after a fall at home. He lives by himself. His neighbors found him down on the floor in the kitchen. He reports that he lost his balance. He is a poor historian. He denies pain. He denies shortness of breath. He denies abdominal pain, nausea, and vomiting. He is awake and alert. He is oriented to person, place, month, and year. He is disoriented to city and thinks he is in [place]. We discussed his goals of care and he says he does not want CPR or a breathing machine. He wa nts to be DNR/DNI. He says he wants to go home and smoke cigarettes and drink whiskey. We attempted to call his DPOA, Darren, but he did not answer. Source: patient, RN/MD Exam Limitations: clinical condition Date Seen 10/04/22 Time Seen by a Provider: 10:55 Attending Physician Walker Cruz MD PCP Admitting Physician: Anne Soliman MD Attending Physician: Anne Soliman MD Referring Physician Date of Admission Oct 04, 2022 at 00:35 Home Medications & Allergies Home Medications Reviewed patient Home Medication Reconciliation performed by pharmacy medication reconciliations photo optics technician and/or nursing. Patients Allergies have been reviewed. Allergies Allergies Coded Allergies No Known Drug Allergies ([id number]/17/21) Past Pqxlysc-Exzrpi-Xijzma Hx Patient Social History Tobacco Use?: Yes Tobacco type used: Cigarettes Smoking Status: Current Everyday Smoker Substance use?: Unable to obtain Alcohol Use?: Yes Pt feels they are or have been: Unable to obtain Current Status Advance Directives: Unable to obtain Communicates: Verbally Primary Language: Amharic Preferred Spoken Language: Amharic Is interpretation needed?: No Sensory deficits: Hearing impairment Implanted or Applied Medical D: Other Past Medical History Surgeries: Brain Shunt COPD Hepatitis Family Medical History No Pertinent Family Hx Review of Systems Constitutional: weakness Respiratory: no symptoms reported Cardiovascular: no symptoms reported Gastrointestinal: no symptoms reported Physical Exam Physical Exam Vital Signs Vital Signs - First Documented 10/03/22 10/03/22 16:19 20:50 Temp 36.1 Pulse 109 Resp 20 B/P (MAP) 142/70 (94) Pulse Ox 92 O2 Delivery Room Air O2 Flow Rate 2.00 Capillary Refill : Less Than 3 Seconds Height, Weight, BMI Height: '" Weight: lbs. oz. kg; 19.26 BMI Method: General Appearance: No Apparent Distress, Chronically ill, Thin, Other (unkempt) HEENT: PERRL/EOMI, Pharynx Normal Neck: Normal Inspection, Supple Respiratory: No Respiratory Distress, Crackles, Decreased Breath Sounds Cardiovascular: No Murmur, Tachycardia Gastrointestinal: Normal Bowel Sounds, Non Tender, Soft Extremity: Non Tender; No Inflammation; Pedal Edema Neurologic/Psychiatric: Alert, Oriented x3, Motor Weakness (no focal deficits) Results Results/Procedures Labs Laboratory Tests 10/03/22 16:32 10/04/22 07:40 Patient resulted labs reviewed. Imaging: Reviewed Imaging Films, Reviewed Imaging Report Assessment/Plan Admission Diagnosis Rhabdomyolysis Admission Status: Inpatient Order (span 2 midnights) Reason for Inpatient Admission: IV fluids Dysphagia evalutation Anemia evaluation Hypoglycemia Assessment and Plan Dehydration Fall from ground level Rhabdomyolysis Lactic acidosis IV fluids CK trended up slightly PT/OT Social work consulted Palliative care consulted Malnutrition Hypoalbuminemia Dysphagia ST consult NPO Monitor electrolytes Hypoglycemia High anion gap metabolic acidosis Not diabetic D5 1/2 NS w/20KCl Possibly due to prolonged starvation Check beta-hydroxybutyrate SIRS WBC elevated, tachycardia CXR, UA, blood cultures negative No infectious source identified Antibiotics deferred Alcohol abuse Tobacco abuse Nicotine patch Monitor for withdrawal symptoms Add multivitamin, folate, thiamine Macrocytic anemia Mild anemia Possibly due to alcohol use Add folic acid and B12 levels History of subarachnoid hemorrhage Ventriculoperitoneal shunt Clinically significant, no acute management needs DVT prophylaxis: Lovenox Diagnosis/Problems Diagnosis/Problems (1) Rhabdomyolysis Status: Acute Qualifiers: Rhabdomyolysis type: non-traumatic Qualified Codes: M62.82 - Rhabdomyolysis (2) Fall from ground level Status: Acute (3) Debility Status: Acute (4) Lactic acidosis Status: Acute (5) SIRS (systemic inflammatory response syndrome) Status: Acute (6) Malnutrition Status: Acute Qualifiers: Malnutrition type: protein-calorie malnutrition (7) Hypoalbuminemia Status: Acute (8) Dysphagia Status: Acute (9) Alcohol abuse Status: Chronic (10) Tobacco abuse Status: Chronic (11) Macrocytic anemia Status: Acute (12) History of subarachnoid hemorrhage Status: Chronic (13) Status post ventriculoperitoneal shunt Status: Chronic (14) Dehydration Status: Acute (15) Pressure sore Status: Acute (16) COPD (chronic obstructive pulmonary disease) Status: Chronic (17) FTT (failure to thrive) in adult Status: Acute (18) Non-diabetic hypoglycemia Status: Acute (19) High anion gap metabolic acidosis Status: Acute ANNE SOLIMAN MD Oct 04, 2022 15:56
[2022-10-04] MEDS ORDERED: RT-ALBUTEROL/IPRATROPIUM 3 ML (DUONEB) VIAL INH PRN (16:00)
[2022-10-04] MEDS ORDERED: NS IV 500 ML 500 ML IV PRN (16:15)
[2022-10-04] MEDS: RT-ALBUTEROL/IPRATROPIUM 3 ML (DUONEB) VIAL INH SCH (21:24)
[2022-10-05] MEDS: D5 1/2 NS W/KCL 20 MEQ/L 1,000 ML IV SCH ×3 (01:56→19:20)
[2022-10-05] MEDS: RT-ALBUTEROL/IPRATROPIUM 3 ML (DUONEB) VIAL INH SCH ×4 (02:43→21:31)
[2022-10-05 03:05] VITALS: BP 151/67
[2022-10-05] MEDS: PATCH REMOVAL TP SCH (05:12)
[2022-10-05] MEDS: NICOTINE 14 MG (NICODERM) PATCH TD SCH (05:12)
[2022-10-05 06:38] LABS: BASOPHILS % (AUTO) 1 % (0-10); EOSINOPHILS # (AUTO) 0.1 10^3/uL (0.0-0.3); EOSINOPHILS % (AUTO) 2 % (0-10); HEMATOCRIT 27 % (40-54); HEMOGLOBIN 8.7 g/dL (13.3-17.7); LYMPHOCYTES # (AUTO) 0.7 10^3/uL (1.0-4.0); LYMPHOCYTES % (AUTO) 11 % (12-44); MEAN CORPUSCULAR HEMOGLOBIN 36 pg (25-34); MEAN CORPUSCULAR HGB CONC 32 g/dL (32-36); MEAN CORPUSCULAR VOLUME 110 fL (80-99); MEAN PLATELET VOLUME 10.6 fL (9.0-12.2); MONOCYTES # (AUTO) 0.6 10^3/uL (0.0-1.0); MONOCYTES % (AUTO) 9 % (0-12); NEUTROPHILS # (AUTO) 4.9 10^3/uL (1.8-7.8); NEUTROPHILS % (AUTO) 78 % (42-75); PLATELET COUNT 209 10^3/uL (130-400); WHITE BLOOD COUNT 6.3 10^3/uL (4.3-11.0)
[2022-10-05 07:16] LABS: CALCIUM 7.3 MG/DL (8.5-10.1); CREATININE SERUM 0.73 MG/DL (0.60-1.30); MAGNESIUM 1.6 MG/DL (1.6-2.4); PHOSPHORUS 1.9 MG/DL (2.3-4.7); POTASSIUM 4.1 MMOL/L (3.6-5.0)
[2022-10-05 08:51] VITALS: BP 151/69
[2022-10-05] MEDS: KCL 20 MEQ TAB (K-DUR) PO SCH (08:51)
[2022-10-05] MEDS: POTASSIUM CL 10MEQ/50ML IVPB 50 ML IV SCH (08:51)
[2022-10-05] MEDS: MAGNESIUM 1 GM/100 ML IVPB 100 ML IV SCH ×2 (08:52→09:00)
[2022-10-05] MEDS: ENOXAPARIN 40 MG/0.4 ML (LOVENOX) SYR SC SCH (08:55)
[2022-10-05] MEDS: THIAMINE 100 MG (VITAMIN B-1) TAB PO SCH (09:22)
[2022-10-05] MEDS: MULTIVIT W/MINERALS TAB (THERAGRAN M) PO SCH (09:22)
[2022-10-05] MEDS: FOLIC ACID 1 MG TAB PO SCH (09:22)
[2022-10-05] MEDS: DOCUSATE SODIUM 100 MG (COLACE) CAP PO SCH ×2 (09:25→19:20)
--- NOTE | 2022-10-05 10:07 | ST Dysphagia Evaluation ---
Speech Evaluation-General Medical Diagnosis Dehydration Onset Date: Oct 03, 2022 Therapy Diagnosis Therapy Diagnosis: Intact Oropharyngeal Swallow Precautions Precautions: Fall, Pressure Ulcer, Aspiration Precautions/Isolations: Aspiration, Fall Prevention, Standard Precautions, Pressure Ulcer Referral Referring Physician: Dr. Carmona Reason for Referral: Evaluation/Treatment Medical History Current History The patient is a 72 year-old male with a past medical history of a subarachnoid hemorrhage, ventriculoperitoneal shunt, COPD, and hepatitis C, who presented to [facility] following a fall at home. Reviewed History: Yes Speech PLF/Current-Dysphagia Prior Level of Function The patient was unable to provide specific information regarding his prior level of P.O. intake. The patient states, "I cough all the time. I cough a lot at n ight." Subjective The patient was seated upright in his recliner, awake and alert, upon entrance to his room by the clinician. The patient greeted the clinician appropriately and was agreeable to participation in clinical bedside swallowing assessment. The patient frequently displays tangential communication, appearing confused throughout the evaluation. Cognitive Status Patient Orientation: Person, Place Oral Motor Skills Dentition: Natural (Sparse, three visualized.) Ability to Follow Directions: Fair Oral Expression Ability: Moderate Impairment Voice Voice Phonatory-Based Quality: Harsh Voice Pitch: Normal Voice Loudness: Normal Face Facial Symmetry: Symmetrical (At rest.) Oral-Facial Assessment Oral-Facial Dentition: Normal Labial Seal Description: Normal Smile: Normal Puff Cheeks: Normal Lingual Protrusion: Normal Lingual ROM: Normal Lingual Strength: Abnormal (Mildly reduced lingual strength is suspected.) Volitional Dry Swallow: Yes Voluntary Cough: Yes Can Clear Throat Volitionally: Yes Productive Cough: Yes Productive Throat Clear: Yes Dysphagia Evaluation Consistencies Presented: Regular, Thin Liquid, Mechanical Soft, Pureed Oral Phase: Oral Residue (Solid.) The patient was able to accept the bolus from the teaspoon and straw appropriately. Due to sparse dentition, prolonged mastication of the solid consistency was displayed. With the aid of applesauce, the patient was able to form a bolus with the solid consistency and complete appropriate posterior transfer. Laryngeal elevation was present to palpation. A timely pharyngeal swallow response was suspected. The patient consumed ice chips, multiple teaspoons, multiple single straw drinks, multiple consecutive straw drinks, three ounces of puree, and a dry solid cracker. Overt s/s of suspected aspiration were not demonstrated throughout the evaluation with any consistency tested. The patient's vocal quality remained consistently clear following each swallow. Dietary Recommendations: Mechanical Soft (MM5) Liquid Recommendations: Thin Recommendations: - MM5 (Minced and Moist) with thin liquids, as tolerated. - Fully upright and alert for P.O. intake. - Set up assistance and intermittent feeding aid throughout P.O. intake. - The patient attempted to self feed throughout the evaluation. Initially, the patient displayed appropriate ability, however, with additional P.O. trials the patient displayed fatigue with the inability to bring the spoon to the oral cavity. - Small bites and sips. - Crush medication and place in P.O. intake. - Monitor for s/s of suspected aspiration with P.O. intake. If demonstrated re- consult speech pathology. The results and recommendations were shared with the patient and the patient's RN immediately following completion of the assessment. Dysphagia Evaluation Summary The patient demonstrated an intact oropharyngeal swallowing function. Prolonged mastication was appreciated with dry, solid consistencies. Mastication displayed improved timeliness with soft, solid consistencies. Overt s/s of suspected aspiration were not displayed with thin liquids, puree, or solid consistencies tested. Speech-Plan Treatment Plan Speech Therapy Treatment Plan: Discontinue ST Treatment Duration: Oct 05, 2022 Frequency: 1 time per week Estimated Hrs Per Day: .25 hour per day Rehab Potential: Fair Safety Risks/Education Teaching Recipient: Patient Teaching Methods: Discussion Response to Teaching: Reinforcement Needed Education Topics Provided: Results, Recommendations, Plan of Care, Safe Swallowing Procedures and Practices Time Speech Therapy Time In: 09:08 Speech Therapy Time Out: 09:25 DATE: Oct 05, 2022 Total Billed Time: 17 Billed Treatment Time 1, CHELSY GUAJARDO ELIZABETH ST Oct 05, 2022 10:06
--- NOTE | 2022-10-05 10:43 | Physical Therapy Evaluation ---
PT Evaluation-General Medical Diagnosis Admission Date Oct 04, 2022 at 16:39 Medical Diagnosis: Dehydration Onset Date: Oct 03, 2022 Therapy Diagnosis Therapy Diagnosis: generalized weakness/debility Precautions Precautions/Isolations: Aspiration, Fall Prevention, Standard Precautions, Pressure Ulcer Weight Bear Status Right Lower Extremity: Right Weight Bearing/Tolerated Left Lower Extremity: Left Weight Bearing/Tolerated Referral Physician: Mathew Reason for Referral: Evaluation/Treatment Medical History Pertinent Medical History: Alcoholism, COPD, Smoking Additional Medical History brain aneurysm, ventriculoperitoneal shunt Current History EMS secondary to found on floor (possibly on floor >24 hours) Reviewed History: Yes Social History Home: Single Level Current Living Status: Alone Prior Prior Level of Function SCALE: Activities may be completed with or without assistive devices. 5-Dedumitkpg-crriwma completes the activity by him/herself with no assistance from a helper. 5-Set-up or Clean-up Assistance-helper sets up or cleans up; patient completes activity. [place] assists only prior to or following the activity. 4-Supervision or Touching Assistance-helper provides verbal cues and/or touching/steadying and/or contact guard assistance as patient completes activity. Assistance may be provided throughout the activity or intermittently. 3-Partial/Moderate Assistance-helper does LESS THAN HALF the effort. [place] li fts, holds or supports trunk or limbs, but provides less than half the effort. 2-Substantial/Maximal Assistance-helper does MORE THAN HALF the effort. [place] lifts or holds trunk or limbs and provides more than half the effort. 4-Sbkisokfy-kmufby does ALL the effort. Patient does none of the effort to complete the activity. Or, the assistance of 2 or more helpers is required for the patient to complete the activity. If activity was not attempted, code reason: 7-Patient Refused. 9-Not Applicable-not attempted and the patient did not perform the activity before the current illness, exacerbation or injury. 10-Not Attempted due to Environmental Limitations-(lack of equipment, weather restraints, etc.). 88-Not Attempted due to Medical Conditions or Safety Concerns. Bed Mobility: 6 Transfers (B,C,W/C): 6 Gait: 6 Indoor Mobility (Ambulation): Independent Prior Devices Use: None (per patient report) PT Evaluation-Current Subjective Patient states, "I can't move." PT educated patient on importance of attempt to move, however, patient continued to report he couldn't move. Pain Numeric Pain Scale: 5-Moderate Pain Location: Joint Location Body Site: Generalized Pain Description: Ache Objective Patient Orientation: Person, Time, Situation Attachments: Nash Catheter, IV ROM/Strength ROM Lower Extremities bilateral LE WFL Strength Lower Extremities 3+/5 grossly bilateral LE Integumentary/Posture Integumentary refer to nursing notes Bladder Incontinence: Nash Cath Posture WFL Neuromuscular (Tone, Coordination, Reflexes) grossly intact Sensory Vision: Functional Hearing: Impaired Transfers Lying to Sitting/Side of Bed(Q: 3 Sit to Stand (QC): 3 Chair/Jlq-bd-Unrvd Xfer(QC): 3 Gait Mode of Locomotion: Walk Anticipated Mode of Locomotion: Walk Walk 10 feet (QC): 3 Walk 50 ft with 2 Turns(QC): 3 Distance: 50' Gait Assistive Device: FWW Comments/Gait Description functional gait sequence/slow Balance Sitting Static: Normal Sitting Dynamic: Normal Standing Static: Normal Standing Dynamic: Normal Assessment/Needs Patient requires encouragement to actively participate with PT. Patient would move only with tactile cues and requires minimal to CGA assist for safety. Patient appears to self limit. PT to increase activity as tolerated by patient. Rehab Potential: Fair PT Penitentiary Goals [employer] Product [employer] Manager Goals PT Penitentiary Goals Time Frame: Oct 17, 2022 Roll Left & Right (QC): 6 Sit to Lying (QC): 6 Lying-Sitting on Side/Bed(QC): 6 Sit to Stand (QC): 6 Chair/Vlc-ao-Goegq Xfer(QC): 6 Toilet Transfer (QC): 6 Walk 10 feet (QC): 4 Walk 50ft with 2 Turns (QC): 4 Walk 150 ft (QC): 4 PT Plan Problem List Problem List: Activity Tolerance, Functional Strength, Safety, Balance, Gait, Transfer, Bed Mobility Treatment/Plan Treatment Plan: Continue Plan of Care Treatment Plan: Bed Mobility, Education, Functional Activity Jessica, Functional Strength, Gait, Safety, Therapeutic Exercise, Transfers Treatment Duration: Oct 17, 2022 Frequency: 6 times per week Estimated Hrs Per Day: .25 hour per day Time Time In: 846 Time Out: 859 DATE: Oct 05, 2022 Total Billed Treatment Time: 13 Total Billed Treatment 1 visit EVMod 13 min RINA AQUINO PT Oct 05, 2022 10:43
--- NOTE | 2022-10-05 10:48 | Progress Note - Hospitalist ---
Subjective HPI/CC On Admission Date Seen by Provider: Oct 05, 2022 Sher Cary is a 72 year old male with PMH subarachnoid hemorrhage, ventriculoperitoneal shunt, COPD, hepatitis C, who presented after a fall at home. He lives by himself. His neighbors found him down on the floor in the kitchen. He reports that he lost his balance. He is a poor historian. He denies pain. He denies shortness of breath. He denies abdominal pain, nausea, and vomit ing. He is awake and alert. He is oriented to person, place, month, and year. He is disoriented to city and thinks he is in [place]. We discussed his goals of care and he says he does not want CPR or a breathing machine. He wants to be DNR/DNI. He says he wants to go home and smoke cigarettes and drink whiskey. We attempted to call his DPOA, Darren, but he did not answer. Subjective/Events-last exam Pt reports doing well but feeling weak still. Interested in possibly going back to [facility] for therapy. Focused Exam Lactate Level 10/03/22 18:41: Lactic Acid Level 2.83*H 10/04/22 07:40: Lactic Acid Level 1.14 10/05/22 07:06: Lactic Acid Level 1.37 Lactic Acid Level Objective Exam Vital Signs Vital Signs Date Time Temp Pulse Resp B/P (MAP) Pulse Ox O2 Delivery O2 Flow Rate FiO2 10/05/22 11:43 36.8 90 18 147/66 (93) 98 Nasal Cannula 2.00 Capillary Refill : Less Than 3 Seconds General Appearance: No Apparent Distress, Chronically ill Respiratory: Lungs Clear, No Respiratory Distress Cardiovascular: Regular Rate, Rhythm, No Murmur Neurologic/Psychiatric: Alert, Oriented x3 Results/Procedures Lab Laboratory Tests 10/05/22 06:30 Patient resulted labs reviewed. Imaging: Reviewed Imaging Films, Reviewed Imaging Report Assessment/Plan Assessment and Plan Assess & Plan/Chief Complaint Dehydration Fall from ground level Rhabdomyolysis Lactic acidosis IV fluids- decreased rate CK trended back down today PT/OT Social work consulted- possible SNF placement Palliative care consulted Malnutrition Hypoalbuminemia Dysphagia ST consult- Minced and moist ordered Monitor electrolytes Hypoglycemia High anion gap metabolic acidosis Not diabetic D5 1/2 NS w/20KCl Possibly due to prolonged starvation BS improved- continue accu checks SIRS leukocytosis resolved CXR, UA, blood cultures negative No infectious source identified Antibiotics deferred Alcohol abuse Tobacco abuse Nicotine patch Monitor for withdrawal symptoms Add multivitamin, folate, thiamine Macrocytic anemia Mild anemia Possibly due to alcohol use pending folic acid and B12 levels History of subarachnoid hemorrhage Ventriculoperitoneal shunt Clinically significant, no acute management needs DVT prophylaxis: BARON Moore MD Oct 05, 2022 10:48
--- NOTE | 2022-10-05 11:28 | Occupational Therapy Eval ---
OT Evaluation-General/PLF Medical Diagnosis Admission Date Oct 04, 2022 at 16:39 Medical Diagnosis: Dehydration Onset Date: Oct 03, 2022 Therapy Diagnosis Therapy Diagnosis: decreased ADL status Precautions Precautions/Isolations: Aspiration, Fall Prevention, Standard Precautions, Pressure Ulcer Referral Physician: Mathew Referral Reason: Evaluation/Treatment Medical History Pertinent Medical History: Alcoholism, COPD, Smoking Additional Medical History subarachnoid hemorrhage, verntriculoperitoneal shunt, COPD, Hepatitis C Current History presents to ED after fall at home, found down by neighbor. Social History Home: Single Level Current Living Status: Alone ADL-Prior Level of Function SCALE: Activities may be completed with or without assistive devices. 6-Zinryhihhl-dspelkb completes the activity by him/herself with no assistance from a helper. 5-Set-up or Clean-up Assistance-helper sets up or cleans up; patient completes activity. [place] assists only prior to or following the activity. 4-Supervision or Touching Assistance-helper provides verbal cues and/or touching/steadying and/or contact guard assistance as patient completes acti vity. Assistance may be provided throughout the activity or intermittently. 3-Partial/Moderate Assistance-helper does LESS THAN HALF the effort. [place] lifts, holds or supports trunk or limbs, but provides less than half the effort. 2-Substantial/Maximal Assistance-helper does MORE THAN HALF the effort. [place] lifts or holds trunk or limbs and provides more than half the effort. 8-Kgexjhxuy-esrwdd does ALL the effort. Patient does none of the effort to complete the activity. Or, the assistance of 2 or more helpers is required for the patient to complete the activity. If activity was not attempted, code reason: 7-Patient Refused. 9-Not Applicable-not attempted and the patient did not perform the activity before the current illness, exacerbation or injury. 10-Not Attempted due to Environmental Limitations-(lack of equipment, weather restraints, etc.). 88-Not Attempted due to Medical Conditions or Safety Concerns. ADL PLOF Comments Pt states he was independent with ADLS and functional mobility at [facility], using a walker. Self Care: Independent Functional Cognition: Independent OT Current Status Subjective Pt in recliner, states he feels "like a train wreck", hurting all over. He doesn't provide pain rating. Pt feels like he is unable to do anything for himself. OT encouraged pt about him walking with PT, but pt was under the impression that PT did everything for him and he was unable to walk himself. Pt appears confused throughout tx. Current Hand Dominance: Right Upper Extremity ROM RUE shoulder flexion to approx 90 degrees, LUE shoulder flexion to approx 110 degrees. ADL-Treatment Shower/Bathe Self (QC): 7 Lower Body Dressing (QC): 1 (pt would require assistance threading pants over feet.) On/Off Footwear (QC): 1 (pt unable to reach feet) Toileting Hygiene (QC): 7 Other Treatments Pt in recliner, agreeable to OT tx with some encouragement. Pt feels like he is unable to do anything for himself, but also self limits and doesn't attempt tasks when asked. OT asked pt to complete footwear, he immediately states he is unable to. With encouragement, pt attempts to reach forward, but only able to reach around knee level. OT educated pt on UE exercises in order to increase BUE Strength and activity tolerance, pt required encouragement to complete. Pt completed x5 reps BUE shoulder flexion and front punch. Pt encouraged to complete exercises throughout the day, he verbalized understanding. Post tx, pt in recliner, call light in reach and all needs met. Education OT Patient Education: Correct positioning, Energy conservation, Modified ADL techniques, Progress toward Goal/Update tx plan, Purpose of tx/functional activities, Rehab process Teaching Recipient: Patient Teaching Methods: Discussion Response to Teaching: Verbalize Understanding OT Route Deliverer Goals Route Deliverer Goals Time Frame: Oct 16, 2022 Eating (QC): 6 Oral Hygiene (QC): 6 Toileting Hygiene (QC): 6 Shower/Bathe Self (QC): 4 Upper Body Dressing (QC): 5 Lower Body Dressing (QC): 4 On/Off Footwear (QC): 4 Additional Goals: 1-Demonstrate ADL Tasks, 2-Verbalize Understanding, 3- ImproveStrength/Jessica 1=Demonstrate adherence to instructed precautions during ADL tasks. 2=Patient will verbalize/demonstrate understanding of assistive dev ices/modifications for ADL. 3=Patient will improve strength/tolerance for activity to enable patient to perform ADL's. OT Education/Plan Problem List/Assessment Assessment: Decreased Activ Tolerance, Decreased Safety Aware, Decreased UE Strength, Impaired Cognition, Impaired Funct Balance, Impaired I ADL's, Impaired Self-Care Skills Discharge Recommendations Plan/Recommendations: Continue POC Treatment Plan/Plan of Care Patient would benefit from OT for education, treatment and training to promote independence in ADL's, mobility, safety and/or upper extremity function for ADL's. Plan of Care: ADL Retraining, Functional Mobility, UE Funct Exercise/Act Treatment Duration: Oct 16, 2022 Frequency: 3 times per week (3-5 times per week) Estimated Hrs Per Day: .25 hour per day Rehab Potential: Fair Time Start Time: 11:02 Stop Time: 11:13 DATE: Oct 05, 2022 Total Time Billed (hr/min): 11 Billed Treatment Time 1, BERNIE NELSON OT Oct 05, 2022 11:28
[2022-10-05 11:43] VITALS: BP 147/66
[2022-10-05 16:02] VITALS: BP 139/73
[2022-10-05 19:19] VITALS: BP 161/66
[2022-10-06 00:02] VITALS: BP 138/66
[2022-10-06] MEDS: RT-ALBUTEROL/IPRATROPIUM 3 ML (DUONEB) VIAL INH SCH ×4 (03:44→20:16)
[2022-10-06 04:08] VITALS: BP 160/72
[2022-10-06 06:25] LABS: CALCIUM 7.4 MG/DL (8.5-10.1); CREATININE SERUM 0.65 MG/DL (0.60-1.30); MAGNESIUM 1.8 MG/DL (1.6-2.4); PHOSPHORUS 2.2 MG/DL (2.3-4.7); POTASSIUM 4.7 MMOL/L (3.6-5.0)
[2022-10-06] MEDS: THIAMINE 100 MG (VITAMIN B-1) TAB PO SCH (06:34)
[2022-10-06] MEDS: MULTIVIT W/MINERALS TAB (THERAGRAN M) PO SCH (06:34)
[2022-10-06] MEDS: MAGNESIUM 1 GM/100 ML IVPB 100 ML IV SCH (06:48)
[2022-10-06] MEDS: POTASSIUM CL 10MEQ/50ML IVPB 50 ML IV SCH (06:48)
[2022-10-06] MEDS: KCL 20 MEQ TAB (K-DUR) PO SCH (06:48)
[2022-10-06] MEDS: D5 1/2 NS W/KCL 20 MEQ/L 1,000 ML IV SCH ×2 (06:50→13:21)
[2022-10-06 08:04] VITALS: BP 139/66
[2022-10-06] MEDS: DOCUSATE SODIUM 100 MG (COLACE) CAP PO SCH ×2 (08:38→19:59)
[2022-10-06] MEDS: NICOTINE 14 MG (NICODERM) PATCH TD SCH (08:38)
[2022-10-06 08:41] LABS: BASOPHILS % (AUTO) 0 % (0-10); EOSINOPHILS # (AUTO) 0.2 10^3/uL (0.0-0.3); EOSINOPHILS % (AUTO) 4 % (0-10); HEMATOCRIT 26 % (40-54); HEMOGLOBIN 8.4 g/dL (13.3-17.7); LYMPHOCYTES # (AUTO) 0.8 10^3/uL (1.0-4.0); LYMPHOCYTES % (AUTO) 14 % (12-44); MEAN CORPUSCULAR HEMOGLOBIN 35 pg (25-34); MEAN CORPUSCULAR HGB CONC 32 g/dL (32-36); MEAN CORPUSCULAR VOLUME 109 fL (80-99); MEAN PLATELET VOLUME 11.4 fL (9.0-12.2); MONOCYTES # (AUTO) 0.5 10^3/uL (0.0-1.0); MONOCYTES % (AUTO) 9 % (0-12); NEUTROPHILS % (AUTO) 73 % (42-75); PLATELET COUNT 203 10^3/uL (130-400); WHITE BLOOD COUNT 5.5 10^3/uL (4.3-11.0)
[2022-10-06] MEDS: ENOXAPARIN 40 MG/0.4 ML (LOVENOX) SYR SC SCH (08:41)
[2022-10-06] MEDS: PATCH REMOVAL TP SCH (08:41)
[2022-10-06] MEDS: FOLIC ACID 1 MG TAB PO SCH (08:41)
--- NOTE | 2022-10-06 09:46 | Physical Therapy Daily Note ---
PT Daily Note-Current Subjective Patient reluctantly agrees to PT. Pain Numeric Pain Scale: 10-Worst Possible Pain Location: Joint Location Body Site: Generalized Pain Description: Acute Section J - Health Conditions 1. Rarely or not at all 2. Occasionally 3. Frequently 4. Almost constantly 8. Unable to answer Pain Effect on Sleep: 3 Pain Interference with Therapy: 3 Pain Interference w/Day-to-Day: 3 Mental Status Patient Orientation: Normal For Age Attachments: Oxygen, Nash Catheter, IV Transfers SCALE: Activities may be completed with or without assistive devices. 8-Wshwgtkrsn-jmfvphg completes the activity by him/herself with no assistance from a helper. 5-Set-up or Clean-up Assistance-helper sets up or cleans up; patient completes activity. [place] assists only prior to or following the activity. 4-Supervision or Touching Assistance-helper provides verbal cues and/or touching/steadying and/or contact guard assistance as patient completes activi ty. Assistance may be provided throughout the activity or intermittently. 3-Partial/Moderate Assistance-helper does LESS THAN HALF the effort. [place] lifts, holds or supports trunk or limbs, but provides less than half the effort. 2-Substantial/Maximal Assistance-helper does MORE THAN HALF the effort. [place] lifts or holds trunk or limbs and provides more than half the effort. 9-Khwnesrrv-dulsre does ALL the effort. Patient does none of the effort to complete the activity. Or, the assistance of 2 or more helpers is required for the patient to complete the activity. If activity was not attempted, code reason: 7-Patient Refused. 9-Not Applicable-not attempted and the patient did not perform the activity before the current illness, exacerbation or injury. 10-Not Attempted due to Environmental Limitations-(lack of equipment, weather restraints, etc.). 88-Not Attempted due to Medical Conditions or Safety Concerns. Lying to Sitting/Side of Bed(Q: 3 Sit to Stand (QC): 3 Chair/Oro-rc-Gtgme Xfer(QC): 3 Weight Bearing Right Lower Extremity: Right Weight Bearing/Tolerated Left Lower Extremity: Left Weight Bearing/Tolerated Gait Training Distance: 10' x 2 Walk 10 feet (QC): 3 Gait Assistive Device: FWW Assessment Patient ceases treatment due to SOA and fatigue. Patient is up in recliner with chair alarm activated. Increase activity as tolerated/allowed by patient. PT Alf Goals Alf Goals PT Alf Goals Time Frame: Oct 17, 2022 Roll Left & Right (QC): 6 Sit to Lying (QC): 6 Lying-Sitting on Side/Bed(QC): 6 Sit to Stand (QC): 6 Chair/Svl-wo-[place] Xfer(QC): 6 Toilet Transfer (QC): 6 Walk 10 feet (QC): 4 Walk 50ft with 2 Turns (QC): 4 Walk 150 ft (QC): 4 PT Plan Treatment/Plan Treatment Plan: Continue Plan of Care Treatment Plan: Bed Mobility, Education, Functional Activity Jessica, Functional Strength, Gait, Safety, Therapeutic Exercise, Transfers Treatment Duration: Oct 17, 2022 Frequency: 6 times per week Estimated Hrs Per Day: .25 hour per day Time Time In: 850 Time Out: 902 DATE: Oct 06, 2022 Total Billed Treatment Time: 12 Total Billed Treatment 1 visit FA 12 min RINA AQUINO PT Oct 06, 2022 09:46
--- NOTE | 2022-10-06 10:27 | Progress Note - Hospitalist ---
Subjective HPI/CC On Admission Date Seen by Provider: Oct 06, 2022 Sher Cary is a 72 year old male with PMH subarachnoid hemorrhage, ventriculoperitoneal shunt, COPD, hepatitis C, who presented after a fall at home. He lives by himself. His neighbors found him down on the floor in the kitchen. He reports that he lost his balance. He is a poor historian. He denies pain. He denies shortness of breath. He denies abdominal pain, nausea, and vomit ing. He is awake and alert. He is oriented to person, place, month, and year. He is disoriented to city and thinks he is in [place]. We discussed his goals of care and he says he does not want CPR or a breathing machine. He wants to be DNR/DNI. He says he wants to go home and smoke cigarettes and drink whiskey. We attempted to call his DPOA, Darren, but he did not answer. Subjective/Events-last exam Pt reports doing well. No complaints. Focused Exam Lactate Level 10/03/22 18:41: Lactic Acid Level 2.83*H 10/04/22 07:40: Lactic Acid Level 1.14 10/05/22 07:06: Lactic Acid Level 1.37 Objective Exam Vital Signs Vital Signs Date Time Temp Pulse Resp B/P (MAP) Pulse Ox O2 Delivery O2 Flow Rate FiO2 10/06/22 09:05 95 Nasal Cannula 2.50 10/06/22 08:04 37.3 81 18 139/66 (90) 10/06/22 03:44 21 Capillary Refill : Less Than 3 Seconds General Appearance: No Apparent Distress, Chronically ill, Thin Respiratory: Lungs Clear, No Respiratory Distress Cardiovascular: Regular Rate, Rhythm, No Murmur Neurologic/Psychiatric: Alert, Oriented x3 Results/Procedures Lab Laboratory Tests 10/06/22 05:55 Patient resulted labs reviewed. Imaging: Reviewed Imaging Films, Reviewed Imaging Report Assessment/Plan Assessment and Plan Assess & Plan/Chief Complaint Dehydration Fall from ground level Rhabdomyolysis Lactic acidosis IV fluids PT/OT Social work consulted- possible SNF placement Palliative care consulted JESSICA Nash Looking at SNF placement Malnutrition Hypoalbuminemia Dysphagia ST consult- Minced and moist ordered Monitor electrolytes Hypoglycemia High anion gap metabolic acidosis Not diabetic D5 1/2 NS w/20KCl Possibly due to prolonged starvation SIRS leukocytosis resolved CXR, UA, blood cultures negative No infectious source identified Antibiotics deferred Alcohol abuse Tobacco abuse Nicotine patch Monitor for withdrawal symptoms Continue multivitamin, folate, thiamine Macrocytic anemia Mild anemia Possibly due to alcohol use Normal to high folic acid and B12 levels History of subarachnoid hemorrhage Ventriculoperitoneal shunt Clinically significant, no acute management needs DVT prophylaxis: BARON Moore MD Oct 06, 2022 10:27 am
--- NOTE | 2022-10-06 11:14 | Occupational Ther Daily Note ---
OT Current Status-Daily Note Subjective No pain reported. Mental Status/Objective Patient Orientation: Person Attachments: Nash Catheter, IV, Oxygen ADL-Treatment Therapy Code Descriptions/Definitions Functional [place] Measure: 0=Not Assessed/NA 4=Minimal Assistance 1=Total Assistance 5=Supervision or Setup 2=Maximal Assistance 6=Modified [place] 3=Moderate Assistance 7=Complete IndependenceSCALE: Activities may be completed with or without assistive devices. 4-Nuecdanpbc-srfsiji completes the activity by him/herself with no assistance from a helper. 5-Set-up or Clean-up Assistance-helper sets up or cleans up; patient completes activity. [place] assists only prior to or following the activity. 4-Supervision or Touching Assistance-helper provides verbal cues and/or touching/steadying and/or contact guard assistance as patient completes activity. Assistance may be provided throughout the activity or intermittently. 3-Partial/Moderate Assistance-helper does LESS THAN HALF the effort. [place] lifts, holds or supports trunk or limbs, but provides less than half the effort. 2-Substantial/Maximal Assistance-helper does MORE THAN HALF the effort. [place] lifts or holds trunk or limbs and provides more than half the effort. 3-Cwnerbejs-zmrvzy does ALL the effort. Patient does none of the effort to com plete the activity. Or, the assistance of 2 or more helpers is required for the patient to complete the activity. If activity was not attempted, code reason: 7-Patient Refused. 9-Not Applicable-not attempted and the patient did not perform the activity before the current illness, exacerbation or injury. 10-Not Attempted due to Environmental Limitations-(lack of equipment, weather restraints, etc.). 88-Not Attempted due to Medical Conditions or Safety Concerns. Pt. up in chair. He is pleasant and agrees to work with OT. Pt. adamently declines getting cleaned up, brushing teeth, or brushing hair. States, "I don't want to mess with that right now." Pt. does agree to work on his transfers, but after encouragement from OT. Pt. practices standing twice from chair, sit-stand with min the first time and mod assist the second. He seems confused as to where to put his hands, or how to sequence the steps. He stands each time approximately 45seconds -1minute. With cues he reaches back to sit. Pt. seems SOA when standing, but this seems more anxiety than actual SOA. Pt. has difficulty attending at times, as he is concerned with the precise positioning of each thing in the room. He asks the OT to move a different chair to a different location, and can't focus on standing until OT does. Once he is back in his chair he has difficulty focusing because his bedside table has been moved. He tells OT in exact detail where to move each thing. OT sets pt's chair alarm. Pt. has call light, water, and all needs are met at end of session. Education OT Patient Education: Correct positioning, Progress toward Goal/Update tx plan, Purpose of tx/functional activities, Reviewed precautions, Rehab process, Transfer techniques Teaching Recipient: Patient Teaching Methods: Demonstration, Discussion Response to Teaching: Verbalize Understanding, Return Demonstration OT Senior Living Goals Voucher Clerk Goals Time Frame: Oct 16, 2022 Eating (QC): 6 Oral Hygiene (QC): 6 Toileting Hygiene (QC): 6 Shower/Bathe Self (QC): 4 Upper Body Dressing (QC): 5 Lower Body Dressing (QC): 4 On/Off Footwear (QC): 4 Additional Goals: 1-Demonstrate ADL Tasks, 2-Verbalize Understanding, 3- ImproveStrength/Jessica 1=Demonstrate adherence to instructed precautions during ADL tasks. 2=Patient will verbalize/demonstrate understanding of assistive devices/modifications for ADL. 3=Patient will improve strength/tolerance for activity to enable patient to perform ADL's. OT Education/Plan Problem List/Assessment Assessment: Decreased Activ Tolerance, Decreased UE Strength, Dependent Transfers, Impaired Cognition, Impaired Funct Balance, Impaired I ADL's, Impaired Self-Care Skills Discharge Recommendations Plan/Recommendations: Continue POC Therapy Discharge Recommendati: Post Acute OT Treatment Plan/Plan of Care Treatment,Training & Education: Yes Patient would benefit from OT for education, treatment and training to promote independence in ADL's, mobility, safety and/or upper extremity function for ADL's. Plan of Care: ADL Retraining, Functional Mobility, UE Funct Exercise/Act Treatment Duration: Oct 16, 2022 Frequency: 3 times per week (3-5 times per week) Estimated Hrs Per Day: .25 hour per day Rehab Potential: Fair Time Start Time: 10:07 Stop Time: 10:23 DATE: Oct 06, 2022 Total Time Billed (hr/min): 16 Billed Treatment Time 1, FA DEBBIE MA OT Oct 06, 2022 11:14
[2022-10-06 11:27] VITALS: BP 157/71
[2022-10-06 15:34] VITALS: BP 147/67
[2022-10-06 19:37] VITALS: BP 149/69
[2022-10-07] VITALS (10 sets, daily range): BP systolic 131–184; BP diastolic 63–87
[2022-10-07] MEDS: RT-ALBUTEROL/IPRATROPIUM 3 ML (DUONEB) VIAL INH SCH ×3 (02:49→21:28)
[2022-10-07] MEDS: D5 1/2 NS W/KCL 20 MEQ/L 1,000 ML IV SCH ×2 (03:07→16:36)
[2022-10-07 06:58] LABS: BASOPHILS % (AUTO) 1 % (0-10); EOSINOPHILS # (AUTO) 0.2 10^3/uL (0.0-0.3); EOSINOPHILS % (AUTO) 3 % (0-10); HEMATOCRIT 27 % (40-54); HEMOGLOBIN 8.8 g/dL (13.3-17.7); LYMPHOCYTES # (AUTO) 0.6 10^3/uL (1.0-4.0); LYMPHOCYTES % (AUTO) 11 % (12-44); MEAN CORPUSCULAR HEMOGLOBIN 35 pg (25-34); MEAN CORPUSCULAR HGB CONC 32 g/dL (32-36); MEAN CORPUSCULAR VOLUME 107 fL (80-99); MEAN PLATELET VOLUME 10.8 fL (9.0-12.2); MONOCYTES # (AUTO) 0.5 10^3/uL (0.0-1.0); MONOCYTES % (AUTO) 9 % (0-12); NEUTROPHILS # (AUTO) 4.1 10^3/uL (1.8-7.8); NEUTROPHILS % (AUTO) 75 % (42-75); PLATELET COUNT 169 10^3/uL (130-400); WHITE BLOOD COUNT 5.5 10^3/uL (4.3-11.0)
[2022-10-07 07:18] LABS: CALCIUM 7.5 MG/DL (8.5-10.1); CREATININE SERUM 0.6 MG/DL (0.60-1.30); MAGNESIUM 1.7 MG/DL (1.6-2.4); PHOSPHORUS 2.6 MG/DL (2.3-4.7); POTASSIUM 4.7 MMOL/L (3.6-5.0)
[2022-10-07] MEDS: POTASSIUM CL 10MEQ/50ML IVPB 50 ML IV SCH (07:57)
[2022-10-07] MEDS: MAGNESIUM 1 GM/100 ML IVPB 100 ML IV SCH (07:58)
[2022-10-07] MEDS: KCL 20 MEQ TAB (K-DUR) PO SCH (07:58)
[2022-10-07] MEDS: MULTIVIT W/MINERALS TAB (THERAGRAN M) PO SCH (08:02)
[2022-10-07] MEDS: THIAMINE 100 MG (VITAMIN B-1) TAB PO SCH (08:02)
[2022-10-07] MEDS: NICOTINE 14 MG (NICODERM) PATCH TD SCH (09:35)
[2022-10-07] MEDS: DOCUSATE SODIUM 100 MG (COLACE) CAP PO SCH ×2 (09:35→21:00)
--- NOTE | 2022-10-07 09:35 | Physical Therapy Daily Note ---
PT Daily Note-Current Subjective Pt. on BSC upon entering room, having BM. Pt. initially declines Rx but when encouraged that PT can help him get stronger and get out of here pt. agreed. Pt. declined attempting to clean himself after BM , "you do it , I dont think I can" Pt. appeared to have OCD tendencies requesting all wrinkles be smoothed absolut winter perfectly out of his bed which was freshly made and several other insignificant items in room be moved exactly. "Thank you for your patience" Pain Numeric Pain Scale: 4 Location: Right Location Body Site: Thigh (and left thigh and leg) Pain Description: Ache Section J - Health Conditions 1. Rarely or not at all 2. Occasionally 3. Frequently 4. Almost constantly 8. Unable to answer Pain Effect on Sleep: 3 Pain Interference with Therapy: 3 Pain Interference w/Day-to-Day: 3 Appearance pt. removes his O2 frequently but is visibly SOB. O2 reinstated x 2 at 2 L with SOA contd, Mental Status Patient Orientation: Normal For Age Attachments: Oxygen (2L), IV Transfers SCALE: Activities may be completed with or without assistive devices. 3-Saabqtydeo-yghngtf completes the activity by him/herself with no assistance from a helper. 5-Set-up or Clean-up Assistance-helper sets up or cleans up; patient completes activity. [place] assists only prior to or following the activity. 4-Supervision or Touching Assistance-helper provides verbal cues and/or touching/steadying and/or contact guard assistance as patient completes activity. Assistance may be provided throughout the activity or intermittently. 3-Partial/Moderate Assistance-helper does LESS THAN HALF the effort. [place] lifts, holds or supports trunk or limbs, but provides less than half the effort. 2-Substantial/Maximal Assistance-helper does MORE THAN HALF the effort. [place] lifts or holds trunk or limbs and provides more than half the effort. 9-Hjsxcaaru-bqesxm does ALL the effort. Patient does none of the effort to complete the activity. Or, the assistance of 2 or more helpers is required for the patient to complete the activity. If activity was not attempted, code reason: 7-Patient Refused. 9-Not Applicable-not attempted and the patient did not perform the activity before the current illness, exacerbation or injury. 10-Not Attempted due to Environmental Limitations-(lack of equipment, weather restraints, etc.). 88-Not Attempted due to Medical Conditions or Safety Concerns. Sit to Stand (QC): 4 Chair/Zpl-pf-Eieuv Xfer(QC): 4 Toilet Transfer (QC): 4 Weight Bearing Right Lower Extremity: Right Weight Bearing/Tolerated Left Lower Extremity: Left Weight Bearing/Tolerated Gait Training Does the Patient Walk?: Yes Walk 10 feet (QC): 4 Gait Persons Needed: 1 Gait Assistive Device: FWW pt. is very slow, takes several standing rest breaks, wide MANUEL, needs mod assist to guide and move FWW and instruction to stay in safe position in FWW. ambulated 25 ft inside room, BSC to recliner, resistive Treatments toileting, sit to stands, gait, funct mob Assessment Current Status: Fair Progress PT Wax Pattern Assembler Goals Wax Pattern Assembler Goals PT Retirement Goals Time Frame: Oct 17, 2022 Roll Left & Right (QC): 6 Sit to Lying (QC): 6 Lying-Sitting on Side/Bed(QC): 6 Sit to Stand (QC): 6 Chair/Eun-xw-Vimgw Xfer(QC): 6 Toilet Transfer (QC): 6 Walk 10 feet (QC): 4 Walk 50ft with 2 Turns (QC): 4 Walk 150 ft (QC): 4 PT Plan Treatment/Plan Treatment Plan: Continue Plan of Care Treatment Plan: Bed Mobility, Education, Functional Activity Jessica, Functional Strength, Gait, Safety, Therapeutic Exercise, Transfers Treatment Duration: Oct 17, 2022 Frequency: 6 times per week Estimated Hrs Per Day: .25 hour per day Safety Risks/Education Patient Education: Gait Training, Transfer Techniques, Reviewed Precautions, Correct Positioning, Disease Process, Safety Issues Teaching Recipient: Patient Teaching Methods: Demonstration, Discussion Response to Teaching: Verbalize Understanding, Return Demonstration, Reinforcement Needed Time Time In: 900 Time Out: 930 DATE: Oct 07, 2022 Total Billed Treatment Time: 30 Total Billed Treatment 1,FA15m,GT15m YURI BROWN SWIMMING TEACHER Oct 07, 2022 09:35
[2022-10-07] MEDS: ENOXAPARIN 40 MG/0.4 ML (LOVENOX) SYR SC SCH (09:37)
[2022-10-07] MEDS: FOLIC ACID 1 MG TAB PO SCH (09:37)
[2022-10-07] MEDS: PATCH REMOVAL TP SCH (09:37)
--- NOTE | 2022-10-07 10:38 | Occ Therapy Progress Note ---
Therapy Progress Note OT tx attempted, pt adamantly refused OT tx on this date. OT educated pt on purpose and benefit of OT, he verbalized understanding, but continued to refuse tx, stating "I'm exhausted" and requesting a day to rest. OT will attempt tx again tomorrow per pt request. 1, refusal [id number] BERNIE VENTURA OT Oct 07, 2022 10:37
--- NOTE | 2022-10-07 13:35 | Progress Note - Hospitalist ---
Subjective HPI/CC On Admission Date Seen by Provider: Oct 07, 2022 Sher Cary is a 72 year old male with PMH subarachnoid hemorrhage, ventriculoperitoneal shunt, COPD, hepatitis C, who presented after a fall at home. He lives by himself. His neighbors found him down on the floor in the kitchen. He reports that he lost his balance. He is a poor historian. He denies pain. He denies shortness of breath. He denies abdominal pain, nausea, and vomit ing. He is awake and alert. He is oriented to person, place, month, and year. He is disoriented to city and thinks he is in [place]. We discussed his goals of care and he says he does not want CPR or a breathing machine. He wants to be DNR/DNI. He says he wants to go home and smoke cigarettes and drink whiskey. We attempted to call his DPOA, Darren, but he did not answer. Subjective/Events-last exam Pt reports doing well. No complaints. Asks if he can bum a spoke off of me. Focused Exam Lactate Level 10/05/22 07:06: Lactic Acid Level 1.37 Objective Exam Vital Signs Vital Signs Date Time Temp Pulse Resp B/P (MAP) Pulse Ox O2 Delivery O2 Flow Rate FiO2 10/07/22 12:00 37.2 104 20 131/87 (102) 97 Nasal Cannula 2.00 10/07/22 09:55 28 Capillary Refill : Less Than 3 Seconds General Appearance: No Apparent Distress Respiratory: Lungs Clear, No Respiratory Distress Cardiovascular: Regular Rate, Rhythm, No Murmur Neurologic/Psychiatric: Alert, Oriented x3, Normal Mood/Affect Results/Procedures Lab Laboratory Tests 10/07/22 06:31 Patient resulted labs reviewed. Imaging: Reviewed Imaging Films, Reviewed Imaging Report Assessment/Plan Assessment and Plan Assess & Plan/Chief Complaint Dehydration Fall from ground level Rhabdomyolysis- resolved Lactic acidosis IV fluids- decrease rate PT/OT Social work consulted- possible SNF placement Malnutrition Hypoalbuminemia Dysphagia ST consult- Minced and moist ordered Monitor electrolytes Hypoglycemia High anion gap metabolic acidosis Not diabetic D5 1/2 NS w/20KCl- decrease rate Possibly due to prolonged starvation SIRS leukocytosis resolved CXR, UA, blood cultures negative No infectious source identified Antibiotics deferred Alcohol abuse Tobacco abuse Nicotine patch Monitor for withdrawal symptoms Continue multivitamin, folate, thiamine Macrocytic anemia Mild anemia Possibly due to alcohol use Normal to high folic acid and B12 levels History of subarachnoid hemorrhage Ventriculoperitoneal shunt Clinically significant, no acute management needs DVT prophylaxis: BARON Moore MD Oct 07, 2022 1:35 pm
[2022-10-07] MEDS ORDERED: MULT-1137 PO (18:32)
--- NOTE | 2022-10-07 18:35 | Discharge Inst-Skilled Nursing ---
Discharge Inst-Skilled NF Chief Complaint Sher Cary is a 72 year old male with PMH subarachnoid hemorrhage, ventriculoperitoneal shunt, COPD, hepatitis C, who presented after a fall at home. He lives by himself. His neighbors found him down on the floor in the kitchen. He reports that he lost his balance. He is a poor historian. He denies pain. He denies shortness of breath. He denies abdominal pain, nausea, and vomiting. He is awake and alert. He is oriented to person, place, month, and year. He is disoriented to city and thinks he is in [place]. We discussed his goals of care and he says he does not want CPR or a breathing machine. He wants to be DNR/DNI. He says he wants to go home and smoke cigarettes and drink whiskey. We attempted to call his DPOA, Darren, but he did not answer. Consult/Follow Up/Orders Skilled NF Admit to: [facility] Certification (SNF) I certify that SNF services are required to be given on an inpatient basis because of the above named patient's need for retirement care on a continuing basis for the conditions(s) for which he/she was receiving inpatient hospital services prior to his/her transfer to the SNF. Residential Facility Order: Nursing Services, Logging Tractor Operator Swamp-Evaluate & Treat, Physical Therapy-Evaluate & Treat, Speech Language-Evaluate & Treat Oxygen Delivery Method: Nasal Cannula Discharge Diet: Soft Diet Resuscitation Status: Do Not Resuscitate New & Resume Previous Orders Baron Ayala Oct 07, 2022 18:33 BARON AYALA MD Oct 07, 2022 18:35
[2022-10-07] MEDS ORDERED: LORazepam INJ 2 MG/ML (ATIVAN) VIAL ONE (19:53)
[2022-10-07] MEDS ORDERED: LORazepam INJ 2 MG/ML (ATIVAN) VIAL IVP PRN (20:00)
[2022-10-07] MEDS ORDERED: 1/2 NS IV SOLUTION 1,000 ML IV PRN (21:30)
[2022-10-07] MEDS ORDERED: LORazepam INJ 2 MG/ML (ATIVAN) VIAL IM/IV PRN (21:30)
[2022-10-07] MEDS ORDERED: LORazepam 1 MG (ATIVAN) TAB PO PRN (21:30)
[2022-10-07] MEDS ORDERED: ONDANSETRON 4 MG/2 ML (SDV) Z0FRAN IV PRN (21:30)
[2022-10-07] MEDS ORDERED: LORazepam INJ 2 MG/ML (ATIVAN) VIAL IV PRN (21:30)
[2022-10-07] MEDS ORDERED: SENNA W/DOCUSATE (SENOKOT S) TABLET PO PRN (21:30)
[2022-10-07] MEDS ORDERED: ONDANSETRON 4 MG (ZOFRAN) ORAL DISSOLVE TAB SL PRN (21:30)
[2022-10-07] MEDS ORDERED: D5 1/2 NS 1000 ML IV SOLUTION 1,000 ML IV PRN (21:30)
[2022-10-07] MEDS ORDERED: ANTACID SUSP 30 ML UDC (MYLANTA) PO PRN (21:30)
[2022-10-07] MEDS: THIAMINE 100 MG/ML 2 ML (VITAMIN B-1) VIAL IV SCH (21:41)
--- NOTE | 2022-10-07 22:10 | Diagnostic Imaging Report ---
EXAMINATION: CT head without contrast. TECHNIQUE: Multiple contiguous axial images were obtained through the brain without the use of intravenous contrast. All CT scans use one or more of the following dose optimizing techniques: automated exposure control, MA and/or KvP adjustment based on patient size and exam type or iterative reconstruction. HISTORY: Seizure-like activity. COMPARISON: 10/03/2022. FINDINGS: There has been interval development of a left convexity subdural hematoma measuring approximately 0.4-0.5 cm in thickness. This appears superimposed on chronic subdural thickening along the left convexity. No midline shift. No large acute territorial ischemia. Stable area of encephalomalacia in the lateral right frontal lobe. 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 Stable right parietal approach AIRLINE RESERVATION AGENT shunt. The ventricles, cortical sulci and basilar cisterns are patent and unremarkable. The orbits are normal. Paranasal sinuses are normal. Mastoid air cells are clear. No soft tissue abnormality is seen. No osseus lesion or fracture is seen. IMPRESSION: 1. Interval development of acute on chronic left convexity subdural hematoma measuring 0.4-0.5 cm in thickness. No associated mass effect. This may represent over shunting and correlation with the right parietal approach AIRLINE RESERVATION AGENT shunt settings is recommended. 2. No large acute territorial ischemia. No hydrocephalus. Findings were called to the patient's nurse at 10:04 PM on 10/07/[address] Bryce Edward. Dictated by: Dictated on workstation # [id number]
[2022-10-08] MEDS ORDERED: ACETAMINOPHEN 650 MG SUPP (TYLENOL) PR PRN
[2022-10-08 04:44] VITALS: BP 129/80
[2022-10-08] MEDS: THIAMINE 100 MG (VITAMIN B-1) TAB PO SCH (05:15)
[2022-10-08] MEDS: MULTIVIT W/MINERALS TAB (THERAGRAN M) PO SCH (05:15)
[2022-10-08] MEDS: MAGNESIUM 1 GM/100 ML IVPB 100 ML IV SCH ×3 (06:00→07:56)
[2022-10-08] MEDS: POTASSIUM CL 10MEQ/50ML IVPB 50 ML IV SCH (06:00)
[2022-10-08] MEDS: KCL 20 MEQ TAB (K-DUR) PO SCH (06:00)
[2022-10-08 06:03] LABS: BASOPHILS % (AUTO) 1 % (0-10); EOSINOPHILS # (AUTO) 0.1 10^3/uL (0.0-0.3); EOSINOPHILS % (AUTO) 1 % (0-10); HEMATOCRIT 26 % (40-54); HEMOGLOBIN 8.5 g/dL (13.3-17.7); LYMPHOCYTES # (AUTO) 0.3 10^3/uL (1.0-4.0); LYMPHOCYTES % (AUTO) 5 % (12-44); MEAN CORPUSCULAR HEMOGLOBIN 35 pg (25-34); MEAN CORPUSCULAR HGB CONC 33 g/dL (32-36); MEAN CORPUSCULAR VOLUME 107 fL (80-99); MONOCYTES # (AUTO) 0.4 10^3/uL (0.0-1.0); MONOCYTES % (AUTO) 7 % (0-12); NEUTROPHILS # (AUTO) 5.1 10^3/uL (1.8-7.8); NEUTROPHILS % (AUTO) 86 % (42-75); PLATELET COUNT 191 10^3/uL (130-400); WHITE BLOOD COUNT 5.9 10^3/uL (4.3-11.0)
[2022-10-08 06:19] LABS: POTASSIUM 4.7 MMOL/L (3.6-5.0)
[2022-10-08 06:20] LABS: CALCIUM 7.9 MG/DL (8.5-10.1)
[2022-10-08 06:24] LABS: CREATININE SERUM 0.64 MG/DL (0.60-1.30); PHOSPHORUS 2.9 MG/DL (2.3-4.7)
[2022-10-08 06:27] LABS: MAGNESIUM 1.6 MG/DL (1.6-2.4)
[2022-10-08 08:00] VITALS: BP 106/59
[2022-10-08] MEDS: RT-ALBUTEROL/IPRATROPIUM 3 ML (DUONEB) VIAL INH SCH ×2 (08:03→22:10)
[2022-10-08] MEDS: DOCUSATE SODIUM 100 MG (COLACE) CAP PO SCH ×2 (08:22→20:11)
[2022-10-08] MEDS: FOLIC ACID 1 MG TAB PO SCH (08:22)
[2022-10-08] MEDS: THIAMINE INJECTION 100 MG, FOLIC ACID INJECTION 1 MG, MAGNESIUM SULFATE 2 GM, VITAMIN M... IV SCH ×5 (08:51)
[2022-10-08] MEDS: THIAMINE 100 MG/ML 2 ML (VITAMIN B-1) VIAL IV SCH ×2 (08:52→20:11)
[2022-10-08] MEDS: NICOTINE 14 MG (NICODERM) PATCH TD SCH (08:57)
[2022-10-08] MEDS: PATCH REMOVAL TP SCH (08:57)
--- NOTE | 2022-10-08 10:04 | Occ Therapy Progress Note ---
Therapy Progress Note OT tx attempted this AM, pt laying in bed, eyes barely open, lethargic. Pt grunting, but no verbal response to this therapist, and unable to follow instructions. Pt unable to actively participate in skilled OT services at this time. OT will attempt tx again at next available time. 1, visit [id number] BERNIE VENTURA OT Oct 08, 2022 10:04
--- NOTE | 2022-10-08 10:33 | Physical Therapy Progress Note ---
Therapy Progress Note Patient on Hold per RN due to decline in medical status. PT will continue to monitor patient status. RINA AQUINO PT Oct 08, 2022 10:33
--- NOTE | 2022-10-08 12:31 | Progress Note - Hospitalist ---
Subjective HPI/CC On Admission Date Seen by Provider: Oct 08, 2022 Sher Cary is a 72 year old male with PMH subarachnoid hemorrhage, ventriculoperitoneal shunt, COPD, hepatitis C, who presented after a fall at home. He lives by himself. His neighbors found him down on the floor in the kitchen. He reports that he lost his balance. He is a poor historian. He denies pain. He denies shortness of breath. He denies abdominal pain, nausea, and vomiting. He is awake and alert. He is oriented to person, place, month, and year. He is disoriented to city and thinks he is in [place]. We discussed his goals of care and he says he does not want CPR or a breathing machine. He wants to be DNR/DNI. He says he wants to go home and smoke cigarettes and drink whiskey. We attempted to call his DPOA, Darren, but he did not answer. Subjective/Events-last exam Reviewed events from last night. Saw patient around 0730 this AM. Arousable but certainly not as alert as yesterday. Called and spoke with Darren (DPOA) and his and updated him on events from last night and CT findings of SDH. They report that Faraz would not want any further neurosurgical interventions and would just like to be kept comfortable. Discussed plan to repeat CT head in AM and assess for progression. If stable can DC to NH on hospice but if he progresses further consider comfort care in the hospital. Objective Exam Vital Signs Vital Signs Date Time Temp Pulse Resp B/P (MAP) Pulse Ox O2 Delivery O2 Flow Rate FiO2 10/08/22 08:04 91 Nasal Cannula 2.00 10/08/22 08:00 37.4 114 26 106/59 (75) 10/07/22 09:55 28 Capillary Refill : Less Than 3 Seconds General Appearance: No Apparent Distress, Chronically ill Respiratory: Lungs Clear, No Respiratory Distress Cardiovascular: No Murmur, Tachycardia Neurologic/Psychiatric: Alert Results/Procedures Lab Laboratory Tests 10/08/22 05:53 Patient resulted labs reviewed. Imaging: Reviewed Imaging Films, Reviewed Imaging Report Assessment/Plan Assessment and Plan Assess & Plan/Chief Complaint Acute on chronic SDH Seizure Hold blood thinners Discussed with DPOA- no surgical intervention desired- defer transfer Repeat CT Head in AM If stable DC to NH with hospice tomorrow Ativan prn Dehydration Fall from ground level Rhabdomyolysis- resolved Lactic acidosis PT/OT as able Malnutrition Hypoalbuminemia Dysphagia ST consult- Minced and moist ordered Monitor electrolytes Hypoglycemia High anion gap metabolic acidosis Not diabetic D5 1/2 NS w/20KCl Possibly due to prolonged starvation Alcohol abuse Tobacco abuse Nicotine patch Monitor for withdrawal symptoms Continue multivitamin, folate, thiamine Macrocytic anemia Mild anemia Possibly due to alcohol use Normal to high folic acid and B12 levels History of subarachnoid hemorrhage Ventriculoperitoneal shunt Clinically significant, no acute management needs DVT prophylaxis: BARON Moore MD Oct 08, 2022 12:31
[2022-10-08 12:32] VITALS: BP 90/70
[2022-10-08] MEDS ORDERED: LORazepam ORAL CONCENTRATE 2 MG/ML 30 ML (ATIVAN) PO PRN (12:45)
[2022-10-08] MEDS: D5 1/2 NS W/KCL 20 MEQ/L 1,000 ML IV SCH (15:43)
[2022-10-08 16:13] VITALS: BP 116/54
[2022-10-08 19:29] VITALS: BP 130/58
[2022-10-09 00:15] VITALS: BP 155/68
[2022-10-09 04:35] VITALS: BP 144/67
[2022-10-09] MEDS: MULTIVIT W/MINERALS TAB (THERAGRAN M) PO SCH (06:14)
[2022-10-09] MEDS: THIAMINE 100 MG (VITAMIN B-1) TAB PO SCH (06:14)
[2022-10-09] MEDS ORDERED: MULT-1137 PO (07:03)
[2022-10-09 07:14] LABS: BASOPHILS % (AUTO) 1 % (0-10); EOSINOPHILS # (AUTO) 0.1 10^3/uL (0.0-0.3); EOSINOPHILS % (AUTO) 1 % (0-10); HEMATOCRIT 27 % (40-54); HEMOGLOBIN 8.8 g/dL (13.3-17.7); LYMPHOCYTES # (AUTO) 0.4 10^3/uL (1.0-4.0); LYMPHOCYTES % (AUTO) 4 % (12-44); MEAN CORPUSCULAR HEMOGLOBIN 35 pg (25-34); MEAN CORPUSCULAR HGB CONC 33 g/dL (32-36); MEAN CORPUSCULAR VOLUME 107 fL (80-99); MEAN PLATELET VOLUME 11.2 fL (9.0-12.2); MONOCYTES # (AUTO) 0.6 10^3/uL (0.0-1.0); MONOCYTES % (AUTO) 7 % (0-12); NEUTROPHILS # (AUTO) 7.6 10^3/uL (1.8-7.8); NEUTROPHILS % (AUTO) 87 % (42-75); PLATELET COUNT 195 10^3/uL (130-400); WHITE BLOOD COUNT 8.7 10^3/uL (4.3-11.0)
[2022-10-09 07:35] LABS: CALCIUM 7.7 MG/DL (8.5-10.1); CREATININE SERUM 0.63 MG/DL (0.60-1.30); PHOSPHORUS 2.5 MG/DL (2.3-4.7); POTASSIUM 4.5 MMOL/L (3.6-5.0)
[2022-10-09] MEDS: POTASSIUM CL 10MEQ/50ML IVPB 50 ML IV SCH (07:39)
[2022-10-09] MEDS: MAGNESIUM 1 GM/100 ML IVPB 100 ML IV SCH (07:40)
[2022-10-09] MEDS: KCL 20 MEQ TAB (K-DUR) PO SCH (07:40)
[2022-10-09] MEDS: RT-ALBUTEROL/IPRATROPIUM 3 ML (DUONEB) VIAL INH SCH (08:19)
[2022-10-09] MEDS: THIAMINE INJECTION 100 MG, FOLIC ACID INJECTION 1 MG, MAGNESIUM SULFATE 2 GM, VITAMIN M... IV SCH ×5 (08:34)
[2022-10-09] MEDS: NICOTINE 14 MG (NICODERM) PATCH TD SCH (08:34)
[2022-10-09] MEDS: DOCUSATE SODIUM 100 MG (COLACE) CAP PO SCH (08:34)
[2022-10-09] MEDS: FOLIC ACID 1 MG TAB PO SCH (08:38)
[2022-10-09] MEDS: PATCH REMOVAL TP SCH (08:39)
[2022-10-09] MEDS: THIAMINE 100 MG/ML 2 ML (VITAMIN B-1) VIAL IV SCH (08:39)
[2022-10-09 08:48] VITALS: BP 112/63
[2022-10-09 11:06] VITALS: BP 132/56
--- NOTE | 2022-10-09 11:14 | Occupational Ther Daily Note ---
OT Current Status-Daily Note Subjective Pt in bed, agreeable to OT Tx. ADL-Treatment Therapy Code Descriptions/Definitions Functional [place] Measure: 0=Not Assessed/NA 4=Minimal Assistance 1=Total Assistance 5=Supervision or Setup 2=Maximal Assistance 6=Modified [place] 3=Moderate Assistance 7=Complete IndependenceSCALE: Activities may be completed with or without assistive devices. 7-Sgtuqxtsbq-vcyfakf completes the activity by him/herself with no assistance from a helper. 5-Set-up or Clean-up Assistance-helper sets up or cleans up; patient completes activity. [place] assists only prior to or following the activity. 4-Supervision or Touching Assistance-helper provides verbal cues and/or touching/steadying and/or contact guard assistance as patient completes activity. Assistance may be provided throughout the activity or intermittently. 3-Partial/Moderate Assistance-helper does LESS THAN HALF the effort. [place] lifts, holds or supports trunk or limbs, but provides less than half the effort. 2-Substantial/Maximal Assistance-helper does MORE THAN HALF the effort. [place] lifts or holds trunk or limbs and provides more than half the effort. 5-Qnvhwozfx-ihptfx does ALL the effort. Patient does none of the effort to complete the activity. Or, the assistance of 2 or more helpers is required for the patient to complete the activity. If activity was not attempted, code reason: 7-Patient Refused. 9-Not Applicable-not attempted and the patient did not perform the activity befo re the current illness, exacerbation or injury. 10-Not Attempted due to Environmental Limitations-(lack of equipment, weather re straints, etc.). 88-Not Attempted due to Medical Conditions or Safety Concerns. Other Treatment Pt in recliner, in order to increase BUE Strength and activity tolerance, pt completed x10 reps each of the following BUE AAROM: shoulder flexion, front punch, elbow flexion/extension. OT assisted pt with applying lotion to chest and back due to noted dry skin. Post tx, pt in bed, call light in reach and all needs met, telesitter present. Education OT Patient Education: Correct positioning, Energy conservation, Exercise program, Modified ADL techniques, Progress toward Goal/Update tx plan, Purpose of tx/functional activities, Rehab process Teaching Recipient: Patient Teaching Methods: Demonstration Response to Teaching: Return Demonstration OT Long-Term Goals Long-Term Goals Time Frame: Oct 16, 2022 Eating (QC): 6 Oral Hygiene (QC): 6 Toileting Hygiene (QC): 6 Shower/Bathe Self (QC): 4 Upper Body Dressing (QC): 5 Lower Body Dressing (QC): 4 On/Off Footwear (QC): 4 Additional Goals: 1-Demonstrate ADL Tasks, 2-Verbalize Understanding, 3-ImproveStrength/Jessica 1=Demonstrate adherence to instructed precautions during ADL tasks. 2=Patient will verbalize/demonstrate understanding of assistive devices/modifications for ADL. 3=Patient will improve strength/tolerance for activity to enable patient to perform ADL's. OT Education/Plan Problem List/Assessment Assessment: Decreased Activ Tolerance, Decreased Safety Aware, Decreased UE Strength, Impaired Cognition, Impaired Funct Balance, Impaired I ADL's, Impaired Self-Care Skills Discharge Recommendations Plan/Recommendations: Continue POC Treatment Plan/Plan of Care Patient would benefit from OT for education, treatment and training to promote independence in ADL's, mobility, safety and/or upper extremity function for ADL's. Plan of Care: ADL Retraining, Functional Mobility, UE Funct Exercise/Act Treatment Duration: Oct 16, 2022 Frequency: 3 times per week (3-5 times per week) Estimated Hrs Per Day: .25 hour per day Rehab Potential: Fair Time Start Time: 10:51 Stop Time: 11:00 DATE: Oct 09, 2022 Total Time Billed (hr/min): 9 Billed Treatment Time 1, EX BERNIE VENTURA OT Oct 09, 2022 11:14
--- NOTE | 2022-10-09 13:04 | Discharge Summary ---
Diagnosis/Chief Complaint Date of Admission Oct 04, 2022 at 16:39 Date of Discharge Discharge Date: Oct 09, 2022 Admission Diagnosis Rhabdomyolysis Primary Care Walker Cruz MD Discharge Diagnosis (1) Rhabdomyolysis Status: Acute (2) Fall from ground level Status: Acute (3) Debility Status: Acute (4) Lactic acidosis Status: Acute (5) SIRS (systemic inflammatory response syndrome) Status: Acute (6) Malnutrition Status: Acute (7) Hypoalbuminemia Status: Acute (8) Dysphagia Status: Acute (9) Alcohol abuse Status: Chronic (10) Tobacco abuse Status: Chronic (11) Macrocytic anemia Status: Acute (12) History of subarachnoid hemorrhage Status: Chronic (13) Status post ventriculoperitoneal shunt Status: Chronic (14) Dehydration Status: Acute (15) Pressure sore Status: Acute (16) COPD (chronic obstructive pulmonary disease) Status: Chronic (17) FTT (failure to thrive) in adult Status: Acute (18) Non-diabetic hypoglycemia Status: Acute (19) High anion gap metabolic acidosis Status: Acute Discharge Summary Discharge Physical Exam Allergies: Coded Allergies: No Known Drug Allergies (Unverified , 09/24/21) Vitals & I&Os Vital Signs Date Time Temp Pulse Resp B/P (MAP) Pulse Ox O2 Delivery O2 Flow Rate FiO2 10/09/22 11:06 37.1 107 19 132/56 (81) Nasal Cannula 2.00 10/09/22 08:48 93 10/07/22 09:55 28 General Appearance: Chronically ill, Thin Respiratory: Lungs Clear, No Respiratory Distress Cardiovascular: Regular Rate, Rhythm, No Murmur Neurologic/Psychiatric: Alert, Oriented x3 Hospital Course Patient was admitted to the hospital secondary to rhabdomyolysis due to a fall with acute kidney injury. He was treated with IV fluids and did well. He was seen by physical therapy and was to discharge to a [facility] but the night before planned discharge he had a seizure and CT head was done which showed acute on chronic subdural hematoma. Despite these findings he was clinically stable and returned to his baseline mentation. A repeat CT head 24 hours later was done and was stable. I discussed with patient's DPOA regarding goals of care and whether or not he would want aggressive surgical intervention for this and the DPOA stated that the patient would not. They elected to not transfer or pursue neurosurgical evaluation and to continue plan to discharge to assisted. We did discuss potential hospice but that will be addressed on an outpatient status. Labs (last 24 hrs) Laboratory Tests 10/09/22 12:40: Glucometer 109 Microbiology 10/03/22 Blood Culture - Final, Complete No growth Patient resulted labs reviewed. Pending Labs Imaging: Reviewed Imaging Films, Reviewed Imaging Report Discussion & Recommendations Discharge Planning: >30 minutes discharge planning Discharge Home Medications: Active Scripts Active Tab-A-Danish Multivit with Iron (Multivitamin/Iron/Folic Acid) 18 Mg Iron-400 Mcg Tablet 1 Ea PO DAILY@0700 Instructions to patient/family Please see electronic discharge instructions given to patient. Problem Qualifiers (1) Rhabdomyolysis: Rhabdomyolysis type: non-traumatic Qualified Codes: M62.82 - Rhabdomyolysis (2) Malnutrition: Malnutrition type: protein-calorie malnutrition BARON MARIEE MD Oct 09, 2022 13:04
--- NOTE | 2022-10-09 14:13 | Diagnostic Imaging Report ---
PROCEDURE: CT head without contrast. TECHNIQUE: Multiple contiguous axial images were obtained through the brain without the use of intravenous contrast. Auto Exposure Controls were utilized during the CT exam to meet ALARA standards for radiation dose reduction. INDICATION: Follow-up subdural hematoma. Correlation is made prior head CT 10/07/2022. Right-sided GARDEN EQUIPMENT [employer]CH[employer]IC shunt remains in place. Overall ventricular size is stable. The shallow mixed density subdural along the left cerebral convexity appears stable when compared with prior exam. No new area of hemorrhage is detected. There is no midline shift. Cisterns are patent. 3 aneurysm coils from prior a basilar tip aneurysm coiling are again noted. IMPRESSION: Stable noncontrast head CT with stable mixed density subdural fluid collection along the left cerebral convexity when compared with prior exam from 10/07/2022. No new abnormality is detected. Dictated by: Dictated on workstation # [id number]
== END 2022-10-09 16:09 | DRG 565 ==
LOC: EDUNIT# 16:12 → ER FS 16:16 → 4TH 10-04 00:35 → OBSVTOIN 10-04 16:39
PROVIDERS: ADMIT Internal Medicine; ATTEND Internal Medicine
DX: T79.6XXA Traumatic ischemia of muscle, initial encounter (principal); E46 Unspecified protein-calorie malnutrition; E87.20 Acidosis, unspecified; R65.10 Systemic inflammatory response syndrome (SIRS) of non-infectious origin without acute organ dysfunction; N17.9 Acute kidney failure, unspecified; Z68.1 Body mass index [BMI] 19.9 or less, adult; Z51.5 Encounter for palliative care; Z66 Do not resuscitate; W18.30XA Fall on same level, unspecified, initial encounter; R13.10 Dysphagia, unspecified; E88.09 Other disorders of plasma-protein metabolism, not elsewhere classified; E16.2 Hypoglycemia, unspecified; F10.10 Alcohol abuse, uncomplicated; F17.210 Nicotine dependence, cigarettes, uncomplicated; D64.9 Anemia, unspecified; Z98.2 Presence of cerebrospinal fluid drainage device; J44.9 Chronic obstructive pulmonary disease, unspecified; Z99.81 Dependence on supplemental oxygen; Z20.822 Contact with and (suspected) exposure to COVID-19; R62.7 Adult failure to thrive; E86.0 Dehydration; L89.90 Pressure ulcer of unspecified site, unspecified stage
CPT/HCPCS: 36415; 51702; 70450; 71045; 72125; 80048; 80053; 81000; 82010; 82550; 82607; 82746; 82947; 83605; 83735; 84100; 84145; 84425; 84484; 85007; 85025; 85027; 87040; 87636; 90662; 93005; 94640; 94760; G0378

== ENCOUNTER 2022-10-10 10:18 | Emergency (ER) | payer MEDICARE, OTHER ==
[~2022-10-10] VITALS: Ht 173 cm; Wt 60.9 kg
[~2022-10-10 10:18] MED LIST: MULT-1137 PO
--- NOTE | 2022-10-10 10:43 | ED General ---
General Chief Complaint: General Problems/Pain Stated Complaint: LETHARGY Nursing Triage Note: PT TO [facility] WITH WEAKNESS, LETHARGIC AND LOW O2. PT IS ON O2 3 LPM ALL THE TIME. 97% ON 3 LPM AT TRIAGE. PT IS [facility]. 35.3 TEMP, WARM BLANKETS APPLIED Source of Information: Patient Exam Limitations: No Limitations History of Present Illness Date Seen by Provider: Oct 10, 2022 Time Seen by Provider: 10:32 Initial Comments 72-year-old male presents from [facility] for reported decreased breath sounds on the right side and what they reported as possible slurred speech this morning. He was just discharged from our facility yesterday. He had a subdural hematoma and generalized deconditioning, alcohol abuse. [facility] and discussion once he was medically optimized and whether or not they wanted to pursue hospice versus other care based on his progression. On arrival he has no specific complaints. He is alert, oriented with no pain. He has no slurred speech. He denies any weakness numbness or tingling anywhere. he states he does not feel short of breath. Allergies and Home Medications Allergies Coded Allergies: No Known Drug Allergies (Unverified , 09/24/21) Patient Home Medication List Home Medication List Reviewed: Yes Multivitamin/Iron/Folic Acid (Tab-A-Danish Multivit with Iron) 18 Mg Iron-400 Mcg Tablet, 1 EA PO DAILY@0700 Prescribed by: BARON MARIEE on 10/09/22 0703 Review of Systems Review of Systems Constitutional: no symptoms reported EENTM: no symptoms reported Respiratory: no symptoms reported Cardiovascular: no symptoms reported Gastrointestinal: no symptoms reported Genitourinary: no symptoms reported Musculoskeletal: no symptoms reported Skin: no symptoms reported Psychiatric/Neurological: No Symptoms Reported Hematologic/Lymphatic: No Symptoms Reported Immunological/Allergic: no symptoms reported Past Ruxbmxv-Hlbpco-Drprrp Hx Patient Social History Tobacco Use?: Yes Tobacco type used: Cigarettes Use of E-Cig and/or Vaping dev: No Substance use?: No Alcohol Use?: Yes Alcohol type: Hard Liquor Past Medical History Surgery/Hospitalization HX: Brain aneurysm treated at [facility], 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 oz. kg; 20.00 BMI Method: General Appearance: No Apparent Distress, Thin HEENT: PERRL/EOMI, TMs Normal, Normal ENT Inspection, Other Neck: Normal Inspection, Non Tender, Supple Respiratory: Chest Non Tender, Lungs Clear, No Accessory Muscle Use, No Respiratory Distress, Rhonci Cardiovascular: Regular Rate, Rhythm, No Edema, No Gallop, No JVD, No Murmur, Normal Peripheral Pulses Gastrointestinal: Normal Bowel Sounds, No Organomegaly, No Pulsatile Mass, Non Tender, Soft Back: Normal Inspection, No CVA Tenderness, No Vertebral Tenderness Extremity: Normal Capillary Refill, Normal Inspection, Normal Range of Motion, Non Tender, No Calf Tenderness, No Pedal Edema Neurologic/Psychiatric: Alert, Oriented x3, No Motor/Sensory Deficits, Normal M ood/Affect, servomechanism designer II-XII Norm as Tested Skin: Normal Color, Warm/Dry Progress/Results/Core Measures Suspected Sepsis SIRS Temperature: Pulse: 96 Respiratory Rate: 18 Blood Pressure 135 /62 Mean: 86 Results/Orders Vital Signs/I&O 10/10/22 10/10/22 10:24 10:31 Temp 35.3 Pulse 96 Resp 18 B/P (MAP) 135/62 (86) Pulse Ox 97 O2 Delivery Nasal Cannula Nasal Cannula O2 Flow Rate 3.00 3.00 Capillary Refill : Less Than 3 Seconds Blood Pressure Mean: 86 Departure Communication (Admissions) I spoke with the patient and his family at about his care. He has possibly had slurred speech earlier in the day that is not present on exam today. Regardless I think if he would have had slurred speech it was likely related to subdural hematoma which he and the family already decided not to pursue any further treatment outside of rehab. He has equal breath sounds bilaterally though he does have significant rhonchi bilaterally his oxygen saturations are normal and he has no respiratory distress and no subjective concerns related to this. He wishes no further interventions here in the emergency department has no concerns at this time. Given his family, DPOA who agrees I spoke with Dr. Phelps who discharged the patient yesterday. She actually came down to evaluate him and states that she believes he is in the same condition he was upon discharge yesterday. He can be discharged back to [facility] is an otherwise stable condition. Impression Primary Impression: Fatigue Qualified Codes: R53.83 - Other fatigue Disposition: HOME, SELF-CARE Condition: Stable Departure-Patient Inst. Referrals: SHIRLEY CANTU MD (PCP/Family) Primary Care Physician Patient Instructions: Fatigue Add. Discharge Instructions: We have spoken to SHAHAB Banks. He has no physical exam findings on arrival here and his vital signs are stable. They wish no further interventions at this time and discharged back to longterm facility for rehab at least as best as he can get in and then will decide further to go forward with hospice or long-term care facility. All discharge instructions reviewed with patient and/or family. Voiced understanding. SHELLY SCHULZ DO Oct 10, 2022 10:42
[2022-10-10 12:30] VITALS: BP 132/66
== END 2022-10-10 12:30 | disposition home or self-care (01) ==
LOC: EDUNIT# 10:18 → ER 10:20
DX: R53.83 Other fatigue (principal); F17.210 Nicotine dependence, cigarettes, uncomplicated; J44.9 Chronic obstructive pulmonary disease, unspecified; Z99.81 Dependence on supplemental oxygen
CPT/HCPCS: 99283

== ENCOUNTER 2022-10-11 06:33 | Emergency (ER) | payer MEDICARE, OTHER ==
[2022-10-11 06:33] VITALS: BP 136/64
--- NOTE | 2022-10-11 06:51 | ED CPR ---
HPI-CPR General Chief Complaint: Code Blue Source of Information: EMS Exam Limitations: Other (unresponsive) History of Present Illness Date Seen by Provider: Oct 11, 2022 Time Seen by Provider: 06:30 Initial Comments 72-year-old male presents via EMS for decreased oxygen saturation. He resides at [facility] and was seen here yesterday. He was recently discharged for deconditioning after subdural hematoma. He is an alcoholic and his family is aware that he is a very poor health and they have been considering hospice recently however they decided to send him to long term to "get him the best that they can" prior to making that decision. EMS was called for decreased oxygen saturation. Upon talking to the DPOA yesterday I noted that there requests were that the patient would not want CPR or intubation. On arrival CPR is in progress and he has a I gel with bag mask ventilation in progress. I spoke with Darren ([facility]) immediately upon the patient's arrival who confirms that they would wish only for comfort care. He states "we knew this was coming." He specifically states the patient would not want CPR should it be required and he would not want to be on the ventilator. I-gel was removed and oxy mask placed. 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 oz. kg; 20.00 BMI Method: General Appearance: Other (unresponsive) HEENT: Other (pupils dilated, sluggish) Respiratory: Decreased Breath Sounds, Rhonci, Other (bradypnea) Cardiovascular: Bradycardia Gastrointestinal: Normal Bowel Sounds, No Organomegaly, Non Tender, Soft Extremity: Slow Capillary Refill Neurologic/Psychiatric: Other (Unresponsive) Skin: Pallor Progress/Results/Core Measures Results/Orders Vital Signs/I&O 10/11/22 06:33 Pulse 69 Resp 14 B/P (MAP) 136/64 (88) O2 Delivery Ambu Bag Departure Communication (Admissions) 0645: On arrival CPR is in progress with bag mask ventilation. Spoke with SHAHAB Banks immediately upon patient arrival who confirms patient and family wish only comfort measures. We stopped CPD and assisted ventilation and he had an organized bradycardic rhythm. I am unable to palpate a pulse but US confirms weak cardiac activity. He is breathing 7x/min unassisted and is hypoxic. Will proceed with comfort measures with expected likely soon. 0651: bradycardia devolved to asystole. No spontaneous respiration, no pulse. TOD 0651 Impression Primary Impression: Respiratory failure Qualified Codes: J96.21 - Acute and chronic respiratory failure with hypoxia; J96.22 - Acute and chronic respiratory failure with hypercapnia Additional Impression: Bradycardia Disposition: 20 Condition: Departure-Patient Inst. Referrals: SHIRLEY CANTU MD (PCP/Family) Primary Care Physician SHELLY SCHULZ DO Oct 11, 2022 06:51
== END 2022-10-11 08:50 | disposition expired ==
LOC: ER 06:36 → EDUNIT# 06:36 → ER 08:50
DX: J96.90 Respiratory failure, unspecified, unspecified whether with hypoxia or hypercapnia (principal); R00.1 Bradycardia, unspecified; J44.9 Chronic obstructive pulmonary disease, unspecified; Z99.81 Dependence on supplemental oxygen
CPT/HCPCS: 99283